=== PATIENT | male | born 1975 | race Two or more races ===

== ENCOUNTER 2020-08-08 17:14 | Emergency (ER) | payer OTHER, SELFPAY ==
--- NOTE | 2020-08-08 | CT_ITS ---
EXAMINATION: CT ABDOMEN AND PELVIS WITHOUT CONTRAST CLINICAL INFORMATION: Hematuria COMPARISON: None TECHNIQUE: Multidetector volumetric imaging was performed from the superior aspect of the liver through the pubic symphysis. Sagittal and coronal reformatted images were obtained on the technologist's workstation. This CT examination was performed using dose optimization techniques as appropriate, variously including the following: *Automated exposure control *Adjustment of mA and/or kV according to patient size (this includes techniques or standardized protocols for targeted exams where dose is matched to indication/reason for exam; i.e. extremities or head) *Use of iterative reconstruction technique DLP: 1105 mGy-cm FINDINGS: LUNG BASES: The visualized lung bases are unremarkable. LIVER, GALLBLADDER, AND BILIARY TREE: The liver is normal in size, shape, and attenuation. No focal hepatic lesion or biliary ductal dilatation is present. The gallbladder is contracted. There is no bile duct dilatation. PANCREAS: Unremarkable. SPLEEN: Unremarkable. ADRENAL GLANDS: Unremarkable. KIDNEYS AND URETERS: Right kidney: No calculus or hydronephrosis. No dilatation of ureter. Left kidney: Approximately 5 stones measuring 1 mm and smaller is seen scattered in the left kidney. There is mild hydronephrosis of left kidney to the ureterovesical junction. No ureteral stone is seen. BLADDER: Unremarkable. GASTROINTESTINAL TRACT: The small and large bowel are unremarkable. The appendix is likely surgically absent. It is not visualized. There are surgical clips in the mesentery in the right lower quadrant.. There is no inflammation or fluid in mesentery. ABDOMINAL WALL: No significant hernia is appreciated. LYMPH NODES: Normal. VASCULAR: Unremarkable. PELVIC VISCERA: Unremarkable. OSSEOUS STRUCTURES: Unremarkable. IMPRESSION: Multiple small left renal stones. Mild hydronephrosis of the left ureter to the ureterovesical junction but no ureteral stone
[2020-08-08 20:38] VITALS: BP 148/99; PULSE 71; RESP 16; TEMP 37.1; O2SAT 99; BMI 100.1
--- NOTE | 2020-08-08 21:19 | ED_ITS ---
HPI - General Adult General Chief complaint: General Medical Stated complaint: GENITAL PAIN Time Seen by Provider: 08/08/20 21:18 Source: patient Mode of arrival: ambulatory Limitations: no limitations History of Present Illness complaint: testicular pain Onset (ago): hour(s) (7) Radiation: non-radiation Severity: moderate Quality: burning Related Data Previous Rx's Medication Instructions Recorded naproxen [Naprosyn] 500 mg PO BID #20 tab 08/09/20 tamsulosin [Flomax] 0.4 mg PO DAILY #10 cap 08/09/20 Allergies Allergy/AdvReac Type Severity Reaction Status Date / Time oxycodone [From PERCOCET] Allergy Intermediate ITCHING, Verified 08/08/20 22:29 rash and itching, itching acetaminophen [Percocet] Allergy Unknown itching Verified 08/08/20 22:29 Codeine Sulfate Allergy Unknown rash and Uncoded 06/02/20 00:00 itching Review of Systems Constitutional: Constitutional: Reports no additional constitutional complaints Eyes: Eyes: Reports no additional eye complaints ENT: Denies dizziness Cardiovascular: Cardiovascular: Reports no additional cardiovascular complaints Respiratory: Respiratory: Reports as per HPI Gastrointestinal: Gastrointestinal: Reports no additional gastrointestinal complaints Genitourinary: Genitourinary: Reports difficulty urinating Comments: hematuria Musculoskeletal: Musculoskeletal: Reports no additional musculoskeletal complaints Integumentary/Breasts: Skin/Breast: Denies rash Neurologic: Reports system reviewed and no additional complaints, except as documented, Denies dizziness and Denies Sensory deficit (Neuro) Psychiatric: Psychiatric: Denies anxiety [facility] Past Medical History Medical History (Updated 08/09/20 @ 00:01 by Jimmy Hernandez MD) High cholesterol Social History Social History Advance Directives: No Advance Directives Information Provided: Yes Physical Exam Vital Signs and I&O and Narrative: Vital Signs and I&O: Vital Signs Temp 98.6 F 08/08/20 22:00 Pulse 57 08/08/20 22:00 Resp 18 08/08/20 22:00 BP 127/83 08/08/20 22:00 Pulse Ox 97 08/08/20 22:00 Intake & Output 08/08/20 08/08/20 08/09/20 06:59 18:59 06:59 Weight 290 kg Body Mass Index 100.1 Const: Nutritional Appearance: obese Orientation/consciousness: oriented to person and patient oriented x3 Limitations: no limitations HENMT: Head: Yes normal to inspection Ears: external ears normal General nose exam: Normal external nose present Mouth: Normal oral and palatal mucosa present and oropharynx normal Throat: Yes posterior oropharynx normal Eyes: General: appearance normal, both eyes and all related structures Neck: Other: supple Neck: Yes normal visual inspection Chest: Chest palpation & inspection: normal inspection of the chest Resp: Auscultation: clear to auscultation bilaterally Cardio: Jugular venous distension: no JVD Rate: regular rate Rhythm: regular rhythm Heart sounds: S1 normal heart sound present and S2 normal heart sound present GI: Inspection: Yes normal to inspection Palpation (GI): Soft to palpation, nontender and No hepatosplenomegaly present Auscultation: normal bowel sounds : Other: penis and testicles are normal General: Yes no CVA tenderness Back/Spine/Pelvis: Back: no CVA tenderness Skin: General skin exam: no rashes or lesions noted Neuro: General: oriented to person and patient oriented x3 Cranial nerves: Yes CN's II-XII intact bilaterally Motor exam (neuro): 5/5 motor strength present throughout Sensory Exam: No Sensory deficit (Neuro) Extrem: General: Yes normal to inspection Psych: Appearance: grossly normal Course Reevaluation(s) Reevaluation #1: CT show hydro but no stone consistent with passed stone will dc home Medical Decision Making MDM Narrative Medical decision making narrative: Patient with signs and symptoms of renal colic, Ct shows hydro Lab Data Labs: Lab Results 08/08/20 Range/Units 22:15 Urine Color YELLOW Urine Appearance CLEAR Urine pH 5.5 (5.0-8.0) Ur Specific [place] 1.025 (1.005-1.025) Urine Protein NEG (NEG-TRACE) MG/DL Urine Glucose (UA) NEG (NEG) MG/DL Urine Ketones NEG (NEG) MG/DL Urine Blood 3+ H (NEG) Urine Nitrite NEG (NEG) Ur Leukocyte Esterase NEG (NEG) Discharge Plan Discharge Clinical Impression: Dysuria, Calculus of kidney Patient Disposition: Home, Self-Care Instructions: Kidney Stones (ED) Additional Instructions: fluids as tolerated Prescriptions: New naproxen [Naprosyn] 500 mg tablet 500 mg PO BID Qty: 20 RF: 0 tamsulosin [Flomax] 0.4 mg capsule 0.4 mg PO DAILY Qty: 10 RF: 0
[2020-08-08 22:00] VITALS: BP 127/83; PULSE 57; RESP 18; TEMP 37; O2SAT 97
--- NOTE | 2020-08-08 22:21 | PC.NURSE ---
needed to wake patient for urine sample and medication administration. pt reports he is still experiencing 8/10 pain.
[2020-08-08] MEDS: Ketorolac Tromethamine 60 MG/2 ML VIAL IM (22:30)
--- NOTE | 2020-08-08 22:43 | PC.NURSE ---
pain pt states after he was medicated his pain decreased to 0/10, vss, will continue to monitor
[2020-08-08 23:24] LABS: Glucose Urine UA NEG (NEG); Leukocyte Esterase Urine NEG (NEG); Nitrite Urine NEG (NEG); PH 5.5 (5.0-8.0); Specific Gravity - Urine 1.025 (1.005-1.025); Urine Blood 3+ (NEG); Urine Ketones NEG (NEG); Urine Protein NEG (NEG-TRACE)
[2020-08-08 23:26] LABS: Appearance Urine CLEAR; Color Urine YELLOW
[2020-08-08 23:59] LABS: Mucus Urine 1+ /LPF; RBC Urine 30-49 /HPF (0); Squamous Epithelial Cell Urine 1+ /LPF; WBC Urine 0-2 /HPF (0-4)
== END 2020-08-09 | disposition home or self-care (01) ==
PROVIDERS: Emergency Provider Emergency Medicine; PCP Internal Medicine
DX: R30.0 Dysuria (principal); N20.0 Calculus of kidney; E78.00 Pure hypercholesterolemia, unspecified; Z79.899 Other long term (current) drug therapy
CPT/HCPCS: 74176; 81001; 96372; 99284; J1885

== ENCOUNTER 2020-09-02 11:13 | Outpatient (REF) | payer OTHER, SELFPAY | END 2020-09-02 11:14 | disposition home or self-care (01) | LOC: HO.LAB 11:13 | PROVIDERS: Visit Provider Internal Medicine | DX: Z20.828 Contact with and (suspected) exposure to other viral communicable diseases (principal) | CPT/HCPCS: 87635 ==

== ENCOUNTER 2020-09-16 12:35 | Outpatient (REF) | payer OTHER, SELFPAY | END 2020-09-16 12:36 | disposition home or self-care (01) | LOC: HO.LAB 12:35 | PROVIDERS: PCP Internal Medicine; Visit Provider Internal Medicine | DX: Z20.828 Contact with and (suspected) exposure to other viral communicable diseases (principal) | CPT/HCPCS: C9803; U0003 ==

== ENCOUNTER → 2020-09-17 11:38 | Outpatient (BNVA) | payer OTHER, SELFPAY | PROVIDERS: PCP Internal Medicine; Referring Provider Internal Medicine; Visit Provider Dietitian, Registered | DX: Z76.89 Persons encountering health services in other specified circumstances (principal) ==

== ENCOUNTER → 2020-10-20 11:13 | Outpatient (BNVA) | payer OTHER, SELFPAY | PROVIDERS: PCP Physician Assistant; Visit Provider Internal Medicine Endocrinology, Diabetes & Metabolism | DX: E29.1 Testicular hypofunction (principal); E66.01 Morbid (severe) obesity due to excess calories; R73.03 Prediabetes | CPT/HCPCS: 99212 ==

== ENCOUNTER 2020-11-03 09:00 | Outpatient (RCR) | payer OTHER, SELFPAY ==
--- NOTE | 2020-10-07 13:34 | MHC.PT.EP ---
[facility] [place] [facility] [place] [facility] [place] Office [address] Siobhan Camacho [address] [phone] F: [phone] F: [phone] F: [phone] F: [phone] Physical Therapy Plan of Care Date of Evaluation: 10/07/20 Date of Surgery: NA Diagnosis: Rhomboid myalgia Assessment: 45 year old male referred for rhomboid myalgia . Pt reports of having sudden onset of pain about 1 week back. He denies any trauma or fall. Examination reveals mild TTP over superior angle of R scapula, 8/10 pain over R side neck, medial border of R scapula and occasionally R arm, decreased cervical ROM, decreased muscle strength, and altered posture. He is independent with all self care activities but has help for IADLS like cleaning, cooking, carrying grocery secondary to L rotator cuff surgery. 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 He is a good candidate for PT based on age, goals, physical impairments and functional limitations. He would benefit from PT to decrease pain, improve ROM, increase muscle strength, postural correction and functional training. Frequency and Duration: The patient will be seen 2/week for 4 weeks Short Term Goals: 1. Pt will have 50% decrease in pain 2 weeks. 2. Pt will have all cervical ROM WNL and pain free in 3 weeks. Senior Underwriting Assistant Goals: 1. Pt will be able to perform all ADLs without pain in 4 weeks. 2. Pt will return to PLOF in 5 weeks. Treatment Plan: Modalities to reduce pain, spasms and effusion. Manual therapy to restore motion and function. Therapeutic exercise to improve strength and flexibility. Neuromuscular re-education for posture and balance. Therapeutic activities to return to functional activities of daily living. Please sign and return to therapist. Thank you for your referral.
--- NOTE | 2020-11-26 10:43 | MHC.PT.DC ---
[facility] [place] Office [place] Office [place] Office [address] Siobhan Camacho [address] [phone] F: [phone] F: [phone] F: [phone] F: [phone] Physical Therapy Discharge Report Diagnosis: Rhomboid myalgia Date of Surgery: NA Date of Evaluation: 10/07/20 Date of Discharge: 11/26/20 Treatments to Date: 8 Cancellations to Date: 0 No Shows to Date: 0 Discharge Status: Improved Function Independent with HEP Discharge Summary: Pt achieved all goals set for him and has returned to PLOF. Pt therefore d/c from therapy Electronically signed by: Dania Guthrie DPT Please sign and return to therapist. Thank you for your referral.
== END 2020-11-26 10:44 | disposition other institution (70) ==
LOC: HO.PT 09:00
PROVIDERS: PCP Physician Assistant; Visit Provider Physician Assistant
DX: M79.18 Myalgia, other site (principal)
CPT/HCPCS: 97014; 97110; 97140; 97161

== ENCOUNTER → 2020-11-03 12:00 | Outpatient (BNVA) | payer OTHER, SELFPAY | PROVIDERS: PCP Physician Assistant; Visit Provider Dietitian, Registered | DX: Z76.89 Persons encountering health services in other specified circumstances (principal) ==

== ENCOUNTER 2020-11-11 22:40 | Emergency (ER) | payer OTHER, SELFPAY ==
[2020-11-11 22:49] VITALS: BP 153/79; PULSE 72; RESP 18; TEMP 36.7; O2SAT 98; BMI 48.4
--- NOTE | 2020-11-12 | ECG_ITS ---
Test Reason : ABDOMINAL PAIN Blood Pressure : / mmHG Vent. Rate : 067 BPM Atrial Rate : 067 BPM P-R Int : 166 ms QRS Dur : 098 ms QT Int : 402 ms P-R-T Axes : 026 024 036 degrees QTc Int : 424 ms Normal sinus rhythm Normal ECG When compared with ECG of 03-FEB-2020 00:17, No significant change was found Referred By: Tania Farr Electronically Signed By:Last Ho
--- NOTE | 2020-11-12 | CT_ITS ---
EXAMINATION: CT ABDOMEN AND PELVIS WITHOUT CONTRAST CLINICAL INFORMATION: Right lower quadrant pain and right flank pain COMPARISON: 08/08/2020 TECHNIQUE: Multidetector volumetric imaging was performed from the superior aspect of the liver through the pubic symphysis. Sagittal and coronal reformatted images were obtained on the technologist's workstation. This CT examination was performed using dose optimization techniques as appropriate, variously including the following: *Automated exposure control *Adjustment of mA and/or kV according to patient size (this includes techniques or standardized protocols for targeted exams where dose is matched to indication/reason for exam; i.e. extremities or head) *Use of iterative reconstruction technique DLP: 1051 mGy-cm FINDINGS: LUNG BASES: The visualized lung bases are unremarkable. LIVER, GALLBLADDER, AND BILIARY TREE: The liver is normal in size, shape, and attenuation. No focal hepatic lesion or biliary ductal dilatation is present. The gallbladder is unremarkable with no evidence of radiopaque gallstones, gallbladder wall thickening, or obvious pericholecystic inflammatory changes. PANCREAS: Unremarkable. SPLEEN: Unremarkable. ADRENAL GLANDS: Unremarkable. KIDNEYS AND URETERS: The kidneys are normal in size, shape, and attenuation. No hydronephrosis or hydroureter. Bilateral renal calculi are noted. There are at least 2 left-sided calculi, seen at the midpole measuring 0.3 cm, 22 cm from the posterior axillary line. There are at least 3-4 left-sided calculi, measuring up to 0.3 cm at the lower pole noted, 19.5 cm from the posterior axillary line. BLADDER: Unremarkable. GASTROINTESTINAL TRACT: The stomach is unremarkable. Normal caliber small bowel. No obstruction. No colonic wall thickening or acute inflammation. No free air or free fluid. The appendix is likely absent. ABDOMINAL WALL: Small fat-containing left inguinal hernia. LYMPH NODES: Normal. VASCULAR: Normal caliber aorta with minimal atherosclerotic calcification. PELVIC VISCERA: The prostate and seminal vesicles are unremarkable. OSSEOUS STRUCTURES: No acute or suspicious osseous abnormality. Degenerative changes noted in the spine. Vacuum disc phenomenon at L5-S1. CT/CT abdomen pelvis wo con IMPRESSION: No acute finding in the abdomen or pelvis. Nonobstructing bilateral renal calculi. No inflammatory changes.
--- NOTE | 2020-11-12 00:17 | PC.NURSE ---
MAURICIO Marin placed patient's IV as well as drawing of blood and administration of IV
[2020-11-12] MEDS: 0.9 % Sodium Chloride 1,000 ML 999 ML IVCONT (00:20)
--- NOTE | 2020-11-12 00:51 | PC.NURSE ---
Patient at CAT Scan for imaging.
[2020-11-12 01:06] LABS: Basophils Percent Auto 0.3 % (0-2); Eosinophils Absolute Auto 0.1 X10*3/uL (0.0-0.4); Eosinophils Percent Auto 1.9 % (0-4); Hematocrit 43.2 % (42-52); Hemoglobin 14.5 g/dl (14.0-18.0); Imm Gran Abs Auto 0.02 X10*3/uL (0.00-0.03); Imm Gran Pct Auto 0.3 % (0.0-0.4); Lymphocytes Absolute Auto 2.2 X10*3/uL (1.2-4.9); Lymphocytes Percent Auto 31.6 % (20-40); Mean Corpuscular HGB Conc 33.6 g/dl (31.0-36.0); Mean Corpuscular Hemoglobin 29.1 pg (27.0-33.0); Mean Corpuscular Volume 86.7 fL (80-98); Mean Platelet Volume 10.6 fL (9.4-12.4); Monocytes Absolute Auto 0.7 X10*3/uL (0.1-1.2); Monocytes Percent Auto 10.1 % (2-11); Neutrophils Absolute Auto 3.8 X10*3/uL (2.0-8.3); Neutrophils Percent Auto 55.8 % (45-73); Platelet Count 273 X10*3/uL (160-400); Red Blood Count 4.98 X10*6/uL (4.60-5.80); Red Cell Distribution Width 13.2 % (11.0-16.0); White Blood Count 6.8 X10*3/uL (4.8-10.8)
[2020-11-12 01:08] LABS: MANUAL DIFF FLAG NO
[2020-11-12 01:10] LABS: Glucose Urine UA NEG (NEG); Leukocyte Esterase Urine NEG (NEG); Nitrite Urine NEG (NEG); Specific Gravity - Urine 1.025 (1.005-1.025); Urine Blood NEG (NEG); Urine Ketones NEG (NEG); Urine Protein NEG (NEG-TRACE)
[2020-11-12 01:12] LABS: Appearance Urine CLEAR; Color Urine YELLOW
[2020-11-12 01:19] LABS: Partial Thromboplastin Time 35.8 SEC (24.1-38.0)
[2020-11-12 01:28] LABS: Alanine Aminotransferase 76 U/L (0-40); Albumin Level 4.5 g/dL (3.5-5.0); Alkaline Phosphatase 77 U/L (39-117); Anion Gap 15 (12-20); Aspartate Amino Transferase 35 U/L (5-37); Bilirubin Direct 0.2 mg/dL (0.0-0.5); Bilirubin Total 0.6 mg/dL (0.0-1.0); Blood Urea Nitrogen 20 mg/dL (9-16); Calcium 9.9 mg/dL (8.4-10.2); Carbon Dioxide 26 mmol/L (22-29); Chloride 105 mmol/L (96-108); Creatinine Clr Calc Pharmacy 85.2; Estimated Glomerular Filt Rate 54; Glucose Random 87 mg/dL (60-115); Lipase 53 U/L (8-78); Potassium 4.3 mmol/l (3.3-5.1); Sodium 142 mmol/L (135-145); Total Protein 7.5 g/dL (6.5-8.0)
--- NOTE | 2020-11-12 01:51 | ED.ABDPAIN ---
HPI - Abdominal Pain General Chief Complaint: Abdominal Pain Stated Complaint: back pain Time Seen by Provider: 11/12/20 00:00 Source: patient Mode of arrival: ambulatory Limitations: no limitations History of Present Illness HPI narrative: 45-year-old male with past medical history of degenerative disc disease, empty sella, rhomboid myalgia, sleep apnea, morbid obesity, hypertension, hyperlipidemia, and kidney stones presents with right flank pain. He has had this right flank pain for 3 days and states that it feels like a kidney stone. He denies fevers, chills, chest pain or pressure, palpitations, shortness of breath, abdominal distention, dysuria, hematuria, edema, and any other concerning symptoms at this time. MD elicited complaint: flank pain Pertinent past history: kidney stones Onset (ago): day(s) (3) Pain Consistency: constant Location: R flank Severity: severe Pain scale (0-10): 9 Quality: stabbing and aching Radiation: RLQ Migration to: R flank Exacerbating factors: movement Relieving factors: nothing Associated symptoms: denies other symptoms Related Data Home Medications Medication Instructions Recorded Confirmed tadalafil 20 mg tablet 20 mg PO DAILY PRN tab 11/04/20 11/11/20 Previous Rx's Medication Instructions Recorded phentermine 30 mg capsule 30 mg PO DAILY 30 Days #30 cap 10/20/20 testosterone 30 mg/actuation (1.5 2 pump TOPICAL DAILY 30 Days #90 ml 10/20/20 mL) transderm solution metered pump lisinopril 5 mg tablet 5 mg PO DAILY 90 Days #90 tab 11/04/20 simvastatin 40 mg tablet 40 mg PO BEDTIME 90 Days #90 tab 11/04/20 prednisone 20 mg PO DAILY 7 Days #7 tab 11/12/20 tamsulosin [Flomax] 0.4 mg PO DAILY 14 Days #14 cap 11/12/20 tramadol 50 mg PO Q8H PRN 3 Days #10 tab 11/12/20 Allergies Allergy/AdvReac Type Severity Reaction Status Date / Time oxycodone [From PERCOCET] Allergy Intermediate ITCHING, Verified 11/11/20 22:49 rash and itching, itching codeine Allergy Unknown rash and Verified 11/11/20 22:49 itching Review of Systems Review of Systems Constitutional: No Fever, No Chills ENT/Mouth: No sore throat Eyes: No Eye Pain, No Swelling, No Redness Cardiovascular: No Chest Pain, No SOB Respiratory: No Cough, No Sputum, No Wheezing Gastrointestinal: No Nausea, no Vomiting, No Diarrhea, positive abdominal pain Genitourinary: No Dysuria, no urinary frequency, positive Hematuria, positive Flank Pain, positive hesitancy Musculoskeletal: No joint pain, No Myalgias Skin: No Skin Lesions, No rash Neuro: No Weakness, No Numbness, No Headache Psych: No Anxiety/Panic, No Depression Heme/Lymph: No Bruising, No Lymphadenopathy Endocrine: No Polyuria, No Polydipsia Yes all other systems are reviewed and are negative Physical Exam Vital Signs: Vital Signs: Last Vital Signs Temp 98.0 F 11/11/20 22:49 Pulse 72 11/11/20 22:49 Resp 18 11/11/20 22:49 BP 153/79 H 11/11/20 22:49 Pulse Ox 98 11/11/20 22:49 Body Mass Index 48.4 Appearance: Alert. Oriented X3. Moderate distress. Eyes: Pupils equal, round and reactive to light. ENT: Pharynx normal. Neck: Normal inspection. Neck supple. CVS: Normal heart rate and rhythm. Pulses normal. Respiratory: No respiratory distress. Breath sounds normal. Abdomen: Soft and tenderness to palpation to the right lower quadrant, CVA tenderness to the right flank. Skin: Skin warm and dry. Normal skin color. Normal skin turgor. Extremities: No lower extremity edema. Neuro: No motor deficit. No sensory deficit. Course Course Course Narrative: 45-year-old male presents with right flank pain for 3 days, denies fevers, chills, chest pain, palpitations, shortness breath. He does have known kidney stones, as he has had this for 3 days we will order CT scan of the abdomen to rule out pyelo, and obstruction. CT scan positive for bilateral renal stones nonobstructing. No indication of pyelo or stranding. Plan of care is to discharge home with pain management, Flomax and prednisone. Patient verbalized understanding of and agrees to plan of care discharge home. MDM - Abdominal Pain Differential Diagnosis Differential diagnosis: Likely abdominal pain, acute appendicitis, bowel perforation, calculus of kidney, diverticulitis, pancreatitis and renal colic Medical Records Attestation: I reviewed the patient's medical records. Lab Data Attestation: I reviewed the patient's lab results. Result diagrams: 11/12/20 00:55 11/12/20 00:55 Labs: Lab Results 11/12/20 11/12/20 11/12/20 Range/Units 00:55 00:55 00:55 WBC 6.8 (4.8-10.8) X10*3/uL RBC 4.98 (4.60-5.80) X10*6/uL Hgb 14.5 (14.0-18.0) g/dl Hct 43.2 (42-52) % MCV 86.7 (80-98) fL MCH 29.1 (27.0-33.0) pg MCHC 33.6 (31.0-36.0) g/dl RDW 13.2 (11.0-16.0) % Plt Count 273 (160-400) X10*3/uL MPV 10.6 (9.4-12.4) fL Immature Gran % (Auto) 0.3 (0.0-0.4) % Neut % (Auto) 55.8 (45-73) % Lymph % (Auto) 31.6 (20-40) % Harvey % (Auto) 10.1 (2-11) % Eos % (Auto) 1.9 (0-4) % Baso % (Auto) 0.3 (0-2) % Lymph # (Auto) 2.2 (1.2-4.9) X10*3/uL Harvey # (Auto) 0.7 (0.1-1.2) X10*3/uL Eos # (Auto) 0.1 (0.0-0.4) X10*3/uL Baso # (Auto) 0.0 (0.0-0.2) X10*3/uL Abs Immat Gran (auto) 0.02 (0.00-0.03) X10*3/uL Absolute Neuts (auto) 3.8 (2.0-8.3) X10*3/uL Absolute Nucleated RBC 0.000 (0.0-0.012) X10*3/uL Nucleated RBC % (auto) 0.0 (0.0-0.2) /100WBC PT 12.0 (10.8-13.0) SEC INR 1.0 (0.9-1.1) APTT 35.8 (24.1-38.0) SEC Sodium 142 (135-145) mmol/L Potassium 4.3 (3.3-5.1) mmol/l Chloride 105 (96-108) mmol/L Carbon Dioxide 26 (22-29) mmol/L Anion Gap 15 (12-20) BUN 20 H (9-16) mg/dL Creatinine 1.42 H (0.5-1.4) mg/dL Estim Creat Clear Calc 85.2 Estimated GFR 54 Random Glucose 87 (60-115) mg/dL Calcium 9.9 (8.4-10.2) mg/dL Total Bilirubin 0.6 (0.0-1.0) mg/dL Direct Bilirubin 0.2 (0.0-0.5) mg/dL AST 35 (5-37) U/L ALT 76 H (0-40) U/L Alkaline Phosphatase 77 (39-117) U/L Total Protein 7.5 (6.5-8.0) g/dL Albumin 4.5 (3.5-5.0) g/dL Lipase 53 (8-78) U/L Urine Color Urine Appearance Urine pH (5.0-8.0) Ur Specific [place] (1.005-1.025) Urine Protein (NEG-TRACE) MG/DL Urine Glucose (UA) (NEG) MG/DL Urine Ketones (NEG) MG/DL Urine Blood (NEG) Urine Nitrite (NEG) Ur Leukocyte Esterase (NEG) 11/12/20 Range/Units 00:55 WBC (4.8-10.8) X10*3/uL RBC (4.60-5.80) X10*6/uL Hgb (14.0-18.0) g/dl Hct (42-52) % MCV (80-98) fL MCH (27.0-33.0) pg MCHC (31.0-36.0) g/dl RDW (11.0-16.0) % Plt Count (160-400) X10*3/uL MPV (9.4-12.4) fL Immature Gran % (Auto) (0.0-0.4) % Neut % (Auto) (45-73) % Lymph % (Auto) (20-40) % Harvey % (Auto) (2-11) % Eos % (Auto) (0-4) % Baso % (Auto) (0-2) % Lymph # (Auto) (1.2-4.9) X10*3/uL Harvey # (Auto) (0.1-1.2) X10*3/uL Eos # (Auto) (0.0-0.4) X10*3/uL Baso # (Auto) (0.0-0.2) X10*3/uL Abs Immat Gran (auto) (0.00-0.03) X10*3/uL Absolute Neuts (auto) (2.0-8.3) X10*3/uL Absolute Nucleated RBC (0.0-0.012) X10*3/uL Nucleated RBC % (auto) (0.0-0.2) /100WBC PT (10.8-13.0) SEC INR (0.9-1.1) APTT (24.1-38.0) SEC Sodium (135-145) mmol/L Potassium (3.3-5.1) mmol/l Chloride (96-108) mmol/L Carbon Dioxide (22-29) mmol/L Anion Gap (12-20) BUN (9-16) mg/dL Creatinine (0.5-1.4) mg/dL Estim Creat Clear Calc Estimated GFR Random Glucose (60-115) mg/dL Calcium (8.4-10.2) mg/dL Total Bilirubin (0.0-1.0) mg/dL Direct Bilirubin (0.0-0.5) mg/dL AST (5-37) U/L ALT (0-40) U/L Alkaline Phosphatase (39-117) U/L Total Protein (6.5-8.0) g/dL Albumin (3.5-5.0) g/dL Lipase (8-78) U/L Urine Color YELLOW Urine Appearance CLEAR Urine pH 6.0 (5.0-8.0) Ur Specific [place] 1.025 (1.005-1.025) Urine Protein NEG (NEG-TRACE) MG/DL Urine Glucose (UA) NEG (NEG) MG/DL Urine Ketones NEG (NEG) MG/DL Urine Blood NEG (NEG) Urine Nitrite NEG (NEG) Ur Leukocyte Esterase NEG (NEG) Imaging Data CT scan - abdomen: Attestation: I personally reviewed and interpreted this imaging study as follows: Radiologist's impression: EXAMINATION: CT ABDOMEN AND PELVIS WITHOUT CONTRAST CLINICAL INFORMATION: Right lower quadrant pain and right flank pain COMPARISON: 08/08/2020 TECHNIQUE: Multidetector volumetric imaging was performed from the superior aspect of the liver through the pubic symphysis. Sagittal and coronal reformatted images were obtained on the technologist's workstation. This CT examination was performed using dose optimization techniques as appropriate, variously including the following: *Automated exposure control *Adjustment of mA and/or kV according to patient size (this includes techniques or standardized protocols for targeted exams where dose is matched to indication/reason for exam; i.e. extremities or head) *Use of iterative reconstruction technique DLP: 1051 mGy-cm FINDINGS: LUNG BASES: The visualized lung bases are unremarkable. LIVER, GALLBLADDER, AND BILIARY TREE: The liver is normal in size, shape, and attenuation. No focal hepatic lesion or biliary ductal dilatation is present. The gallbladder is unremarkable with no evidence of radiopaque gallstones, gallbladder wall thickening, or obvious pericholecystic inflammatory changes. PANCREAS: Unremarkable. SPLEEN: Unremarkable. ADRENAL GLANDS: Unremarkable. KIDNEYS AND URETERS: The kidneys are normal in size, shape, and attenuation. No hydronephrosis or hydroureter. Bilateral renal calculi are noted. There are at least 2 left-sided calculi, seen at the midpole measuring 0.3 cm, 22 cm from the posterior axillary line. There are at least 3-4 left-sided calculi, measuring up to 0.3 cm at the lower pole noted, 19.5 cm from the posterior axillary line. BLADDER: Unremarkable. GASTROINTESTINAL TRACT: The stomach is unremarkable. Normal caliber small bowel. No obstruction. No colonic wall thickening or acute inflammation. No free air or free fluid. The appendix is likely absent. ABDOMINAL WALL: Small fat-containing left inguinal hernia. LYMPH NODES: Normal. VASCULAR: Normal caliber aorta with minimal atherosclerotic calcification. PELVIC VISCERA: The prostate and seminal vesicles are unremarkable. OSSEOUS STRUCTURES: No acute or suspicious osseous abnormality. Degenerative changes noted in the spine. Vacuum disc phenomenon at L5-S1. CT/CT abdomen pelvis wo con IMPRESSION: No acute finding in the abdomen or pelvis. Nonobstructing bilateral renal calculi. No inflammatory changes. ECG Data Attestation: I personally reviewed and interpreted this ECG as follows: ECG interpretation date: 11/12/20 ECG interpretation time: 00:56 Prior ECG tracings: available for review Interpretation: Vent. Rate : 067 BPM Atrial Rate : 067 BPM P-R Int : 166 ms QRS Dur : 098 ms QT Int : 402 ms P-R-T Axes : 026 024 036 degrees QTc Int : 424 ms Normal sinus rhythm Normal ECG When compared with ECG of 03-FEB-2020 00:17, No significant change was found Discharge Plan Discharge Clinical Impression: Calculus of kidney Patient Disposition: Home, Self-Care Instructions: Kidney Stones (ED) Additional Instructions: You were evaluated for right flank pain. CT scan of the abdomen indicates bilateral nonobstructing kidney stones please continue to follow-up with Dr Casey as scheduled. We prescribed prednisone, tramadol, and Flomax. Please take these medications as directed. Tramadol is a narcotic and has high risk for addiction and abuse. Do not drive or operate machinery while that taking this medication. Medication can cause drowsiness, delayed reaction time, an increased risk for falls. This medication is also constipating. Drink plenty of fluids. Thank you for choosing this emergency department for evaluation. Please follow-up with primary care physician as needed. Return to the emergency department for any new, concerning, or worsening symptoms. Prescriptions: New prednisone 20 mg tablet 20 mg PO DAILY 7 Days Qty: 7 RF: 0 tramadol 50 mg tablet 50 mg PO Q8H PRN (Reason: pain) 3 Days Qty: 10 RF: 0 tamsulosin [Flomax] 0.4 mg capsule 0.4 mg PO DAILY 14 Days Qty: 14 RF: 0 No Action tadalafil 20 mg tablet 20 mg PO DAILY PRN (Reason: Erectile Dysfunction) RF: 0 simvastatin 40 mg tablet 40 mg PO BEDTIME 90 Days Qty: 90 RF: 1 lisinopril 5 mg tablet 5 mg PO DAILY 90 Days Qty: 90 RF: 1 testosterone 30 mg/actuation (1.5 mL) solution in metered pump w/aydee 2 pump topical DAILY 30 Days Qty: 90 RF: 3 phentermine 30 mg capsule 30 mg PO DAILY 30 Days Qty: 30 RF: 3 PMFSH Past Medical History Attestation statement: The following information was validated with the patient. Medical History Benign essential hypertension Empty sella Erectile dysfunction Hypogonadism in male Lumbar degenerative disc disease Morbid obesity with BMI of 50.0-59.9, adult Pure hypercholesterolemia Risk factors for obstructive sleep apnea Surgical History History of appendectomy History of lithotripsy History of removal of cyst History of rotator cuff surgery History of umbilical hernia repair Family History Family History Father Liver cancer Morbidly obese Mother Hypertension Diabetes Asthma Social History Social History Alcohol intake: unknown Smoking Status: Unknown if ever smoked Use of substances other than those prescribed or required for medical reasons: No Advance Directives: No
[2020-11-12] MEDS: predniSONE 20 MG TABLET PO (02:11)
[2020-11-12] MEDS: traMADoL HCL 50 MG TABLET PO (02:11)
[2020-11-12] MEDS: Tamsulosin HCL 0.4 MG CAPSULE PO (02:12)
== END 2020-11-12 02:19 | disposition home or self-care (01) ==
PROVIDERS: Nurse Practitioner Family; Emergency Provider Emergency Medicine
DX: N20.0 Calculus of kidney (principal); I10 Essential (primary) hypertension; Z87.442 Personal history of urinary calculi
CPT/HCPCS: 36415; 74176; 80048; 80076; 81003; 83690; 85025; 85610; 85730; 93005; 96360; 99284

== ENCOUNTER 2020-11-27 09:40 | Outpatient (REF) | payer OTHER, SELFPAY ==
[2020-11-27 10:33] LABS: MANUAL DIFF FLAG NO
[2020-11-27 10:39] LABS: Basophils Percent Auto 0.4 % (0-2); Eosinophils Absolute Auto 0.1 X10*3/uL (0.0-0.4); Eosinophils Percent Auto 1.9 % (0-4); Hematocrit 42.8 % (42-52); Hemoglobin 14.3 g/dl (14.0-18.0); Imm Gran Abs Auto 0.02 X10*3/uL (0.00-0.03); Imm Gran Pct Auto 0.4 % (0.0-0.4); Lymphocytes Absolute Auto 1.5 X10*3/uL (1.2-4.9); Lymphocytes Percent Auto 25.7 % (20-40); Mean Corpuscular HGB Conc 33.4 g/dl (31.0-36.0); Mean Corpuscular Hemoglobin 28.9 pg (27.0-33.0); Mean Corpuscular Volume 86.5 fL (80-98); Mean Platelet Volume 10.2 fL (9.4-12.4); Monocytes Absolute Auto 0.5 X10*3/uL (0.1-1.2); Monocytes Percent Auto 9.1 % (2-11); Neutrophils Absolute Auto 3.6 X10*3/uL (2.0-8.3); Neutrophils Percent Auto 62.5 % (45-73); Platelet Count 256 X10*3/uL (160-400); Red Blood Count 4.95 X10*6/uL (4.60-5.80); Red Cell Distribution Width 13.1 % (11.0-16.0); White Blood Count 5.7 X10*3/uL (4.8-10.8)
[2020-11-27 11:00] LABS: Alanine Aminotransferase 73 U/L (0-40); Albumin Level 4.6 g/dL (3.5-5.0); Alkaline Phosphatase 73 U/L (39-117); Anion Gap 14 (12-20); Aspartate Amino Transferase 35 U/L (5-37); Bilirubin Total 0.6 mg/dL (0.0-1.0); Blood Urea Nitrogen 20 mg/dL (9-16); Calcium 10.3 mg/dL (8.4-10.2); Carbon Dioxide 25 mmol/L (22-29); Chloride 104 mmol/L (96-108); Cholesterol 171 mg/dL; Estimated Glomerular Filt Rate 60; Glucose Fasting 102 mg/dL (60-99); HDL Cholesterol 35 mg/dL; LDL Cholesterol Calculated 100 mg/dl; Potassium 4.3 mmol/l (3.3-5.1); Sodium 139 mmol/L (135-145); Total Protein 7.4 g/dL (6.5-8.0); Triglycerides 183 mg/dL
[2020-11-27 11:22] LABS: TSH reflex Free T4 1.78 mIU/mL (0.32-4.0)
[2020-11-27 14:03] LABS: Glucose Urine UA NEG (NEG); Leukocyte Esterase Urine NEG (NEG); Nitrite Urine NEG (NEG); Specific Gravity - Urine 1.025 (1.005-1.025); Urine Blood NEG (NEG); Urine Ketones NEG (NEG); Urine Protein NEG (NEG-TRACE)
[2020-11-27 14:11] LABS: Appearance Urine CLEAR; Color Urine YELLOW
[2020-11-28 17:47] LABS: Sex Hormone Binding Globulin 11 nmol/L (10-50)
[2020-12-02 16:42] LABS: Testosterone, Free 27.4 pg/mL (35.0-155.0); Testosterone, Total 109 ng/dL (250-1100)
[2020-12-04 06:07] LABS: Testosterone-Albumin 4.4 g/dL (3.6-5.1); Testosterone-Bioavailable 52.3 ng/dL (110.0-575.0); Testosterone-SHBG 10 nmol/L (10-50); Testosterone-Total 100 ng/dL (250-1100)
== END 2020-11-27 09:41 | disposition home or self-care (01) ==
LOC: HO.LAB 09:40
PROVIDERS: Absent Provider Internal Medicine; PCP Internal Medicine; Visit Provider Internal Medicine Endocrinology, Diabetes & Metabolism
DX: E66.01 Morbid (severe) obesity due to excess calories (principal); E78.00 Pure hypercholesterolemia, unspecified; I10 Essential (primary) hypertension; E29.1 Testicular hypofunction; Z68.43 Body mass index [BMI] 50.0-59.9, adult
CPT/HCPCS: 36415; 80053; 80061; 81003; 84270; 84402; 84403; 84443; 85025

== ENCOUNTER → 2020-12-04 10:37 | Outpatient (REF) | payer OTHER, SELFPAY | LOC: HO.SL 10:37 | PROVIDERS: PCP Internal Medicine; Visit Provider Internal Medicine | DX: G47.33 Obstructive sleep apnea (adult) (pediatric) (principal); I10 Essential (primary) hypertension; E78.00 Pure hypercholesterolemia, unspecified | CPT/HCPCS: 95806 ==

== ENCOUNTER → 2021-01-01 14:07 | Outpatient (BNVA) | payer OTHER, SELFPAY | PROVIDERS: PCP Internal Medicine; Visit Provider Dietitian, Registered ==

== ENCOUNTER → 2021-02-22 19:40 | Outpatient (REF) | payer OTHER, SELFPAY | LOC: HO.SL 19:40 | PROVIDERS: Visit Provider Internal Medicine | DX: G47.33 Obstructive sleep apnea (adult) (pediatric) (principal) | CPT/HCPCS: 95811 ==

== ENCOUNTER 2021-02-23 06:23 | Outpatient (REF) | payer OTHER, SELFPAY ==
[2021-02-23 07:26] LABS: MANUAL DIFF FLAG NO
[2021-02-23 07:30] LABS: Basophils Percent Auto 0.4 % (0-2); Eosinophils Absolute Auto 0.1 X10*3/uL (0.0-0.4); Eosinophils Percent Auto 1.2 % (0-4); Hematocrit 44.1 % (42-52); Hemoglobin 14.6 g/dl (14.0-18.0); Hemoglobin 14.7 g/dl (14.0-18.0); Imm Gran Abs Auto 0.03 X10*3/uL (0.00-0.03); Imm Gran Pct Auto 0.4 % (0.0-0.4); Lymphocytes Percent Auto 25.6 % (20-40); Mean Corpuscular HGB Conc 33.4 g/dl (31.0-36.0); Mean Corpuscular Hemoglobin 29.3 pg (27.0-33.0); Mean Corpuscular Volume 87.8 fL (80-98); Mean Platelet Volume 10.4 fL (9.4-12.4); Monocytes Absolute Auto 0.7 X10*3/uL (0.1-1.2); Monocytes Percent Auto 9.6 % (2-11); Neutrophils Absolute Auto 4.8 X10*3/uL (2.0-8.3); Neutrophils Percent Auto 62.8 % (45-73); Platelet Count 272 X10*3/uL (160-400); Red Blood Count 5.01 X10*6/uL (4.60-5.80); Red Cell Distribution Width 13.1 % (11.0-16.0); White Blood Count 7.7 X10*3/uL (4.8-10.8)
[2021-02-23 08:10] LABS: Alanine Aminotransferase 66 U/L (0-40); Albumin Level 4.5 g/dL (3.5-5.0); Alkaline Phosphatase 70 U/L (39-117); Anion Gap 14 (12-20); Aspartate Amino Transferase 37 U/L (5-37); Bilirubin Total 0.8 mg/dL (0.0-1.0); Blood Urea Nitrogen 19 mg/dL (9-16); Calcium 9.8 mg/dL (8.4-10.2); Carbon Dioxide 27 mmol/L (22-29); Chloride 107 mmol/L (96-108); Cholesterol 174 mg/dL; Estimated Glomerular Filt Rate 58; Glucose Fasting 104 mg/dL (60-99); HDL Cholesterol 35 mg/dL; LDL Cholesterol Calculated 99 mg/dl; Potassium 4.6 mmol/L (3.3-5.1); Sodium 143 mmol/L (135-145); Total Protein 6.8 g/dL (6.5-8.0); Triglycerides 204 mg/dL
[2021-02-23 08:16] LABS: TSH reflex Free T4 0.97 uIU/mL (0.32-4.0)
[2021-02-23 08:51] LABS: Glucose Urine UA NEG (NEG); Leukocyte Esterase Urine NEG (NEG); Nitrite Urine NEG (NEG); PH 5.5 (5.0-8.0); Specific Gravity - Urine 1.025 (1.005-1.025); Urine Blood NEG (NEG); Urine Ketones NEG (NEG); Urine Protein NEG (NEG-TRACE)
[2021-02-23 08:54] LABS: Appearance Urine CLEAR; Color Urine YELLOW
== END 2021-02-23 06:24 | disposition home or self-care (01) ==
LOC: HO.LAB 06:23
PROVIDERS: PCP Internal Medicine; Visit Provider Internal Medicine Endocrinology, Diabetes & Metabolism
DX: I10 Essential (primary) hypertension (principal); E66.01 Morbid (severe) obesity due to excess calories; Z68.43 Body mass index [BMI] 50.0-59.9, adult; E29.1 Testicular hypofunction
CPT/HCPCS: 36415; 80053; 80061; 81003; 84443; 85014; 85018; 85025

== ENCOUNTER 2021-04-22 10:54 | Outpatient (REF) | payer OTHER, SELFPAY ==
[2021-04-22 12:00] LABS: Hemoglobin 14.5 g/dl (14.0-18.0)
[2021-04-22 12:54] LABS: Alanine Aminotransferase 62 U/L (0-40); Albumin Level 4.5 g/dL (3.5-5.0); Alkaline Phosphatase 75 U/L (39-117); Anion Gap 13 (12-20); Aspartate Amino Transferase 55 U/L (5-37); Bilirubin Total 1.1 mg/dL (0.0-1.0); Blood Urea Nitrogen 17 mg/dL (9-16); Calcium 10.5 mg/dL (8.4-10.2); Carbon Dioxide 26 mmol/L (22-29); Chloride 105 mmol/L (96-108); Cholesterol 171 mg/dL; Estimated Glomerular Filt Rate 57; Glucose Random 93 mg/dL (60-115); HDL Cholesterol 37 mg/dL; LDL Cholesterol Calculated 93 mg/dl; Potassium 4.7 mmol/L (3.3-5.1); Sodium 139 mmol/L (135-145); Total Protein 7.4 g/dL (6.5-8.0); Triglycerides 207 mg/dL
[2021-04-22 13:00] LABS: Prostate Specific Antigen 0.42 ng/mL (<0.05-4.0)
[2021-04-23 10:36] LABS: Sex Hormone Binding Globulin 13 nmol/L (10-50)
[2021-04-26 12:12] LABS: Testosterone-Albumin 4.5 g/dL (3.6-5.1); Testosterone-Bioavailable 95.3 ng/dL (110.0-575.0); Testosterone-Free 46.3 pg/mL (46.0-224.0); Testosterone-SHBG 14 nmol/L (10-50); Testosterone-Total 207 ng/dL (250-1100)
[2021-04-29 17:16] LABS: Testosterone, Free 46.7 pg/mL (35.0-155.0); Testosterone, Total 216 ng/dL (250-1100)
== END 2021-04-22 10:55 | disposition home or self-care (01) ==
LOC: HO.LAB 10:54
PROVIDERS: PCP Internal Medicine; Visit Provider Internal Medicine Endocrinology, Diabetes & Metabolism
DX: Z12.5 Encounter for screening for malignant neoplasm of prostate (principal); E29.1 Testicular hypofunction; E23.6 Other disorders of pituitary gland; Z79.899 Other long term (current) drug therapy
CPT/HCPCS: 36415; 80053; 80061; 84153; 84270; 84402; 84403; 85014; 85018; 99212

== ENCOUNTER 2021-04-30 10:54 | Outpatient (REF) | payer OTHER, SELFPAY ==
[2021-04-30 12:24] LABS: Alanine Aminotransferase 60 U/L (0-40); Albumin Level 4.4 g/dL (3.5-5.0); Alkaline Phosphatase 75 U/L (39-117); Anion Gap 9 (12-20); Aspartate Amino Transferase 40 U/L (5-37); Bilirubin Total 0.8 mg/dL (0.0-1.0); Blood Urea Nitrogen 15 mg/dL (9-16); Calcium 9.8 mg/dL (8.4-10.2); Carbon Dioxide 27 mmol/L (22-29); Chloride 107 mmol/L (96-108); Cholesterol 178 mg/dL; Estimated Glomerular Filt Rate > 60; Glucose Random 91 mg/dL (60-115); HDL Cholesterol 38 mg/dL; LDL Cholesterol Calculated 100 mg/dl; Magnesium 1.9 mg/dL (1.6-2.6); Potassium 4.4 mmol/L (3.3-5.1); Sodium 139 mmol/L (135-145); Total Protein 7.3 g/dL (6.5-8.0); Triglycerides 204 mg/dL
[2021-04-30 12:34] LABS: Vitamin D 25-OH Total 36.1 ng/mL (>30)
[2021-04-30 12:58] LABS: Total Volume 24 Hour Urine 1950 mL
[2021-04-30 14:16] LABS: Creatinine, 24Hr Urine 2.7 G/Day (1.0-2.0); Creatinine, mg/dL 136.01
[2021-05-01 10:37] LABS: Calcium, Ionized 5.3 mg/dL (4.8-5.6)
[2021-05-01 13:26] LABS: Calcium (PTHI) 9.7 mg/dL (8.6-10.3); PTHI 40 pg/mL (14-64)
[2021-05-01 18:22] LABS: Calcium, 24 Hr Urine 238 mg/24 h; Calcium/Creatinine Ratio 91 mg/g creat (30-210); Creatinine 24Hr Urine 2.61 g/24 h (0.50-2.15)
[2021-05-04 17:33] LABS: Alkaline Phosphatase Bone 10.8 mcg/L (7.0-18.3)
[2021-05-08 16:51] LABS: VITAMIN D (1,25 OH) D3 38 pg/mL; Vit D (1,25-Dihydroxy) Total 38 pg/mL (18-72); Vitamin D (1,25 OH) D2 <8 pg/mL
== END 2021-04-30 10:55 | disposition home or self-care (01) ==
LOC: HO.LAB 10:54
PROVIDERS: PCP Internal Medicine; Visit Provider Internal Medicine Endocrinology, Diabetes & Metabolism
DX: E29.1 Testicular hypofunction (principal)
CPT/HCPCS: 36415; 80053; 80061; 82306; 82330; 82340; 82570; 82652; 83735; 83970; 84075; 84100

== ENCOUNTER → 2021-05-15 11:55 | Outpatient (BNVA) | payer OTHER, SELFPAY | PROVIDERS: PCP Internal Medicine; Visit Provider Dietitian, Registered | DX: E66.01 Morbid (severe) obesity due to excess calories (principal); Z68.43 Body mass index [BMI] 50.0-59.9, adult | CPT/HCPCS: 97803 ==

== ENCOUNTER 2021-07-17 09:48 | Outpatient (REF) | payer OTHER, SELFPAY ==
--- NOTE | ~2021-07-17 | XR_ITS ---
EXAMINATION: XR LUMBOSACRAL SPINE CLINICAL INFORMATION: Radiculopathy and lumbar region COMPARISON: Sagittal images from CT abdomen pelvis 11/12/2020 TECHNIQUE: AP and lateral views of the lumbar spine with an additional coned down lateral spot view of the lumbosacral junction. FINDINGS: 5 non-rib bearing lumbar type vertebral bodies are seen. Slight 4 mm retrolisthesis L5 on S1. There is loss of disc height with endplate sclerosis at L5-S1. Mild anterior osteophytosis from the superior and inferior endplates L1-L2 through L5-S1. Severe lower lumbar facet arthropathy at L5-S1. No compression fracture. XR/XR lumbar spine 2-3V IMPRESSION: Multilevel degenerative changes greatest at L5-S1.
== END 2021-07-17 09:49 | disposition home or self-care (01) ==
LOC: HO.XRAY 09:48
PROVIDERS: PCP Internal Medicine; Visit Provider Internal Medicine
DX: M54.16 Radiculopathy, lumbar region (principal); V89.2XXA Person injured in unspecified motor-vehicle accident, traffic, initial encounter
CPT/HCPCS: 72100

== ENCOUNTER 2021-07-28 14:05 | Outpatient (REF) | payer OTHER, SELFPAY ==
--- NOTE | ~2021-07-28 | US_ITS ---
EXAMINATION: US RETROPERITONEAL LIMITED (RENAL ONLY) CLINICAL INFORMATION: Calculus of kidney. COMPARISON: CT abdomen and pelvis 04/12/2021. KUB 07/09/2020 and 06/25/2020. Renal ultrasound 12/18/2019 and 09/05/2018. TECHNIQUE: Real-time imaging of the kidneys. FINDINGS: RIGHT KIDNEY: 11.8 x 6.0 x 5.7 cm (SAG x AP x TRV). The kidney is normal in size, contour, and echogenicity. Renal cortical thickness is normal. There is a 4 mm stone in the midpole. No focal parenchymal lesions or hydronephrosis. LEFT KIDNEY: 13.1 x 6.5 x 5.6 cm (SAG x AP x TRV). The kidney is normal in size, contour, and echogenicity. Renal cortical thickness is normal. There are 3 stones measuring 3 to 4 mm in the mid and lower pole. No focal parenchymal lesions or hydronephrosis. US/US renal BI IMPRESSION: Bilateral renal stones, left greater than right.
== END 2021-07-28 14:06 | disposition home or self-care (01) ==
LOC: HO.HMGCX 14:05
PROVIDERS: PCP Internal Medicine; Visit Provider Urology
DX: N20.0 Calculus of kidney (principal)
CPT/HCPCS: 76775

== ENCOUNTER 2021-08-11 11:08 | Outpatient (RCR) | payer OTHER, SELFPAY ==
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
--- NOTE | 2021-08-18 08:16 | MHC.OT.DC ---
[address] [phone] F: [phone] Occupational Therapy Discharge Note Provider: Peewee Del Toro MD Diagnosis: OT Right wrist pain PT for Left shoulder, right knee and LBP Date of Surgery: Date of Evaluation: 08/11/21 Date of Discharge: Treatments to Date: 1 Cancellations to Date: 1 No Shows to Date: 2 Discharge Status: Visit Non-compliance Discharge Summary: See eval Pt reports inc ease with wrist ROM with heat and with Leukotape on Electronically Signed By: Ivanna Wood OT CHT CLT Reviewed/agree with student documentation: N/A Therapist: Please Sign and return to therapist, thank you for your referral.
== END 2021-08-18 08:17 | disposition home or self-care (01) ==
LOC: HO.OT 11:08
PROVIDERS: PCP Internal Medicine; Visit Provider Internal Medicine
DX: M25.512 Pain in left shoulder (principal); M25.531 Pain in right wrist; V89.2XXD Person injured in unspecified motor-vehicle accident, traffic, subsequent encounter
CPT/HCPCS: 97110; 97166

== ENCOUNTER → 2021-08-13 10:52 | Outpatient (BNVA) | payer OTHER, SELFPAY | PROVIDERS: PCP Internal Medicine; Visit Provider Urology ==

== ENCOUNTER 2021-08-26 12:00 | Outpatient (RCR) | payer OTHER, SELFPAY ==
[2021-07-30 10:09] VITALS: BP 144/91; PULSE 75; O2SAT 97
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
--- NOTE | 2021-09-02 11:07 | MHC.PT.DC ---
[facility] [place] Office [place] Office [place] Office [address] Siobhan Camacho [address] [phone] F: [phone] F: [phone] F: [phone] F: [phone] Physical Therapy Discharge Report Diagnosis: LEFT SHOULDER PAIN; PAIN IN RIGHT KNEE; RADICULOPATHY IN LUMBAR REGION RIGHT WRIST PAIN ( -> OCCUPATIONAL THERAPY) Date of Surgery: Date of Evaluation: 07/30/21 Date of Discharge: 09/02/21 Treatments to Date: 8 Cancellations to Date: 0 No Shows to Date: 0 Discharge Status: Achieved Goals Improved Function Independent with HEP Discharge Summary: Pt MET PT GOALS AT THIS TIME FOR HIS SHOULDER, LB, AND KNEE PAIN- HE IS INDEP AND COMPLIANT W HEP AND PAIN/ SX MGMT TECHN. HE DEMON WFL FUNCT MOB RAMONE / AROM/ AND PROGRESSIVE STRENGTH. HE IS D/C AT THIS TIME W HEP. Electronically signed by: Miriam Mcdowell,PT Please sign and return to therapist. Thank you for your referral.
== END 2021-09-02 11:10 | disposition home or self-care (01) ==
LOC: HO.PT 12:00
PROVIDERS: PCP Internal Medicine; Visit Provider Internal Medicine
DX: M25.512 Pain in left shoulder (principal); M25.531 Pain in right wrist; M25.561 Pain in right knee; M54.16 Radiculopathy, lumbar region; V89.2XXA Person injured in unspecified motor-vehicle accident, traffic, initial encounter
CPT/HCPCS: 97035; 97110; 97140; 97163; 97530

== ENCOUNTER 2021-09-17 11:30 | Outpatient (RCR) | payer OTHER, SELFPAY | END 2022-03-09 08:07 | disposition home or self-care (01) | LOC: HO.OT 11:30 | PROVIDERS: PCP Internal Medicine; Visit Provider Internal Medicine | DX: M25.512 Pain in left shoulder (principal); M25.531 Pain in right wrist; V89.2XXD Person injured in unspecified motor-vehicle accident, traffic, subsequent encounter | CPT/HCPCS: 97033; 97035; 97110; 97140; 97760 ==

== ENCOUNTER 2021-09-18 12:00 | Outpatient (RCR) | payer OTHER, SELFPAY ==
[2021-09-02 11:02] VITALS: BP 144/83
== END 2021-09-22 08:41 | disposition home or self-care (01) ==
LOC: HO.PT 12:00
PROVIDERS: PCP Internal Medicine; Visit Provider Physician Assistant Medical
DX: G44.309 Post-traumatic headache, unspecified, not intractable (principal); M53.82 Other specified dorsopathies, cervical region
CPT/HCPCS: 97110; 97140; 97161; 97530

== ENCOUNTER 2021-10-10 09:59 | Outpatient (REF) | payer OTHER, SELFPAY ==
[2021-10-10 10:05] LABS: MANUAL DIFF FLAG NO
[2021-10-10 11:16] LABS: Basophils Percent Auto 0.3 % (0-2); Eosinophils Absolute Auto 0.1 X10*3/uL (0.0-0.4); Eosinophils Percent Auto 1.1 % (0-4); Hematocrit 44.4 % (42.0-52.0); Hemoglobin 14.5 g/dl (14.0-18.0); Imm Gran Abs Auto 0.03 X10*3/uL (0.00-0.03); Imm Gran Pct Auto 0.4 % (0.0-0.4); Lymphocytes Absolute Auto 1.7 X10*3/uL (1.2-4.9); Lymphocytes Percent Auto 22.9 % (20-40); Mean Corpuscular HGB Conc 32.7 g/dl (31.0-36.0); Mean Corpuscular Hemoglobin 28.4 pg (27.0-33.0); Mean Corpuscular Volume 87.1 fL (80.0-98.0); Mean Platelet Volume 10.1 fL (9.4-12.4); Monocytes Absolute Auto 0.6 X10*3/uL (0.1-1.2); Monocytes Percent Auto 8.5 % (2-11); Neutrophils Absolute Auto 4.9 x10*3/uL (2.0-8.3); Neutrophils Percent Auto 66.8 % (45-73); Platelet Count 289 X10*3/uL (160-400); Red Cell Distribution Width 13.4 % (11.0-16.0); White Blood Count 7.4 X10*3/uL (4.8-10.8)
[2021-10-10 12:14] LABS: Alanine Aminotransferase 39 U/L (0-40); Albumin Level 4.5 g/dL (3.5-5.0); Alkaline Phosphatase 71 U/L (39-117); Anion Gap 13 (12-20); Aspartate Amino Transferase 28 U/L (5-37); Blood Urea Nitrogen 19 mg/dL (9-16); Carbon Dioxide 26 mmol/L (22-29); Chloride 106 mmol/L (96-108); Cholesterol 158 mg/dL; Estimated Glomerular Filt Rate 56; Glucose Fasting 97 mg/dL (60-99); HDL Cholesterol 35 mg/dL; LDL Cholesterol Calculated 103 mg/dl; Potassium 4.9 mmol/L (3.3-5.1); Sodium 140 mmol/L (135-145); Total Protein 7.4 g/dL (6.5-8.0); Triglycerides 102 mg/dL
[2021-10-10 12:36] LABS: TSH reflex Free T4 1.96 uIU/mL (0.32-4.0)
[2021-10-10 13:17] LABS: Appearance Urine CLEAR; Color Urine YELLOW; Glucose Urine UA NEG (NEG); Leukocyte Esterase Urine NEG (NEG); Nitrite Urine NEG (NEG); Specific Gravity - Urine 1.025 (1.005-1.025); UACC Culture Trigger NO; Urine Blood TRACE (NEG); Urine Ketones NEG (NEG); Urine Protein NEG (NEG-TRACE)
[2021-10-10 13:25] LABS: WBC Urine 0 /HPF (0-4)
[2021-10-10 13:26] LABS: RBC Urine 0-2 /HPF (0); Squamous Epithelial Cell Urine TRACE /LPF
== END 2021-10-10 10:00 | disposition home or self-care (01) ==
LOC: HO.LAB 09:59
PROVIDERS: PCP Internal Medicine; Visit Provider Internal Medicine
DX: I10 Essential (primary) hypertension (principal); E78.00 Pure hypercholesterolemia, unspecified
CPT/HCPCS: 36415; 80053; 80061; 81001; 81003; 84443; 85025

== ENCOUNTER → 2021-11-16 12:10 | Outpatient (BNVA) | payer OTHER, SELFPAY | PROVIDERS: PCP Internal Medicine; Visit Provider Dietitian, Registered | DX: E66.01 Morbid (severe) obesity due to excess calories (principal); Z68.43 Body mass index [BMI] 50.0-59.9, adult | CPT/HCPCS: 97803 ==

== ENCOUNTER 2022-01-01 19:07 | Outpatient (REF) | payer OTHER, SELFPAY ==
--- NOTE | ~2022-01-01 | MR_ITS ---
EXAMINATION: MR KNEE WITHOUT CONTRAST, RIGHT CLINICAL INFORMATION: Right knee pain and swelling. COMPARISON: None TECHNIQUE: MRI of the knee without contrast was performed using routine sequences on a high-field scanner. FINDINGS: MENISCI: Medial Meniscus: There is an irregular, near-complete radial tear of the posterior horn measuring up to 1.1 cm in ML dimension and located approximately 0.9 cm from the posterior root insertion. The meniscal body is medially extruded with nondisplaced oblique inner margin tearing. Lateral Meniscus: Intact. LIGAMENTS: Cruciate: Intact. Collateral: Mild edema adjacent to the medial collateral ligament which may be related to the adjacent meniscal tear or indicate a grade 1 sprain. Intact fibular collateral ligament. EXTENSOR MECHANISM: Intact. ARTICULAR CARTILAGE/BONE: Patellofemoral Compartment: Normal. Medial Compartment: Mild posterior weightbearing articular cartilage signal heterogeneity. Tiny marginal osteophytes. Lateral Compartment: Normal. JOINT FLUID AND BURSAE: [id number] joint effusion. MR/MR knee RT wo con IMPRESSION: 1. Irregular, near-complete radial tear of the medial meniscus posterior horn measuring 1.1 cm in ML dimension and located approximately 0.9 cm from the posterior root insertion. Medial extrusion of the meniscal body where there is a nondisplaced oblique inner margin tear. 2. Edema adjacent to the medial collateral ligament which may be related to a meniscal tear or indicate a grade 1 sprain. 3. Mild medial compartment arthrosis. Small to moderate joint effusion.
== END 2022-01-01 19:08 | disposition home or self-care (01) ==
LOC: HO.MRI 19:07
PROVIDERS: Visit Provider Internal Medicine
DX: M25.561 Pain in right knee (principal)
CPT/HCPCS: 73721

== ENCOUNTER 2022-01-09 11:52 | Outpatient (REF) | payer OTHER, SELFPAY ==
[2022-01-09 13:41] LABS: Appearance Urine HAZY; Color Urine YELLOW; Glucose Urine UA NEG (NEG); Leukocyte Esterase Urine NEG (NEG); Nitrite Urine NEG (NEG); Specific Gravity - Urine 1.025 (1.005-1.025); UACC Culture Trigger NO; Urine Blood TRACE (NEG); Urine Ketones NEG (NEG); Urine Protein NEG (NEG-TRACE)
[2022-01-09 13:51] LABS: RBC Urine 0-2 /HPF (0); WBC Urine 0 /HPF (0-4)
[2022-01-10 08:07] LABS: Sex Hormone Binding Globulin 13 nmol/L (10-50)
[2022-01-14 22:26] LABS: Testosterone-Albumin 4.3 g/dL (3.6-5.1); Testosterone-Bioavailable 136.2 ng/dL (110.0-575.0); Testosterone-Free 69.1 pg/mL (46.0-224.0); Testosterone-SHBG 12 nmol/L (10-50); Testosterone-Total 270 ng/dL (250-1100)
[2022-01-17 10:32] LABS: Testosterone, Free 64.6 pg/mL (35.0-155.0); Testosterone, Total 276 ng/dL (250-1100)
== END 2022-01-09 11:53 | disposition home or self-care (01) ==
LOC: HO.HMGCLDS 11:52
PROVIDERS: PCP Internal Medicine; Visit Provider Internal Medicine Endocrinology, Diabetes & Metabolism
DX: E29.1 Testicular hypofunction (principal); I10 Essential (primary) hypertension
CPT/HCPCS: 36415; 81001; 84270; 84402; 84403

== ENCOUNTER → 2022-01-13 10:16 | Outpatient (BNVA) | payer OTHER, SELFPAY | PROVIDERS: PCP Internal Medicine; Visit Provider Internal Medicine Endocrinology, Diabetes & Metabolism | DX: E29.1 Testicular hypofunction (principal); E66.9 Obesity, unspecified; Z68.42 Body mass index [BMI] 45.0-49.9, adult | CPT/HCPCS: 99212 ==

== ENCOUNTER 2022-02-03 09:37 | Outpatient (REF) | payer OTHER, SELFPAY ==
[2022-02-03 11:59] LABS: Hematocrit 47.6 % (42.0-52.0); Hemoglobin 15.8 g/dl (14.0-18.0); Mean Corpuscular HGB Conc 33.2 g/dl (31.0-36.0); Mean Corpuscular Hemoglobin 29.3 pg (27.0-33.0); Mean Corpuscular Volume 88.3 fL (80.0-98.0); Mean Platelet Volume 10.3 fL (9.4-12.4); Platelet Count 271 X10*3/uL (160-400); Red Blood Count 5.39 X10*6/uL (4.60-5.80); Red Cell Distribution Width 13.4 % (11.0-16.0)
[2022-02-03 12:31] LABS: PSA,Total (Free>4and<10) 0.43 ng/mL (0.00-4.00)
== END 2022-02-03 09:38 | disposition home or self-care (01) ==
LOC: HO.HMGCLDS 09:37
PROVIDERS: PCP Internal Medicine; Visit Provider Internal Medicine Endocrinology, Diabetes & Metabolism
DX: E29.1 Testicular hypofunction (principal)
CPT/HCPCS: 36415; 84153; 85027

== ENCOUNTER 2022-02-09 10:42 | Outpatient (REF) | payer OTHER, SELFPAY ==
--- NOTE | ~2022-02-09 | US_ITS ---
EXAMINATION: US RETROPERITONEAL LIMITED (RENAL ONLY) CLINICAL INFORMATION: Calculus of kidney. COMPARISON: US retroperitoneal limited (renal only) 07/28/2021 and 12/18/2019. CT abdomen and pelvis 11/12/2020. XR abdomen KUB 07/09/2020 and 06/25/2020. TECHNIQUE: Real-time imaging of the kidneys. FINDINGS: RIGHT KIDNEY: 11.5 x 6.2 x 5.1 cm (SAG x AP x TRV). The kidney is normal in size, contour, and echogenicity. Renal cortical thickness is normal. There is a mid pole 8 x 5 mm echogenic focus consistent with a nonobstructing stone. No focal parenchymal lesions or hydronephrosis. LEFT KIDNEY: 13.5 x 7.0 x 6.0 cm (SAG x AP x TRV). The kidney is normal in size, contour, and echogenicity. Renal cortical thickness is normal. Two 5 mm sized nonobstructing stones are present one in the midpole with the other at the lower pole No focal parenchymal lesions or hydronephrosis. US/US renal BI IMPRESSION: Bilateral nonobstructing renal calculi (1 on the right and 2 on the left). Stone burden was higher as demonstrated on the 11/12/2020 study.
== END 2022-02-09 10:43 | disposition home or self-care (01) ==
LOC: HO.US 10:42
PROVIDERS: PCP Internal Medicine; Visit Provider Urology
DX: N20.0 Calculus of kidney (principal)
CPT/HCPCS: 76775

== ENCOUNTER → 2022-02-15 11:22 | Outpatient (BNVA) | payer OTHER, SELFPAY | PROVIDERS: PCP Internal Medicine; Visit Provider Dietitian, Registered | DX: E66.01 Morbid (severe) obesity due to excess calories (principal); Z68.42 Body mass index [BMI] 45.0-49.9, adult | CPT/HCPCS: 97803 ==

== ENCOUNTER → 2022-02-25 10:51 | Outpatient (BNVA) | payer OTHER, SELFPAY | PROVIDERS: PCP Internal Medicine | DX: Z13.89 Encounter for screening for other disorder (principal) ==

== ENCOUNTER 2022-03-24 06:37 | Day surgery (SDC) | payer OTHER, SELFPAY ==
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
[2022-03-24] VITALS (7 sets, daily range): BP systolic 116–144; BP diastolic 61–72; PULSE 61–73; RESP 16; TEMP 36.1–36.3; O2SAT 94–99; BMI 47.9
--- NOTE | ~2022-03-24 | XR_ITS ---
EXAMINATION: XR ABDOMEN KUB CLINICAL INDICATION: Nephrolithiasis. COMPARISON: Renal ultrasound 02/09/2022 TECHNIQUE: AP view of the abdomen. FINDINGS: There is scattered stool seen throughout the colon with mild constipation. There are surgical trang in the right lower quadrant from previous intervention. No radiopaque calculi seen. Visualized bones are grossly unremarkable. XR/XR KUB IMPRESSION: Mild constipation.
[2022-03-24] MEDS: Acetaminophen 325 MG TABLET 650 MG PO (08:05)
[2022-03-24] MEDS: Lactated Ringers 1,000 ML 100 ML IVCONT (08:05)
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
--- NOTE | 2022-03-24 09:05 | MHC.SHP ---
Pre-Procedural Eval Section A Date of Service: 03/24/22 The patient is an INPATIENT: No Changes since office visit: No Cold of Flu in the past 2 weeks, No New Medical Problems, No Changes in Medication and No Patient answered all questions The History & Physical has been completed within 30 days and I have reviewed it.: Yes Section B Chief Complaint: kidney stone Allergies: Allergies Allergy/AdvReac Type Severity Reaction Status Date / Time oxycodone [From PERCOCET] Allergy Intermediate ITCHING, Verified 03/18/22 13:19 rash and itching, itching codeine Allergy Unknown rash and Verified 03/18/22 13:19 itching Plan Diagnosis/Plan: Unchanged (8mm right renal) I have reviewed the history and physical and performed a pertinent physical examination on my patient. No changes have occurred unless specified.
--- NOTE | 2022-03-24 09:50 | W.PM.OPN ---
Operative Note Operative Note Date of Service: 03/24/22 Narrative: PreOperative Diagnosis: right Renal stones Post Operative Diagnosis: right Renal stones Procedure: right ESWL Surgeon: Dr Ez Meek Anesthesia: mac/sedation Indications for procedure: The patient understands ESWL may be a staged procedure and subsequent intervention may be required based on imaging after ESWL. They also understand there is a risk of bleeding to the kidney, infection, damage to adjacent organs, and stone migration following the procedure. 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 Anesthesia was performed per protocol. Safety pause time-out was performed. Imaging was displayed in the room and laterality confirmed. ESWL was performed. The 1st 500 shocks were performed at 60 hertz. These were performed with increasing power. Once maximum power was reached the rate was increased to 180 hertz. A total of 2500 shocks were given. Targeted imaging with ultrasound/fluoroscopy showed stone smudging suggestive of disintegration. The patient tolerated the procedure well and was transferred to the recovery area upon completion. Post procedure imaging will be organized. There was no evidence for flank discoloration.
[2022-03-24] MEDS: Phenazopyridine HCL 100 MG TABLET PO (10:32)
[2022-03-24] MEDS: traMADoL HCL 50 MG TABLET PO (10:32)
--- NOTE | 2022-03-24 11:37 | HO.POSTANES ---
Post Anesthesia Evaluation Post Anesthesia Evaluation Vital Signs: Vital Signs Temp Pulse Resp BP Pulse Ox 03/24/22 10:59 97.4 F 61 16 116/62 96 03/24/22 10:44 69 16 118/61 98 03/24/22 10:29 62 16 126/68 97 03/24/22 10:24 69 16 128/66 97 03/24/22 10:19 71 16 138/65 97 03/24/22 10:14 97.0 F 73 16 144/72 H 94 03/24/22 08:10 97.3 F 61 16 134/65 99 Anesthesia: General LMA Mental Status: Awake Pain Control: Satisfactory Nausea/Vomiting: None Hydration: Adequate Anesthesia-Related Issues: No Anes. Related Issues
== END 2022-03-24 11:57 | disposition home or self-care (01) ==
PROVIDERS: PCP Internal Medicine; Visit Provider Urology
PROC: (CPT 50590; principal; 2022-03-24 08:50)
DX: N20.0 Calculus of kidney (principal); Z87.442 Personal history of urinary calculi; Q63.2 Ectopic kidney; I10 Essential (primary) hypertension; E78.00 Pure hypercholesterolemia, unspecified; N52.9 Male erectile dysfunction, unspecified; E29.1 Testicular hypofunction; G47.33 Obstructive sleep apnea (adult) (pediatric); E66.01 Morbid (severe) obesity due to excess calories; Z68.42 Body mass index [BMI] 45.0-49.9, adult; Z79.899 Other long term (current) drug therapy; Z88.8 Allergy status to other drugs, medicaments and biological substances
CPT/HCPCS: 50590; 74018; J2250; J2405

== ENCOUNTER 2022-04-02 08:00 | Outpatient (REF) | payer OTHER, SELFPAY ==
--- NOTE | ~2022-04-02 | XR_ITS ---
EXAMINATION: RIGHT KNEE.. AP bilateral knee standing CLINICAL INFORMATION: Pain. COMPARISON: None TECHNIQUE: AP bilateral knee. Right knee 2 views FINDINGS: AP BILATERAL KNEE STANDING: There is mild reduction in medial compartment joint space both knees. The lateral compartment joint space is preserved. No bony erosive changes, loose bodies or soft tissue swelling seen. RIGHT KNEE: The patellofemoral compartment joint space is normal. No visible acute fracture, dislocation or subluxation seen. No abnormal joint effusion. XR/XR knee standing BI IMPRESSION: Mild degenerative changes medial compartment both knees without any visible acute fracture, dislocation or subluxation seen. Unremarkable right knee exam.
--- NOTE | ~2022-04-02 | XR_ITS ---
EXAMINATION: RIGHT KNEE.. AP bilateral knee standing CLINICAL INFORMATION: Pain. COMPARISON: None TECHNIQUE: AP bilateral knee. Right knee 2 views FINDINGS: AP BILATERAL KNEE STANDING: There is mild reduction in medial compartment joint space both knees. The lateral compartment joint space is preserved. No bony erosive changes, loose bodies or soft tissue swelling seen. RIGHT KNEE: The patellofemoral compartment joint space is normal. No visible acute fracture, dislocation or subluxation seen. No abnormal joint effusion. XR/XR knee RT 2V IMPRESSION: Mild degenerative changes medial compartment both knees without any visible acute fracture, dislocation or subluxation seen. Unremarkable right knee exam.
== END 2022-04-02 08:01 | disposition home or self-care (01) ==
LOC: HO.HOSX 08:00
PROVIDERS: Visit Provider Physician Assistant
DX: S83.200A Bucket-handle tear of unspecified meniscus, current injury, right knee, initial encounter (principal); M25.562 Pain in left knee
CPT/HCPCS: 73560; 73565; 99202

== ENCOUNTER 2022-04-08 12:24 | Outpatient (REF) | payer OTHER, SELFPAY ==
--- NOTE | ~2022-04-08 | US_ITS ---
EXAMINATION: US RETROPERITONEAL LIMITED (RENAL ONLY) CLINICAL INFORMATION: Calculus of kidney. COMPARISON: XR KUB 03/24/2022 and 07/09/2020..US renal 02/09/2022 and 07/28/2021.CT abdomen pelvis 11/12/2020. TECHNIQUE: Real-time imaging of the kidneys. FINDINGS: RIGHT KIDNEY: 10.9 x 6.9 x 6.4 cm (SAG x AP x TRV). The kidney is normal in size, contour, and echogenicity. Renal cortical thickness is normal. No calculi or focal parenchymal lesions. No hydronephrosis. LEFT KIDNEY: 11.9 x 7.2 x 5.3 cm (SAG x AP x TRV). The kidney is normal in size, contour, and echogenicity. Renal cortical thickness is normal. No focal parenchymal lesions. No hydronephrosis. There is a 1.1 cm stone in the midpole and a 1 cm stone in the lower pole, these are increased in size since prior. US/US renal BI IMPRESSION: Nonobstructive left-sided renal calculi, increased in size since prior.
== END 2022-04-08 12:25 | disposition home or self-care (01) ==
LOC: HO.US 12:24
PROVIDERS: Visit Provider Urology
DX: N20.0 Calculus of kidney (principal)
CPT/HCPCS: 76775

== ENCOUNTER 2022-04-28 05:59 | Day surgery (SDC) | payer OTHER, SELFPAY ==
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
[2022-04-28] VITALS (9 sets, daily range): BP systolic 96–138; BP diastolic 58–76; PULSE 61–71; RESP 16–20; TEMP 36.4–36.6; O2SAT 94–98; BMI 46.7
[2022-04-28] MEDS: Lactated Ringers 1,000 ML 100 ML IVCONT (06:32)
--- NOTE | 2022-04-28 07:33 | MHC.SHP ---
Pre-Procedural Eval Section A Date of Service: 04/28/22 The patient is an INPATIENT: No Changes since office visit: Yes Patient answered all questions; No Cold of Flu in the past 2 weeks, No New Medical Problems and No Changes in Medication The History & Physical has been completed within 30 days and I have reviewed it.: Yes Section B Chief Complaint: meniscus tear Allergies: Allergies Allergy/AdvReac Type Severity Reaction Status Date / Time oxycodone [From PERCOCET] Allergy Intermediate ITCHING, Verified 04/28/22 06:16 rash and itching, itching codeine Allergy Unknown rash and Verified 04/28/22 06:16 itching Plan I have reviewed the history and physical and performed a pertinent physical examination on my patient. No changes have occurred unless specified.
--- NOTE | 2022-04-28 08:35 | PM.OP ---
Brief Operative Note Date of Service: 04/28/22 Pre-op diagnosis: right knee medial meniscus tear Post-op diagnosis: same Procedure: right knee partial medial meniscectomy andchondroplasty Implants: none Surgeon: Demarco Baron MD Anesthesia: GETA and local Was an Distilling Department Supervisor used for this Procedure?: No Estimated blood loss (mL): 1 IV fluids (mL): 750 Pathology: none sent Condition: stable Disposition: PACU
--- NOTE | 2022-04-28 10:49 | P.OP_ITS ---
Operative Note Operative Note Date of Service: 04/28/22 Narrative: Date of Service: 04/28/22 Pre-op diagnosis: right knee medial meniscus tear Post-op diagnosis: same Procedure: right knee partial medial meniscectomy andchondroplasty Implants: none Surgeon: Demarco Baron MD Anesthesia: GETA and local Was an Party Plan Sales Agent used for this Procedure?: No Estimated blood loss (mL): 1 IV fluids (mL): 750 Pathology: none sent Condition: stable Disposition: PACU Procedure in detail: Patient was brought to the operating room placed supine on the arthroscopic table and prepped and draped in standard sterile fashion. A time-out was called to identify proper site proper procedure proper surgeon and IV antibiotics per weight were administered. I began by exsanguinating the limb and insufflating tourniquet to 300 mm Hg. Then made a standard anterolateral stab incision. The knee was insufflated with saline and a 30 degree arthroscope was placed. There was a normal patella and trochlea and suprapatellar pouch and the gutters were clean although there were loose chondral frahgments in the medial recess. I descended into the medial compartment where I made my medial portal under direct visualization. There was an obvious complex tear of the posterior horn and root of the medial meniscus. The Root was toen and unrepairable. In addition he had moderate with scatter severe cartilage changes of the MFC. A partial medial meniscectomy was performed. I used a combination of biter shaver and cautery to remove unstable portions of the meniscus. Approximately 40% meniscal volume was removed. Once I was satisfied with this the ACL was examined and found to be intact and the lateral compartment also was without the need for intervention. I then removed all instrumentation and closed the portals with skin glue. 25 mL of 2% Marcaine with epinephrine was injected into the joint and the surrounding soft tissues. Patient was then placed in sterile dressing extubated brought recovery room stable condition. There were no known complications.
== END 2022-04-28 10:45 | disposition home or self-care (01) ==
PROVIDERS: PCP Internal Medicine; Visit Provider Orthopaedic Surgery
PROC: (CPT 29870; principal; 2022-04-28 07:30)
DX: M23.221 Derangement of posterior horn of medial meniscus due to old tear or injury, right knee (principal); M25.561 Pain in right knee; I10 Essential (primary) hypertension; E78.00 Pure hypercholesterolemia, unspecified; G47.33 Obstructive sleep apnea (adult) (pediatric); E66.01 Morbid (severe) obesity due to excess calories; Z68.42 Body mass index [BMI] 45.0-49.9, adult; Z79.899 Other long term (current) drug therapy; Z88.8 Allergy status to other drugs, medicaments and biological substances; Z87.442 Personal history of urinary calculi
CPT/HCPCS: 29881; J0171; J0690; J1100; J2250; J2405; J3010

== ENCOUNTER 2022-05-12 06:18 | Day surgery (SDC) | payer OTHER, SELFPAY ==
--- NOTE | ~2022-05-12 | XR_ITS ---
EXAMINATION: XR ABDOMEN KUB CLINICAL INDICATION: Stones. COMPARISON: KUB 03/24/2022 TECHNIQUE: AP view of the abdomen. FINDINGS: There is scattered stool and gas seen throughout the colon without any significant distention. No radiopaque calculi. No organomegaly. No bony abnormality seen. XR/XR KUB IMPRESSION: Mild constipation.
[2022-05-12 06:45] VITALS: BP 150/85; PULSE 59; RESP 18; TEMP 36.3; O2SAT 98; BMI 46.7
[2022-05-12] MEDS: Lactated Ringers 1,000 ML 50 ML IVCONT (07:16)
[2022-05-12] MEDS: Acetaminophen 325 MG TABLET 650 MG PO (07:22)
--- NOTE | 2022-05-12 07:35 | MHC.SHP ---
Pre-Procedural Eval Section A Date of Service: 05/12/22 The patient is an INPATIENT: No Changes since office visit: No Cold of Flu in the past 2 weeks, No New Medical Problems, No Changes in Medication and No Patient answered all questions The History & Physical has been completed within 30 days and I have reviewed it.: No Section B Chief Complaint: kidney stone Details of Present Illness: left ESW Relevant Family History (Specify if Yes): No Relevant Social History: None Present Medications: see Short Stay Collaborative assessment Medical History: Significant History History of Previous Operations: No relevant previous surgery Allergies: Allergies Allergy/AdvReac Type Severity Reaction Status Date / Time oxycodone [From PERCOCET] Allergy Intermediate ITCHING, Verified 05/05/22 13:47 rash and itching, itching codeine Allergy Unknown rash and Verified 05/05/22 13:47 itching Review of Systems Sugical H&P ROS: Negative: Constitution, Cardiovascular, Respiratory, Neurological, Psychiatric, Hem-Onc, Allergic/Immunologic, Gastrointestinal, Genitourinary, Musculoskeletal, Integumentary, Endocrine and Eyes/Ears/Nose/Throat Exam Surgical H&P Exam: Normal: HEENT, Normal: Heart, Normal: Lungs, Normal: Extremities, Normal: Abdomen, Normal: Skin and Normal: Neurological Plan Diagnosis/Plan: Unchanged I have reviewed the history and physical and performed a pertinent physical examination on my patient. No changes have occurred unless specified.
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
--- NOTE | 2022-05-12 09:40 | W.PM.OPN ---
Operative Note Operative Note Date of Service: 05/12/22 Narrative: PreOperative Diagnosis: Left Renal stones Post Operative Diagnosis: Left Renal stones Procedure: Left ESWL Surgeon: Dr Ez Meek Anesthesia: mac/sedation Indications for procedure: The patient understands ESWL may be a staged procedure and subsequent intervention may be required based on imaging after ESWL. They also understand there is a risk of bleeding to the kidney, infection, damage to adjacent organs, and stone migration following the procedure. - Imaging left 11 mm mid pole stone Procedure: After informed consent was verified the patient was brought to the operating room and placed in a supine position. Anesthesia was performed per protocol. Safety pause time-out was performed. Imaging was displayed in the room and laterality confirmed. ESWL was performed. The 1st 500 shocks were performed at 60 hertz. These were performed with increasing power - maximum 20 Once maximum power was reached the rate was increased to 180 hertz. A total of 2500 shocks were given. Targetted imaging with ultrasound/fluoroscopy showed stone smudging suggestive of disintegration. The patient tolerated the procedure well and was transferred to the recovery area upon completion. Post procedure imaging will be organized. There was no evidence for flank discoloration.
[2022-05-12 09:52] VITALS: BP 118/61; PULSE 65; RESP 18; TEMP 36.2; O2SAT 100
[2022-05-12 09:57] VITALS: BP 120/57; PULSE 57; RESP 17; O2SAT 97
[2022-05-12 10:02] VITALS: BP 126/54; PULSE 64; RESP 17; O2SAT 99
[2022-05-12] MEDS: traMADoL HCL 50 MG TABLET PO (10:06)
[2022-05-12 10:07] VITALS: BP 128/63; PULSE 59; RESP 18; TEMP 36.6; O2SAT 100
== END 2022-05-12 11:21 | disposition home or self-care (01) ==
PROVIDERS: PCP Internal Medicine; Visit Provider Urology
PROC: (CPT 50590; principal; 2022-05-12 08:50)
DX: N20.0 Calculus of kidney (principal); Z87.442 Personal history of urinary calculi; N52.9 Male erectile dysfunction, unspecified; E29.1 Testicular hypofunction; E23.6 Other disorders of pituitary gland; E83.52 Hypercalcemia; E78.00 Pure hypercholesterolemia, unspecified; I10 Essential (primary) hypertension; G47.33 Obstructive sleep apnea (adult) (pediatric); E66.01 Morbid (severe) obesity due to excess calories; Z68.42 Body mass index [BMI] 45.0-49.9, adult; Z79.899 Other long term (current) drug therapy; Z88.8 Allergy status to other drugs, medicaments and biological substances
CPT/HCPCS: 50590; 74018; J2250; J3010

== ENCOUNTER 2022-06-01 14:22 | Outpatient (REF) | payer OTHER, SELFPAY ==
--- NOTE | ~2022-06-01 | XR_ITS ---
EXAMINATION: XR ANKLE, LEFT CLINICAL INFORMATION: Sprain of calcaneal fibular ligament of the left ankle. COMPARISON: None. TECHNIQUE: AP, lateral, and mortise views of the left ankle. FINDINGS: The bones and soft tissues are normal. No fracture. Alignment is anatomic. Joint spaces are maintained. No joint effusion. There is mild soft tissue swelling along the dorsal proximal foot. XR/XR ankle LT 2V IMPRESSION: Mild focal soft tissue swelling along the proximal dorsal foot. No visible acute fracture or dislocation is seen.
== END 2022-06-01 14:23 | disposition home or self-care (01) ==
LOC: HO.XRAY 14:22
PROVIDERS: PCP Internal Medicine; Visit Provider Physician Assistant
DX: S93.412A Sprain of calcaneofibular ligament of left ankle, initial encounter (principal)
CPT/HCPCS: 73600

== ENCOUNTER 2022-06-22 15:07 | Outpatient (REF) | payer OTHER, SELFPAY ==
--- NOTE | ~2022-06-22 | US_ITS ---
EXAMINATION: US RETROPERITONEAL LIMITED (RENAL ONLY) CLINICAL INFORMATION: Calculus of kidney. COMPARISON: XR abdomen KUB 05/12/2022 and 03/24/2022. US retroperitoneal limited (renal only) 04/08/2022 and 02/09/2022. CT abdomen and pelvis without contrast 11/12/2020. TECHNIQUE: Real-time imaging of the kidneys. FINDINGS: RIGHT KIDNEY: 11.6 x 5.8 x 5.2 cm (SAG x AP x TRV). The kidney is normal in size, contour, and echogenicity. Renal cortical thickness is normal. No focal parenchymal lesions or hydronephrosis. There are small echogenic stones upper pole measuring 0.4 x 0.3 x 0.3 cm and lower pole measuring 0.9 0.4 x 0.6 cm. There is no caliectasis. LEFT KIDNEY: 13.4 x 6.1 x 4.9 cm (SAG x AP x TRV). The kidney is normal in size and echogenicity. Renal cortical thickness is normal. No focal parenchymal lesions or hydronephrosis. There is a echogenic stone lower pole measuring 1.0 x 0.4 x 0.6 cm and slightly lobulated contour. Mild pelvic fullness seen. US/US renal BI IMPRESSION: Nonobstructive bilateral echogenic stones without caliectasis.
== END 2022-06-22 15:08 | disposition home or self-care (01) ==
LOC: HO.US 15:07
PROVIDERS: Visit Provider Urology
DX: N20.0 Calculus of kidney (principal)
CPT/HCPCS: 76775

== ENCOUNTER 2022-06-23 05:51 | Emergency (ER) | payer OTHER, SELFPAY ==
--- NOTE | ~2022-06-23 | CT_ITS ---
EXAMINATION: CT CERVICAL SPINE WITHOUT CONTRAST CLINICAL INFORMATION: Pain. COMPARISON: None TECHNIQUE: Contiguous axial CT images of the cervical spine were obtained without contrast. Sagittal and coronal reformats were provided and reviewed. This CT examination was performed using dose optimization techniques as appropriate, variously including the following: *Automated exposure control *Adjustment of mA and/or kV according to patient size (this includes techniques or standardized protocols for targeted exams where dose is matched to indication/reason for exam; i.e. extremities or head) *Use of iterative reconstruction technique DLP: 918 mGy-cm FINDINGS: Straightening/mild reversal of the normal cervical lordosis which may be positional or related to muscle spasm. No acute fracture or subluxation. No loss of vertebral body height. Loss of intervertebral disc height with anterior endplate osteophytes at C4-C7. No concerning lytic or blastic osseous lesion. Unremarkable facet joints. The visualized paraspinal soft tissues are unremarkable. No abnormal soft tissue mass or fluid collection. The visualized lung apices are clear. No significant central canal or neural foraminal stenosis. CT/CT cervical spine wo con IMPRESSION: 1. Straightening/mild reversal of the normal cervical lordosis which may be positional or related to muscular spasm. 2. Mild degenerative disc disease at C4-C7 without significant central canal or neural foraminal stenosis.
[2022-06-23 05:59] VITALS: BP 142/87; PULSE 60; RESP 16; TEMP 36.9; O2SAT 100; BMI 46.7
--- NOTE | 2022-06-23 06:37 | ED.NECK ---
HPI - Neck Pain/Injury General Chief Complaint: Neck Pain/Injury Stated Complaint: neck pain x1 week Time Seen by Provider: 06/23/22 06:36 Source: patient Mode of arrival: ambulatory Limitations: no limitations History of Present Illness HPI Narrative: 46 yo male with hx of HLD, prior neck injury, [place] comes in with 1 week of R lateral neck pain worse with movements and bumps in car or bike. He was in [place] and went to the beach one day the next morning he woke up with a stiff neck that hurts to move. He has no numbness or tingling. He reports it feels like when he had whiplash. He has no fevers or bites in that area. He has tried tylenol without relief. MD complaint: neck pain Onset (ago): week(s) (1) Place: other Radiation: right lateral Severity: moderate Quality: sharp and stabbing Duration: intermittent Relieving factors: immobilization Exacerbating factors: movement of neck Context: unknown Associated symptoms: none Treatments prior to arrival: acetaminophen Related Data Home Medications Medication Instructions Recorded Confirmed glucosamine sulfate 500 mg tablet 500 mg PO DAILY 01/13/22 06/01/22 (Glucosamine) tretinoin 0.025 % topical cream appl topical 04/14/22 06/01/22 Previous Rx's Medication Instructions Recorded CPAP (CPAP Machine/Device) #1 ea 06/29/21 KNEE BRACE (RIGHT) #1 ea 07/17/21 sildenafil 100 mg tablet (Viagra) 100 mg PO DAILY PRN sexual 01/13/22 activity #7 tabs testosterone 30 mg/actuation (1.5 4 pump topical DAILY #2 bottles 02/11/22 mL) transderm solution metered pump pyridoxine (vitamin B6) 100 mg 100 mg PO DAILY 90 days #90 tabs 02/25/22 tablet lisinopril 5 mg tablet 5 mg PO DAILY #90 tabs 03/08/22 phentermine 30 mg capsule 30 mg PO DAILY 30 days #30 caps 03/08/22 simvastatin 40 mg tablet 40 mg PO BEDTIME #90 tabs 03/08/22 triamcinolone acetonide 0.5 % 1 appl topical BID #15 grams 03/08/22 topical cream tamsulosin 0.4 mg capsule 0.4 mg PO BEDTIME 14 days #14 caps 03/24/22 tramadol 50 mg tablet 50 mg PO Q8H PRN pain (scale score 04/28/22 4-6) 7 days #28 tabs [id number] 3.3 5 drp otic (ears) TID 7 days #10 mL 04/30/22 mg-3 mg-10 mg-0.5 mg/mL ear drops,susp (Cortisporin-TC) naproxen 500 mg tablet 500 mg PO BID PRN pain 7 days #14 05/12/22 tabs tamsulosin 0.4 mg capsule 0.4 mg PO BEDTIME 14 days #14 caps 05/12/22 tramadol 50 mg tablet 50 mg PO Q6H PRN pain (scale score 05/12/22 1-3) #8 tabs gabapentin 100 mg capsule 100 mg PO BEDTIME #30 caps 05/26/22 minocycline 100 mg capsule 100 mg PO Q12H #60 caps 06/21/22 diazepam 5 mg tablet (Valium) 5 mg PO TID PRN muscle spasm #10 06/23/22 tabs lidocaine 5 % topical patch 1 patch topical DAILY #30 ea 06/23/22 prednisone 20 mg tablet 40 mg PO DAILY 4 days #8 tabs 06/23/22 Allergies Allergy/AdvReac Type Severity Reaction Status Date / Time oxycodone [From PERCOCET] Allergy Intermediate ITCHING, Verified 06/01/22 13:51 rash and itching, itching codeine Allergy Unknown rash and Verified 06/01/22 13:51 itching Review of Systems Review of Systems: Constitutional : No Fever, No Chills ENT/Mouth : No Ear Pain, No Hoarseness, No sore throat Eyes: No Eye Pain, No Swelling, No Redness, No Foreign Body Cardiovascular : No Chest Pain, No SOB Respiratory : No Cough, No Dyspnea Gastrointestinal : No Nausea, No Vomiting, No Diarrhea, No abdominal Pain Genitourinary : No Dysuria, No Hematuria Musculoskeletal : no joint pain, No Myalgias, No Joint Swelling, pos neck pain Skin : No Skin lacerations, No rash, no insect bite Neuro : No Weakness, No Numbness, No Loss of Consciousness, No Dizziness, No Headache Psych : No Anxiety/Panic, No Depression Heme/Lymph: no easy bruising, no Lymphadenopathy Endocrine : No Polyuria, No Polydipsia All other systems reviewed and are negative PMFSH Past Medical History Attestation statement: The following information was validated with the patient. Medical History Benign essential hypertension Calculus of kidney Empty sella Erectile dysfunction Headache Hypogonadism in male Left shoulder tendinitis Lumbar degenerative disc disease Lumbar disc disease with radiculopathy Morbid obesity with BMI of 45.0-49.9, adult Obstructive sleep apnea Pure hypercholesterolemia Serum calcium elevated Surgical History History of appendectomy History of lithotripsy History of medial meniscus repair of right knee History of removal of cyst History of rotator cuff surgery History of umbilical hernia repair Family History Family History Father Liver cancer Morbidly obese Mother Hypertension Diabetes Asthma Social History Social History Housing: Apartment Alcohol intake: never Patient Tobacco Use Status: Never used Tobacco Second Hand Smoke Exposure: Yes Advance Directives: No service: No Current occupational status: unemployed 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 Oriented X3. No acute distress. Eyes: Pupils equal, round and reactive to light. ENT: Pharynx normal. Neck: Normal inspection. no rash no swelling - R lateral aspect ttp along trapezius and lateral strap muscles no swelling no erythema noted distal NV intact CVS: Normal heart rate and rhythm. Pulses normal. Respiratory: No respiratory distress. Breath sounds normal. Abdomen: Soft and nontender. Skin: Skin warm and dry. Normal skin color. Normal skin turgor. Extremities: No lower extremity edema. No calf ttp Neuro: Oriented X 3. No motor deficit. No sensory deficit. Course Course Course Narrative: no acute findings stable for DC MDM - Neck Pain/Injury MDM Narrative Medical decision making narrative: 46 yo male with hx of prior neck pain comes in with reproduceable R neck pain worse with movements and if he hits a bump in car or bike - suspect possible herniation I do not suspect infection at this time. He has good strength and is NV intact in UE. Will obtain CT cspine for mass/lesion. Start on steroids, MRs and refer to PCP. Discharge Plan Discharge Clinical Impression: Muscle spasms of neck Patient Disposition: Home, Self-Care Instructions: Muscle Spasm (ED), Neck Pain (ED) Additional Instructions: return to ED for any worsening symptoms or concerns follow up with your primary care doctor this week FINDINGS: Straightening/mild reversal of the normal cervical lordosis which may be positional or related to muscle spasm. No acute fracture or subluxation. No loss of vertebral body height. Loss of intervertebral disc height with anterior endplate osteophytes at C4-C7. No concerning lytic or blastic osseous lesion. Unremarkable facet joints. The visualized paraspinal soft tissues are unremarkable. No abnormal soft tissue mass or fluid collection. The visualized lung apices are clear. No significant central canal or neural foraminal stenosis.? CT/CT cervical spine wo con IMPRESSION: ? 1. Straightening/mild reversal of the normal cervical lordosis which may be positional or related to muscular spasm. ? 2. Mild degenerative disc disease at C4-C7 without significant central canal or neural foraminal stenosis. Prescriptions: New prednisone 20 mg tablet 40 mg PO DAILY 4 Days Qty: 8 0RF lidocaine 5 % adhesive patch,medicated 1 patch topical DAILY Qty: 30 0RF Rx Instructions: leave on most painful area for up to 12 hrs diazepam [Valium] 5 mg tablet 5 mg PO TID PRN (Reason: muscle spasm) Qty: 10 0RF Rx Instructions: partial fill is okay No Action (DME) CPAP Machine/Device Device See Rx Instructions .Route Qty: 1 0RF Rx Instructions: 16cm of water testosterone 30 mg/actuation (1.5 mL) solution in metered pump w/aydee 4 pump topical DAILY Qty: 2 4RF Rx Instructions: apply 2 doses/pumps to EACH underarm area Cortisporin-TC 3.3-3-10-0.5 mg/mL drops,suspension 5 drp otic (ears) TID 7 Days Qty: 10 0RF gabapentin 100 mg capsule 100 mg PO BEDTIME Qty: 30 0RF minocycline 100 mg capsule 100 mg PO Q12H Qty: 60 0RF tamsulosin 0.4 mg capsule 0.4 mg PO BEDTIME 14 Days Qty: 14 0RF tramadol 50 mg tablet 50 mg PO Q8H PRN (Reason: pain (scale score 4-6)) 7 Days Qty: 28 0RF tramadol 50 mg tablet 50 mg PO Q6H PRN (Reason: pain (scale score 1-3)) Qty: 8 0RF tamsulosin 0.4 mg capsule 0.4 mg PO BEDTIME 14 Days Qty: 14 0RF naproxen 500 mg tablet 500 mg PO BID PRN (Reason: pain) 7 Days Qty: 14 0RF (DME) KNEE BRACE (RIGHT) large See Rx Instructions .Route .MEDSUPPLY Qty: 1 0RF Rx Instructions: As directed triamcinolone acetonide 0.5 % cream 1 appl topical BID Qty: 15 0RF lisinopril 5 mg tablet 5 mg PO DAILY Qty: 90 1RF phentermine 30 mg capsule 30 mg PO DAILY 30 Days Qty: 30 5RF Rx Instructions: must administer 2 hours after breakfast simvastatin 40 mg tablet 40 mg PO BEDTIME Qty: 90 1RF pyridoxine (vitamin B6) 100 mg tablet 100 mg PO DAILY 90 Days Qty: 90 1RF glucosamine sulfate [Glucosamine] 500 mg tablet 500 mg PO DAILY Rx Instructions: administer with a meal sildenafil [Viagra] 100 mg tablet 100 mg PO DAILY PRN (Reason: sexual activity) Qty: 7 3RF Rx Instructions: administer 30 minutes to 4 hours before activity tretinoin 0.025 % cream topical Stand Alone Forms: Work/School Release
[2022-06-23 07:26] VITALS: BP 130/77; PULSE 53; RESP 16; O2SAT 98
[2022-06-23] MEDS: Lidocaine 4 % Patch ADH..PATCH 1 PATCH TRANSDERMA (07:36)
[2022-06-23] MEDS: predniSONE 20 MG TABLET 40 MG PO (07:38)
== END 2022-06-23 07:45 | disposition home or self-care (01) ==
PROVIDERS: Emergency Provider Emergency Medicine; PCP Internal Medicine
DX: M62.838 Other muscle spasm (principal); M54.2 Cervicalgia; I10 Essential (primary) hypertension; E78.00 Pure hypercholesterolemia, unspecified; E66.01 Morbid (severe) obesity due to excess calories; Z68.42 Body mass index [BMI] 45.0-49.9, adult; M51.16 Intervertebral disc disorders with radiculopathy, lumbar region; M51.36 Other intervertebral disc degeneration, lumbar region; M50.321 Other cervical disc degeneration at C4-C5 level
CPT/HCPCS: 72125; 99284

== ENCOUNTER 2022-06-30 09:00 | Outpatient (RCR) | payer OTHER, SELFPAY ==
--- NOTE | 2022-05-03 11:57 | MHC.PT.EP ---
[facility] [place] Office [place] Office [place] Office [address] Siobhan Camacho [address] [phone] F: [phone] F: [phone] F: [phone] F: [phone] Physical Therapy Plan of Care Date of Evaluation: Date of Surgery: 04/28/22 Diagnosis: right knee partial medial meniscectomy and chondroplasty Assessment: SORAIDA IS A PLEASANT 46 YO MALE S/P RIGHT MENISCAL REPAIR AND CHONDROPLASTY. HE PRESENTS POD #5 FOR ORTHOPEDIC FOLLOW UP AND PT EVALUATION. UPON EXAM HE DEMONSTRATES THE EXPECTED IMPAIRMENTS OF DECREASED ROM, DECREASED STRENGTH, ALTERED POSTURE AND POSITIONING,ALTERED GAIT AND BALANCE, AND INCREASED PAIN AND EDEMA. FUNCTIONAL LIMITATIONS INCLUDE DECREASED ABILITY TO PERFORM HOMEMAKING AND SELF-CARE TASKS, DECREASED ABILITY TO PERFORM WALKING, RUNNING, JUMPING AND SQUATTING, INABILITY TO DRIVE AND PERFORM WORK TASKS, DECREASED PARTICIPATION IN COMMUNITY AND RECREATIONAL ACTIVITIES AND DISRUPTED SLEEP. THE Pt IS A GOOD CANDIDATE FOR SKILLED PT DUE TO AGE, POTENTIAL REMEDIATION OF IMPAIRMENTS, TYPICAL DISEASE/CONDITION PROGRESSION AND PROGNOSIS, COMORBIDITIES, AND MOTIVATION. PT WOULD BENEFIT FROM TAILORED PROGRAM OF THERAPEUTIC ACTIVITIES, FUNCTIONAL TRAINING, GAIT TRAINING, POSTURAL EDUCATION, NEUROMUSCULAR RE-EDUCATION, AND MODALITIES NEEDED. 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 Manual therapy to restore motion and function. Therapeutic exercise to improve strength and flexibility. Neuromuscular re-education for posture and balance. Therapeutic activities to return to functional activities of daily living. Electronically signed by: EZIO JEFFERSON PT, DPT Please sign and return to therapist. Thank you for your referral.
--- NOTE | 2022-06-30 10:18 | MHC.PT.DC ---
[facility] [place] [facility] [place] [facility] [place] Office [address] Siobhan Camacho [address] [facility] [phone] F: [phone] F: [phone] F: [phone] F: [phone] Physical Therapy Discharge Report Diagnosis: right knee partial medial meniscectomy and chondroplasty Date of Surgery: 04/28/22 Date of Evaluation: 05/03/22 Date of Discharge: 06/30/22 Treatments to Date: 10 Cancellations to Date: 0 No Shows to Date: 0 Discharge Status: Achieved Goals Improved Function Independent with HEP Discharge Summary: Ronald progressed well with PT and has met LTGs at this time. He has returned to a gym program and is DCed on this date. Electronically signed by: Judit Valverde PT, DPT Please sign and return to therapist. Thank you for your referral.
== END 2022-06-30 10:19 | disposition home or self-care (01) ==
LOC: HO.PT 09:00
PROVIDERS: Visit Provider Physician Assistant
DX: S83.206A Unspecified tear of unspecified meniscus, current injury, right knee, initial encounter (principal)
CPT/HCPCS: 97110; 97161; 97530; 97535

== ENCOUNTER 2022-07-16 07:41 | Outpatient (REF) | payer OTHER, SELFPAY | END 2022-07-16 07:42 | disposition home or self-care (01) | LOC: HO.HOSX 07:41 | PROVIDERS: Visit Provider Physician Assistant | DX: Z13.89 Encounter for screening for other disorder (principal) ==

== ENCOUNTER 2022-07-18 00:50 | Emergency (ER) | payer OTHER, SELFPAY ==
--- NOTE | ~2022-07-18 | CT_ITS ---
EXAMINATION: CT ABDOMEN AND PELVIS WITHOUT CONTRAST CLINICAL INFORMATION: Flank pain COMPARISON: 11/12/2020 TECHNIQUE: Multidetector volumetric imaging was performed from the superior aspect of the liver through the pubic symphysis. Sagittal and coronal reformatted images were obtained on the technologist's workstation. This CT examination was performed using dose optimization techniques as appropriate, variously including the following: *Automated exposure control *Adjustment of mA and/or kV according to patient size (this includes techniques or standardized protocols for targeted exams where dose is matched to indication/reason for exam; i.e. extremities or head) *Use of iterative reconstruction technique DLP: 1050 mGy-cm FINDINGS: LUNG BASES: The visualized lung bases are unremarkable. LIVER, GALLBLADDER, AND BILIARY TREE: The liver is normal in size, shape, and attenuation. No focal hepatic lesion or biliary ductal dilatation is present. Gallbladder appears somewhat contracted. PANCREAS: Unremarkable. SPLEEN: Unremarkable. ADRENAL GLANDS: Unremarkable. KIDNEYS AND URETERS: There is mild right hydroureteronephrosis and surrounding stranding, with a 4 mm calculus identified at or just beyond the right ureterovesicular junction. No left hydronephrosis or obstructing calculus. There are several punctate bilateral renal calculi. BLADDER: There is a 4 mm calculus at or just beyond the right ureterovesicular junction. The bladder is minimally distended. GASTROINTESTINAL TRACT: No evidence of bowel obstruction or significant wall thickening. No free fluid or free air is seen. ABDOMINAL WALL: Small fat-containing inguinal hernias. LYMPH NODES: Normal. VASCULAR: Mild atherosclerotic calcifications. PELVIC VISCERA: Unremarkable. OSSEOUS STRUCTURES: Degenerative disc disease is noted at L5-S1. Scattered mild endplate osteophytes are present. CT/CT abdomen pelvis wo IV con IMPRESSION: 1. Mild right hydroureteronephrosis due to to a 4 mm calculus at or just beyond the right ureterovesicular junction. 2. Punctate bilateral renal calculi.
[2022-07-18 01:24] LABS: MANUAL DIFF FLAG NO
[2022-07-18 01:27] LABS: Basophils Percent Auto 0.3 % (0-2); Eosinophils Absolute Auto 0.1 X10*3/uL (0.0-0.4); Eosinophils Percent Auto 1.1 % (0-4); Hematocrit 46.1 % (42.0-52.0); Hemoglobin 15.5 g/dl (14.0-18.0); Imm Gran Abs Auto 0.04 X10*3/uL (0.00-0.03); Imm Gran Pct Auto 0.4 % (0.0-0.4); Lymphocytes Absolute Auto 2.2 X10*3/uL (1.2-4.9); Lymphocytes Percent Auto 23.9 % (20-40); Mean Corpuscular HGB Conc 33.6 g/dl (31.0-36.0); Mean Corpuscular Hemoglobin 29.1 pg (27.0-33.0); Mean Corpuscular Volume 86.7 fL (80.0-98.0); Mean Platelet Volume 9.6 fL (9.4-12.4); Monocytes Absolute Auto 0.8 X10*3/uL (0.1-1.2); Monocytes Percent Auto 8.9 % (2-11); Neutrophils Percent Auto 65.4 % (45-73); Platelet Count 280 X10*3/uL (160-400); Red Blood Count 5.32 X10*6/uL (4.60-5.80); Red Cell Distribution Width 13.2 % (11.0-16.0); White Blood Count 9.2 X10*3/uL (4.8-10.8)
[2022-07-18 01:28] VITALS: BP 138/69; PULSE 69; RESP 20; TEMP 36.6; O2SAT 97; BMI 44.7
[2022-07-18 01:47] LABS: Alanine Aminotransferase 36 U/L (0-40); Albumin Level 4.5 g/dL (3.5-5.0); Alkaline Phosphatase 88 U/L (39-117); Anion Gap 17 (12-20); Aspartate Amino Transferase 27 U/L (5-37); Bilirubin Direct 0.2 mg/dL (0.0-0.5); Bilirubin Total 0.7 mg/dL (0.0-1.0); Blood Urea Nitrogen 23 mg/dL (9-16); Carbon Dioxide 24 mmol/L (22-29); Chloride 107 mmol/L (96-108); Creatinine Clr Calc Pharmacy 60.4; Estimated Glomerular Filt Rate 40; Glucose Random 99 mg/dL (60-115); Potassium 4.3 mmol/L (3.3-5.1); Sodium 144 mmol/L (135-145); Total Protein 7.9 g/dL (6.5-8.0)
[2022-07-18 02:43] LABS: Appearance Urine Clear; Color Urine Yellow; Glucose Urine UA Negative (Negative); Leukocyte Esterase Urine Trace (Negative); Nitrite Urine Negative (Negative); PH 5.5 (5.0-9.0); Urine Blood Large (3+) (Negative); Urine Ketones Trace mg/dL (Negative); Urine Protein Trace mg/dL (Neg-Trace)
[2022-07-18 02:45] LABS: Bacteria Urine None Seen (None Seen); Hyaline Casts Urine 0-2 /LPF (0-2); RBC Urine >20 /HPF (0-2); Squamous Epithelial Cell Urine 0-2 /HPF (0-2); WBC Urine 0-5 /HPF (0-5)
[2022-07-18 04:34] VITALS: BP 127/63; PULSE 60; RESP 16; O2SAT 100
[2022-07-18] MEDS: ondansetron HCL 4 MG/2 ML VIAL IVPUSH (05:54)
[2022-07-18] MEDS: Ketorolac Tromethamine 30 MG/ML VIAL IVPUSH (05:54)
--- NOTE | 2022-07-18 06:03 | ED_ITS ---
HPI - General Adult General Chief complaint: General Medical <Thania Yip MD - Last Filed: 07/18/22 06:59> Stated complaint: ?kidney stones <Thania Yip MD - Last Filed: 07/18/22 06:59> Time Seen by Provider: 07/18/22 00:59 <Thania Yip MD - Last Filed: 07/18/22 06:59> Source: patient <Thania Yip MD - Last Filed: 07/18/22 06:59> Mode of arrival: ambulatory <Thania Yip MD - Last Filed: 07/18/22 06:59> Limitations: no limitations <Thania Yip MD - Last Filed: 07/18/22 06:59> History of Present Illness HPI narrative: patient comes to the emergency room complaining of bilateral flank pain. Patient states that he has history of kidney stones bilaterally. On March 28, patient had a right-sided ESWL, on June of this year, patient had an ESWL on the left side. Patient denies dysuria or hematuria. No fever or chills. <Thania Yip MD - Last Filed: 07/18/22 06:59> Related Data Home medications: Home Medications Medication Instructions Recorded Confirmed glucosamine sulfate 500 mg tablet 500 mg PO DAILY 01/13/22 07/07/22 (Glucosamine) tretinoin 0.025 % topical cream appl topical 04/14/22 07/07/22 ketoconazole 2 % shampoo topical 07/07/22 07/07/22 Previous Rx's Medication Instructions Recorded CPAP (CPAP Machine/Device) #1 ea 06/29/21 KNEE BRACE (RIGHT) #1 ea 07/17/21 sildenafil 100 mg tablet (Viagra) 100 mg PO DAILY PRN sexual 01/13/22 activity #7 tabs testosterone 30 mg/actuation (1.5 4 pump topical DAILY #2 bottles 02/11/22 mL) transderm solution metered pump pyridoxine (vitamin B6) 100 mg 100 mg PO DAILY 90 days #90 tabs 02/25/22 tablet lisinopril 5 mg tablet 5 mg PO DAILY #90 tabs 03/08/22 phentermine 30 mg capsule 30 mg PO DAILY 30 days #30 caps 03/08/22 simvastatin 40 mg tablet 40 mg PO BEDTIME #90 tabs 03/08/22 triamcinolone acetonide 0.5 % 1 appl topical BID #15 grams 03/08/22 topical cream tamsulosin 0.4 mg capsule 0.4 mg PO BEDTIME 14 days #14 caps 03/24/22 tramadol 50 mg tablet 50 mg PO Q8H PRN pain (scale score 04/28/22 4-6) 7 days #28 tabs [id number] 3.3 5 drp otic (ears) TID 7 days #10 mL 04/30/22 mg-3 mg-10 mg-0.5 mg/mL ear drops,susp (Cortisporin-TC) naproxen 500 mg tablet 500 mg PO BID PRN pain 7 days #14 05/12/22 tabs tamsulosin 0.4 mg capsule 0.4 mg PO BEDTIME 14 days #14 caps 05/12/22 tramadol 50 mg tablet 50 mg PO Q6H PRN pain (scale score 05/12/22 1-3) #8 tabs minocycline 100 mg capsule 100 mg PO Q12H #60 caps 06/21/22 diazepam 5 mg tablet (Valium) 5 mg PO TID PRN muscle spasm #10 06/23/22 tabs lidocaine 5 % topical patch 1 patch topical DAILY #30 ea 06/23/22 prednisone 20 mg tablet 40 mg PO DAILY 4 days #8 tabs 06/23/22 gabapentin 100 mg capsule 100 mg PO BEDTIME #30 caps 07/02/22 ketorolac 10 mg tablet 10 mg PO TID PRN pain 5 days #7 07/18/22 tabs levofloxacin 500 mg tablet 500 mg PO DAILY #7 tabs 07/18/22 prednisone 20 mg tablet 20 mg PO DAILY #3 tabs 07/18/22 tamsulosin 0.4 mg capsule 0.4 mg PO DAILY #7 caps 07/18/22 <Thania Yip MD - Last Filed: 07/18/22 06:59> Allergies/adverse reactions: Allergies Allergy/AdvReac Type Severity Reaction Status Date / Time oxycodone [From PERCOCET] Allergy Intermediate ITCHING, Verified 07/07/22 11:44 rash and itching, itching codeine Allergy Unknown rash and Verified 07/07/22 11:44 itching <Thania Yip MD - Last Filed: 07/18/22 06:59> Review of Systems Review of Systems: Constitutional : No Weight loss, No Fever, No Chills, No Night Sweats, No Fatigue, No Malaise ENT/Mouth : No Hearing loss, No Ear Pain, No Nasal Congestion, No Sinus Pain, No Hoarseness, No sore throat, No Rhinorrhea, No Swallowing Difficulty Eyes: No Eye Pain, No Swelling, No Redness, No Foreign Body, No Discharge, No Vision Changes Cardiovascular : No Chest Pain, No SOB, No Dyspnea on Exertion, No Orthopnea, No Edema, No Palpitations Respiratory : No Cough, No Sputum, No Wheezing, No Smoke Exposure, No Dyspnea Gastrointestinal : No Nausea, No Vomiting, No Diarrhea, No Constipation, No abdominal Pain, No Hematochezia, No Melena Genitourinary : no irregular bleeding, No Dysuria, No Urinary Frequency, No Hematuria, No Urinary Incontinence, No Urgency, Complaining of bilateral Flank Pain, No Urinary Flow Changes, No Hesitancy Musculoskeletal : No joint pain, No Myalgias, No Joint Swelling Skin : No Skin Lesions, No rash Neuro : No Weakness, No Numbness, No Paresthesias, No Loss of Consciousness, No Dizziness, No Headache Psych : No Anxiety/Panic, No Depression, No SI/HI/AH/VH, No Social Issues, Heme/Lymph: No Bruising, No Bleeding,No Lymphadenopathy Endocrine : No Polyuria, No Polydipsia, No Temperature Intolerance <Thania Yip MD - Last Filed: 07/18/22 06:59> [facility] Past Medical History Medical History: Medical History Benign essential hypertension Calculus of kidney Empty sella Erectile dysfunction Headache Hypogonadism in male Left shoulder tendinitis Lumbar degenerative disc disease Lumbar disc disease with radiculopathy Morbid obesity with BMI of 45.0-49.9, adult Obstructive sleep apnea Pure hypercholesterolemia Serum calcium elevated <Thania Yip MD - Last Filed: 07/18/22 06:59> Surgical History: Surgical History History of appendectomy History of lithotripsy History of medial meniscus repair of right knee History of removal of cyst History of rotator cuff surgery History of umbilical hernia repair <Thania Yip MD - Last Filed: 07/18/22 06:59> Family History Family History: Family History Father Liver cancer Morbidly obese Mother Hypertension Diabetes Asthma <Thania Yip MD - Last Filed: 07/18/22 06:59> Social History Social History: Social History Housing: Apartment Alcohol intake: never Patient Tobacco Use Status: Never used Tobacco Second Hand Smoke Exposure: Yes Use of substances other than those prescribed or required for medical reasons: No Advance Directives: No Advance Directives Information Provided: No service: No Current occupational status: unemployed 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 Cognitive needs: No Hearing needs: No Vision needs: No <Thania Yip MD - Last Filed: 07/18/22 06:59> Physical Exam ED Vital Signs: Vital Signs - 24 hr 07/18/22 01:28 07/18/22 04:34 07/18/22 07:49 Temperature 97.8 F 98.6 F Pulse Rate 69 60 57 Respiratory Rate 20 16 18 Blood Pressure 138/69 127/63 127/75 Pulse Oximetry 97 100 100 Oxygen Delivery Method Room Air Room Air Room Air BMI result Body Mass Index 44.7 <Thania Yip MD - Last Filed: 07/18/22 06:59> Vital Signs - 24 hr 07/18/22 01:28 07/18/22 04:34 07/18/22 07:49 Temperature 97.8 F 98.6 F Pulse Rate 69 60 57 Respiratory Rate 20 16 18 Blood Pressure 138/69 127/63 127/75 Pulse Oximetry 97 100 100 Oxygen Delivery Method Room Air Room Air Room Air BMI result Body Mass Index 44.7 <Marino Burgos MD - Last Filed: 07/18/22 09:36> Const Other: Appearance: Alert. Oriented X3. seems uncomfortable Eyes: Pupils equal, round and reactive to light. ENT: Pharynx normal. Neck: Normal inspection. Neck supple. No lymph nodes noted. No crepitus CVS: Normal heart rate and rhythm. Pulses normal. Normal S1 and S2 Respiratory: No respiratory distress. Breath sounds normal. No Wheezing. No rales Abdomen: Soft and nontender. No rigidity. No distention. back: Patient has bilateral CVA tenderness Skin: Skin warm and dry. Normal skin color. Normal skin turgor. Extremities: No lower extremity edema. No Lacerations. No Rash Neuro: Oriented X 3. No motor deficit. No sensory deficit. Moving all extremities. No slurred speech. CN 2 through 12 grossly intact Psych: calm, cooperative, normal affect <Thania Yip MD - Last Filed: 07/18/22 06:59> Course Course Course Narrative: patient receiving IV fluids, Toradol, Zofran. Patient overall feeling better. Patient's urinalysis is positive for leukocyte esterase. Since patient has a kidney stone, will go ahead and treat before this infection worsens. patient has no fever, blood pressure within normal limits. Sepsis not suspecte d. CT scan shows a 4 mm kidney stone at the right UPJ with mild hydronephrosis. Patient's creatinine is slightly increased at 1.83, patient getting IV fluids. We will repeat labs after the fluids. Overall, patient states that he is feeling better after Toradol BMP to be repeated at 730 am/ f/u Cr sign out given to Dr. Gomez <Thania Yip MD - Last Filed: 07/18/22 06:59> Reevaluation(s) Reevaluation #1: Patient is comfortable, received IV fluid hydration, slight improvement of kidney function testing, patient was encouraged to drink plenty of fluid and take the prescribed medication and follow-up with the urologist, patient is already set for appointment with his PCP in 10 days patient also has blood workup ordered by his PCP this week. <Marino Burgos MD - Last Filed: 07/18/22 09:36> Time: 09:23 <Marino Burgos MD - Last Filed: 07/18/22 09:36> Medical Decision Making Lab Data Result diagrams: : 07/18/22 01:20 07/18/22 07:47 <Thania Yip MD - Last Filed: 07/18/22 06:59> Labs: Lab Results 07/18/22 07/18/22 07/18/22 Range/Units 01:20 01:20 02:37 WBC 9.2 (4.8-10.8) X10*3/uL RBC 5.32 (4.60-5.80) X10*6/uL Hgb 15.5 (14.0-18.0) g/dl Hct 46.1 (42.0-52.0) % MCV 86.7 (80.0-98.0) fL MCH 29.1 (27.0-33.0) pg MCHC 33.6 (31.0-36.0) g/dl RDW 13.2 (11.0-16.0) % Plt Count 280 (160-400) X10*3/uL MPV 9.6 (9.4-12.4) fL Immature Gran % (Auto) 0.4 (0.0-0.4) % Neut % (Auto) 65.4 (45-73) % Lymph % (Auto) 23.9 (20-40) % Cross % (Auto) 8.9 (2-11) % Eos % (Auto) 1.1 (0-4) % Baso % (Auto) 0.3 (0-2) % Lymph # (Auto) 2.2 (1.2-4.9) X10*3/uL Cross # (Auto) 0.8 (0.1-1.2) X10*3/uL Eos # (Auto) 0.1 (0.0-0.4) X10*3/uL Baso # (Auto) 0.0 (0.0-0.2) X10*3/uL Abs Immat Gran (auto) 0.04 H (0.00-0.03) X10*3/uL Absolute Neuts (auto) 6.0 (2.0-8.3) x10*3/uL Absolute Nucleated RBC 0.000 (0.0-0.012) X10*3/uL Nucleated RBC % (auto) 0.0 (0.0-0.2) /100WBC Sodium 144 (135-145) mmol/L Potassium 4.3 (3.3-5.1) mmol/L Chloride 107 (96-108) mmol/L Carbon Dioxide 24 (22-29) mmol/L Anion Gap 17 (12-20) BUN 23 H (9-16) mg/dL Creatinine 1.83 H (0.5-1.4) mg/dL Estim Creat Clear Calc 60.4 Estimated GFR 40 Random Glucose 99 (60-115) mg/dL Calcium 10.0 (8.4-10.2) mg/dL Total Bilirubin 0.7 (0.0-1.0) mg/dL Direct Bilirubin 0.2 (0.0-0.5) mg/dL AST 27 (5-37) U/L ALT 36 (0-40) U/L Alkaline Phosphatase 88 D (39-117) U/L Total Protein 7.9 (6.5-8.0) g/dL Albumin 4.5 (3.5-5.0) g/dL Urine Color Yellow Urine Appearance Clear Urine pH 5.5 (5.0-9.0) Ur Specific [place] 1.020 (1.005-1.025) Urine Protein Trace (Neg-Trace) mg/dL Urine Glucose (UA) Negative (Negative) mg/dL Urine Ketones Trace (Negative) mg/dL Urine Blood Large (3+) H (Negative) Urine Nitrite Negative (Negative) Ur Leukocyte Esterase Trace H (Negative) Urine RBC >20 H (0-2) /HPF Urine WBC 0-5 (0-5) /HPF Ur Squamous Epith Cells 0-2 (0-2) /HPF Urine Bacteria None Seen (None Seen) Hyaline Casts 0-2 (0-2) /LPF 07/18/22 Range/Units 07:47 WBC (4.8-10.8) X10*3/uL RBC (4.60-5.80) X10*6/uL Hgb (14.0-18.0) g/dl Hct (42.0-52.0) % MCV (80.0-98.0) fL MCH (27.0-33.0) pg MCHC (31.0-36.0) g/dl RDW (11.0-16.0) % Plt Count (160-400) X10*3/uL MPV (9.4-12.4) fL Immature Gran % (Auto) (0.0-0.4) % Neut % (Auto) (45-73) % Lymph % (Auto) (20-40) % Cross % (Auto) (2-11) % Eos % (Auto) (0-4) % Baso % (Auto) (0-2) % Lymph # (Auto) (1.2-4.9) X10*3/uL Cross # (Auto) (0.1-1.2) X10*3/uL Eos # (Auto) (0.0-0.4) X10*3/uL Baso # (Auto) (0.0-0.2) X10*3/uL Abs Immat Gran (auto) (0.00-0.03) X10*3/uL Absolute Neuts (auto) (2.0-8.3) x10*3/uL Absolute Nucleated RBC (0.0-0.012) X10*3/uL Nucleated RBC % (auto) (0.0-0.2) /100WBC Sodium 142 (135-145) mmol/L Potassium 5.4 H D (3.3-5.1) mmol/L Chloride 106 (96-108) mmol/L Carbon Dioxide 27 (22-29) mmol/L Anion Gap 14 (12-20) BUN 24 H (9-16) mg/dL Creatinine 1.78 H (0.5-1.4) mg/dL Estim Creat Clear Calc 62.1 Estimated GFR 41 Random Glucose 112 (60-115) mg/dL Calcium 9.5 (8.4-10.2) mg/dL Total Bilirubin (0.0-1.0) mg/dL Direct Bilirubin (0.0-0.5) mg/dL AST (5-37) U/L ALT (0-40) U/L Alkaline Phosphatase (39-117) U/L Total Protein (6.5-8.0) g/dL Albumin (3.5-5.0) g/dL Urine Color Urine Appearance Urine pH (5.0-9.0) Ur Specific [place] (1.005-1.025) Urine Protein (Neg-Trace) mg/dL Urine Glucose (UA) (Negative) mg/dL Urine Ketones (Negative) mg/dL Urine Blood (Negative) Urine Nitrite (Negative) Ur Leukocyte Esterase (Negative) Urine RBC (0-2) /HPF Urine WBC (0-5) /HPF Ur Squamous Epith Cells (0-2) /HPF Urine Bacteria (None Seen) Hyaline Casts (0-2) /LPF <Thania Yip MD - Last Filed: 07/18/22 06:59> Lab Results 09/11/22 09/11/22 09/11/22 Range/Units 01:20 01:20 02:37 WBC 9.2 (4.8-10.8) X10*3/uL RBC 5.32 (4.60-5.80) X10*6/uL Hgb 15.5 (14.0-18.0) g/dl Hct 46.1 (42.0-52.0) % MCV 86.7 (80.0-98.0) fL MCH 29.1 (27.0-33.0) pg MCHC 33.6 (31.0-36.0) g/dl RDW 13.2 (11.0-16.0) % Plt Count 280 (160-400) X10*3/uL MPV 9.6 (9.4-12.4) fL Immature Gran % (Auto) 0.4 (0.0-0.4) % Neut % (Auto) 65.4 (45-73) % Lymph % (Auto) 23.9 (20-40) % Cross % (Auto) 8.9 (2-11) % Eos % (Auto) 1.1 (0-4) % Baso % (Auto) 0.3 (0-2) % Lymph # (Auto) 2.2 (1.2-4.9) X10*3/uL Cross # (Auto) 0.8 (0.1-1.2) X10*3/uL Eos # (Auto) 0.1 (0.0-0.4) X10*3/uL Baso # (Auto) 0.0 (0.0-0.2) X10*3/uL Abs Immat Gran (auto) 0.04 H (0.00-0.03) X10*3/uL Absolute Neuts (auto) 6.0 (2.0-8.3) x10*3/uL Absolute Nucleated RBC 0.000 (0.0-0.012) X10*3/uL Nucleated RBC % (auto) 0.0 (0.0-0.2) /100WBC Sodium 144 (135-145) mmol/L Potassium 4.3 (3.3-5.1) mmol/L Chloride 107 (96-108) mmol/L Carbon Dioxide 24 (22-29) mmol/L Anion Gap 17 (12-20) BUN 23 H (9-16) mg/dL Creatinine 1.83 H (0.5-1.4) mg/dL Estim Creat Clear Calc 60.4 Estimated GFR 40 Random Glucose 99 (60-115) mg/dL Calcium 10.0 (8.4-10.2) mg/dL Total Bilirubin 0.7 (0.0-1.0) mg/dL Direct Bilirubin 0.2 (0.0-0.5) mg/dL AST 27 (5-37) U/L ALT 36 (0-40) U/L Alkaline Phosphatase 88 D (39-117) U/L Total Protein 7.9 (6.5-8.0) g/dL Albumin 4.5 (3.5-5.0) g/dL Urine Color Yellow Urine Appearance Clear Urine pH 5.5 (5.0-9.0) Ur Specific [place] 1.020 (1.005-1.025) Urine Protein Trace (Neg-Trace) mg/dL Urine Glucose (UA) Negative (Negative) mg/dL Urine Ketones Trace (Negative) mg/dL Urine Blood Large (3+) H (Negative) Urine Nitrite Negative (Negative) Ur Leukocyte Esterase Trace H (Negative) Urine RBC >20 H (0-2) /HPF Urine WBC 0-5 (0-5) /HPF Ur Squamous Epith Cells 0-2 (0-2) /HPF Urine Bacteria None Seen (None Seen) Hyaline Casts 0-2 (0-2) /LPF 07/18/22 Range/Units 07:47 WBC (4.8-10.8) X10*3/uL RBC (4.60-5.80) X10*6/uL Hgb (14.0-18.0) g/dl Hct (42.0-52.0) % MCV (80.0-98.0) fL MCH (27.0-33.0) pg MCHC (31.0-36.0) g/dl RDW (11.0-16.0) % Plt Count (160-400) X10*3/uL MPV (9.4-12.4) fL Immature Gran % (Auto) (0.0-0.4) % Neut % (Auto) (45-73) % Lymph % (Auto) (20-40) % Cross % (Auto) (2-11) % Eos % (Auto) (0-4) % Baso % (Auto) (0-2) % Lymph # (Auto) (1.2-4.9) X10*3/uL Cross # (Auto) (0.1-1.2) X10*3/uL Eos # (Auto) (0.0-0.4) X10*3/uL Baso # (Auto) (0.0-0.2) X10*3/uL Abs Immat Gran (auto) (0.00-0.03) X10*3/uL Absolute Neuts (auto) (2.0-8.3) x10*3/uL Absolute Nucleated RBC (0.0-0.012) X10*3/uL Nucleated RBC % (auto) (0.0-0.2) /100WBC Sodium 142 (135-145) mmol/L Potassium 5.4 H D (3.3-5.1) mmol/L Chloride 106 (96-108) mmol/L Carbon Dioxide 27 (22-29) mmol/L Anion Gap 14 (12-20) BUN 24 H (9-16) mg/dL Creatinine 1.78 H (0.5-1.4) mg/dL Estim Creat Clear Calc 62.1 Estimated GFR 41 Random Glucose 112 (60-115) mg/dL Calcium 9.5 (8.4-10.2) mg/dL Total Bilirubin (0.0-1.0) mg/dL Direct Bilirubin (0.0-0.5) mg/dL AST (5-37) U/L ALT (0-40) U/L Alkaline Phosphatase (39-117) U/L Total Protein (6.5-8.0) g/dL Albumin (3.5-5.0) g/dL Urine Color Urine Appearance Urine pH (5.0-9.0) Ur Specific [place] (1.005-1.025) Urine Protein (Neg-Trace) mg/dL Urine Glucose (UA) (Negative) mg/dL Urine Ketones (Negative) mg/dL Urine Blood (Negative) Urine Nitrite (Negative) Ur Leukocyte Esterase (Negative) Urine RBC (0-2) /HPF Urine WBC (0-5) /HPF Ur Squamous Epith Cells (0-2) /HPF Urine Bacteria (None Seen) Hyaline Casts (0-2) /LPF <Marino Burgos MD - Last Filed: 07/18/22 09:36> Imaging Data CT scan - abdomen: Radiologist's impression: FINDINGS: LUNG BASES: The visualized lung bases are unremarkable.? LIVER, GALLBLADDER, AND BILIARY TREE: The liver is normal in size, shape, and attenuation. No focal hepatic lesion or biliary ductal dilatation is present. Gallbladder appears somewhat contracted.? PANCREAS: Unremarkable.? SPLEEN: Unremarkable.? ADRENAL GLANDS: Unremarkable.? KIDNEYS AND URETERS: There is mild right hydroureteronephrosis and surrounding stranding, with a 4 mm calculus identified at or just beyond the right ureterovesicular junction. No left hydronephrosis or obstructing calculus. There are several punctate bilateral renal calculi.? BLADDER: There is a 4 mm calculus at or just beyond the right ureterovesicular junction. The bladder is minimally distended. GASTROINTESTINAL TRACT: No evidence of bowel obstruction or significant wall thickening. No free fluid or free air is seen. ABDOMINAL WALL: Small fat-containing inguinal hernias.? LYMPH NODES: Normal. VASCULAR: Mild atherosclerotic calcifications. PELVIC VISCERA: Unremarkable.? OSSEOUS STRUCTURES: Degenerative disc disease is noted at L5-S1. Scattered mild endplate osteophytes are present.? CT/CT abdomen pelvis wo IV con IMPRESSION: 1.? Mild right hydroureteronephrosis due to to a 4 mm calculus at or just beyond the right ureterovesicular junction. 2.? Punctate bilateral renal calculi.? ? <Thania Yip MD - Last Filed: 07/18/22 06:59> Discharge Plan Discharge Clinical Impression: Ureterolithiasis, CUONG (acute kidney injury), Acute UTI <Thania Yip MD - Last Filed: 07/18/22 06:59> Patient Disposition: Still a Patient <Thania Yip MD - Last Filed: 07/18/22 06:59> Instructions: Kidney Stones (ED), Urinary Tract Infection in Men (ED) <Thania Yip MD - Last Filed: 07/18/22 06:59> Additional Instructions: Please follow-up with your primary care physician tomorrow. If you have any worsening or new symptoms, please return to the emergency room or call 911 <Thania Yip MD - Last Filed: 07/18/22 06:59> Prescriptions: New tamsulosin 0.4 mg capsule 0.4 mg PO DAILY Qty: 7 0RF prednisone 20 mg tablet 20 mg PO DAILY Qty: 3 0RF ketorolac 10 mg tablet 10 mg PO TID PRN (Reason: pain) 5 Days Qty: 7 0RF Rx Instructions: Do not use this medication with any NSAIDs. Use Tylenol if needed for breakthrough pain levofloxacin 500 mg tablet 500 mg PO DAILY Qty: 7 0RF No Action (DME) CPAP Machine/Device Device See Rx Instructions .Route Qty: 1 0RF Rx Instructions: 16cm of water testosterone 30 mg/actuation (1.5 mL) solution in metered pump w/aydee 4 pump topical DAILY Qty: 2 4RF Rx Instructions: apply 2 doses/pumps to EACH underarm area Cortisporin-TC 3.3-3-10-0.5 mg/mL drops,suspension 5 drp otic (ears) TID 7 Days Qty: 10 0RF minocycline 100 mg capsule 100 mg PO Q12H Qty: 60 0RF gabapentin 100 mg capsule 100 mg PO BEDTIME Qty: 30 0RF tamsulosin 0.4 mg capsule 0.4 mg PO BEDTIME 14 Days Qty: 14 0RF tramadol 50 mg tablet 50 mg PO Q8H PRN (Reason: pain (scale score 4-6)) 7 Days Qty: 28 0RF tramadol 50 mg tablet 50 mg PO Q6H PRN (Reason: pain (scale score 1-3)) Qty: 8 0RF tamsulosin 0.4 mg capsule 0.4 mg PO BEDTIME 14 Days Qty: 14 0RF naproxen 500 mg tablet 500 mg PO BID PRN (Reason: pain) 7 Days Qty: 14 0RF prednisone 20 mg tablet 40 mg PO DAILY 4 Days Qty: 8 0RF lidocaine 5 % adhesive patch,medicated 1 patch topical DAILY Qty: 30 0RF Rx Instructions: leave on most painful area for up to 12 hrs diazepam [Valium] 5 mg tablet 5 mg PO TID PRN (Reason: muscle spasm) Qty: 10 0RF Rx Instructions: partial fill is okay (DME) KNEE BRACE (RIGHT) large See Rx Instructions .Route .MEDSUPPLY Qty: 1 0RF Rx Instructions: As directed triamcinolone acetonide 0.5 % cream 1 appl topical BID Qty: 15 0RF lisinopril 5 mg tablet 5 mg PO DAILY Qty: 90 1RF phentermine 30 mg capsule 30 mg PO DAILY 30 Days Qty: 30 5RF Rx Instructions: must administer 2 hours after breakfast simvastatin 40 mg tablet 40 mg PO BEDTIME Qty: 90 1RF pyridoxine (vitamin B6) 100 mg tablet 100 mg PO DAILY 90 Days Qty: 90 1RF glucosamine sulfate [Glucosamine] 500 mg tablet 500 mg PO DAILY Rx Instructions: administer with a meal sildenafil [Viagra] 100 mg tablet 100 mg PO DAILY PRN (Reason: sexual activity) Qty: 7 3RF Rx Instructions: administer 30 minutes to 4 hours before activity ketoconazole 2 % shampoo topical tretinoin 0.025 % cream topical <Thania Yip MD - Last Filed: 07/18/22 06:59> Referrals: Ez Meek MD [Physician] - 2 days <Thania Yip MD - Last Filed: 07/18/22 06:59>
[2022-07-18] MEDS: 0.9 % Sodium Chloride 1,000 ML 999 ML IVCONT (06:11)
[2022-07-18] MEDS: levoFLOXacin/D5W 500 MG/100 ML PIGGYBACK 100 MG IV (06:11)
--- NOTE | 2022-07-18 06:22 | PC.NURSE ---
Assumed care of pt. from waiting room. Pt. in severe flank and abdominal pain, pacing and leaning over the bed trying to assume position of comfort. Pt. found to have kidney stones, medicated with abx and meds per the MAR. Per Dr. Yip we do not need blood cultures prior to abx administration. Pt. now sleeping.
[2022-07-18 07:49] VITALS: BP 127/75; PULSE 57; RESP 18; TEMP 37; O2SAT 100
[2022-07-18 08:11] LABS: Anion Gap 14 (12-20); Blood Urea Nitrogen 24 mg/dL (9-16); Calcium 9.5 mg/dL (8.4-10.2); Carbon Dioxide 27 mmol/L (22-29); Chloride 106 mmol/L (96-108); Creatinine Clr Calc Pharmacy 62.1; Estimated Glomerular Filt Rate 41; Glucose Random 112 mg/dL (60-115); Potassium 5.4 mmol/L (3.3-5.1); Sodium 142 mmol/L (135-145)
== END 2022-07-18 10:56 | disposition home or self-care (01) ==
PROVIDERS: Emergency Provider Emergency Medicine; PCP Internal Medicine
DX: N13.2 Hydronephrosis with renal and ureteral calculous obstruction (principal); N39.0 Urinary tract infection, site not specified; R10.9 Unspecified abdominal pain; Z79.899 Other long term (current) drug therapy
CPT/HCPCS: 36415; 74176; 80048; 80076; 81001; 85025; 96365; 96375; 99284; 99285; J1885; J1956; J2405

== ENCOUNTER 2022-07-24 08:11 | Outpatient (REF) | payer OTHER, SELFPAY ==
[2022-07-24 08:50] LABS: Hematocrit 43.1 % (42.0-52.0); Hemoglobin 14.4 g/dl (14.0-18.0)
[2022-07-24 09:40] LABS: Prostate Specific Antigen 0.41 ng/mL (<0.05-4.0)
[2022-07-29 13:41] LABS: Testosterone, Free 81.6 pg/mL (35.0-155.0); Testosterone, Total 378 ng/dL (250-1100)
== END 2022-07-24 08:12 | disposition home or self-care (01) ==
LOC: HO.LAB 08:11
PROVIDERS: PCP Internal Medicine; Visit Provider Internal Medicine Endocrinology, Diabetes & Metabolism
DX: E29.1 Testicular hypofunction (principal)
CPT/HCPCS: 36415; 84153; 84402; 84403; 85014; 85018

== ENCOUNTER → 2022-08-10 10:16 | Outpatient (BNVA) | payer OTHER, SELFPAY | PROVIDERS: PCP Internal Medicine; Visit Provider Internal Medicine Endocrinology, Diabetes & Metabolism | DX: E29.1 Testicular hypofunction (principal) | CPT/HCPCS: 99212 ==

== ENCOUNTER 2022-09-14 10:20 | Outpatient (REF) | payer OTHER, SELFPAY ==
--- NOTE | ~2022-09-14 | XR_ITS ---
EXAMINATION: CR X-RAY KNEE LEFT 2 VIEW, BILATERAL STANDING KNEE CLINICAL INFORMATION: Knee pain. COMPARISON: 04/02/2022 knee radiographs. TECHNIQUE: Standing bilateral AP views of the knees were obtained along with lateral and axial views of the left knee. FINDINGS: Mild medial femoral-tibial degenerative joint changes are seen bilaterally. There is no acute fracture or dislocation. There is no joint effusion. Soft tissues are unremarkable. XR/XR knee LT 2V IMPRESSION: Mild medial femoral-tibial degenerative joint changes bilaterally suggesting osteoarthritis. No significant interval change.
--- NOTE | ~2022-09-14 | XR_ITS ---
EXAMINATION: CR X-RAY KNEE LEFT 2 VIEW, BILATERAL STANDING KNEE CLINICAL INFORMATION: Knee pain. COMPARISON: 04/02/2022 knee radiographs. TECHNIQUE: Standing bilateral AP views of the knees were obtained along with lateral and axial views of the left knee. FINDINGS: Mild medial femoral-tibial degenerative joint changes are seen bilaterally. There is no acute fracture or dislocation. There is no joint effusion. Soft tissues are unremarkable. XR/XR knee standing BI IMPRESSION: Mild medial femoral-tibial degenerative joint changes bilaterally suggesting osteoarthritis. No significant interval change.
[2022-09-14 12:01] LABS: HBS Num1 2.15 mIU/mL (0-7.99); HBc Num1 0.02 S/CO (0.00-0.79); HIV AB/AG Nonreactive (Nonreactive); HIV Num 1 0.15 S/CO (0.00-0.99); Hepatitis B Core Antibody Nonreactive (Nonreactive); Hepatitis B Surface Antigen Negative (Negative); ~HepC Num1 0.09 S/CO (0.00-0.79); ~Hepatitis B Surface Antibody NONREACTIVE (Nonreactive); ~Hepatitis C Antibody Nonreactive (Nonreactive)
[2022-09-15 05:52] LABS: Syphilis Screen Nonreactive (Nonreactive)
== END 2022-09-14 10:21 | disposition home or self-care (01) ==
LOC: HO.LAB 10:20
PROVIDERS: Absent Provider Physician Assistant; PCP Internal Medicine; Visit Provider Internal Medicine
DX: Z11.4 Encounter for screening for human immunodeficiency virus [HIV] (principal); M25.562 Pain in left knee; Z20.2 Contact with and (suspected) exposure to infections with a predominantly sexual mode of transmission
CPT/HCPCS: 36415; 73560; 73565; 86704; 86706; 86780; 86803; 87340; 87389

== ENCOUNTER → 2022-10-05 12:34 | Outpatient (BNVA) | payer OTHER, SELFPAY | PROVIDERS: PCP Internal Medicine; Visit Provider Physician Assistant | DX: S83.211D Bucket-handle tear of medial meniscus, current injury, right knee, subsequent encounter (principal) | CPT/HCPCS: 99212 ==

== ENCOUNTER 2022-10-14 11:00 | Outpatient (REF) | payer OTHER, SELFPAY ==
--- NOTE | ~2022-10-14 | US_ITS ---
EXAMINATION: US RETROPERITONEAL LIMITED (RENAL ONLY) CLINICAL INFORMATION: CUONG. COMPARISON: CT abdomen and pelvis 07/18/2022. Renal ultrasound 06/22/2022 and 04/08/2022. X-ray abdomen KUB 05/12/2022. TECHNIQUE: Real-time imaging of the kidneys. FINDINGS: RIGHT KIDNEY: 11.6 x 6.1 x 5.8 cm (SAG x AP x TRV). The kidney is normal in size, contour, and echogenicity. Renal cortical thickness is normal. No focal parenchymal lesions or hydronephrosis. Multiple calculi are present. Lower pole 0.5 cm calculus. There are 2 mid pole calculi measuring 0.5 cm and 0.3 cm. LEFT KIDNEY: 11.4 x 6.7 x 4.8 cm (SAG x AP x TRV). The kidney is normal in size, contour, and echogenicity. Renal cortical thickness is normal. No calculi or focal parenchymal lesions. No hydronephrosis. US/US renal BI IMPRESSION: Multiple nonobstructing right-sided renal calculi. These appear more prominent than on previous CT. The left calculus is not visualized.
[2022-10-14 14:14] LABS: MANUAL DIFF FLAG NO
[2022-10-14 14:22] LABS: Appearance Urine Clear; Color Urine Yellow; Glucose Urine UA Negative (Negative); Leukocyte Esterase Urine Negative (Negative); Nitrite Urine Negative (Negative); PH 5.5 (5.0-9.0); Urine Blood Negative (Negative); Urine Ketones Negative (Negative); Urine Protein Trace mg/dL (Neg-Trace)
[2022-10-14 14:25] LABS: Bacteria Urine None Seen (None Seen); Hyaline Casts Urine 0-2 /LPF (0-2); RBC Urine 0-2 /HPF (0-2); Squamous Epithelial Cell Urine 0-2 /HPF (0-2); WBC Urine 0-5 /HPF (0-5)
[2022-10-14 14:37] LABS: Basophils Percent Auto 0.4 % (0-2); Eosinophils Absolute Auto 0.1 X10*3/uL (0.0-0.4); Eosinophils Percent Auto 0.7 % (0-4); Hematocrit 45.9 % (42.0-52.0); Hemoglobin 15.2 g/dl (14.0-18.0); Imm Gran Abs Auto 0.03 X10*3/uL (0.00-0.03); Imm Gran Pct Auto 0.4 % (0.0-0.4); Lymphocytes Absolute Auto 1.5 X10*3/uL (1.2-4.9); Lymphocytes Percent Auto 20.7 % (20-40); Mean Corpuscular HGB Conc 33.1 g/dl (31.0-36.0); Mean Corpuscular Hemoglobin 28.6 pg (27.0-33.0); Mean Corpuscular Volume 86.4 fL (80.0-98.0); Mean Platelet Volume 10.5 fL (9.4-12.4); Monocytes Absolute Auto 0.5 X10*3/uL (0.1-1.2); Monocytes Percent Auto 7.4 % (2-11); Neutrophils Absolute Auto 5.1 x10*3/uL (2.0-8.3); Neutrophils Percent Auto 70.4 % (45-73); Platelet Count 270 X10*3/uL (160-400); Red Blood Count 5.31 X10*6/uL (4.60-5.80); Red Cell Distribution Width 13.2 % (11.0-16.0); White Blood Count 7.2 X10*3/uL (4.8-10.8)
[2022-10-14 15:04] LABS: Creatinine Urine 124.76 mg/dL; Protein/Creatinine Ratio, Ur 0.12 (<0.2); Total Protein Urine Random 15 mg/dL (<12)
[2022-10-14 15:18] LABS: Alanine Aminotransferase 33 U/L (0-40); Albumin Level 4.5 g/dL (3.5-5.0); Alkaline Phosphatase 67 U/L (39-117); Anion Gap 12 (12-20); Aspartate Amino Transferase 24 U/L (5-37); Bilirubin Direct 0.3 mg/dL (0.0-0.5); Blood Urea Nitrogen 23 mg/dL (9-16); Calcium 9.9 mg/dL (8.4-10.2); Carbon Dioxide 26 mmol/L (22-29); Chloride 107 mmol/L (96-108); Estimated Glomerular Filt Rate > 60; Potassium 4.5 mmol/L (3.3-5.1); Sodium 140 mmol/L (135-145); Total Protein 7.2 g/dL (6.5-8.0); Uric Acid 6.7 mg/dL (3.4-7.0)
[2022-10-14 17:22] LABS: Prostate Specific Antigen 0.49 ng/mL (<0.05-4.0); Vitamin D 25-OH Total 31.9 ng/mL (>30)
[2022-10-15 08:08] LABS: HBsAGNum1 0.26 S/CO (0.00-0.99); Hepatitis B Surface Antigen Negative (Negative); ~HepC Num1 0.11 S/CO (0.00-0.79); ~Hepatitis C Antibody Nonreactive (Nonreactive)
[2022-10-15 11:58] LABS: Calcium (PTHI) 9.6 mg/dL (8.6-10.3); PTHI 47 pg/mL (16-77)
[2022-10-18 13:24] LABS: Prot Elec - Albumin 4.4 g/dL (3.8-4.8); Prot Elec - Alpha1 0.2 g/dL (0.2-0.3); Prot Elec - Alpha2 0.6 g/dL (0.5-0.9); Prot Elec - Beta 1 0.5 g/dL (0.4-0.6); Prot Elec - Beta 2 0.5 g/dL (0.2-0.5); Prot Elec - Gamma 1.1 g/dL (0.8-1.7); Prot Elec - Total Protein 7.2 g/dL (6.1-8.1)
[2022-10-22 12:53] LABS: Complement C3 137 mg/dL (82-185); Neutrophil Cyto Ab Screen ATYP P-ANCA POS (NEGATIVE)
== END 2022-10-14 11:01 | disposition home or self-care (01) ==
LOC: HO.HMGCX 11:00
PROVIDERS: PCP Internal Medicine; Visit Provider Internal Medicine Nephrology
DX: N17.9 Acute kidney failure, unspecified (principal)
CPT/HCPCS: 76775; 80051; 80076; 81001; 82306; 82310; 82550; 82565; 83970; 84153; 84156; 84165; 84520; 84550; 85025; 86036; 86037; 86160; 86803; 87340

== ENCOUNTER → 2022-11-05 10:31 | Outpatient (BNVA) | payer OTHER, SELFPAY | PROVIDERS: PCP Internal Medicine; Visit Provider Orthopaedic Surgery | DX: S83.200D Bucket-handle tear of unspecified meniscus, current injury, right knee, subsequent encounter (principal) | CPT/HCPCS: 99212 ==

== ENCOUNTER → 2022-11-26 10:16 | Outpatient (BNVA) | payer OTHER, SELFPAY | PROVIDERS: PCP Internal Medicine; Visit Provider Urology | DX: Z13.89 Encounter for screening for other disorder (principal) ==

== ENCOUNTER 2022-12-16 13:03 | Outpatient (REF) | payer OTHER, SELFPAY ==
--- NOTE | ~2022-12-16 | XR_ITS ---
EXAMINATION: XR SHOULDER, RIGHT CLINICAL INFORMATION: Pain. COMPARISON: None TECHNIQUE: AP neutral, scapular Y and axillary views of the right shoulder are submitted. FINDINGS: Bony alignment and mineralization are normal. The glenohumeral joint is intact. The acromioclavicular and coracoclavicular intervals are normal. There is mild osteoarthritic change of the acromioclavicular joint. No fracture or dislocation is seen. No abnormal soft tissue calcification or foreign body is seen. There is no right pneumothorax. XR/XR shoulder RT min 2V IMPRESSION: 1. No fracture or dislocation is seen. 2. There is mild osteoarthritic change of the right acromioclavicular joint.
== END 2022-12-16 13:04 | disposition home or self-care (01) ==
LOC: HO.HOSX 13:03
PROVIDERS: Visit Provider Orthopaedic Surgery
DX: M25.511 Pain in right shoulder (principal); M24.811 Other specific joint derangements of right shoulder, not elsewhere classified
CPT/HCPCS: 20610; 73030; 99212; J1100

== ENCOUNTER 2023-01-10 10:23 | Outpatient (REF) | payer OTHER, SELFPAY | END 2023-01-10 10:24 | disposition home or self-care (01) | LOC: HO.MRI 10:23 | PROVIDERS: PCP Internal Medicine; Visit Provider Orthopaedic Surgery | DX: Z13.89 Encounter for screening for other disorder (principal) ==

== ENCOUNTER → 2023-02-03 10:14 | Outpatient (BNVA) | payer OTHER, SELFPAY | PROVIDERS: PCP Internal Medicine; Visit Provider Orthopaedic Surgery | DX: M75.121 Complete rotator cuff tear or rupture of right shoulder, not specified as traumatic (principal); N18.9 Chronic kidney disease, unspecified; E66.01 Morbid (severe) obesity due to excess calories; Z68.42 Body mass index [BMI] 45.0-49.9, adult | CPT/HCPCS: 99212 ==

== ENCOUNTER 2023-03-05 11:07 | Emergency (ER) | payer OTHER, SELFPAY ==
--- NOTE | ~2023-03-05 | CT_ITS ---
EXAM: CT scan of the head and cervical spine. INDICATION: Reason for Exam L arm numbness TECHNIQUE: A noncontrast CT scan was performed from the skull base to the vertex. A noncontrast CT scan of the cervical spine was performed from the base of the skull through T1 at 2.5 mm and 1.25 mm collimation. Coronal and sagittal reformats were obtained at the acquisition workstation. This CT examination was performed using dose optimization techniques as appropriate, variously including the following: *Automated exposure control *Adjustment of mA and/or kV according to patient size (this includes techniques or standardized protocols for targeted exams where dose is matched to indication/reason for exam; i.e. extremities or head) *Use of iterative reconstruction technique DLP: 864 and 802 mGy-cm COMPARISON: None FINDINGS: Head: There is no evidence of acute intracranial hemorrhage or territorial infarction. Santana-white matter differentiation is preserved. No abnormal mass effect or midline shift. No extra-axial fluid collections. No abnormal attenuation is demonstrated within the brain parenchyma. The ventricles and sulcal spaces are proportional without hydrocephalus. Proportional prominence of the ventricles and sulcal spaces. No acute osseous or soft tissue abnormalities. The mastoid air cells and visualized portions of the paranasal sinuses are notable for bilateral maxillary sinus disease. Cervical Spine: The atlantooccipital and atlantoaxial articulations remain well aligned. Straightening of the normal cervical lordosis. Otherwise, there is anatomic alignment of the vertebral bodies and posterior elements. No evidence of acute fracture or subluxation. The vertebral body heights and disc spaces are maintained generalized endplate spurring. Obscuration posteriorly about the soft tissues of the cervical spine consistent sequela of an old injury.. There is no prevertebral soft tissue swelling. The thyroid gland and remaining cervical soft tissues are normal in appearance. The lung apices demonstrate no abnormalities. CT/CT cervical spine wo IV con IMPRESSION: No acute intracranial pathology. No acute fracture subluxation cervical spine.
--- NOTE | ~2023-03-05 | XR_ITS ---
EXAMINATION: XR CHEST CLINICAL INFORMATION: Left arm numbness. COMPARISON: None available. TECHNIQUE: 2 views of the chest were obtained. FINDINGS: The cardiomediastinal silhouette is within normal limits. The lungs are well expanded. No consolidation, effusion, or pneumothorax. Mild endplate degenerative changes in the thoracic spine. XR/XR chest 2V IMPRESSION: No acute cardiopulmonary findings.
[2023-03-05 11:10] VITALS: BP 151/61; PULSE 69; RESP 20; TEMP 36.8; O2SAT 98; BMI 36.9
--- NOTE | 2023-03-05 11:11 | ED.GENADULT ---
HPI - General Adult General Chief complaint: Upper Respiratory Symptoms <DONOVAN Harrison Last Filed: 03/05/23 11:22> Stated complaint: both ear pain blocked quest infection <DONOVAN Harrison Last Filed: 03/05/23 11:22> Time Seen by Provider: 03/05/23 11:38 <DONOVAN Harrison Last Filed: 03/05/23 11:22> Source: patient <DONOVAN Britton Last Filed: 03/05/23 14:34> Mode of arrival: ambulatory <DONOVAN Britton Last Filed: 03/05/23 14:34> Limitations: no limitations <DONOVAN Britton Last Filed: 03/05/23 14:34> History of Present Illness HPI narrative: 47 year old male with PMH of left shoulder tendinitis presents with shooting pain down the left arm, dizziness and bilateral ear pain. Patient reports the pain in his left arm began 3 weeks ago, and ear pain began this morning when he blew his nose. Patient reports ear pain was sudden and accompanied by dizziness that resolved within 10 minutes. Patient denies sinus fullness or SOB and endorses chest congestion and cough. Patient reports left arm symptoms radiate down to his left hand but nowhere else. Patient reports he sees orthopedics for a lumbar spine injury currently. <DONOVAN Britton Last Filed: 03/05/23 14:34> Related Data Home medications: Home Medications Medication Instructions Recorded Confirmed tretinoin 0.025 % topical cream appl topical 04/14/22 11/26/22 ketoconazole 2 % shampoo topical 07/07/22 11/26/22 amlodipine 5 mg tablet 5 mg PO DAILY 12/16/22 Previous Rx's Medication Instructions Recorded CPAP (CPAP Machine/Device) #1 ea 06/29/21 KNEE BRACE (RIGHT) #1 ea 07/17/21 sildenafil 100 mg tablet (Viagra) 100 mg PO DAILY PRN sexual 01/13/22 activity #7 tabs pyridoxine (vitamin B6) 100 mg 100 mg PO DAILY 90 days #90 tabs 02/25/22 tablet triamcinolone acetonide 0.5 % 1 appl topical BID #15 grams 03/08/22 topical cream [id number] 3.3 5 drp otic (ears) TID 7 days #10 mL 04/30/22 mg-3 mg-10 mg-0.5 mg/mL ear drops,susp (Cortisporin-TC) lidocaine 5 % topical patch 1 patch topical DAILY #30 ea 06/23/22 simvastatin 40 mg tablet 40 mg PO BEDTIME #90 tabs 08/09/22 potassium citrate 10 mEq (1,080 20 meq PO BID 90 days #360 tabs 11/26/22 mg) tablet,extended release testosterone 30 mg/actuation (1.5 4 pump transdermal DAILY #90 mL 12/08/22 mL) transderm solution metered pump lisinopril 5 mg tablet 5 mg PO DAILY #90 tabs 12/21/22 gabapentin 100 mg capsule 100 mg PO BEDTIME #30 caps 02/02/23 minocycline 100 mg capsule 100 mg PO Q12H #60 caps 02/02/23 phentermine 30 mg capsule 30 mg PO DAILY 30 days #30 caps 02/15/23 amoxicillin 875 mg-potassium 1 tab PO BID 10 days #20 tabs 03/05/23 clavulanate 125 mg tablet prednisone 20 mg tablet 20 mg PO DAILY 5 days #5 tabs 03/05/23 <DONOVAN Harrison - Last Filed: 03/05/23 11:22> Allergies/adverse reactions: Allergies Allergy/AdvReac Type Severity Reaction Status Date / Time oxycodone [From PERCOCET] Allergy Intermediate ITCHING, Verified 02/03/23 10:21 rash and itching, itching codeine Allergy Unknown rash and Verified 02/03/23 10:21 itching <DONOVAN Harrison - Last Filed: 03/05/23 11:22> Review of Systems Review of Systems: Constitutional : No Weight loss, No Fever, + Chills, + Fatigue, + Malaise ENT/Mouth : No sore throat, No Rhinorrhea, + ear pain , + congestiion Eyes: No Eye Pain, No Swelling, No Redness Cardiovascular : No Chest Pain, No SOB, No Dyspnea on Exertion, No Orthopnea, No Edema, No Palpitations Respiratory : No Cough, No Sputum, No Wheezing Gastrointestinal : No Nausea, No Vomiting, No Diarrhea, No Constipation, No abdominal Pain, No Hematochezia, No Melena Genitourinary : No Dysuria, No Urinary Frequency, No Hematuria, Musculoskeletal : No joint pain, No Myalgias, No Joint Swelling Skin : No Skin Lesions, No rash Neuro : No Weakness, + Numbness, + Dizziness, No Headache Psych : No Anxiety/Panic, No Depression All other systems reviewed and are negative <DONOVAN Britton - Last Filed: 03/05/23 14:34> Yes all other systems are reviewed and are negative <DONOVAN Britton - Last Filed: 03/05/23 14:34> [facility] Past Medical History Attestation statement: The following information was validated with the patient. <DONOVAN Britton - Last Filed: 03/05/23 14:34> Source: old records reviewed and nursing notes reviewed <DONOVAN Britton - Last Filed: 03/05/23 14:34> Medical History: Medical History Benign essential hypertension Calculus of kidney Empty sella Erectile dysfunction Headache Hypogonadism in male Internal derangement of right shoulder Left shoulder tendinitis Lumbar degenerative disc disease Lumbar disc disease with radiculopathy Morbid obesity with BMI of 45.0-49.9, adult Obstructive sleep apnea Pure hypercholesterolemia Serum calcium elevated <DONOVAN Harrison - Last Filed: 03/05/23 11:22> Surgical History: Surgical History History of appendectomy History of lithotripsy History of medial meniscus repair of right knee History of removal of cyst History of rotator cuff surgery History of surgery History of umbilical hernia repair <DONOVAN Harrison - Last Filed: 03/05/23 11:22> Family History Family History: Family History Father Liver cancer Morbidly obese Mother Hypertension Diabetes Asthma <DONOVAN Harrison - Last Filed: 03/05/23 11:22> Social History Social History: Social History Housing: Apartment Alcohol intake: never Patient Tobacco Use Status: Never used Tobacco Second Hand Smoke Exposure: Yes Advance Directives: No Advance Directives Information Provided: Yes service: No Current occupational status: unemployed 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 Cognitive needs: No Hearing needs: No Vision needs: No <DONOVAN Harrison - Last Filed: 03/05/23 11:22> Physical Exam ED Vital Signs: Vital Signs - 24 hr 03/05/23 11:10 Temperature 98.3 F Pulse Rate 69 Respiratory Rate 20 Blood Pressure 151/61 H Pulse Oximetry 98 Oxygen Delivery Method Room Air BMI result Body Mass Index 36.9 <DONOVAN Harrison - Last Filed: 03/05/23 11:22> Vital Signs - 24 hr 03/05/23 11:10 Temperature 98.3 F Pulse Rate 69 Respiratory Rate 20 Blood Pressure 151/61 H Pulse Oximetry 98 Oxygen Delivery Method Room Air BMI result Body Mass Index 36.9 vss <DONOVAN Britton - Last Filed: 03/05/23 14:34> Appearance: Alert.? Oriented X3.? No acute distress.? Head: Normocephalic, atraumatic, no step-offs or deformities Eyes: Pupils equal, round and reactive to light.? Neck: Normal inspection.? Neck supple.? CVS: Normal heart rate and rhythm.? Pulses normal.? Respiratory: No respiratory distress.? Breath sounds normal.? Abdomen: Soft and nontender.? Skin: Skin warm and dry.? Normal skin color.? Normal skin turgor.? Extremities: No lower extremity edema.? No calf ttp. 5/5 strength to bilateral upper and lower extremities Neuro: Oriented X 3.? No motor deficit.? No sensory deficit. CN 2-12 intact . Normal lkfxyk-ms-iqle, fack-ri-ohrx, steady tandem gait normal coordination. Normal Romberg and pronator drift. 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 <DONOVAN Britton Last Filed: 03/05/23 14:34> Course Course Course Narrative: RME - 47 y/o M, hx of CKD, HTN, HLD, who presents to the emergency department for evaluation of nasal congestion, cough, and BL ear pain x 1 week. Patient just return from [place]. Reports that he tried blowing his nose this morning and felt dizzy. He also admits that over the last 3 weeks, he has had constant numbness/tingling in his left arm without any trauma or injury. Denies any chest pain or shortness of breath. No hx of c-spine problems, has had lumbar spine injections in the past. 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 VSS. Plan: Labs, EKG, Chest x-ray, c-spine xray <DONOVAN Harrison - Last Filed: 03/05/23 11:22> Reevaluation(s) Reevaluation #1: X-ray unremarkable. CT of the cervical spine within normal limits. No acute intracranial pathology. Patient feeling well, will discharge him home with Augmentin for otitis media, will send him with prednisone for URI symptoms. Educated patient on diagnosis and treatment plan, answered all question, patient verbalizes understanding. At this time patient will be discharged home, advised to return with new or worsening symptoms. Educated on worrisome signs and symptoms and when to return. At this time I feel comfortable discharge home. <DONOVAN Britton - Last Filed: 03/05/23 14:34> Time: 14:31 <DONOVAN Britton - Last Filed: 03/05/23 14:34> Medical Decision Making Medical Decision Making MDM Narrative: 1150 47-year-old male presents with complaints of chest congestion, cough, fatigue, malaise, bilateral ear discomfort for the past week. Also complaining of left arm numbness for the past 3 weeks, atraumatic. And also stating that he has felt dizzy since this morning after blowing his nose Physical exam benign. NIH stroke scale 0. Neuro nonfocal. Cerebellar intact. Likely viral illness w/ a/c L sided OM . Left arm numbness and tingling could be secondary to cervical spine nerve impingement. Atraumatic in nature unlikely due to fracture dislocation. I do not suspect stroke, posterior stroke, cord compression. Dizziness likely secondary to viral illness, unlikely BPPV, vertigo. Will rule out electrolyte abnormalities. Palpable pulses to bilateral upper extremities I do not suspect arterial or venous occlusion. No signs of threatened limb. Plan labs, imaging. <DONOVAN Britton - Last Filed: 03/05/23 14:34> Differential Diagnosis Differential Diagnoses: The differential diagnosis associated with the presentation includes <DONOVAN Britton - Last Filed: 03/05/23 14:34> Likely viral illness ,w/ a/c L sided OM. Left arm numbness and tingling could be secondary to cervical spine nerve impingement. Atraumatic in nature unlikely due to fracture dislocation. I do not suspect stroke, posterior stroke, cord compression. Dizziness likely secondary to viral illness, unlikely BPPV, vertigo. Will rule out electrolyte abnormalities. Palpable pulses to bilateral upper extremities I do not suspect arterial or venous occlusion. No signs of threatened limb. <DONOVAN Britton - Last Filed: 03/05/23 14:34> Admission/Observation Consideration of admission/observation: Escalation of care including admission/observation considered <DONOVAN Britton - Last Filed: 03/05/23 14:34> Lab Data MDM Lab Attestation statement: I reviewed the patient's lab results. <DONOVAN Britton - Last Filed: 03/05/23 14:34> Result Diagrams: 03/05/23 11:29 03/05/23 11:29 <DONOVAN Harrison - Last Filed: 03/05/23 11:22> Labs: Lab Results 03/05/23 03/05/23 Range/Units 11:29 11:29 WBC 6.5 (4.8-10.8) X10*3/uL RBC 5.31 (4.60-5.80) X10*6/uL Hgb 15.2 (14.0-18.0) g/dl Hct 45.9 (42.0-52.0) % MCV 86.4 (80.0-98.0) fL MCH 28.6 (27.0-33.0) pg MCHC 33.1 (31.0-36.0) g/dl RDW 13.2 (11.0-16.0) % Plt Count 287 (160-400) X10*3/uL MPV 9.5 (9.4-12.4) fL Immature Gran % (Auto) 0.3 (0.0-0.4) % Neut % (Auto) 56.3 (45-73) % Lymph % (Auto) 24.7 (20-40) % Hinds % (Auto) 12.4 H (2-11) % Eos % (Auto) 5.8 H (0-4) % Baso % (Auto) 0.5 (0-2) % Lymph # (Auto) 1.6 (1.2-4.9) X10*3/uL Hinds # (Auto) 0.8 (0.1-1.2) X10*3/uL Eos # (Auto) 0.4 (0.0-0.4) X10*3/uL Baso # (Auto) 0.0 (0.0-0.2) X10*3/uL Abs Immat Gran (auto) 0.02 (0.00-0.03) X10*3/uL Absolute Neuts (auto) 3.7 (2.0-8.3) x10*3/uL Absolute Nucleated RBC 0.000 (0.0-0.012) X10*3/uL Nucleated RBC % (auto) 0.0 (0.0-0.2) /100WBC Sodium 141 (135-145) mmol/L Potassium 4.6 (3.3-5.1) mmol/L Chloride 104 (96-108) mmol/L Carbon Dioxide 29 (22-29) mmol/L Anion Gap 13 (12-20) BUN 15 (9-16) mg/dL Creatinine 1.31 (0.5-1.4) mg/dL Estim Creat Clear Calc 85.6 Estimated GFR 58 Random Glucose 115 (60-115) mg/dL Calcium 9.9 (8.4-10.2) mg/dL Magnesium 1.8 (1.6-2.6) mg/dL Total Bilirubin 1.4 H (0.0-1.0) mg/dL Direct Bilirubin 0.4 (0.0-0.5) mg/dL AST 44 H (5-37) U/L ALT 63 H (0-40) U/L Alkaline Phosphatase 74 (39-117) U/L Total Protein 7.3 (6.5-8.0) g/dL Albumin 4.4 (3.5-5.0) g/dL <DONOVAN Harrison - Last Filed: 03/05/23 11:22> Lab Results 03/05/23 03/05/23 Range/Units 11:29 11:29 WBC 6.5 (4.8-10.8) X10*3/uL RBC 5.31 (4.60-5.80) X10*6/uL Hgb 15.2 (14.0-18.0) g/dl Hct 45.9 (42.0-52.0) % MCV 86.4 (80.0-98.0) fL MCH 28.6 (27.0-33.0) pg MCHC 33.1 (31.0-36.0) g/dl RDW 13.2 (11.0-16.0) % Plt Count 287 (160-400) X10*3/uL MPV 9.5 (9.4-12.4) fL Immature Gran % (Auto) 0.3 (0.0-0.4) % Neut % (Auto) 56.3 (45-73) % Lymph % (Auto) 24.7 (20-40) % Hinds % (Auto) 12.4 H (2-11) % Eos % (Auto) 5.8 H (0-4) % Baso % (Auto) 0.5 (0-2) % Lymph # (Auto) 1.6 (1.2-4.9) X10*3/uL Hinds # (Auto) 0.8 (0.1-1.2) X10*3/uL Eos # (Auto) 0.4 (0.0-0.4) X10*3/uL Baso # (Auto) 0.0 (0.0-0.2) X10*3/uL Abs Immat Gran (auto) 0.02 (0.00-0.03) X10*3/uL Absolute Neuts (auto) 3.7 (2.0-8.3) x10*3/uL Absolute Nucleated RBC 0.000 (0.0-0.012) X10*3/uL Nucleated RBC % (auto) 0.0 (0.0-0.2) /100WBC Sodium 141 (135-145) mmol/L Potassium 4.6 (3.3-5.1) mmol/L Chloride 104 (96-108) mmol/L Carbon Dioxide 29 (22-29) mmol/L Anion Gap 13 (12-20) BUN 15 (9-16) mg/dL Creatinine 1.31 (0.5-1.4) mg/dL Estim Creat Clear Calc 85.6 Estimated GFR 58 Random Glucose 115 (60-115) mg/dL Calcium 9.9 (8.4-10.2) mg/dL Magnesium 1.8 (1.6-2.6) mg/dL Total Bilirubin 1.4 H (0.0-1.0) mg/dL Direct Bilirubin 0.4 (0.0-0.5) mg/dL AST 44 H (5-37) U/L ALT 63 H (0-40) U/L Alkaline Phosphatase 74 (39-117) U/L Total Protein 7.3 (6.5-8.0) g/dL Albumin 4.4 (3.5-5.0) g/dL <DONOVAN Britton - Last Filed: 03/05/23 14:34> Independent Interpretation I performed an independent interpretation of an: Plain X-Ray (unremarkable ) and CT Scan (unremarkable) <DONOVAN Britton - Last Filed: 03/05/23 14:34> Radiology Impression Discussion of test interpretation with radiology: I have reviewed the radiologist's reading. <DONOVAN Britton - Last Filed: 03/05/23 14:34> Core Measures AMI core measures followed: Yes <DONOVAN Britton - Last Filed: 03/05/23 14:34> Measure exclusions: not indicated <DONOVAN Britton - Last Filed: 03/05/23 14:34> Critical Care Time Critical Care Time Critical Care Time: No <DONOVAN Britton - Last Filed: 03/05/23 14:34> Discharge Plan Discharge Clinical Impression: Dizziness, Left arm numbness, Otitis media, Viral illness <DONOVAN Harrison Last Filed: 03/05/23 11:22> Patient Disposition: Home, Self-Care <DONOVAN Harrison Last Filed: 03/05/23 11:22> Instructions: Ear Infection (ED), Viral Syndrome (ED), Dizziness (ED) <DONOVAN Harrison Last Filed: 03/05/23 11:22> Additional Instructions: Take your medications as prescribed. If you were prescribed antibiotics today, it is important that you take your medication to their entirety, do not skip any doses, do not finish them early. Follow-up with your primary care provider this week. Return to the emergency department with new or worsening symptoms. Such as fevers, chills, chest pain, shortness of breath, nausea, vomiting, dizziness, headache, vision changes, lethargy In case of emergency call 911 CT/CT cervical spine & head wo IV con IMPRESSION: No acute intracranial pathology. No acute fracture subluxation cervical spine. XR/XR chest 2V IMPRESSION: No acute cardiopulmonary findings. <DONOVAN Harrison - Last Filed: 03/05/23 11:22> Prescriptions: New amoxicillin-pot clavulanate 875-125 mg tablet 1 tab PO BID 10 Days Qty: 20 0RF prednisone 20 mg tablet 20 mg PO DAILY 5 Days Qty: 5 0RF No Action (DME) CPAP Machine/Device Device See Rx Instructions .Route Qty: 1 0RF Rx Instructions: 16cm of water Cortisporin-TC 3.3-3-10-0.5 mg/mL drops,suspension 5 drp otic (ears) TID 7 Days Qty: 10 0RF simvastatin 40 mg tablet 40 mg PO BEDTIME Qty: 90 1RF testosterone 30 mg/actuation (1.5 mL) solution in metered pump w/aydee 4 pump transdermal DAILY Qty: 90 5RF lisinopril 5 mg tablet 5 mg PO DAILY Qty: 90 1RF gabapentin 100 mg capsule 100 mg PO BEDTIME Qty: 30 1RF minocycline 100 mg capsule 100 mg PO Q12H Qty: 60 0RF phentermine 30 mg capsule 30 mg PO DAILY 30 Days Qty: 30 0RF Rx Instructions: must administer 2 hours after breakfast lidocaine 5 % adhesive patch,medicated 1 patch topical DAILY Qty: 30 0RF Rx Instructions: leave on most painful area for up to 12 hrs (DME) KNEE BRACE (RIGHT) large See Rx Instructions .Route .MEDSUPPLY Qty: 1 0RF Rx Instructions: As directed triamcinolone acetonide 0.5 % cream 1 appl topical BID Qty: 15 0RF pyridoxine (vitamin B6) 100 mg tablet 100 mg PO DAILY 90 Days Qty: 90 1RF sildenafil [Viagra] 100 mg tablet 100 mg PO DAILY PRN (Reason: sexual activity) Qty: 7 3RF Rx Instructions: administer 30 minutes to 4 hours before activity ketoconazole 2 % shampoo topical tretinoin 0.025 % cream topical amlodipine 5 mg tablet 5 mg PO DAILY potassium citrate 10 mEq (1,080 mg) tablet extended release 20 meq PO BID 90 Days Qty: 360 1RF <DONOVAN Harrison - Last Filed: 03/05/23 11:22> Referrals: Peewee Hoskins MD [Primary Care Provider] - 2 days [facility] [Provider Group] - 2 days <DONOVAN Harrison - Last Filed: 03/05/23 11:22> Stand Alone Forms: Work/School Release <DONOVAN Harrison - Last Filed: 03/05/23 11:22>
--- NOTE | 2023-03-05 11:19 | ECG_ITS ---
Test Reason : LT ARM NUMB TINGLE Blood Pressure : / mmHG Vent. Rate : 066 BPM Atrial Rate : 066 BPM P-R Int : 166 ms QRS Dur : 094 ms QT Int : 398 ms P-R-T Axes : 032 019 025 degrees QTc Int : 417 ms Normal sinus rhythm Normal ECG When compared with ECG of 12-NOV-2020 00:56, No significant change was found Referred By: Vera Bloom Electronically Signed By:Last Ho
[2023-03-05 11:38] LABS: MANUAL DIFF FLAG NO
[2023-03-05 11:40] LABS: Basophils Percent Auto 0.5 % (0-2); Eosinophils Absolute Auto 0.4 X10*3/uL (0.0-0.4); Eosinophils Percent Auto 5.8 % (0-4); Hematocrit 45.9 % (42.0-52.0); Hemoglobin 15.2 g/dl (14.0-18.0); Imm Gran Abs Auto 0.02 X10*3/uL (0.00-0.03); Imm Gran Pct Auto 0.3 % (0.0-0.4); Lymphocytes Absolute Auto 1.6 X10*3/uL (1.2-4.9); Lymphocytes Percent Auto 24.7 % (20-40); Mean Corpuscular HGB Conc 33.1 g/dl (31.0-36.0); Mean Corpuscular Hemoglobin 28.6 pg (27.0-33.0); Mean Corpuscular Volume 86.4 fL (80.0-98.0); Mean Platelet Volume 9.5 fL (9.4-12.4); Monocytes Absolute Auto 0.8 X10*3/uL (0.1-1.2); Monocytes Percent Auto 12.4 % (2-11); Neutrophils Absolute Auto 3.7 x10*3/uL (2.0-8.3); Neutrophils Percent Auto 56.3 % (45-73); Platelet Count 287 X10*3/uL (160-400); Red Blood Count 5.31 X10*6/uL (4.60-5.80); Red Cell Distribution Width 13.2 % (11.0-16.0); White Blood Count 6.5 X10*3/uL (4.8-10.8)
[2023-03-05 12:09] LABS: Alanine Aminotransferase 63 U/L (0-40); Albumin Level 4.4 g/dL (3.5-5.0); Alkaline Phosphatase 74 U/L (39-117); Anion Gap 13 (12-20); Aspartate Amino Transferase 44 U/L (5-37); Bilirubin Direct 0.4 mg/dL (0.0-0.5); Bilirubin Total 1.4 mg/dL (0.0-1.0); Blood Urea Nitrogen 15 mg/dL (9-16); Calcium 9.9 mg/dL (8.4-10.2); Carbon Dioxide 29 mmol/L (22-29); Chloride 104 mmol/L (96-108); Creatinine Clr Calc Pharmacy 85.6; Estimated Glomerular Filt Rate 58; Magnesium 1.8 mg/dL (1.6-2.6); Potassium 4.6 mmol/L (3.3-5.1); Sodium 141 mmol/L (135-145); Total Protein 7.3 g/dL (6.5-8.0)
[2023-03-05 12:13] LABS: Glucose Random 115 mg/dL (60-115)
[2023-03-05] MEDS: Amoxicillin/Potassium Clav 875 MG TABLET PO (14:51)
[2023-03-05 14:56] VITALS: BP 164/89; PULSE 64; RESP 16; O2SAT 100
== END 2023-03-05 15:00 | disposition home or self-care (01) ==
PROVIDERS: Physician Assistant Medical; Emergency Provider Emergency Medicine; PCP Internal Medicine
DX: B34.9 Viral infection, unspecified (principal); H66.93 Otitis media, unspecified, bilateral; R42 Dizziness and giddiness; R20.0 Anesthesia of skin; I10 Essential (primary) hypertension; E78.00 Pure hypercholesterolemia, unspecified; Z79.02 Long term (current) use of antithrombotics/antiplatelets; Z79.899 Other long term (current) drug therapy
CPT/HCPCS: 36415; 70450; 71046; 72125; 80048; 80076; 83735; 85025; 93005; 99284

== ENCOUNTER 2023-03-21 09:34 | Outpatient (REF) | payer OTHER, SELFPAY ==
[2023-03-21 09:46] LABS: MANUAL DIFF FLAG NO
[2023-03-21 10:15] LABS: Basophils Percent Auto 0.4 % (0-2); Eosinophils Absolute Auto 0.2 X10*3/uL (0.0-0.4); Eosinophils Percent Auto 2.3 % (0-4); Hematocrit 47.3 % (42.0-52.0); Hemoglobin 15.8 g/dl (14.0-18.0); Imm Gran Abs Auto 0.02 X10*3/uL (0.00-0.03); Imm Gran Pct Auto 0.3 % (0.0-0.4); Lymphocytes Absolute Auto 1.6 X10*3/uL (1.2-4.9); Lymphocytes Percent Auto 22.5 % (20-40); Mean Corpuscular HGB Conc 33.4 g/dl (31.0-36.0); Mean Corpuscular Hemoglobin 28.5 pg (27.0-33.0); Mean Corpuscular Volume 85.2 fL (80.0-98.0); Mean Platelet Volume 9.6 fL (9.4-12.4); Monocytes Absolute Auto 0.6 X10*3/uL (0.1-1.2); Monocytes Percent Auto 8.5 % (2-11); Neutrophils Absolute Auto 4.6 x10*3/uL (2.0-8.3); Platelet Count 276 X10*3/uL (160-400); Red Blood Count 5.55 X10*6/uL (4.60-5.80); White Blood Count 6.9 X10*3/uL (4.8-10.8)
[2023-03-21 10:56] LABS: Alanine Aminotransferase 42 U/L (0-40); Albumin Level 4.5 g/dL (3.5-5.0); Alkaline Phosphatase 80 U/L (39-117); Anion Gap 12 (12-20); Aspartate Amino Transferase 30 U/L (5-37); Bilirubin Total 0.9 mg/dL (0.0-1.0); Blood Urea Nitrogen 19 mg/dL (9-16); Calcium 9.6 mg/dL (8.4-10.2); Carbon Dioxide 26 mmol/L (22-29); Chloride 106 mmol/L (96-108); Cholesterol 169 mg/dL; Estimated Glomerular Filt Rate > 60; Glucose Fasting 95 mg/dL (60-99); HDL Cholesterol 34 mg/dL; LDL Cholesterol Calculated 107 mg/dl; Potassium 4.7 mmol/L (3.3-5.1); Sodium 139 mmol/L (135-145); Total Protein 7.3 g/dL (6.5-8.0); Triglycerides 141 mg/dL
[2023-03-21 11:14] LABS: Prostate Specific Antigen Scr 0.56 ng/mL (<0.05-4.0); TSH reflex Free T4 1.41 uIU/mL (0.32-4.0); Vitamin D 25-OH Total 38.2 ng/mL (>30)
[2023-03-21 11:34] LABS: Appearance Urine Clear; Color Urine Yellow; Glucose Urine UA Negative (Negative); Leukocyte Esterase Urine Negative (Negative); Nitrite Urine Negative (Negative); PH 5.5 (5.0-9.0); UMIC TRIGGER UACC YES; Urine Blood Trace (Negative); Urine Ketones Negative (Negative); Urine Protein 30 (1+) mg/dL (Neg-Trace)
[2023-03-21 11:37] LABS: Bacteria Urine None Seen (None Seen); Hyaline Casts Urine 0-2 /LPF (0-2); RBC Urine 0-2 /HPF (0-2); Squamous Epithelial Cell Urine 0-2 /HPF (0-2); WBC Urine 0-5 /HPF (0-5)
== END 2023-03-21 09:35 | disposition home or self-care (01) ==
LOC: HO.LAB 09:34
PROVIDERS: PCP Internal Medicine; Visit Provider Internal Medicine
DX: Z00.00 Encounter for general adult medical examination without abnormal findings (principal); Z12.5 Encounter for screening for malignant neoplasm of prostate; I10 Essential (primary) hypertension; E78.00 Pure hypercholesterolemia, unspecified; E55.9 Vitamin D deficiency, unspecified
CPT/HCPCS: 36415; 80053; 80061; 81001; 82306; 84153; 84443; 85025

== ENCOUNTER 2023-04-27 12:00 | Outpatient (RCR) | payer OTHER, SELFPAY ==
--- NOTE | 2023-01-07 13:29 | MHC.PT.EP ---
[facility] [place] Office [place] [facility] [place] Office [address] Siobhan Camacho [address] [phone] F: [phone] F: [phone] F: [phone] F: [phone] Physical Therapy Plan of Care Date of Evaluation: Date of Surgery: Diagnosis: RIGHT shoulder internal derangement (MD Dx) RIGHT shoulder subacromial impingement syndrome, possible supraspinatus tear (PT Dx) Assessment: Patient is a 47 y.o. male who is referred to PT by Dr. Demarco Baron MD, with Dx of right shoulder internal derangement. PT diagnosis is right subacromial impingement syndrome with possible RTC (supraspinatus) tear, will confirm or deny on MRI scheduled for next week. Patient impairments include pain, limited ROM, weakness. Patient current functional limitations are heavy lifting (3x/week), reaching overhead, sleep on involved side, reaching behind back. Patient will benefit from skilled PT to address aforementioned impairments and functional limitations to meet established goals. Frequency and Duration: The patient will be seen 2x/week for 4 weeks Short Term Goals: 2 weeks Patient demonstrates consistency and independence with HEP to self manage symptoms. Patient presents with increased R shoulder ER 50 degrees to reach behind back for bathing/dressing. Retirement Goals: 4 weeks Patient presents with increased R shoulder flexion 5/5 to be brooke to resume gym lifting program. Patient presents with incraesed R shoulder flexion 175 degrees to reach overhead. Treatment Plan: Modalities to reduce pain, spasms and effusion. Manual therapy to restore motion and function. Therapeutic exercise to improve strength and flexibility. Neuromuscular re-education for posture and balance. Therapeutic activities to return to functional activities of daily living. Electronically signed by: Michelle Osei, PT, DPT Please sign and return to therapist. Thank you for your referral.
--- NOTE | 2023-04-28 18:09 | MHC.PT.DC ---
[facility] [place] Office [place] Office [place] Office [address] Siobhan Camacho [address] [phone] F: [phone] F: [phone] F: [phone] F: [phone] Physical Therapy Discharge Report Diagnosis: RIGHT shoulder internal derangement (MD Dx) RIGHT shoulder subacromial impingement syndrome, possible supraspinatus tear (PT Dx) Date of Surgery: Date of Evaluation: 01/07/23 Date of Discharge: 04/28/23 Treatments to Date: 14 Cancellations to Date: No Shows to Date: Discharge Status: Achieved Goals Independent with HEP Discharge Summary: Pt independent w/HEP and met all goals. He is scheduled to have RIGHT shoulder surgery. Electronically signed by: Michelle Osei, PT, DPT Please sign and return to therapist. Thank you for your referral.
== END 2023-04-28 18:09 | disposition home or self-care (01) ==
LOC: HO.PT 12:00
PROVIDERS: PCP Internal Medicine; Visit Provider Orthopaedic Surgery
DX: M24.811 Other specific joint derangements of right shoulder, not elsewhere classified (principal)
CPT/HCPCS: 97014; 97110; 97140; 97161; 97530

== ENCOUNTER → 2023-04-28 10:34 | Outpatient (BNVA) | payer OTHER, SELFPAY | PROVIDERS: PCP Internal Medicine; Visit Provider Physician Assistant | DX: Z01.818 Encounter for other preprocedural examination (principal); M75.121 Complete rotator cuff tear or rupture of right shoulder, not specified as traumatic; N18.9 Chronic kidney disease, unspecified; E66.01 Morbid (severe) obesity due to excess calories; Z68.42 Body mass index [BMI] 45.0-49.9, adult | CPT/HCPCS: 99212 ==

== ENCOUNTER 2023-05-04 06:12 | Day surgery (SDC) | payer OTHER, SELFPAY ==
[2023-04-29 17:40] VITALS: BMI 48.4
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
[2023-05-04] VITALS (18 sets, daily range): BP systolic 101–141; BP diastolic 41–76; PULSE 61–82; RESP 15–20; TEMP 36.3–36.8; O2SAT 92–97
[2023-05-04] MEDS: Lactated Ringers 1,000 ML 100 ML IVCONT (06:43)
--- NOTE | 2023-05-04 07:32 | MHC.SHP ---
Pre-Procedural Eval Section A Date of Service: 05/04/23 The patient is an INPATIENT: No Changes since office visit: No Cold of Flu in the past 2 weeks, No New Medical Problems, No Changes in Medication and No Patient answered all questions The History & Physical has been completed within 30 days and I have reviewed it.: Yes Section B Chief Complaint: Complete rotator cuff tear or rupture of right giovanni Allergies: Allergies Allergy/AdvReac Type Severity Reaction Status Date / Time oxycodone [From PERCOCET] Allergy Intermediate ITCHING, Verified 04/28/23 10:47 rash and itching, itching codeine Allergy Unknown rash and Verified 04/28/23 10:47 itching Plan I have reviewed the history and physical and performed a pertinent physical examination on my patient. No changes have occurred unless specified. Time Spent With Patient Time: Total time managing care of this patient today ____ minutes.
--- NOTE | 2023-05-04 12:59 | P.BOP_ITS ---
Brief Operative Note Date of Service: 05/04/23 Pre-op diagnosis: Right rtc tear Post-op diagnosis: other (right rtc tear 2) SLAP tear) Procedure: 1) Subscpularis repair 2) supraspinatus repair 3) sub pectoral biceps tenodesis Implants: [employer] [email or web address] helacoil 4.75 x 2 and 5.5 x 4 Arthrex tenodesis button Surgeon: Demarco Baron MD Anesthesia: GETA Was an Sales Effectiveness Manager used for this Procedure?: Yes Sales Effectiveness Manager: Eugenie Tam Estimated blood loss (mL): 50 IV fluids (mL): 1,500 Pathology: none sent Condition: stable Disposition: PACU
[2023-05-04] MEDS: ondansetron HCL 4 MG/2 ML VIAL IVPUSH (13:50)
[2023-05-04] MEDS: fentaNYL citrate/PF 100 MCG/2 ML VIAL 50 MCG IVPUSH (13:51)
--- NOTE | 2023-05-04 15:13 | PC.NURSE ---
md. Cottrell to bedside assessed patient, discussed giving a bit more time in wheelchair, and reassess if ok the home.
--- NOTE | 2023-05-05 19:14 | P.OP_ITS ---
Operative Note Operative Note Date of Service: 05/04/23 Narrative: Date of Service: 05/04/23 Pre-op diagnosis: Right rtc tear Post-op diagnosis: other (right rtc tear 2) SLAP tear) Procedure: 1) Subscapularis repair 2) Supraspinatus repair 3) Sub pectoral biceps tenodesis Implants: [employer] and nephew helacoil 4.75 x 2 and 5.5 x 4 Arthrex tenodesis button Surgeon: Demarco Baron MD Anesthesia: GETA Was an Internet Webmaster used for this Procedure?: Yes Internet Webmaster: Eugenie Tam Estimated blood loss (mL): 50 IV fluids (mL): 1,500 Pathology: none sent Condition: stable Disposition: PACU Procedure in detail: Patient was brought to the operating room and [facility] the [facility] All bony prominences were well padded and the limb was prepped and draped in standard sterile fashion. A time out was called to identify proper site, proper procedure and proper surgeon. IV antibiotics per weight were administered. I began by making a posterolateral stab incision with a 15 blade. A blunt trochar was placed into the glenohumeral joint and I insufflated the joint with saline and a 30 degree arthroscope was placed. I established an outside- in anterior portal just distal to the biceps tendon. I then began my inspection of the glenohumeral joint. There was 80% of the biceps that was torn distal to the labral anchor with tearing of the superior labrum. The cartilage surfaces were intact and scattered G1 changes of the glenoid without associated humeral head changes. The labrum was intact anteriorly, inferiorly and posteriorly. The subscapularis was torn at the superior 50% with mild retraction but was mobile. There was a full thickness undersurface RTC tear. I debrided the anterior interval and then released the subscapularis anterior, posterior and superiorly . I tenotomized the biceps and debrided the superior labrum. I then placed 4 suture tape through the free edge of the subscapularis and then, after debriding the insertion down to bleeding bone brought the suture limbs down to two knotless suture anchors just medial to the biceps groove. I was satisfied with the repair. I then removed the trochar and entered the subacromial space. A direct lateral portal was then established and I performed a bursectomy. The cuff was then examined. There was a full thickness tear of the supra and infraspinatus with mild retraction. The tear was mostly mobile but tight anteriorly. I released anterior tissue and then placed two medial row double loaded anchors and then brought the suture tape through the medial cuff. I added two looped sutures at the anterior most aspect of the tear. I then debrided the bare area down to bleeding bone and, using a cross bridge configuration, brought three limbs to each of two lateral 5.0 anchors. This re-approximated the cuff anatomy near anatomically. Once I was satisfied with the repair final images were captured and I removed all instrumentation. Portals were closed with nylon. I then made a 3 cm incision at the sub-pectoral incision at Nora's lines. Blunt dissection was taken down to the bicipital groove and the biceps was identified and brought out the incision. This was time consuming given patient muscle size and swelling. After successful identification of tendon it was whip stitched and attached to an Arthrex suture button. Bicortical drilling with unicortical 8.5 reaming was done and the tendon was then dunked into the humerus. This was oversewn. The tension was excellent. The wound was then irrigated copiously. Wound was closed with absorbable suture and steri-strips. Patient was placed in an abduction sling, extubated and brought to the recovery room in stable condition. There were no known complications.
== END 2023-05-04 15:04 | disposition home or self-care (01) ==
PROVIDERS: PCP Internal Medicine; Visit Provider Orthopaedic Surgery
PROC: (CPT 29827; principal; 2023-05-04 07:30)
DX: M75.121 Complete rotator cuff tear or rupture of right shoulder, not specified as traumatic (principal); M65.811 Other synovitis and tenosynovitis, right shoulder; S43.431A Superior glenoid labrum lesion of right shoulder, initial encounter; X58.XXXA Exposure to other specified factors, initial encounter; Y93.9 Activity, unspecified; Y92.9 Unspecified place or not applicable; Y99.8 Other external cause status; I12.9 Hypertensive chronic kidney disease with stage 1 through stage 4 chronic kidney disease, or unspecified chronic kidney disease; N18.2 Chronic kidney disease, stage 2 (mild); R82.991 Hypocitraturia; Z87.442 Personal history of urinary calculi; E78.00 Pure hypercholesterolemia, unspecified; E83.52 Hypercalcemia; E66.01 Morbid (severe) obesity due to excess calories; Z68.42 Body mass index [BMI] 45.0-49.9, adult; G47.33 Obstructive sleep apnea (adult) (pediatric); Z99.89 Dependence on other enabling machines and devices; Z79.899 Other long term (current) drug therapy; Z88.8 Allergy status to other drugs, medicaments and biological substances; Z98.890 Other specified postprocedural states
CPT/HCPCS: 29827; 29828; C1713; C1769; J0131; J0171; J0690; J1100; J1885; J2405; J2795; J3010

== ENCOUNTER → 2023-05-09 10:22 | Outpatient (BNVA) | payer OTHER, SELFPAY | PROVIDERS: Visit Provider Physician Assistant ==

== ENCOUNTER 2023-05-15 01:39 | Emergency (ER) | payer OTHER, SELFPAY ==
[2023-05-15 01:43] VITALS: BP 141/84; PULSE 77; RESP 18; TEMP 36.5; O2SAT 96; BMI 48.4
--- NOTE | 2023-05-15 04:40 | ED.GENADULT ---
HPI - General Adult General Chief complaint: Extremity Problem Stated complaint: Infection On right shoulder?previous operation Time Seen by Provider: 05/15/23 03:51 Source: patient Mode of arrival: ambulatory History of Present Illness HPI narrative: 47-year-old male who has had recent right rotator cuff surgery and states that 5 days ago he had the sutures removed and there were corresponding separation of the incision and he was instructed not to shower for at least 3 days. Patient comes in with concerns that he may have an underlying infection. However, he denies any fever or chills. Related Data Home Medications Medication Instructions Recorded Confirmed tretinoin 0.025 % topical cream 1 appl topical DAILY 04/14/22 04/29/23 ketoconazole 2 % shampoo 1 appl topical DAILY 07/07/22 04/29/23 Previous Rx's Medication Instructions Recorded CPAP (CPAP Machine/Device) #1 ea 06/29/21 sildenafil 100 mg tablet (Viagra) 100 mg PO DAILY PRN sexual 01/13/22 activity #7 tabs pyridoxine (vitamin B6) 100 mg 100 mg PO DAILY 90 days #90 tabs 02/25/22 tablet triamcinolone acetonide 0.5 % 1 appl topical BID #15 grams 03/08/22 topical cream lidocaine 5 % topical patch 1 patch topical DAILY #30 ea 06/23/22 potassium citrate 10 mEq (1,080 20 meq PO BID 90 days #360 tabs 11/26/22 mg) tablet,extended release amlodipine 5 mg tablet 5 mg PO DAILY 90 days #90 tabs 03/09/23 lisinopril 5 mg tablet 5 mg PO DAILY 90 days #90 tabs 03/09/23 simvastatin 40 mg tablet 40 mg PO BEDTIME 90 days #90 tabs 03/09/23 phentermine 30 mg capsule 30 mg PO DAILY 30 days #30 caps 03/24/23 testosterone 30 mg/actuation (1.5 4 appl transdermal DAILY #90 mL 04/01/23 mL) transderm solution metered pump gabapentin 100 mg capsule 100 mg PO BEDTIME #30 caps 04/11/23 hydrocodone 5 mg-acetaminophen 325 1 tab PO Q4-6H PRN pain (scale 05/04/23 mg tablet score 4-6) 7 days #42 tabs morphine 15 mg tablet,extended 15 mg PO Q12H pain severe 3 days 05/04/23 release (MS Contin) #6 tabs tramadol 50 mg tablet 50 mg PO Q6H 7 days #28 tabs 05/09/23 minocycline 100 mg capsule 100 mg PO Q12H #60 caps 05/11/23 Allergies Allergy/AdvReac Type Severity Reaction Status Date / Time oxycodone [From PERCOCET] Allergy Intermediate ITCHING, Verified 05/15/23 01:49 rash and itching, itching codeine Allergy Unknown rash and Verified 05/15/23 01:49 itching Review of Systems Review of Systems: Pertinent positives and negatives as stated in [facility] Past Medical History Source: nursing notes reviewed Medical History Back pain Benign essential hypertension Calculus of kidney Empty sella Erectile dysfunction Headache Hypogonadism in male Internal derangement of right shoulder Left shoulder tendinitis Lumbar degenerative disc disease Lumbar disc disease with radiculopathy Morbid obesity with BMI of 45.0-49.9, adult Obstructive sleep apnea Pure hypercholesterolemia Serum calcium elevated Surgical History History of appendectomy History of lithotripsy History of medial meniscus repair of right knee History of removal of cyst History of rotator cuff surgery History of surgery History of umbilical hernia repair Family History Family History Father Liver cancer Morbidly obese Mother Hypertension Diabetes Asthma Social History Social History Housing: Apartment Alcohol intake: never Patient Tobacco Use Status: Never used Tobacco Second Hand Smoke Exposure: Yes Advance Directives: No Advance Directives Information Provided: Yes service: No Current occupational status: unemployed 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 GENERAL: Well developed, well nourished, in no acute distress. HEAD: Normocephalic/atraumatic EYES: PERRLA, EOMI EARS: Ext canals without abnormality LUNGS: Normal breath sounds. No adventitious sounds or accessory muscle use. SpO2<96> CARDIOVASCULAR: Regular rate and rhythm without noted murmurs ABDOMEN: Soft, non-tender, non-distended with bowel sounds. MUSCULOSKELETAL: No tenderness, deformities, or effusions noted on gross inspection. EXTREMITIES: No cyanosis, clubbing or edema; RIGHT SHOULDER: There is a small incision to the superior aspect of the right shoulder that has no surrounding erythema or induration and there is no concerning discharge, there is also an incision at the anterior aspect of the right axilla that appears to be healing well without surrounding erythema or induration.. SKIN: Inspection of the skin reveals no rashes NEUROLOGIC: Alert and oriented x 4. Strength and sensation to light touch were grossly intact x 4. Medical Decision Making Medical Decision Making MDM Narrative: This is a 47-year-old male with history and clinical presentation right rotator cuff surgery, incisions appear to be well healing and non erythematous, no induration and no other signs or symptoms of infection. Patient was instructed to follow-up with his surgeon and is otherwise discharged home in stable condition. Discharge Plan Discharge Clinical Impression: Encounter for post surgical wound check Patient Disposition: Home, Self-Care Instructions: Wound Healing and Your Diet (ED) Additional Instructions: 1. Resume all home medications as prescribed. 2. There is no evidence of infection at this time, but you are strongly encouraged to follow-up with your surgeon for re-evaluation further outpatient management. Return to the ER for any worsening symptoms. Prescriptions: No Action (DME) CPAP Machine/Device Device See Rx Instructions .Route Qty: 1 0RF Rx Instructions: 16cm of water phentermine 30 mg capsule 30 mg PO DAILY 30 Days Qty: 30 0RF Rx Instructions: must administer 2 hours after breakfast testosterone 30 mg/actuation (1.5 mL) solution in metered pump w/aydee 4 appl transdermal DAILY Qty: 90 5RF gabapentin 100 mg capsule 100 mg PO BEDTIME Qty: 30 1RF minocycline 100 mg capsule 100 mg PO Q12H Qty: 60 0RF lidocaine 5 % adhesive patch,medicated 1 patch topical DAILY Qty: 30 0RF Rx Instructions: leave on most painful area for up to 12 hrs hydrocodone-acetaminophen 5-325 mg tablet 1 tab PO Q4-6H PRN (Reason: pain (scale score 4-6)) 7 Days Qty: 42 0RF Rx Instructions: Partial Fill upon patient request. morphine [MS Contin] 15 mg tablet extended release 15 mg PO Q12H 3 Days Qty: 6 0RF Rx Instructions: Partial Fill upon patient request. triamcinolone acetonide 0.5 % cream 1 appl topical BID Qty: 15 0RF amlodipine 5 mg tablet 5 mg PO DAILY 90 Days Qty: 90 1RF lisinopril 5 mg tablet 5 mg PO DAILY 90 Days Qty: 90 1RF simvastatin 40 mg tablet 40 mg PO BEDTIME 90 Days Qty: 90 1RF pyridoxine (vitamin B6) 100 mg tablet 100 mg PO DAILY 90 Days Qty: 90 1RF sildenafil [Viagra] 100 mg tablet 100 mg PO DAILY PRN (Reason: sexual activity) Qty: 7 3RF Rx Instructions: administer 30 minutes to 4 hours before activity ketoconazole 2 % shampoo 1 appl topical DAILY tretinoin 0.025 % cream 1 appl topical DAILY potassium citrate 10 mEq (1,080 mg) tablet extended release 20 meq PO BID 90 Days Qty: 360 1RF tramadol 50 mg tablet 50 mg PO Q6H 7 Days Qty: 28 0RF
== END 2023-05-15 04:48 | disposition home or self-care (01) ==
PROVIDERS: Emergency Provider Student in an Organized Health Care Education/Training Program
DX: Z48.00 Encounter for change or removal of nonsurgical wound dressing (principal); Z79.899 Other long term (current) drug therapy
CPT/HCPCS: 99282

== ENCOUNTER 2023-05-18 09:35 | Outpatient (REF) | payer OTHER, SELFPAY ==
--- NOTE | ~2023-05-18 | US_ITS ---
EXAMINATION: US RETROPERITONEAL LIMITED (RENAL ONLY) CLINICAL INFORMATION: Hypocitraturia. COMPARISON: Ultrasound retroperitoneal limited (renal only) 10/14/2022. CT abdomen and pelvis without contrast 07/18/2022. Ultrasound retroperitoneal limited (renal only) 06/22/2022. X-ray abdomen KUB 05/12/2022 and 03/24/2022. TECHNIQUE: Real-time imaging of the kidneys. FINDINGS: RIGHT KIDNEY: 11.8 x 5.0 x 5.6 cm (SAG x AP x TRV). The kidney is normal in size, contour, and echogenicity. Renal cortical thickness is normal. No focal parenchymal lesions or hydronephrosis. At the interpolar aspect, a 4 mm nonobstructing calculus is seen. LEFT KIDNEY: 10.8 x 5.8 x 5.3 cm (SAG x AP x TRV). The kidney is normal in size, contour, and echogenicity. Renal cortical thickness is normal. No hydronephrosis. At the interpolar aspect, a 4 mm nonobstructing calculus is seen. In the lower peripelvic region, a 1.5 cm benign, simple cyst is seen. US/US renal BI IMPRESSION: 1. There are nonobstructing bilateral renal calculi. No hydronephrosis is seen bilaterally. 2.A 1.5 cm benign, simple left parapelvic cyst is seen, for which no imaging follow-up is recommended.
== END 2023-05-18 09:36 | disposition home or self-care (01) ==
LOC: HO.US 09:35
PROVIDERS: PCP Internal Medicine; Visit Provider Urology
DX: R82.991 Hypocitraturia (principal); Z98.890 Other specified postprocedural states
CPT/HCPCS: 76775

== ENCOUNTER 2023-05-18 13:11 | Outpatient (AMB) | payer OTHER, SELFPAY ==
--- NOTE | 2023-05-18 13:26 | A.OFFVIS_ITS ---
Intake Intake Visit Reasons: OV-RTC stiches Allergies oxycodone [From PERCOCET] Allergy (Intermediate, Verified 05/15/23 01:49) ITCHING, rash and itching, itching codeine Allergy (Unknown, Verified 05/15/23 01:49) rash and itching HPI OV-RTC stiches HPI Details 47-year-old right hand dominant male who presents in the office today for a wound check; 2 weeks status post right shoulder subscapularis repair, supraspinatus repair, and sub-pectoral biceps tenodesis, which was performed on 05/04/[address] Baron. The patient was last seen in the clinic on 05/09/2023 where his sutures were removed and steri-stripes were applied. He presented to the ED today, 05/18/2023, with a complaint that the incision was . The patient was attending physical therapy, it was there that they had a concern that there was a retained suture at the bicep repair site. [facility] Medical History Back pain Benign essential hypertension Calculus of kidney Empty sella Erectile dysfunction Headache Hypogonadism in male Internal derangement of right shoulder Left shoulder tendinitis Lumbar degenerative disc disease Lumbar disc disease with radiculopathy Morbid obesity with BMI of 45.0-49.9, adult Obstructive sleep apnea Pure hypercholesterolemia Serum calcium elevated Surgical History History of appendectomy History of lithotripsy History of medial meniscus repair of right knee History of removal of cyst History of rotator cuff surgery History of surgery History of umbilical hernia repair Family History Father Liver cancer Morbidly obese Mother Hypertension Diabetes Asthma Social History Housing: Apartment Alcohol intake: never Patient Tobacco Use Status: Never used Tobacco Second Hand Smoke Exposure: Yes service: No Current occupational status: unemployed 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 Cognitive needs: No Hearing needs: No Vision needs: No Review of Systems Const All systems reviewed & are unremarkable except as noted in HPI and below Physical Exam Const General: cooperative and no acute distress Orientation/consciousness: patient oriented x3 Resp Effort & Inspection: normal respiratory effort and able to speak in complete sentences Cardio Rate: regular rate Peripheral pulses: Peripheral pulses 2+ throughout GI Palpation (GI): Soft to palpation Skin Lesions: no lesions Rashes: no rashes Neuro General: patient oriented x3 Extrem Other: Right shoulder: Incision site is clean, dry, and intact. No surrounding erythema or edema. No retained suture is visible. Remaining skin glue over the bicep repair site still present. Psych Mental Status: mental status grossly normal Assessment & Plan Assessment & Plan (1) S/P right rotator cuff repair: Comment: 05/04/2023 NE Code(s): Z98.890 - Other specified postprocedural states Plan Mr. Crump is a 47-year-old right hand dominant male who presents in the office today for a wound check; 2 weeks status post right shoulder subscapularis repair, supraspinatus repair, and sub-pectoral biceps tenodesis, which was performed on 05/04/[address] Baron. The patient was last seen in the clinic on 05/09/2023 where his sutures were removed and steri-stripes were applied. He presented to the ED today, 05/18/2023, with a complaint that the incision was . The patient was attending physical therapy, it was there that they had a concern that there was a retained suture at the bicep repair site. The patient presented for a wound check which was performed while in the office today. At the bicep repair site subcutaneous dissolving suture was placed. I do not see any evidence of the suture protruding through the skin. No remaining additional sutures. No signs of infection. He will remain in the sling and attending physical therapy. He will follow up at his regularly scheduled appointment, or sooner if needed. Patient Instructions: Scribed for Eugenie Tam PA-C by Ale Dickens medical technologist generalist, on 05/18/2023 at 1:16 pm, EST. Your attestation Coding Level of Care Code Global (19542) Diagnoses S/P right rotator cuff repair Z98.890
== END 2023-05-18 13:24 | disposition home or self-care (01) ==
LOC: HO.HOS 13:12
PROVIDERS: Visit Provider Physician Assistant
DX: Z47.89 Encounter for other orthopedic aftercare (principal); M75.121 Complete rotator cuff tear or rupture of right shoulder, not specified as traumatic; S43.431D Superior glenoid labrum lesion of right shoulder, subsequent encounter
CPT/HCPCS: 99024

== ENCOUNTER 2023-05-19 11:32 | Outpatient (AMB) | payer OTHER, SELFPAY ==
[2023-05-19 11:39] VITALS: BP 155/72; PULSE 65; BMI 48.7
--- NOTE | 2023-05-19 11:39 | MHC.OFFVIS ---
Intake Vital Signs 05/19/23 11:39 Height 5 ft 6 in Weight 302 lb 0.533 oz BMI 48.7 BP 155/72 H Blood Pressure Location Lt brachial Position Sitting Pulse 65 Intake Visit Reasons: colonoscopy screening Intake Note: Ronald presents in office as a new.patient for a colonoscopy screening PT CC: pt reports having no concerns , 1st colo pt denies any other GI Issues Air Conditioning Insulation Installer Required: No Accompanied by: Self / Same As Patient Allergies oxycodone [From PERCOCET] Allergy (Intermediate, Verified 05/19/23 11:40) ITCHING, rash and itching, itching codeine Allergy (Unknown, Verified 05/19/23 11:40) rash and itching Medication List - Last Reconciled 05/19/23 by Sasha Traore PA-C amlodipine 5 mg PO DAILY 90 days CPAP (CPAP Machine/Device) 16cm of water gabapentin 100 mg PO BEDTIME hydrocodone-acetaminophen 5-325 mg 1 tab PO Q4-6H PRN 7 days ketoconazole 2% 1 appl topical DAILY lidocaine 5% 1 patch topical DAILY lisinopril 5 mg PO DAILY 90 days minocycline 100 mg PO Q12H phentermine 30 mg PO DAILY 30 days potassium citrate ER 20 mEq (2 x 10 mEq (1,080 mg)) PO BID 90 days pyridoxine (vitamin B6) 100 mg PO DAILY 90 days sildenafil (Viagra) 100 mg PO DAILY PRN simvastatin 40 mg PO BEDTIME 90 days testosterone 30 mg/actuation (1.5 mL) 4 appl transdermal DAILY tramadol 50 mg PO Q6H 7 days tretinoin 0.025% 1 appl topical DAILY triamcinolone acetonide 0.5% 1 appl topical BID HPI HPI Comments History of Present Illness Details A 47 y/o male referred for index screening colonoscopy-he is anxious to have it done Recent right rotator cuff surgery-PT Bowels normal Appetite good CPAP, PCP No other respiratory or cardiac issue No nausea, vomiting, hematemesis, hematochezia fevers or chills PFSH Medical History Back pain Benign essential hypertension Calculus of kidney Empty sella Erectile dysfunction Headache Hypogonadism in male Internal derangement of right shoulder Left shoulder tendinitis Lumbar degenerative disc disease Lumbar disc disease with radiculopathy Morbid obesity with BMI of 45.0-49.9, adult Obstructive sleep apnea Pure hypercholesterolemia Serum calcium elevated Surgical History History of appendectomy History of lithotripsy History of medial meniscus repair of right knee History of removal of cyst History of rotator cuff surgery History of surgery History of umbilical hernia repair Family History Father Liver cancer Morbidly obese Mother Hypertension Diabetes Asthma Social History Housing: Apartment Alcohol intake: never Patient Tobacco Use Status: Never used Tobacco Second Hand Smoke Exposure: Yes service: No Current occupational status: unemployed 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 Cognitive needs: No Hearing needs: No Vision needs: No Review of Systems Const All systems reviewed & are unremarkable except as noted in HPI and below Card Denies chest pain and Denies dyspnea Resp Denies dyspnea Physical Exam Vital Signs: Last Vital Signs Pulse 65 05/19/23 11:39 BP 155/72 H 05/19/23 11:39 BMI result Body Mass Index 48.7 Const General: cooperative, healthy appearing, comfortable and no acute distress Orientation/consciousness: patient oriented x3 Limitations: no limitations Eyes Sclerae: sclerae normal Resp Effort & Inspection: normal respiratory effort and able to speak in complete sentences Auscultation: clear to auscultation bilaterally, no rales, no rhonchi and no wheezes Cardio Rate: regular rate Rhythm: regular rhythm Heart sounds: S1 normal heart sound present GI Palpation (GI): Soft to palpation and nontender Auscultation: normal bowel sounds Skin General skin exam: no rashes or lesions noted Neuro General: patient oriented x3 Extrem Right upper extremity: shoulder/upper arm (Splint) Psych Appearance: well kempt Mental Status: mental status grossly normal Speech and movement: Normal speech and movement present Affect: normal affect Attitude: cooperative Thought process: Normal thought process present Thought content: Normal thought content present Assessment & Plan Assessment & Plan (1) Colon cancer screening: Code(s): Z12.11 - Encounter for screening for malignant neoplasm of colon Plan: colonoscopy-MG prep Plan Index screening colonoscopy-MG prep CPAP Orders: Orders Colonoscopy - GI Use Only 05/19/23 Z12.11 - Encounter for screening for malignant neoplasm of colon Medications: New bisacodyl (Dulcolax (bisacodyl)) Take 4 tablets by mouth at 12:00pm the day before your procedure. 20 mg (4 x 5 mg) PO ONCE 1 day 4 tabs 0RF colonoscopy prep Z12.11 - Encounter for screening for malignant neoplasm of colon polyethylene glycol 3350 (Miralax) Take as directed by mouth the day before your procedure. 238 grams PO ONCE 1 day 238 grams 0RF Patient Instructions: Index screening- MG split prep-literature given Discussed procedure, rare risk, need for escort Encouraged to call with questions or concerns Appreciate the opportunity to assist in the care of this pleasant gent Coding Level of Care Code New Pt Level 3 (21412) Diagnoses Colon cancer screening Z12.11 Time Spent (min) 25
== END 2023-05-19 12:27 | disposition home or self-care (01) ==
PROVIDERS: Visit Provider Physician Assistant
DX: Z01.818 Encounter for other preprocedural examination (principal); Z12.11 Encounter for screening for malignant neoplasm of colon
CPT/HCPCS: 99202

== ENCOUNTER → 2023-05-19 11:32 | Outpatient (BNVA) | payer OTHER, SELFPAY | PROVIDERS: Visit Provider Physician Assistant | DX: Z01.818 Encounter for other preprocedural examination (principal) | CPT/HCPCS: 99202 ==

== ENCOUNTER 2023-05-27 15:41 | Outpatient (AMB) | payer OTHER, SELFPAY ==
--- NOTE | 2023-05-27 07:14 | A.OFFVIS_ITS ---
Intake Intake Visit Reasons: 6m follow up/US litholink Intake Note: Patient presents today for a 6mo follow-up with Ultrasound and Litholink Results. Meds- Vitamin B6, Sildenafil, Potassium Allergies to Antibiotic- None Blood Thinner- None Plate Developer Required: No Accompanied by: Self / Same As Patient Allergies oxycodone [From PERCOCET] Allergy (Intermediate, Verified 07/13/23 11:05) ITCHING, rash and itching, itching codeine Allergy (Unknown, Verified 07/13/23 11:05) rash and itching HPI HPI Comments History of Present Illness Details Ronald is a 47-year-old male who presents today to the office for a 6- month follow up for US and Litholink results.? 05/27/2023-- He has seen Dr. Meek on 11/26/2022. He states that he is taking potassium citrate and vitamin B6 which was prescribed by Dr. Meek.? He has a history of hypogonadism and erectile dysfunction. He states that he regularly follow up with data reporting analyst. He states that his data reporting analyst has prescribed him a medication. He denies any pain in the kidneys. He denies any hematuria. Discussed 24 hour urine results Total volume 3.50mL, urine calcium 819; urine oxalate 77; urine citrate 1063; urine sodium 499. Informed to the patient that urine calcium, oxalates and sodium are significantly elevated in comparison to the 24 hour urine test obtained one year ago. The patient states that he was confused during his last 24 urine test, and the results suggest that the test was not done properly. US of kidney results reviewed ? 05/18/2023 ?small 4mm stones noted in both the kidneys; no hydronephrosis noted. Plan: I will repeat the 24 hour urine test and the MA will follow up with him regarding the instructions to have 24 urine culture test. Follow up in 6-months for another renal US with Dr. Meek and to review the 24 hour urine culture test. [facility] Medical History Back pain Benign essential hypertension Calculus of kidney Empty sella Erectile dysfunction Headache Hypogonadism in male Internal derangement of right shoulder Left shoulder tendinitis Lumbar degenerative disc disease Lumbar disc disease with radiculopathy Morbid obesity with BMI of 45.0-49.9, adult Obstructive sleep apnea Pure hypercholesterolemia Serum calcium elevated Surgical History History of appendectomy History of lithotripsy History of medial meniscus repair of right knee History of removal of cyst History of rotator cuff surgery History of surgery History of umbilical hernia repair Family History Father Liver cancer Morbidly obese Mother Hypertension Diabetes Asthma Social History Housing: Apartment Alcohol intake: never Patient Tobacco Use Status: Never used Tobacco Second Hand Smoke Exposure: Yes service: No Current occupational status: unemployed 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 Cognitive needs: No Hearing needs: No Vision needs: No Review of Systems Const All systems reviewed & are unremarkable except as noted in HPI and below Reports no additional complaints Eyes Reports no additional complaints ENT Reports no additional complaints Card Denies dyspnea Resp Denies cough and Denies dyspnea GI Reports no additional complaints Musc Reports no additional complaints Skin/Breast Denies rash and Denies unusual bruising Neuro Reports no additional complaints Psych Reports no additional complaints Endo Reports no additional complaints Carl/Lymph Reports no additional complaints Aller/Immun Reports no additional complaints Results AMB Urinalysis, Automated UA Leukoctes 0 Heather/uL Last Edit by MARINA Hernandez on 05/27/23 16:04 UA Nitrite Negative Last Edit by MARINA Hernandez on 05/27/23 16:04 UA Urobilinogen 0.2 mg/dL Last Edit by MARINA Hernandez on 05/27/23 16:0 4 UA Protein 15 mg/dL Last Edit by MARINA Hernandez on 05/27/23 16:04 UA pH 6.0 Last Edit by MARINA Hernandez on 05/27/23 16:04 UA Blood 10 Zafar/uL Last Edit by Markos Muñiz MAYLINKirsty on 05/27/23 16:04 UA Specific [place] 1.025 Last Edit by Markos Muñiz MARINA on 05/27/23 16: 04 UA Ketone Negative Last Edit by Markos Muñiz A on 05/27/23 16:04 UA Bilirubin 0 mg/dL Last Edit by Markos Muñiz MAYLINA on 05/27/23 16:04 UA Glucose 0 mg/dL Last Edit by Markos Muñiz A on 05/27/23 16:04 Results Reviewed Results Reviewed: Laboratory Last Values Urine pH (Auto) 6.0 05/27/23 16:02 Specific [place] (Auto) 1.025 05/27/23 16:02 Urine Protein (Auto) 15 mg/dL 05/27/23 16:02 Glucose (UA)(Auto) 0 mg/dL 05/27/23 16:02 Urine Ketones (Auto) Negative 05/27/23 16:02 Urine Blood (Auto) 10 Zafar/uL 05/27/23 16:02 Urine Nitrite (Auto) Negative 05/27/23 16:02 Urine Bilirubin (Auto) 0 mg/dL 05/27/23 16:02 Urine Urobilinogen (Auto) 0.2 mg/dL 05/27/23 16:02 Leukocyte Esterase (Auto) 0 Heather/uL 05/27/23 16:02 Date of Service: 05/18/23 EXAMINATION: US RETROPERITONEAL LIMITED (RENAL ONLY) CLINICAL INFORMATION: Hypocitraturia. COMPARISON: Ultrasound retroperitoneal limited (renal only) 10/14/2022. CT abdomen and pelvis without contrast 07/18/2022. Ultrasound retroperitoneal limited (renal only) 06/22/2022. X-ray abdomen KUB 05/12/2022 and 03/24/2022. TECHNIQUE: Real-time imaging of the kidneys.? FINDINGS: RIGHT KIDNEY: 11.8 x 5.0 x 5.6 cm (SAG x AP x TRV). The kidney is normal in size, contour, and echogenicity. Renal cortical thickness is normal. No focal parenchymal lesions or hydronephrosis. At the interpolar aspect, a 4 mm nonobstructing calculus is seen. LEFT KIDNEY: 10.8 x 5.8 x 5.3 cm (SAG x AP x TRV). The kidney is normal in size, contour, and echogenicity. Renal cortical thickness is normal. No hydronephrosis. At the interpolar aspect, a 4 mm nonobstructing calculus is seen. In the lower peripelvic region, a 1.5 cm benign, simple cyst is see. IMPRESSION: 1. There are nonobstructing bilateral renal calculi. No hydronephrosis is seen bilaterally. ?2. A 1.5 cm benign, simple left parapelvic cyst is seen, for which no imaging follow-up is recommended. Assessment & Plan Assessment & Plan (1) Nephrolithiasis: Code(s): N20.0 - Calculus of kidney Plan I will repeat the 24 hour urine culture test and the MA follow up with him regarding the instructions to have 24 urine culture test. Follow up in 6-months for another renal US with Dr. Meek and to review the 24 hour urine culture test. Orders: Orders AMB Urinalysis Automated 05/27/23 Z13.9 - Encounter for screening, unspecified Patient Instructions: The patient had an opportunity to ask questions regarding treatment plan. All questions were answered. Imaging, Laboratory studies and physical exam results were discussed and reviewed in detail. No major barriers to understanding were identified. The patient expressed understanding and agreement with the above treatment plan. The patient is aware they should contact our office by phone for worsening of their current condition or the appearance of new symptoms. Compliance is enc ouraged with any medications and followup testing that is ordered. It is a privilege to be allowed the opportunity to participate in the urologic care of your patient. If you have any questions or concerns regarding treatment for the above conditions please do not hesitate to contact me. The office telephone contact is [phone]. This note is constructed in part using voice recognition software. While every effort has been made to ensure accuracy scutcher tender errors may have been included. Yours sincerely, Jeff Park MD Coding Level of Care Code Est Pt Level 3 (95491) Diagnoses Nephrolithiasis N20.0
== END 2023-05-27 16:43 | disposition home or self-care (01) ==
PROVIDERS: Visit Provider Urology
DX: N20.0 Calculus of kidney (principal)
CPT/HCPCS: 99213

== ENCOUNTER → 2023-05-27 15:41 | Outpatient (BNVA) | payer OTHER, SELFPAY | PROVIDERS: Visit Provider Urology | DX: N20.0 Calculus of kidney (principal) | CPT/HCPCS: 99212 ==

== ENCOUNTER 2023-06-15 10:05 | Outpatient (AMB) | payer OTHER, SELFPAY ==
[2023-06-15 10:17] VITALS: BMI 48.7
--- NOTE | 2023-06-15 10:17 | MHC.OFFVIS ---
Intake Vital Signs 06/15/23 10:17 Height 5 ft 6 in Weight 302 lb BMI 48.7 Intake Visit Reasons: Post-op RT SHLD RTC, 05/04/23NE Intake Note: Nichole 47 year old male who presents today for a post operative right shoulder RTC, 05/04/23 NE. Patient reports he continues to have discomfort, some days are worse than others. He does at home exercises and continues attending PT. Allergies oxycodone [From PERCOCET] Allergy (Intermediate, Verified 06/15/23 10:18) ITCHING, rash and itching, itching codeine Allergy (Unknown, Verified 06/15/23 10:18) rash and itching HPI Post-op RT SHLD RTC, 05/04/23NE HPI Details 47-year-old male who returns to the office today for post-op right shoulder RTC repair, 05/04/[address] Baron. He continues to have discomfort which is worse at some days but is doing well overall. He continues to work with home exercises and physical therapy with benefits. He has no other concerns today. [facility] Medical History Back pain Benign essential hypertension Calculus of kidney Empty sella Erectile dysfunction Headache Hypogonadism in male Internal derangement of right shoulder Left shoulder tendinitis Lumbar degenerative disc disease Lumbar disc disease with radiculopathy Morbid obesity with BMI of 45.0-49.9, adult Obstructive sleep apnea Pure hypercholesterolemia Serum calcium elevated Surgical History History of appendectomy History of lithotripsy History of medial meniscus repair of right knee History of removal of cyst History of rotator cuff surgery History of surgery History of umbilical hernia repair Family History Father Liver cancer Morbidly obese Mother Hypertension Diabetes Asthma Social History Housing: Apartment Alcohol intake: never Patient Tobacco Use Status: Never used Tobacco Second Hand Smoke Exposure: Yes service: No Current occupational status: unemployed 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 Forward flexion to 90 degrees, external rotation to 30 degrees. He has good scapular activation. NVI. Assessment & Plan Assessment & Plan (1) S/P right rotator cuff repair: Comment: 05/04/2023 NE Code(s): Z98.890 - Other specified postprocedural states Plan He can begin weaning from the sling and will continue to work with physical therapy for ROM, scapular stabilization and progress to gentle strengthening as tolerated per protocol. He will see us back in [address] Baron, sooner if needed. Orders: Orders PT Evaluation and Treatment Today Z98.890 - Other specified postprocedural states Patient Instructions: Scribed for Homer Smith PA-C, by [facility] representative, on 06/15/2023 at 9:30 AM EST. I, Homer Smith PA-C, have personally reviewed and agree with the information entered by the scribe. Coding Level of Care Code Global (24610) Diagnoses S/P right rotator cuff repair Z98.890
== END 2023-06-15 10:44 | disposition home or self-care (01) ==
LOC: HO.HOS 10:05
PROVIDERS: Visit Provider Physician Assistant
DX: Z98.890 Other specified postprocedural states (principal)
CPT/HCPCS: 99024

== ENCOUNTER → 2023-06-15 10:05 | Outpatient (BNVA) | payer OTHER, SELFPAY | PROVIDERS: Visit Provider Physician Assistant ==

== ENCOUNTER 2023-07-07 10:05 | Day surgery (SDC) | payer OTHER, SELFPAY ==
[2023-07-05 09:42] VITALS: BMI 48.7
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
[2023-07-07 10:32] VITALS: BP 142/84; PULSE 62; RESP 16; TEMP 36.9; O2SAT 97
[2023-07-07] MEDS: Lactated Ringers 1,000 ML 100 ML IVCONT (10:34)
--- NOTE | 2023-07-07 11:01 | MHC.SHP ---
Pre-Procedural Eval Section A Date of Service: 07/07/23 Section B Chief Complaint: Encounter for screening for malignant neoplasm Relevant Family History (Specify if Yes): No Relevant Social History: None Present Medications: see Short Stay Collaborative assessment Medical History: Significant History (Back pain Benign essential hypertension Calculus of kidney Empty sella Erectile dysfunction Headache Hypogonadism in male Internal derangement of right shoulder Left shoulder tendinitis Lumbar degenerative disc disease Lumbar disc disease with radiculopathy Morbid obesity with BMI of 45.0-49.9, adul) History of Previous Operations: Relevant previous surgery/procedure and date(s) (appendectomy History of lithotripsy History of medial meniscus repair of right knee History of removal of cyst History of rotator cuff surgery History of surgery History of umbilical hernia repair) Allergies: Allergies Allergy/AdvReac Type Severity Reaction Status Date / Time oxycodone [From PERCOCET] Allergy Intermediate ITCHING, Verified 06/15/23 10:18 rash and itching, itching codeine Allergy Unknown rash and Verified 06/15/23 10:18 itching Review of Systems Sugical H&P ROS: Negative: Constitution, Cardiovascular, Respiratory, Neurological, Psychiatric, Hem-Onc, Allergic/Immunologic, Gastrointestinal, Genitourinary, Musculoskeletal, Integumentary, Endocrine and Eyes/Ears/Nose/Throat Exam Surgical H&P Exam: Normal: HEENT, Normal: Heart, Normal: Lungs, Normal: Extremities, Normal: Abdomen, Normal: Skin and Normal: Neurological Plan Diagnosis/Plan: Unchanged I have reviewed the history and physical and performed a pertinent physical examination on my patient. No changes have occurred unless specified. Time Spent With Patient Time: Total time managing care of this patient today ____ minutes.
--- NOTE | 2023-07-07 11:29 | W.PM.OPN ---
Operative Note Operative Note Date of Service: 07/07/23 Narrative: Operative Information Procedure Description: Colonoscopy Indication: screening Anesthesia: MAC COLONOSCOPY Instrument: Olympus variable stiffness ADULT scope 190L Colonoscopy Monitoring: Vital signs and clinical assessment, continuous EKG monitoring, Pulse oximetry, Carbon Dioxide monitoring and blood pressure monitoring were done throughout the procedure. Colon withdrawal time was 7 minutes. Procedure: The patient was placed in the left lateral decubitis position and pre-procedure medications were administered. After a digital rectal examination of the ano-rectum, the video colonoscope was inserted into the rectum and advanced through the colon to the cecum/TI. The colonoscope was slowly withdrawn in a retrograde panoramic fashion and the colon mucosa was carefully examined including a retroflexed view of the rectum. Findings and interventions are described below. Procedure Difficulty: easy Findings: Terminal Ileum-normal Cecum:normal Ascending Colon: normal Transverse Colon -normal Descending Colon:normal Sigmoid Colon: few scattered diverticula seen Rectum: Retroflexion with small internal hemorrhoids, grade I--4-6 mm sessile polyp removed with forceps Anorectum - normal Colon preparation: [place] Bowel Preparation Scale Right colon; 2 Transverse colon: 3 Left colon; 3 (0 = Unprepared colon segment with mucosa not seen due to solid stool that cannot be cleared. 1 = Portion of mucosa of the colon segment seen, but other areas of the colon segment not well seen due to staining, residual stool and/or opaque liquid. 2 = Minor amount of residual staining, small fragments of stool and/or opaque liquid, but mucosa of colon segment seen well. 3 = Entire mucosa of colon segment seen well with no residual staining, small fragments of stool or opaque liquid) Impression and Post Procedure Diagnosis: polyp internal hemorrhoids diverticular disease Plan: High fiber diet leaflet Avoid straining at stool, epsom salts and sitz bath, anusol supps or cream Repeat Colonoscopy in 5-7 years if adenomaotus polyp, otherwise 10 yrs or earlier if clinically indicated Above findings were reviewed with the patient and relevant handouts were provided if indicated.
[2023-07-07 11:37] VITALS: BP 140/84; PULSE 65; RESP 16; TEMP 37.1; O2SAT 98
[2023-07-07 11:52] VITALS: BP 140/84; PULSE 60; RESP 16; O2SAT 99
[2023-07-07 12:07] VITALS: BP 158/72; PULSE 65; RESP 18; TEMP 37.1; O2SAT 99
== END 2023-07-07 12:35 | disposition home or self-care (01) ==
PROVIDERS: PCP Internal Medicine; Visit Provider Internal Medicine Gastroenterology
PROC: 0DJD8ZZ Inspection of Lower Intestinal Tract, Via Natural or Artificial Opening Endoscopic (ICD-10-PCS; CPT 45378; principal; 2023-07-07 11:40)
DX: Z12.11 Encounter for screening for malignant neoplasm of colon (principal); K62.1 Rectal polyp; K57.30 Diverticulosis of large intestine without perforation or abscess without bleeding; K64.0 First degree hemorrhoids; I10 Essential (primary) hypertension; E78.00 Pure hypercholesterolemia, unspecified; G47.33 Obstructive sleep apnea (adult) (pediatric); E66.01 Morbid (severe) obesity due to excess calories; Z79.899 Other long term (current) drug therapy; Z68.42 Body mass index [BMI] 45.0-49.9, adult; Z88.5 Allergy status to narcotic agent
CPT/HCPCS: 45380; 88305; J2250

== ENCOUNTER → 2023-07-07 10:05 | Outpatient (BNV) | payer OTHER, SELFPAY | PROVIDERS: PCP Internal Medicine; Visit Provider Internal Medicine Gastroenterology | DX: Z12.11 Encounter for screening for malignant neoplasm of colon (principal); K62.1 Rectal polyp; K57.30 Diverticulosis of large intestine without perforation or abscess without bleeding | CPT/HCPCS: 45380 ==

== ENCOUNTER 2023-07-13 10:38 | Outpatient (AMB) | payer OTHER, SELFPAY ==
[2023-07-13 10:39] VITALS: BP 124/86; PULSE 68; O2SAT 96; BMI 48.8
--- NOTE | 2023-07-13 10:39 | A.OFFPC_ITS ---
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 Accompanied by: Self / Same As Patient Allergies oxycodone [From PERCOCET] Allergy (Intermediate, Verified 07/13/23 11:05) ITCHING, rash and itching, itching codeine Allergy (Unknown, Verified 07/13/23 11:05) rash and itching Medication List - Last Reconciled 07/13/23 by Peewee Hoskins MD amlodipine 5 mg PO DAILY 90 days bisacodyl (Dulcolax (bisacodyl)) 20 mg (4 x 5 mg) PO ONCE 1 day CPAP (CPAP Machine/Device) 16cm of water gabapentin 100 mg PO BEDTIME hydrocodone-acetaminophen 5-325 mg 1 tab PO Q4-6H PRN 7 days ketoconazole 2% 1 appl topical DAILY lidocaine 5% 1 patch topical DAILY lisinopril 5 mg PO DAILY 90 days minocycline 100 mg PO Q12H phentermine 30 mg PO DAILY 30 days polyethylene glycol 3350 (Miralax) 238 grams PO ONCE 1 day potassium citrate ER 20 mEq (2 x 10 mEq (1,080 mg)) PO BID 90 days pyridoxine (vitamin B6) 100 mg PO DAILY 90 days sildenafil (Viagra) 100 mg PO DAILY PRN simvastatin 40 mg PO BEDTIME 90 days testosterone 30 mg/actuation (1.5 mL) 4 appl transdermal DAILY tramadol 50 mg PO Q6H 7 days tretinoin 0.025% 1 appl topical DAILY triamcinolone acetonide 0.5% 1 appl topical BID Tobacco use date assessed: 07/13/23 Dental Screening Dental Screen Date: 07/13/23 Did you have a dental visit in the last 12 months?: Yes Did you have a dental problem in the last 6 months where you did not have access to dental care?: No Was dental information given to patient?: Patient has dentist HPI HTN, hyperlipidemia HPI Details Patient comes in today for his follow up visit States that he currently feels okay He denies any headaches or dizziness Denies any chest pains, no SOB No nausea/vomiting, no abdominal pain No change in bowel habits noted He is now going to [facility] for his low back pain and he continues to follow up with [facility] for continuing management of his recurrent kidney stones Was seen by nephrology (Dr. Stover) a few weeks ago for nephrology follow up and was reportedly advised that he is doing well on his current regimen and will be seen again in 6 months for his next follow up He also had his colonoscopy done with Dr. Nino last week - (+) benign polyp, some internal hemorrhoids and mild diverticular disease and he was advised that he should not need repeat colonoscopy for the next 10 years He was not able to get his follow up labs done prior to today's visit; states that he will try to go and get them done early tomorrow morning [facility] Medical History Back pain Benign essential hypertension Calculus of kidney Empty sella Erectile dysfunction Headache Hypogonadism in male Internal derangement of right shoulder Left shoulder tendinitis Lumbar degenerative disc disease Lumbar disc disease with radiculopathy Morbid obesity with BMI of 45.0-49.9, adult Obstructive sleep apnea Pure hypercholesterolemia Serum calcium elevated Surgical History History of appendectomy History of lithotripsy History of medial meniscus repair of right knee History of removal of cyst History of rotator cuff surgery History of surgery History of umbilical hernia repair Family History Father Liver cancer Morbidly obese Mother Hypertension Diabetes Asthma Social History Housing: Apartment Alcohol intake: never Patient Tobacco Use Status: Never used Tobacco Second Hand Smoke Exposure: Yes service: No Current occupational status: unemployed 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 1. Little interest or pleasure in doing things: not at all 2. Feeling down, depressed, or hopeless: not at all 3. Trouble falling or staying asleep, or sleeping too much: not at all 4. Feeling tired or having little energy: not at all 5. Poor appetite or overeating: not at all 6. Feeling bad about yourself - or that you are a failure or have let yourself or your family down: not at all 7. Trouble concentrating on things, such as reading the newspaper or watching television: not at all 8. Moving or speaking so slowly that other people could have noticed. Or the opposite - being so fidgety or restless that you have been moving around a lot more than usual: not at all 9. Thoughts that you would be better off or of hurting yourself in some way: not at all Total score: 0 Depression Screening Interpretation: Negative [id number] - PHQ-9 Billing: Yes Source: Developed by Drs. Riaz Phan, Kaylin Lewis, Marshall uLgo and colleagues, with an educational jaciel from [employer]. Thrive Questionnaire Date Thrive assessed: 07/13/23 I am a: Patient What is your living situation today?: I have a steady place to live Within the past 12 months, did the food you bought not last and you didn't have the money to get more?: Never true Within the past 12 months, did you worry whether your food would run out before you got money to buy more?: Never true Do you have trouble paying for medicines?: No Do you have trouble getting transportation to medical appointments?: No Do you have trouble paying your heating and electricity bill?: No Do you have trouble taking care of your child, family member or friend?: No Do you have trouble with day-to-day activities such as bathing, preparing meals, shopping, managing finances, etc.?: No Are you currently unemployed and looking for a job?: No Are you interested in more education?: No Please select the resources that you would like help with: None Currently or been in a relationship where the following occur: no concerns reported AUDIT C Alcohol Use Questionnaire (AUDIT-C) 1. How often do you have a drink containing alcohol?: Never 3. How often do you have six or more drinks on one occasion?: Never Total Score: 0 Score Reviewed/Action Taken: Yes MICHELLE-7 AMB Questionnaire MICHELLE-7 Date MICHELLE - 7 assessed: 07/13/23 Feeling nervous, anxious, or on edge: 0 = Not at all Not being able to stop or control worryin = Not at all Worrying too much about different things: 0 = Not at all Trouble relaxin = Not at all Being so restless that it is hard to sit still: 0 = Not at all Becoming easily annoyed or irritable: 0 = Not at all Feeling afraid as if something awful might happen: 0 = Not at all Total MICHELLE-7 score (0-4 normal; 5-9 mild; 10-14 moderate; 15-21 severe): 0 Source: Developed by Drs. Riaz Phan, Kaylin Lewis, Marshall Lugo and colleagues, with an educational jaciel from [employer]. Review of Systems Const Denies chills, Denies fatigue, Denies fever(s) and Denies headache(s) ENT Denies dysphagia, Denies dizziness, Denies otalgia, Denies headache(s), Reports neck pain (on and off), Denies odynophagia and Denies sore throat Card Denies chest pain, Denies rapid heart rate, Denies irregular heart rhythm, Denies palpitations and Denies dyspnea Resp Denies cough, Denies dyspnea and Denies wheezing GI Denies abdominal pain, Denies constipation, Denies dysphagia, Denies heartburn, Denies diarrhea, Denies nausea, Denies odynophagia and Denies vomiting Denies hematuria, Denies difficulty urinating, Denies dysuria and Denies urinary frequency Musc Reports back pain (over the lower back), Reports arthralgias (over the right shoulder; (+) on and off right knee pain) and Reports neck pain (on and off) Skin/Breast Denies rash Neuro Denies dizziness, Denies headache(s) and Denies paresthesias Endo Denies fatigue and Denies palpitations Aller/Immun Denies wheezing Physical exam (Primary Care) Vital Signs: Last Vital Signs Pulse 68 07/13/23 10:39 BP 124/86 07/13/23 10:39 Pulse Ox 96 07/13/23 10:39 Oxygen Delivery Method Room Air 07/13/23 10:39 BMI result Body Mass Index 48.8 Tobacco/Smoking Status: Tobacco use Status Tobacco use date assessed 07/13/23 07/13/23 10:45 Patient Tobacco Use Status Never used Tobacco 07/13/23 10:45 PHQ-9: PHQ-9 Score PHQ-9: Total score 0 07/13/23 11:19 Depression Screening Interpretation: Negative Thrive Assessment: Date of Thrive Assessment Date Thrive assessed 07/13/23 07/13/23 10:45 Currently or been in a relationship where the following occur: no concerns reported Const General: no acute distress and alert HENMT Ears: TM's normal bilaterally and EAC's normal Throat: Yes posterior oropharynx normal and Yes tonsils normal (no TP congestion) Neck Neck: Yes no lymphadenopathy Thyroid: Thyroid normal Resp Auscultation: clear to auscultation bilaterally, no rales and no wheezes Cardio Rate: regular rate Rhythm: regular rhythm Heart sounds: no murmurs GI Palpation (GI): Soft to palpation and nontender Auscultation: normal bowel sounds General: Yes no CVA tenderness Back/Spine/Pelvis Back: no CVA tenderness Cervical Spine: No Cervical spine tenderness Thoracic/Lumbar Spine: lumbar spinal tenderness Skin Rashes: no rashes Extrem General: Yes no clubbing, cyanosis or edema Right upper extremity: shoulder/upper arm Details: tenderness Location: of the A-C joint and normal ROM; no swelling Right lower extremity: knee Details: tenderness (mild, chronic); no swelling Assessment and Plan Assessment & Plan (1) Pure hypercholesterolemia: Code(s): E78.00 - Pure hypercholesterolemia, unspecified Plan: He was not able to get his follow up labs done yet and states that he will get these done early tomorrow morning Reinforced low cholesterol diet Continue Simvastatin 40 mg QD Will recheck his labs and fasting lipids in 4 months for follow up (2) Benign essential hypertension: Code(s): I10 - Essential (primary) hypertension Plan: Reinforced low sodium diet - goal is systolic BP of 120 mm or less Continue Lisinopril 5 mg QD and Amlodipine 5 mg QD Patient is reminded to continue monitoring his blood pressure regularly (3) Obstructive sleep apnea: Comment: CPAP Code(s): G47.33 - Obstructive sleep apnea (adult) (pediatric) Plan: Repeat sleep study with CPAP titration done back in 2020 revealed (+) severe obstructive sleep apnea requiring 16 cm of water pressure Patient is reminded to continue using his CPAP device every night regularly when sleeping Follow up with Sleep Medicine as scheduled (4) Lumbar degenerative disc disease: Code(s): M51.36 - Other intervertebral disc degeneration, lumbar region Plan: Reinforced activity and weight-lifting restrictions to help manage his low back symptoms Lumbar spine MRI was previously ordered but this was denied by his health insurance Continue Gabapentin 100 mg Q HS, Tramadol 50 mg PRN and Cyclobenzaprine 5 mg Q HS PRN He was referred to and is now following up with [facility] for his chronic low back pain management (5) Complete rotator cuff tear or rupture of right shoulder, not specified as traumatic: Code(s): M75.121 - Complete rotator cuff tear or rupture of right shoulder, not specified as traumatic Qualifiers: Rotator cuff tear trauma status: unspecified whether traumatic Qualified Code(s): M75.121 - Complete rotator cuff tear or rupture of right shoulder, not specified as traumatic Plan: S/P arthroscopic shoulder surgery and tendon repair with Dr. Baron in April 2023, with improvement of his shoulder symptomd Follow up with orthopedics as scheduled (6) Chronic kidney disease (CKD), stage II (mild): Code(s): N18.2 - Chronic kidney disease, stage 2 (mild) Plan: His renal function appears stable on his previous labs; will recheck labs RADHA Will continue to monitor his renal function closely (7) Hypogonadism in male: Code(s): E29.1 - Testicular hypofunction Plan: Continue Testosterone solution 30 mg /ACT 2 pumps and apply on skin once a day in the morning transdermally Follow-up with endocrinology as scheduled (8) Erectile dysfunction: Code(s): N52.9 - Male erectile dysfunction, unspecified Qualifiers: Erectile dysfunction type: due to other cause Qualified Code(s): N52.8 - Other male erectile dysfunction Plan: Continue Sildenafil 100 mg QD PRN Patient has hypogonadism and is currently on treatment with testosterone replacement therapy for this with endocrinology (9) Morbid obesity with BMI of 45.0-49.9, adult: Code(s): E66.01 - Morbid (severe) obesity due to excess calories; Z68.42 - Body mass index [BMI] 45.0-49.9, adult Plan: Reinforced diet/exercise as tolerated/ lose weight - he has gained some weight since his last visit Continue Phentermine 30 mg Q AM He continues to decline recommendation to refer him to weight management - states that he needs to take care of some of his more urgent issues first Plan Follow up in 4 months Orders: Orders Lipid Panel 07/14/23 E78.00 - Pure hypercholesterolemia, unspecified Comprehensive [facility]. Panel Fast 07/14/23 E78.00 - Pure hypercholesterolemia, unspecified Complete Blood Count Auto Diff 4 Months I10 - Essential (primary) hypertension Comprehensive [facility]. Panel Fast 4 Months E78.00 - Pure hypercholesterolemia, unspecified Vitamin B12 and Folate 4 Months E53.8 - Deficiency of other specified B group vitamins Lipid Panel 4 Months E78.00 - Pure hypercholesterolemia, unspecified TSH reflex Free T4 4 Months E78.00 - Pure hypercholesterolemia, unspecified UA CC w/rflx Micro + Cult 4 Months R30.0 - Dysuria Vitamin D 25-OH Total 4 Months E55.9 - Vitamin D deficiency, unspecified Testosterone, Free/Total 4 Months R79.89 - Other specified abnormal findings of blood chemistry Vitamin B6 4 Months E53.1 - Pyridoxine deficiency Coding Level of Care Code Est Pt Level 4 (96307) Diagnoses Pure hypercholesterolemia E78.00 Benign essential hypertension I10 Obstructive sleep apnea G47.33 Lumbar degenerative disc disease M51.36 Complete tear of right rotator cuff, unspecified whether traumatic M75.121 Rotator cuff tear trauma status: unspecified whether traumatic Chronic kidney disease (CKD), stage II (mild) N18.2 Hypogonadism in male E29.1 Other male erectile dysfunction N52.8 Erectile dysfunction type: due to other cause Morbid obesity with BMI of 45.0-49.9, adult E66.01; Z68.42
== END 2023-07-13 11:09 | disposition home or self-care (01) ==
LOC: HO.HMGH 10:38
PROVIDERS: PCP Internal Medicine; Visit Provider Internal Medicine
DX: E78.00 Pure hypercholesterolemia, unspecified (principal); I12.9 Hypertensive chronic kidney disease with stage 1 through stage 4 chronic kidney disease, or unspecified chronic kidney disease; N18.2 Chronic kidney disease, stage 2 (mild); G47.33 Obstructive sleep apnea (adult) (pediatric); M51.36 Other intervertebral disc degeneration, lumbar region; M75.121 Complete rotator cuff tear or rupture of right shoulder, not specified as traumatic
CPT/HCPCS: 99214

== ENCOUNTER 2023-07-14 09:39 | Outpatient (REF) | payer OTHER, SELFPAY ==
[2023-07-14 11:19] LABS: Appearance Urine Clear; Color Urine Yellow; Glucose Urine UA Negative (Negative); Leukocyte Esterase Urine Negative (Negative); Nitrite Urine Negative (Negative); PH 6.5 (5.0-9.0); UMIC TRIGGER UACC YES; Urine Blood Trace (Negative); Urine Ketones Negative (Negative); Urine Protein 30 (1+) mg/dL (Neg-Trace)
[2023-07-14 11:28] LABS: Alanine Aminotransferase 41 U/L (0-40); Albumin Level 4.2 g/dL (3.5-5.0); Alkaline Phosphatase 75 U/L (39-117); Anion Gap 17 (12-20); Aspartate Amino Transferase 43 U/L (5-37); Bilirubin Total 1.2 mg/dL (0.0-1.0); Blood Urea Nitrogen 12 mg/dL (9-16); Carbon Dioxide 21 mmol/L (22-29); Chloride 104 mmol/L (96-108); Cholesterol 157 mg/dL (<200); Estimated Glomerular Filt Rate > 60; Glucose Fasting 93 mg/dL (60-99); HDL Cholesterol 38 mg/dL (>40); LDL Cholesterol Calculated 82 mg/dL (<100); Potassium 4.6 mmol/L (3.3-5.1); Sodium 137 mmol/L (135-145); Total Protein 7.7 g/dL (6.5-8.0); Triglycerides 188 mg/dL (<150)
[2023-07-14 15:35] LABS: Bacteria Urine None Seen (None Seen); Hyaline Casts Urine 0-2 /LPF (0-2); Squamous Epithelial Cell Urine 0-2 /HPF (0-2); WBC Urine 0-5 /HPF (0-5)
== END 2023-07-14 09:40 | disposition home or self-care (01) ==
LOC: HO.LAB 09:39
PROVIDERS: PCP Internal Medicine; Visit Provider Internal Medicine
DX: E78.00 Pure hypercholesterolemia, unspecified (principal)
CPT/HCPCS: 36415; 80053; 80061; 81001; 81003

== ENCOUNTER 2023-07-28 10:43 | Outpatient (AMB) | payer OTHER, SELFPAY ==
--- NOTE | 2023-07-28 10:05 | MHC.OFFVIS ---
Intake Intake Visit Reasons: P.O Rt RTC repair w bicep tenodesis Intake Note: Deedee is a 47 year old male who presents today for a post operative appointment s/p Right RTC Repair 05/04/23. Patient reports that he is doing well, he is working with physical therapy and is still struggling with lateral movements. he is requesting a refill of Tramadol. Allergies oxycodone [From PERCOCET] Allergy (Intermediate, Verified 07/13/23 11:05) ITCHING, rash and itching, itching codeine Allergy (Unknown, Verified 07/13/23 11:05) rash and itching HPI P.O Rt RTC repair w bicep tenodesis HPI Details Ronald is a 47 year old man who presents ~3 months S/P right RTC repair with biceps tenodesis. He says he is doing well. Still has some limitations in abduction. He has completed his course of PT and says he has improved his motion and function. [facility] Medical History Back pain Benign essential hypertension Calculus of kidney Empty sella Erectile dysfunction Headache Hypogonadism in male Internal derangement of right shoulder Left shoulder tendinitis Lumbar degenerative disc disease Lumbar disc disease with radiculopathy Morbid obesity with BMI of 45.0-49.9, adult Obstructive sleep apnea Pure hypercholesterolemia Serum calcium elevated Surgical History History of appendectomy History of lithotripsy History of medial meniscus repair of right knee History of removal of cyst History of rotator cuff surgery History of surgery History of umbilical hernia repair Family History Father Liver cancer Morbidly obese Mother Hypertension Diabetes Asthma Social History Housing: Apartment Alcohol intake: never Patient Tobacco Use Status: Never used Tobacco Second Hand Smoke Exposure: Yes service: No Current occupational status: unemployed 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 Cognitive needs: No Hearing needs: No Vision needs: No Review of Systems Const All systems reviewed & are unremarkable except as noted in HPI and below Physical Exam Const General: no acute distress, alert and awake Orientation/consciousness: patient oriented x3 HEENT Head: Yes normocephalic and Yes atraumatic Eyes EOM: EOMs intact bilaterally Resp Effort & Inspection: normal respiratory effort and able to speak in complete sentences Cardio Jugular venous distension: no JVD Skin General skin exam: turgor normal Rashes: no rashes Neuro General: patient oriented x3 Extrem Other: Right Shoulder: Well-healed portals and subpectoral biceps tenodesis incision Negative lift-off Mild soreness with active abduction ER to 20 degrees Psych Appearance: grossly normal Affect: normal affect Attitude: cooperative Assessment & Plan Assessment & Plan (1) S/P right rotator cuff repair: Comment: 05/04/2023 NE Code(s): Z98.890 - Other specified postprocedural states Plan: This is a 47 year old man S/P right shoulder SLAP repair with biceps tenodesis, DOS: 05/04/23. He is doing well and is satisfied with the results of his surgery. He has completed his course of PT. I recommend continue PT and progression slowly as had subscap and superior cuff AND biceps tenodesis. Coding Level of Care Code Global (79972) Diagnoses S/P right rotator cuff repair Z98.890
== END 2023-07-28 11:10 | disposition home or self-care (01) ==
PROVIDERS: Visit Provider Orthopaedic Surgery
DX: M75.121 Complete rotator cuff tear or rupture of right shoulder, not specified as traumatic (principal)
CPT/HCPCS: 99024

== ENCOUNTER → 2023-07-28 10:43 | Outpatient (BNVA) | payer OTHER, SELFPAY | PROVIDERS: Visit Provider Orthopaedic Surgery ==

== ENCOUNTER 2023-08-03 09:48 | Outpatient (REF) | payer OTHER, SELFPAY ==
[2023-08-03 10:19] LABS: Hematocrit 48.9 % (42.0-52.0)
[2023-08-03 10:28] LABS: Appearance Urine Clear; Color Urine Yellow; Glucose Urine UA Negative (Negative); Leukocyte Esterase Urine Negative (Negative); Nitrite Urine Negative (Negative); UMIC TRIGGER UACC YES; Urine Blood Trace (Negative); Urine Ketones Negative (Negative); Urine Protein 100 (2+) mg/dL (Neg-Trace)
[2023-08-03 10:31] LABS: Bacteria Urine None Seen (None Seen); Hyaline Casts Urine 0-2 /LPF (0-2); RBC Urine 0-2 /HPF (0-2); Squamous Epithelial Cell Urine 0-2 /HPF (0-2); WBC Urine 0-5 /HPF (0-5)
[2023-08-03 10:53] LABS: Alanine Aminotransferase 38 U/L (0-40); Albumin Level 4.6 g/dL (3.5-5.0); Alkaline Phosphatase 74 U/L (39-117); Anion Gap 12 (12-20); Aspartate Amino Transferase 31 U/L (5-37); Bilirubin Total 1.4 mg/dL (0.0-1.0); Blood Urea Nitrogen 15 mg/dL (9-16); Calcium 10.2 mg/dL (8.4-10.2); Carbon Dioxide 29 mmol/L (22-29); Chloride 102 mmol/L (96-108); Cholesterol 183 mg/dL (<200); Estimated Glomerular Filt Rate > 60; Glucose Fasting 96 mg/dL (60-99); HDL Cholesterol 38 mg/dL (>40); LDL Cholesterol Calculated 101 mg/dL (<100); Potassium 4.3 mmol/L (3.3-5.1); Sodium 139 mmol/L (135-145); Total Protein 7.8 g/dL (6.5-8.0); Triglycerides 223 mg/dL (<150)
[2023-08-03 11:07] LABS: Prostate Specific Antigen 0.56 ng/mL (<0.05-4.0)
[2023-08-11 11:22] LABS: Testosterone, Total 584 ng/dL (250-1100)
== END 2023-08-03 09:49 | disposition home or self-care (01) ==
LOC: HO.LAB 09:48
PROVIDERS: PCP Internal Medicine; Visit Provider Internal Medicine Endocrinology, Diabetes & Metabolism
DX: Z12.5 Encounter for screening for malignant neoplasm of prostate (principal); E29.1 Testicular hypofunction
CPT/HCPCS: 36415; 80053; 80061; 81001; 84153; 84402; 84403; 85014; 85018

== ENCOUNTER 2023-09-19 12:00 | Outpatient (RCR) | payer OTHER, SELFPAY ==
--- NOTE | 2023-05-11 13:09 | MHC.PT.EP ---
[facility] [place] Office [place] Office [place] Office [address] Siobhan Camacho [address] [phone] F: [phone] F: [phone] F: [phone] F: [phone] Physical Therapy Plan of Care Date of Evaluation: Date of Surgery: 05/04/23 Diagnosis: Complete RTC tear or rupture R shoulder, not specified traumatic, impingement syndrome of R shoulder S/p RTC repair, subscap repair, biceps tendon repair, complete tear of R RTC, and impingement syndrome of R shoulder Assessment: Ronald is a 47 yo male referred to PT for post-op care of Complete RTC tear or rupture R shoulder, not specified traumatic, impingement syndrome of R shoulder. S/p RTC repair, subscap repair, biceps tendon repair, complete tear of R RTC, and impingement syndrome of R shoulder . Ronald is 1 week post op. Pt is wearing a sling on R shoulder when out of home, and when sleeping, he takes it off for 10-15 min sometimes at home. Impairments include limitation of gross ROM d/t pain and precautions, pain with PROM of shld flex/abd, decreased strength, and shoulder/proximal humerus swelling. Functional limitations include difficulty with ADLs, constant pain, difficulty dressing, inability to do laundry or lift objects. Skilled PT needed to address aforementioned impairments and functional limitations following post-op protocols. PT to include, patient education, HEP, R shoulder ROM, isometric strengthening, US, cold/hot pack, ESTIM, scapular strengthening, and eventually STM/ joint mobs. Frequency and Duration: The patient will be seen 2x week for 10 weeks Short Term Goals: In 5 weeks... 1. Pt will increase R shoulder flexion to 120 degrees in order to be able to reach overhead to dress self 2. Pt will increase R shoulder abduction to 120 degrees in order to reach for objects in house 3. Pt will be I with HEP and post-op protocols to improve functional mobility in order to continue to progress strength and ROM. Correction Goals: In 12 weeks... 1. Pt will have 50% less pain in R shoulder in order to sleep through the night without waking up d/t pain 2. Pt will increase R shoulder flexion/abd to 175 degrees w/o pain in order to become I with ADLs such as showering 3. Pt will increase R shoulder MMT by 2 points in order to lift objects in house with I Treatment Plan: Modalities to reduce pain, spasms and effusion. Manual therapy to restore motion and function. Therapeutic exercise to improve strength and flexibility. Neuromuscular re-education for posture and balance. Therapeutic activities to return to functional activities of daily living. Electronically signed by: Dania Guthrie PT DPT Please sign and return to therapist. Thank you for your referral.
--- NOTE | 2023-09-26 14:24 | MHC.PT.DC ---
[facility] [place] [facility] [place] [facility] [place] [facility] [address] Siobhan Camacho [address] [phone] F: [phone] F: [phone] F: [phone] F: [phone] Physical Therapy Discharge Report Diagnosis: Complete RTC tear or rupture R shoulder, not specified traumatic, impingement syndrome of R shoulder S/p RTC repair, subscap repair, biceps tendon repair, complete tear of R RTC, and impingement syndrome of R shoulder Date of Surgery: 05/04/23 Date of Evaluation: 05/11/23 Date of Discharge: 09/26/23 Treatments to Date: 26 Cancellations to Date: 0 No Shows to Date: 0 Discharge Status: Achieved Goals Improved Function Independent with HEP Discharge Summary: Ronald completed 26 PT visits. He made significant improvements with PT and achieved all goals set for him. He is therefore being d/c from PT. Electronically signed by: Dania Guthrie PT DPT Please sign and return to therapist. Thank you for your referral.
== END 2023-09-26 14:24 | disposition home or self-care (01) ==
LOC: HO.PT 12:00
PROVIDERS: PCP Internal Medicine; Visit Provider Orthopaedic Surgery
DX: M75.121 Complete rotator cuff tear or rupture of right shoulder, not specified as traumatic (principal); M75.41 Impingement syndrome of right shoulder
CPT/HCPCS: 97014; 97110; 97112; 97140; 97161; 97530

== ENCOUNTER 2023-09-21 10:17 | Outpatient (AMB) | payer OTHER, SELFPAY ==
--- NOTE | 2023-09-21 10:17 | MHC.OFFVIS ---
Intake Vital Signs 09/21/23 10:18 Height 5 ft 6 in Weight 304 lb 0.279 oz BMI 49.1 BP 137/82 Blood Pressure Location Lt brachial Position Sitting Pulse 64 Pulse Source Pulse Oximeter Intake Visit Reasons: f/u hypogonadism/CONFIRMED Intake Note: Patient present for Hypogonadism follow up visit. 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 He is feeling well. He is using testosterone topical solution 30 mg per pump. Dose is 4 pumps per day. Reports his doing a lot better in this dose. He has normal erection, with Cialis, he has normal libido. He denies fatigue. He is shaving every other day. He has other PMH of kidney stones, dyslipidemia, sleep apnea, not on treatment, ED, he has been on testosterone gel for about 2 years. 12/14/17 Total testosterone 126 ng/DL Free testosterone 36.3 ng/DL He denies chronic opioids use, denies heavy alcohol consumption, steroids abuse. He has father 4 kids the youngest is 18 years old. 08/2018 MRI sella [facility]. He had MRI sella which showed enlarged partially empty sella, with flattened pituitary gland , with 3 x 2 mm T2 hyperintense lesion, optic chiasm and cavernous sinus are intact. He is complaining of nocturia 2 to 3 times, he drinks a lot of water at night. Laboratory Tests 11/27/20 11/27/20 02/23/21 09:56 09:56 06:50 Hgb Hct Creatinine 1.33 Estimated GFR 58 Fasting Glucose 104 H Calcium 9.8 AST 37 ALT 66 H Albumin 4.5 Triglycerides 204 Cholesterol 174 LDL Cholesterol, C alc 99 HDL Cholesterol 35 TSH 0.97 Testosterone Level 100 L Total Testosterone 109 L Fr Testosterone Di marly 27.4 L Free Testoster w S HBG 26.0 L Bioavail Testoster one 52.3 L Sex Hormone Bind G lob 10 02/23/21 06:50 Hgb 14.6 Hct 44.1 Creatinine Estimated GFR Fasting Glucose Calcium AST ALT Albumin Triglycerides Cholesterol LDL Cholesterol, C alc HDL Cholesterol TSH Testosterone Level Total Testosterone Fr Testosterone Di marly Free Testoster w S HBG Bioavail Testoster one Sex Hormone Bind G lob Laboratory Tests 04/03/20 08/06/20 08/06/20 12:10 10:00 11:55 Hgb Hct Sodium 137 Potassium 4.4 Creatinine 1.16 Est GFR (Non-Af Am er) > 60 Hemoglobin A1c AST 34 ALT 66 H Alkaline Phosphata se 73 Albumin 4.7 Triglycerides 183 D Cholesterol 184 LDL Cholesterol, C alc 115 HDL Cholesterol 33 Total PSA 0.39 Total Testosterone 177, SEE ABOVE L Free Testosterone 48.6, 38.2 Bioavail Testoster one 102.1 L Sex Hormone Bind G lob 9, SEE ABOVE L Microalb/Creat Rat io 24.7 08/06/20 08/06/20 11:55 11:55 Hgb 14.7 Hct 44.5 Sodium Potassium Creatinine Est GFR (Non-Af Am er) Hemoglobin A1c 5.7 AST ALT Alkaline Phosphata se Albumin Triglycerides Cholesterol LDL Cholesterol, C alc HDL Cholesterol Total PSA Total Testosterone Free Testosterone Bioavail Testoster one Sex Hormone Bind G lob Microalb/Creat Rat io Denies change in urinary stream. Uses CPAP for sleep apnea PFSH Medical History Back pain Benign essential hypertension Calculus of kidney Empty sella Erectile dysfunction Headache Hypogonadism in male Internal derangement of right shoulder Left shoulder tendinitis Lumbar degenerative disc disease Lumbar disc disease with radiculopathy Morbid obesity with BMI of 45.0-49.9, adult Obstructive sleep apnea Pure hypercholesterolemia Serum calcium elevated Surgical History History of appendectomy History of lithotripsy History of medial meniscus repair of right knee History of removal of cyst History of rotator cuff surgery History of surgery History of umbilical hernia repair Family History Father Liver cancer Morbidly obese Mother Hypertension Diabetes Asthma Social History Housing: Apartment Alcohol intake: never Patient Tobacco Use Status: Never used Tobacco Second Hand Smoke Exposure: Yes service: No Current occupational status: unemployed 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 He appears to be eugonadal with normal testosterone on the current dose The plan is continue current therapy. Coding Level of Care Code Est Pt Level 3 (55108) Diagnoses Hypogonadism in male E29.1
[2023-09-21 10:18] VITALS: BP 137/82; PULSE 64; BMI 49.1
== END 2023-09-21 10:44 | disposition home or self-care (01) ==
PROVIDERS: PCP Internal Medicine; Visit Provider Internal Medicine Endocrinology, Diabetes & Metabolism
DX: E29.1 Testicular hypofunction (principal)
CPT/HCPCS: 99213

== ENCOUNTER → 2023-09-21 10:17 | Outpatient (BNVA) | payer OTHER, SELFPAY | PROVIDERS: Visit Provider Internal Medicine Endocrinology, Diabetes & Metabolism | DX: E29.1 Testicular hypofunction (principal) | CPT/HCPCS: 99212 ==

== ENCOUNTER 2023-10-08 15:46 | Emergency (ER) | payer OTHER, SELFPAY ==
--- NOTE | ~2023-10-08 | CT_ITS ---
EXAMINATION: CT ABDOMEN AND PELVIS WITHOUT CONTRAST CLINICAL INFORMATION: Right flank pain. COMPARISON: Renal ultrasound 05/18/2023. CT abdomen/pelvis 07/18/2022. TECHNIQUE: Multidetector volumetric imaging was performed from the superior aspect of the liver through the pubic symphysis. Sagittal and coronal reformatted images were obtained on the technologist's workstation. This CT examination was performed using dose optimization techniques as appropriate, variously including the following: *Automated exposure control *Adjustment of mA and/or kV according to patient size (this includes techniques or standardized protocols for targeted exams where dose is matched to indication/reason for exam; i.e. extremities or head) *Use of iterative reconstruction technique DLP: 1065 mGy-cm FINDINGS: The lack of intravenous contrast limits evaluation of the solid visceral organs including the liver, spleen, pancreas, and kidneys. LUNG BASES: The visualized lung bases are unremarkable. LIVER, GALLBLADDER, AND BILIARY TREE: The liver is enlarged measuring 21 cm craniocaudally and demonstrates decreased attenuation most consistent with hepatic steatosis. Otherwise, liver is normal in shape without discrete focal mass in these limited noncontrast examination. No biliary ductal dilatation. The gallbladder is unremarkable with no evidence of radiopaque gallstones, gallbladder wall thickening, or obvious pericholecystic inflammatory changes. PANCREAS: Unremarkable. SPLEEN: Unremarkable. ADRENAL GLANDS: Unremarkable. KIDNEYS AND URETERS: Redemonstration of a few bilateral punctate nonobstructive calculi. No hydronephrosis or hydroureter. No significant perinephric fat stranding. Redemonstration of left-sided parapelvic simple cysts, for which no imaging follow-up is recommended. BLADDER: Decompressed limiting evaluation. No discrete intraluminal calculi. No significant perivesical fat stranding. GASTROINTESTINAL TRACT: The stomach and the small bowel are nondilated. Prior appendectomy. Colonic diverticulosis without significant pericolonic fat stranding or free fluid to suspect acute diverticulitis or colitis. No evidence of bowel obstruction. ABDOMINAL WALL: Small fat-containing inguinal hernias. LYMPH NODES: Scattered prominent mesenteric lymph nodes with mild mesenteric vasculature engorgement are slightly increased compared to 07/18/2022, for instance as visualized on coronal images 46 through 54, series 8. VASCULAR: Normal caliber abdominal aorta. 2 scattered atherosclerotic disease. PELVIC VISCERA: Unremarkable. OSSEOUS STRUCTURES: No acute or aggressive appearing osseous findings. Degenerative changes of the spine. Unchanged grade 1 retrolisthesis of L5 on S1. CT/CT abdomen pelvis wo IV con IMPRESSION: 1. Nonobstructive bilateral renal calculi. No hydronephrosis. 2. Hepatomegaly and hepatic steatosis. 3. Slightly increased mesenteric lymphadenopathy and engorgement of the mesenteric vasculature of uncertain etiology. This could be seen in the setting of mesenteric panniculitis/adenitis and gastroenteritis. 4. Diverticulosis but no evidence of acute diverticulitis.
[2023-10-08 16:12] VITALS: BP 139/67; PULSE 96; RESP 22; TEMP 38.1; O2SAT 99; BMI 49.2
--- NOTE | 2023-10-08 16:13 | ED.GENADULT ---
HPI - General Adult General Chief complaint: Urogenital-Male Stated complaint: ? kidney stones, has hx Source: patient Mode of arrival: ambulatory Limitations: no limitations History of Present Illness HPI narrative: Patient is a 48-year-old male who presents emergency department for evaluation of headache, nausea, right lower abdominal/flank pain with symptom onset last night. Reports history of known kidney stones, the symptoms feel consistent with prior episodes. He is followed by urology Dr. Meek. Denies fevers, chills URI symptoms, diarrhea, hematochezia, melena, dysuria, urinary frequency/urgency/hesitancy, hematuria. Related Data Home Medications Medication Instructions Recorded Confirmed tretinoin 0.025 % topical cream 1 appl topical DAILY 04/14/22 07/13/23 ketoconazole 2 % shampoo 1 appl topical DAILY 07/07/22 07/13/23 Previous Rx's Medication Instructions Recorded CPAP (CPAP Machine/Device) #1 ea 06/29/21 sildenafil 100 mg tablet (Viagra) 100 mg PO DAILY PRN sexual 01/13/22 activity #7 tabs pyridoxine (vitamin B6) 100 mg 100 mg PO DAILY 90 days #90 tabs 02/25/22 tablet triamcinolone acetonide 0.5 % 1 appl topical BID #15 grams 03/08/22 topical cream lidocaine 5 % topical patch 1 patch topical DAILY #30 ea 06/23/22 simvastatin 40 mg tablet 40 mg PO BEDTIME 90 days #90 tabs 03/09/23 hydrocodone 5 mg-acetaminophen 325 1 tab PO Q4-6H PRN pain (scale 05/04/23 mg tablet score 4-6) 7 days #42 tabs bisacodyl 5 mg tablet,delayed 20 mg (4 x 5 mg) PO ONCE 05/19/23 release (Dulcolax (bisacodyl)) colonoscopy prep 1 day #4 tabs polyethylene glycol 3350 17 238 g PO ONCE 1 day #238 grams 05/19/23 gram/dose oral powder (Miralax) potassium citrate 10 mEq (1,080 20 meq (2 x 10 mEq (1,080 mg)) PO 06/02/23 mg) tablet,extended release BID 90 days #360 tabs tramadol 50 mg tablet 50 mg PO BID 15 days #30 tabs 07/28/23 testosterone 30 mg/actuation (1.5 4 pump transdermal DAILY #90 mL 08/01/23 mL) transderm solution metered pump amlodipine 5 mg tablet 5 mg PO DAILY 90 days #90 tabs 09/16/23 minocycline 100 mg capsule 100 mg PO Q12H #60 caps 09/16/23 gabapentin 100 mg capsule 100 mg PO BEDTIME #30 caps 10/03/23 phentermine 30 mg capsule 30 mg PO DAILY 30 days #30 caps 10/04/23 Allergies Allergy/AdvReac Type Severity Reaction Status Date / Time oxycodone [From PERCOCET] Allergy Intermediate ITCHING, Verified 10/08/23 16:12 rash and itching, itching codeine Allergy Unknown rash and Verified 10/08/23 16:12 itching Review of Systems Review of Systems: Yes all other systems are reviewed and are negative [facility] Past Medical History Attestation statement: The following information was validated with the patient. Source: old records reviewed Medical History Back pain Internal derangement of right shoulder Headache Calculus of kidney Morbid obesity with BMI of 45.0-49.9, adult Serum calcium elevated Left shoulder tendinitis Lumbar disc disease with radiculopathy Obstructive sleep apnea Lumbar degenerative disc disease Empty sella Erectile dysfunction Benign essential hypertension Pure hypercholesterolemia Hypogonadism in male Surgical History History of surgery History of medial meniscus repair of right knee History of rotator cuff surgery History of removal of cyst History of lithotripsy History of umbilical hernia repair History of appendectomy Family History Family History Father Liver cancer Morbidly obese Mother Hypertension Diabetes Asthma Social History Social History Housing: Apartment Alcohol intake: never Patient Tobacco Use Status: Never used Tobacco Second Hand Smoke Exposure: Yes service: No Current occupational status: unemployed 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 No acute distress.?Normal affect. Eyes: Pupils equal, round and reactive to light.? ENT: Pharynx normal.?? Neck: Normal inspection.? Neck supple.?? CVS: Heart sounds normal. Normal heart rate and rhythm.? Pulses normal.?? Respiratory: No respiratory distress.? Lung sounds clear to auscultation bilaterally?? Abdomen: Soft and with right flank tenderness upon palpation, lower right quadrant tenderness upon palpation. No rebound tenderness. No rigidity. No guarding. Negative Randolph sign.. Normoactive bowel sounds. No pulsatile mass.?? Genital: Declines genital examination, no reported complaints Skin: Skin warm and dry.? Normal skin color.? Extremities: No lower extremity edema.?? Neuro: Moves all extremities spontaneously. Sensation intact bilaterally. CN II-XII intact. No focal neuro deficits. Ambulates with normal steady gait. Medications Administered Discontinued Medications Generic Name Dose Route Start Last Admin Trade Name Freq PRN Reason Stop Dose Admin Acetaminophen 975 mg 10/08/23 16:18 10/08/23 16:21 Acetaminophen 325 Mg Tablet PO 10/08/23 16:19 975 mg ONCE ONE Administration Medical Decision Making Medical Decision Making [facility] Narrative: Patient is a 48-year-old male who presents emergency department for evaluation of right lower quadrant/right flank pain as per HPI. At the time of initial examination he appears significantly uncomfortable, did receive acetaminophen during initial evaluation which did provide him some relief in his pain. Upon re-evaluation has decreased tenderness upon palpation. CBC is without leukocytosis, mild left shift however is present. Initially febrile which resolved after acetaminophen. He is not tachycardic nor hypoxic. His lung sounds are clear bilaterally. No respiratory distress. CMP is overall unremarkable. Urinalysis revealing microscopic hematuria but no evidence of urinary tract infection. COVID-19 influenza testing are negative. CT of the abdomen and pelvis does not reveal evidence of ureteral calculi or hydronephrosis, there is incidental notation of mesenteric lymphadenopathy, which may be seen with mesenteric adenitis tingling past to enteritis, again has nausea but no vomiting, no diarrhea. Diverticulosis is present but no diverticulitis. Exact etiology of pain at this time is unclear, we discussed the possibility of passed stone with renal colic, gastroenteritis though clinically seems less likely, muscular pain. We also discussed viral syndrome, given symptom onset late last night would consider repeat viral testing in a couple of days should he continue to be symptomatic. At this time feel that he is stable for discharge home. Outpatient follow-up with primary care provider as needed for persistent symptoms. Advised worrisome signs and symptoms that would warrant re-evaluation in the emergency department. Differential Diagnosis Differential Diagnoses: The differential diagnosis associated with the presentation includes (As noted above) Admission/Observation Consideration of admission/observation: Escalation of care including admission/observation considered (As noted above) Lab Data MDM Lab Attestation statement: I reviewed the patient's lab results. (As noted above) 10/08/23 16:40 10/08/23 16:39 Labs: Lab Results 10/08/23 10/08/23 10/08/23 Range/Units 16:38 16:39 16:40 WBC 9.2 (4.8-10.8) X10*3/uL RBC 5.31 (4.60-5.80) X10*6/uL Hgb 15.1 (14.0-18.0) g/dl Hct 44.3 (42.0-52.0) % MCV 83.4 (80.0-98.0) fL MCH 28.4 (27.0-33.0) pg MCHC 34.1 (31.0-36.0) g/dl RDW 13.4 (11.0-16.0) % Plt Count 221 (160-400) X10*3/uL MPV 9.5 (9.4-12.4) fL Immature Gran % (Auto) 0.5 H (0.0-0.4) % Neut % (Auto) 83.3 H (45-73) % Lymph % (Auto) 7.4 L (20-40) % [place] % (Auto) 8.3 (2-11) % Eos % (Auto) 0.2 (0-4) % Baso % (Auto) 0.3 (0-2) % Lymph # (Auto) 0.7 L (1.2-4.9) X10*3/uL [place] # (Auto) 0.8 (0.1-1.2) X10*3/uL Eos # (Auto) 0.0 (0.0-0.4) X10*3/uL Baso # (Auto) 0.0 (0.0-0.2) X10*3/uL Abs Immat Gran (auto) 0.05 H (0.00-0.03) X10*3/uL Absolute Neuts (auto) 7.7 (2.0-8.3) x10*3/uL Absolute Nucleated RBC 0.000 (0.0-0.012) X10*3/uL Nucleated RBC % (auto) 0.0 (0.0-0.2) /100WBC Sodium 136 (135-145) mmol/L Potassium 4.1 (3.3-5.1) mmol/L Chloride 103 (96-108) mmol/L Carbon Dioxide 23 (22-29) mmol/L Anion Gap 14 (12-20) BUN 16 (9-16) mg/dL Creatinine 1.28 (0.5-1.4) mg/dL Estim Creat Clear Calc 92.4 Estimated GFR 60 Random Glucose 138 H (60-115) mg/dL Lactic Acid 1.6 (0.5-2.0) mmol/L Calcium 9.1 D (8.4-10.2) mg/dL Total Bilirubin 0.9 (0.0-1.0) mg/dL AST 28 (5-37) U/L ALT 32 (0-40) U/L Alkaline Phosphatase 73 (39-117) U/L Total Protein 7.2 (6.5-8.0) g/dL Albumin 4.1 (3.5-5.0) g/dL Urine Color Urine Appearance Urine pH (5.0-9.0) Ur Specific [place] (1.005-1.025) Urine Protein (Neg-Trace) mg/dL Urine Glucose (UA) (Negative) mg/dL Urine Ketones (Negative) mg/dL Urine Blood (Negative) Urine Nitrite (Negative) Ur Leukocyte Esterase (Negative) Urine RBC (0-2) /HPF Urine WBC (0-5) /HPF Ur Squamous Epith Cells (0-2) /HPF Urine Bacteria (None Seen) Hyaline Casts (0-2) /LPF COVID-19 ([facility]) Negative (Negative) COVID-19 Clin Com See Note Influenza Type A ([place]) Negative (Negative) Influenza Type B ([place]) Negative (Negative) Influenza A & B Note See Note 10/08/23 Range/Units 16:54 WBC (4.8-10.8) X10*3/uL RBC (4.60-5.80) X10*6/uL Hgb (14.0-18.0) g/dl Hct (42.0-52.0) % MCV (80.0-98.0) fL MCH (27.0-33.0) pg MCHC (31.0-36.0) g/dl RDW (11.0-16.0) % Plt Count (160-400) X10*3/uL MPV (9.4-12.4) fL Immature Gran % (Auto) (0.0-0.4) % Neut % (Auto) (45-73) % Lymph % (Auto) (20-40) % [place] % (Auto) (2-11) % Eos % (Auto) (0-4) % Baso % (Auto) (0-2) % Lymph # (Auto) (1.2-4.9) X10*3/uL [place] # (Auto) (0.1-1.2) X10*3/uL Eos # (Auto) (0.0-0.4) X10*3/uL Baso # (Auto) (0.0-0.2) X10*3/uL Abs Immat Gran (auto) (0.00-0.03) X10*3/uL Absolute Neuts (auto) (2.0-8.3) x10*3/uL Absolute Nucleated RBC (0.0-0.012) X10*3/uL Nucleated RBC % (auto) (0.0-0.2) /100WBC Sodium (135-145) mmol/L Potassium (3.3-5.1) mmol/L Chloride (96-108) mmol/L Carbon Dioxide (22-29) mmol/L Anion Gap (12-20) BUN (9-16) mg/dL Creatinine (0.5-1.4) mg/dL Estim Creat Clear Calc Estimated GFR Random Glucose (60-115) mg/dL Lactic Acid (0.5-2.0) mmol/L Calcium (8.4-10.2) mg/dL Total Bilirubin (0.0-1.0) mg/dL AST (5-37) U/L ALT (0-40) U/L Alkaline Phosphatase (39-117) U/L Total Protein (6.5-8.0) g/dL Albumin (3.5-5.0) g/dL Urine Color Yellow Urine Appearance Clear Urine pH 6.5 (5.0-9.0) Ur Specific [place] 1.015 (1.005-1.025) Urine Protein 30 (1+) H (Neg-Trace) mg/dL Urine Glucose (UA) Negative (Negative) mg/dL Urine Ketones Negative (Negative) mg/dL Urine Blood Moderate (2+) H (Negative) Urine Nitrite Negative (Negative) Ur Leukocyte Esterase Negative (Negative) Urine RBC 11-20 H (0-2) /HPF Urine WBC 0-5 (0-5) /HPF Ur Squamous Epith Cells 0-2 (0-2) /HPF Urine Bacteria None Seen (None Seen) Hyaline Casts 0-2 (0-2) /LPF COVID-19 ([facility]) (Negative) COVID-19 Clin Com Influenza Type A ([place]) (Negative) Influenza Type B ([place]) (Negative) Influenza A & B Note Independent Interpretation I performed an independent interpretation of an: CT Scan Radiology Impression Discussion of test interpretation with radiology: I have reviewed the radiologist's reading. Radiologist Impression: CT/CT abdomen pelvis wo IV con IMPRESSION: 1. Nonobstructive bilateral renal calculi. No hydronephrosis. 2. Hepatomegaly and hepatic steatosis. 3. Slightly increased mesenteric lymphadenopathy and engorgement of the mesenteric vasculature of uncertain etiology. This could be seen in the setting of mesenteric panniculitis/adenitis and gastroenteritis. 4. Diverticulosis but no evidence of acute diverticulitis. External Record Review External record reviewed: Outpatient record Prescription Management I considered prescription management with: Pain Medication (Acetaminophen/ibuprofen) Discharge Plan Discharge Instructions: Abdominal Pain (ED) Additional Instructions: As we discussed, the CT scan today does not show evidence of a kidney stone present in the urinary to be a cause for your pain. Your CT scan does not reveal any clear cause for the symptoms. It is possible that you may have passed a stone previously. Your urine does not show any sign of infection. You can take ibuprofen 200 mg, 3 tablets (600mg) every 6-8 hours as needed for pain, in addition to Tylenol 500 mg, 2 tablets (1,000mg) every 4-6 hours as needed for pain, but not to exceed 3 doses daily (3,000mg).? If you continue to have symptoms over the next few days as discussed I would repeat your COVID/flu testing. Prescriptions: No Action (DME) CPAP Machine/Device Device See Rx Instructions .Route Qty: 1 0RF Rx Instructions: 16cm of water potassium citrate 10 mEq (1,080 mg) tablet extended release 20 meq PO BID 90 Days Qty: 360 1RF testosterone 30 mg/actuation (1.5 mL) solution in metered pump w/aydee 4 pump transdermal DAILY Qty: 90 4RF minocycline 100 mg capsule 100 mg PO Q12H Qty: 60 0RF amlodipine 5 mg tablet 5 mg PO DAILY 90 Days Qty: 90 1RF gabapentin 100 mg capsule 100 mg PO BEDTIME Qty: 30 1RF phentermine 30 mg capsule 30 mg PO DAILY 30 Days Qty: 30 0RF Rx Instructions: must administer 2 hours after breakfast lidocaine 5 % adhesive patch,medicated 1 patch topical DAILY Qty: 30 0RF Rx Instructions: leave on most painful area for up to 12 hrs hydrocodone-acetaminophen 5-325 mg tablet 1 tab PO Q4-6H PRN (Reason: pain (scale score 4-6)) 7 Days Qty: 42 0RF Rx Instructions: Partial Fill upon patient request. triamcinolone acetonide 0.5 % cream 1 appl topical BID Qty: 15 0RF simvastatin 40 mg tablet 40 mg PO BEDTIME 90 Days Qty: 90 1RF pyridoxine (vitamin B6) 100 mg tablet 100 mg PO DAILY 90 Days Qty: 90 1RF sildenafil [Viagra] 100 mg tablet 100 mg PO DAILY PRN (Reason: sexual activity) Qty: 7 3RF Rx Instructions: administer 30 minutes to 4 hours before activity ketoconazole 2 % shampoo 1 appl topical DAILY tretinoin 0.025 % cream 1 appl topical DAILY bisacodyl [Dulcolax (bisacodyl)] 5 mg tablet,delayed release (DR/EC) 20 mg PO ONCE 1 Days Qty: 4 0RF Rx Instructions: Take 4 tablets by mouth at 12:00pm the day before your procedure. polyethylene glycol 3350 [Miralax] 17 gram/dose powder 238 g PO ONCE 1 Days Qty: 238 0RF Rx Instructions: Take as directed by mouth the day before your procedure. tramadol 50 mg tablet 50 mg PO BID 15 Days Qty: 30 0RF Referrals: Peewee Hoskins MD [Primary Care Provider] - Stand Alone Forms: Work/School Release
[2023-10-08] MEDS: Acetaminophen 325 MG TABLET 975 MG PO (16:21)
[2023-10-08 16:46] LABS: MANUAL DIFF FLAG NO
[2023-10-08 16:50] LABS: Basophils Percent Auto 0.3 % (0-2); Eosinophils Percent Auto 0.2 % (0-4); Hematocrit 44.3 % (42.0-52.0); Hemoglobin 15.1 g/dl (14.0-18.0); Imm Gran Abs Auto 0.05 X10*3/uL (0.00-0.03); Imm Gran Pct Auto 0.5 % (0.0-0.4); Lymphocytes Absolute Auto 0.7 X10*3/uL (1.2-4.9); Lymphocytes Percent Auto 7.4 % (20-40); Mean Corpuscular HGB Conc 34.1 g/dl (31.0-36.0); Mean Corpuscular Hemoglobin 28.4 pg (27.0-33.0); Mean Corpuscular Volume 83.4 fL (80.0-98.0); Mean Platelet Volume 9.5 fL (9.4-12.4); Monocytes Absolute Auto 0.8 X10*3/uL (0.1-1.2); Monocytes Percent Auto 8.3 % (2-11); Neutrophils Absolute Auto 7.7 x10*3/uL (2.0-8.3); Neutrophils Percent Auto 83.3 % (45-73); Platelet Count 221 X10*3/uL (160-400); Red Blood Count 5.31 X10*6/uL (4.60-5.80); Red Cell Distribution Width 13.4 % (11.0-16.0); White Blood Count 9.2 X10*3/uL (4.8-10.8)
--- NOTE | 2023-10-08 16:55 | MHC.EDTECH ---
Patient blood drawn including lactic acid ,both sets of blood culture flu/covid swab collected and urine sample all sent to lab .
[2023-10-08 17:01] LABS: Lactic Acid 1.6 mmol/L (0.5-2.0)
[2023-10-08 17:03] LABS: COVID-19 Test Negative (Negative); IDNOW Serial# 08D9AD1C; IDNOW Serial# BCCEAD1C; Influenza A Negative (Negative); Influenza B2 Negative (Negative)
[2023-10-08 17:06] LABS: Alanine Aminotransferase 32 U/L (0-40); Albumin Level 4.1 g/dL (3.5-5.0); Alkaline Phosphatase 73 U/L (39-117); Anion Gap 14 (12-20); Aspartate Amino Transferase 28 U/L (5-37); Bilirubin Total 0.9 mg/dL (0.0-1.0); Blood Urea Nitrogen 16 mg/dL (9-16); Calcium 9.1 mg/dL (8.4-10.2); Carbon Dioxide 23 mmol/L (22-29); Chloride 103 mmol/L (96-108); Creatinine Clr Calc Pharmacy 92.4; Estimated Glomerular Filt Rate 60; Glucose Random 138 mg/dL (60-115); Potassium 4.1 mmol/L (3.3-5.1); Sodium 136 mmol/L (135-145); Total Protein 7.2 g/dL (6.5-8.0)
[2023-10-08 17:13] LABS: Appearance Urine Clear; Color Urine Yellow; Glucose Urine UA Negative (Negative); Leukocyte Esterase Urine Negative (Negative); Nitrite Urine Negative (Negative); PH 6.5 (5.0-9.0); Specific Gravity - Urine 1.015 (1.005-1.025); UMIC TRIGGER UACC YES; Urine Blood Moderate (2+) (Negative); Urine Ketones Negative (Negative); Urine Protein 30 (1+) mg/dL (Neg-Trace)
[2023-10-08 17:20] LABS: Bacteria Urine None Seen (None Seen); Hyaline Casts Urine 0-2 /LPF (0-2); Squamous Epithelial Cell Urine 0-2 /HPF (0-2); WBC Urine 0-5 /HPF (0-5)
== END 2023-10-08 19:50 | disposition home or self-care (01) ==
PROVIDERS: Nurse Practitioner Family; Emergency Provider Internal Medicine; PCP Internal Medicine
DX: R10.31 Right lower quadrant pain (principal); Z11.52 Encounter for screening for COVID-19; I10 Essential (primary) hypertension; E78.00 Pure hypercholesterolemia, unspecified; E66.01 Morbid (severe) obesity due to excess calories; Z68.42 Body mass index [BMI] 45.0-49.9, adult; Z79.02 Long term (current) use of antithrombotics/antiplatelets; Z79.899 Other long term (current) drug therapy
CPT/HCPCS: 36415; 74176; 80053; 81001; 83605; 85025; 87040; 87502; 87635; 99283; 99284

== ENCOUNTER 2023-10-11 18:47 | Emergency (ER) | payer OTHER, SELFPAY ==
--- NOTE | ~2023-10-11 | CT_ITS ---
EXAMINATION: CT ABDOMEN AND PELVIS WITH CONTRAST CLINICAL INFORMATION: Abdominal pain. Fever. Diarrhea. COMPARISON: 10/08/2023 TECHNIQUE: Multidetector volumetric images were obtained from the superior aspect of the liver through the pubic symphysis following administration 85 mL of Omnipaque 350 intravenous contrast. Sagittal and coronal reformatted images were obtained on the technologist's workstation. Oral contrast: No This CT examination was performed using dose optimization techniques as appropriate, variously including the following: *Automated exposure control *Adjustment of mA and/or kV according to patient size (this includes techniques or standardized protocols for targeted exams where dose is matched to indication/reason for exam; i.e. extremities or head) *Use of iterative reconstruction technique DLP: 1396 mGy-cm FINDINGS: LUNG BASES: The visualized lung bases are unremarkable. LIVER, GALLBLADDER, AND BILIARY TREE: The liver is of diminished attenuation and enlarged measuring up to 22 cm. No focal liver lesions are seen. There is no intrahepatic biliary duct dilatation. The gallbladder is unremarkable with no evidence of radiopaque gallstones, gallbladder wall thickening, or obvious pericholecystic inflammatory changes. PANCREAS: Unremarkable. SPLEEN: Unremarkable. ADRENAL GLANDS: Unremarkable. KIDNEYS AND URETERS: The kidneys are normal in size, shape, and attenuation. A few small lower pole nonobstructing renal calculi are again seen. There is no hydronephrosis. BLADDER: Unremarkable. GASTROINTESTINAL TRACT: The small and large bowel are unremarkable. The appendix is not seen. Surgical clips in the right lower quadrant likely related to prior appendectomy. ABDOMINAL WALL: No significant hernia is appreciated. LYMPH NODES: Prominent mesenteric lymph nodes are again seen. VASCULAR: Unremarkable. PELVIC VISCERA: Unremarkable. OSSEOUS STRUCTURES: Unremarkable. CT/CT abdomen pelvis w IV con IMPRESSION: Mildly enlarged fatty infiltrated liver. Nonobstructing bilateral renal calculi. No acute intra-abdominal process identified. Fleischner guidelines were followed.
[2023-10-11 19:35] VITALS: BP 150/81; PULSE 73; RESP 18; TEMP 37.1; O2SAT 98; BMI 48.3
--- NOTE | 2023-10-11 19:35 | ED_ITS ---
HPI - General Adult General Chief complaint: Abdominal Pain Stated complaint: Abdominal pain Time Seen by Provider: 10/11/23 23:54 Source: patient and old records reviewed Mode of arrival: ambulatory Limitations: no limitations History of Present Illness HPI narrative: 48 yo male with PMH of CKD, kidney stones though last CT scan 10/08/23 showed bilateral non obstructive punctate stones, arthritis, HLD, HTN, [place], obesity who presents with c/o seen Tuesday thought it was a kidney stone but pain was different it was R flank and RLQ with headaches felt feverish and chills. He had a dry CT scan which was normal. He then started to have sig diarrhea on Tuesday not responding to immodium. He has not traveled, been on antibiotics, but he did eat some questionable food on from a pizza shop. He comes back with persistent diarrhea and pain. No hx of colitis. MD complaint: abdominal pain/diarrhea Onset (ago): day(s) (4) Location: abdomen Radiation: non-radiation Severity: moderate Quality: other (cramping) Pain Consistency: intermittent Relieving factors: none Exacerbating factors: eating Associated symptoms: fever/chills, loss of appetite and malaise Treatments prior to arrival: other (immodium) Related Data Home Medications Medication Instructions Recorded Confirmed tretinoin 0.025 % topical cream 1 appl topical DAILY 04/14/22 07/13/23 ketoconazole 2 % shampoo 1 appl topical DAILY 07/07/22 07/13/23 Previous Rx's Medication Instructions Recorded CPAP (CPAP Machine/Device) #1 ea 06/29/21 sildenafil 100 mg tablet (Viagra) 100 mg PO DAILY PRN sexual 01/13/22 activity #7 tabs pyridoxine (vitamin B6) 100 mg 100 mg PO DAILY 90 days #90 tabs 02/25/22 tablet triamcinolone acetonide 0.5 % 1 appl topical BID #15 grams 03/08/22 topical cream lidocaine 5 % topical patch 1 patch topical DAILY #30 ea 06/23/22 simvastatin 40 mg tablet 40 mg PO BEDTIME 90 days #90 tabs 03/09/23 hydrocodone 5 mg-acetaminophen 325 1 tab PO Q4-6H PRN pain (scale 05/04/23 mg tablet score 4-6) 7 days #42 tabs bisacodyl 5 mg tablet,delayed 20 mg (4 x 5 mg) PO ONCE 05/19/23 release (Dulcolax (bisacodyl)) colonoscopy prep 1 day #4 tabs polyethylene glycol 3350 17 238 g PO ONCE 1 day #238 grams 05/19/23 gram/dose oral powder (Miralax) potassium citrate 10 mEq (1,080 20 meq (2 x 10 mEq (1,080 mg)) PO 06/02/23 mg) tablet,extended release BID 90 days #360 tabs tramadol 50 mg tablet 50 mg PO BID 15 days #30 tabs 07/28/23 testosterone 30 mg/actuation (1.5 4 pump transdermal DAILY #90 mL 08/01/23 mL) transderm solution metered pump amlodipine 5 mg tablet 5 mg PO DAILY 90 days #90 tabs 09/16/23 minocycline 100 mg capsule 100 mg PO Q12H #60 caps 09/16/23 gabapentin 100 mg capsule 100 mg PO BEDTIME #30 caps 10/03/23 phentermine 30 mg capsule 30 mg PO DAILY 30 days #30 caps 10/04/23 Allergies Allergy/AdvReac Type Severity Reaction Status Date / Time oxycodone [From PERCOCET] Allergy Intermediate ITCHING, Verified 10/08/23 16:12 rash and itching, itching codeine Allergy Unknown rash and Verified 10/08/23 16:12 itching Review of Systems 2 Review of Systems: Constitutional : No Weight loss, No Fever, pos Chills ENT/Mouth : No sore throat, No Rhinorrhea Eyes: No Swelling, No Redness Cardiovascular : No Chest Pain, No SOB, No Edema Respiratory : No Cough, No Sputum, No Wheezing Gastrointestinal : no Nausea, no Vomiting, positive Diarrhea, positive abdominal Pain, No Hematochezia, No Melena Genitourinary : No Dysuria, No Urinary Frequency, No Hematuria, No Urgency Musculoskeletal : No joint pain, No Myalgias, No Joint Swelling Skin : No Skin Lesions, No rash Neuro : No Weakness, No Numbness, No Dizziness, No Headache Psych : No Anxiety/Panic, No Depression Heme/Lymph: No Bruising, No Lymphadenopathy Endocrine : No Polyuria, No Polydipsia All other systems reviewed and are negative. [facility] Past Medical History Attestation statement: The following information was validated with the patient. Source: old records reviewed Medical History Back pain Internal derangement of right shoulder Headache Calculus of kidney Morbid obesity with BMI of 45.0-49.9, adult Serum calcium elevated Left shoulder tendinitis Lumbar disc disease with radiculopathy Obstructive sleep apnea Lumbar degenerative disc disease Empty sella Erectile dysfunction Benign essential hypertension Pure hypercholesterolemia Hypogonadism in male Surgical History History of surgery History of medial meniscus repair of right knee History of rotator cuff surgery History of removal of cyst History of lithotripsy History of umbilical hernia repair History of appendectomy Family History Family History Father Liver cancer Morbidly obese Mother Hypertension Diabetes Asthma Social History Social History Housing: Apartment Alcohol intake: never Patient Tobacco Use Status: Never used Tobacco Second Hand Smoke Exposure: Yes Advance Directives: No Advance Directives Information Provided: Yes service: No Current occupational status: unemployed 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 Oriented X3. No acute distress. Eyes: Pupils equal, round and reactive to light. ENT: Pharynx normal. Neck: Normal inspection. Neck supple. CVS: Normal heart rate and rhythm. Pulses normal. Respiratory: No respiratory distress. Breath sounds normal. Abdomen: Soft, obese, moderate ttp in right lower abdomen no rebound Skin: Skin warm and dry. Normal skin color. Normal skin turgor. Extremities: No lower extremity edema. No calf ttp Neuro: Oriented X 3. No motor deficit. No sensory deficit. Course Course Course Narrative: This is a rapid medical exam: Additional HPI, ROS, PE not included below will be deferred to primary provider. Patient is a 48-year-old male presenting to the emergency department with complaint of 9/10 abdominal pain since . Was seen here Saturday, felt pain was like prior episodes of kidney stones, had CT scan which did not show obstructing calculi but did show mesenteric lymphadenopathy. Reports he has been having very frequent diarrhea. Reports nausea but denies vomiting. Denies fevers. Denies recent antibiotic use. Plan: labs, UA, GI panel Medications Administered Generic Name Dose Route Start Last Admin Trade Name Freq PRN Reason Stop Dose Admin Sodium Chloride 1,000 mls @ 999 mls/hr 10/12/23 00:30 10/12/23 00:51 Ns IV 10/12/23 01:30 999 mls/hr .Q1H1M [place] Administration Discontinued Medications Generic Name Dose Route Start Last Admin Trade Name Freq PRN Reason Stop Dose Admin Iohexol 85 ml 10/12/23 00:52 10/12/23 00:53 Iohexol 350 Mg/Ml 100 Ml Infus..Btl IV 10/12/23 00:53 85 ml ONCE ONE Administration Ketorolac Tromethamine 15 mg 10/12/23 00:27 10/12/23 00:52 Ketorolac Tromethamine 15 Mg/Ml Vial IVPUSH 10/12/23 00:28 15 mg ONCE ONE Administration Ondansetron HCl 4 mg 10/12/23 00:26 10/12/23 00:52 Ondansetron Hcl 4 Mg/2 Ml Vial IVPUSH 10/12/23 00:27 4 mg ONCE ONE Administration Medical Decision Making Medical Decision Making MDM Narrative: 48 yo male with PMH of CKD, kidney stones though last CT scan 10/08/23 showed bilateral non obstructive punctate stones, arthritis, HLD, HTN, [place], here with worsening diarrhea and abdominal pain not on immunosuppressants possibly related to bad food exposure. At this time will obtain labs, hydrate, CT scan for possible colitis/diverticulitis. Differential Diagnosis Differential Diagnoses: The differential diagnosis associated with the presentation includes colitis, diverticulitis Admission/Observation Consideration of admission/observation: Escalation of care including admission/observation considered labs and CT scan negative, not toxic, VS stable can be DC home Lab Data [facility] Lab Attestation statement: I reviewed the patient's lab results. 10/11/23 20:23 10/11/23 20:23 Labs: Lab Results 10/11/23 10/12/23 Range/Units 20:23 00:00 WBC 6.2 (4.8-10.8) X10*3/uL RBC 5.45 (4.60-5.80) X10*6/uL Hgb 15.4 (14.0-18.0) g/dl Hct 45.9 (42.0-52.0) % MCV 84.2 (80.0-98.0) fL MCH 28.3 (27.0-33.0) pg MCHC 33.6 (31.0-36.0) g/dl RDW 13.3 (11.0-16.0) % Plt Count 266 (160-400) X10*3/uL MPV 9.4 (9.4-12.4) fL Immature Gran % (Auto) 0.3 (0.0-0.4) % Neut % (Auto) 53.7 (45-73) % Lymph % (Auto) 34.1 (20-40) % [place] % (Auto) 9.9 (2-11) % Eos % (Auto) 1.4 (0-4) % Baso % (Auto) 0.6 (0-2) % Lymph # (Auto) 2.1 (1.2-4.9) X10*3/uL [place] # (Auto) 0.6 (0.1-1.2) X10*3/uL Eos # (Auto) 0.1 (0.0-0.4) X10*3/uL Baso # (Auto) 0.0 (0.0-0.2) X10*3/uL Abs Immat Gran (auto) 0.02 (0.00-0.03) X10*3/uL Absolute Neuts (auto) 3.3 (2.0-8.3) x10*3/uL Absolute Nucleated RBC 0.000 (0.0-0.012) X10*3/uL Nucleated RBC % (auto) 0.0 (0.0-0.2) /100WBC Sodium 141 (135-145) mmol/L Potassium 4.1 (3.3-5.1) mmol/L Chloride 109 H (96-108) mmol/L Carbon Dioxide 22 (22-29) mmol/L Anion Gap 14 (12-20) BUN 18 H (9-16) mg/dL Creatinine 1.24 (0.5-1.4) mg/dL Estim Creat Clear Calc 94.3 Estimated GFR > 60 Random Glucose 106 (60-115) mg/dL Calcium 9.1 (8.4-10.2) mg/dL Magnesium 2.0 (1.6-2.6) mg/dL Total Bilirubin 0.5 (0.0-1.0) mg/dL AST 34 (5-37) U/L ALT 42 H (0-40) U/L Alkaline Phosphatase 72 (39-117) U/L Total Protein 7.4 (6.5-8.0) g/dL Albumin 4.0 (3.5-5.0) g/dL Urine Color Yellow Urine Appearance Clear Urine pH 5.5 (5.0-9.0) Ur Specific [place] 1.025 (1.005-1.025) Urine Protein Trace (Neg-Trace) mg/dL Urine Glucose (UA) Negative (Negative) mg/dL Urine Ketones Negative (Negative) mg/dL Urine Blood Small (1+) H (Negative) Urine Nitrite Negative (Negative) Ur Leukocyte Esterase Negative (Negative) Urine RBC 0-2 (0-2) /HPF Urine WBC 0-5 (0-5) /HPF Ur Squamous Epith Cells 0-2 (0-2) /HPF Urine Bacteria None Seen (None Seen) Hyaline Casts 0-2 (0-2) /LPF Urine Opiates Screen Not Detected (Not Detect) Urine Fentanyl Screen Not Detected (Not Detect) Ur Barbiturates Screen Not Detected (Not Detect) Ur Phencyclidine Scrn Not Detected (Not Detect) Ur Amphetamines Screen Not Detected (Not Detect) U Benzodiazepines Scrn Not Detected (Not Detect) Urine Cocaine Screen Not Detected (Not Detect) U Marijuana (THC) Screen Not Detected (Not Detect) Independent Interpretation I performed an independent interpretation of an: CT Scan (normal ) Radiology Impression Discussion of test interpretation with radiology: I have reviewed the radiologist's reading. External Record Review External record reviewed: Inpatient record Discharge Plan Discharge Clinical Impression: Abdominal pain Qualifiers: Abdominal location: lower abdomen, unspecified Qualified Code(s): R10.30 - Lower abdominal pain, unspecified Diarrhea Qualifiers: Diarrhea type: unspecified type Qualified Code(s): R19.7 - Diarrhea, unspecified Patient Disposition: Home, Self-Care Instructions: Abdominal Pain (ED), Acute Diarrhea (ED) Additional Instructions: your labs were normal. your CT scan shows nothing acute at this time. likely this will resolve. return for worsening pain, fevers again, bloody stool or any other concerns. eat a bland diet and advance diet as tolerated over the next 2 days. stay hydrated. if you can you doctor can send off stool studies. FINDINGS: LUNG BASES: The visualized lung bases are unremarkable. LIVER, GALLBLADDER, AND BILIARY TREE: The liver is of diminished attenuation and enlarged measuring up to 22 cm. No focal liver lesions are seen. There is no intrahepatic biliary duct dilatation. The gallbladder is unremarkable with no evidence of radiopaque gallstones, gallbladder wall thickening, or obvious pericholecystic inflammatory changes. PANCREAS: Unremarkable. SPLEEN: Unremarkable. ADRENAL GLANDS: Unremarkable. KIDNEYS AND URETERS: The kidneys are normal in size, shape, and attenuation. A few small lower pole nonobstructing renal calculi are again seen. There is no hydronephrosis. BLADDER: Unremarkable. GASTROINTESTINAL TRACT: The small and large bowel are unremarkable. The appendix is not seen. Surgical clips in the right lower quadrant likely related to prior appendectomy. ABDOMINAL WALL: No significant hernia is appreciated. LYMPH NODES: Prominent mesenteric lymph nodes are again seen. VASCULAR: Unremarkable. PELVIC VISCERA: Unremarkable. OSSEOUS STRUCTURES: Unremarkable. CT/CT abdomen pelvis w IV con IMPRESSION: Mildly enlarged fatty infiltrated liver. Nonobstructing bilateral renal calculi. No acute intra-abdominal process identified. Prescriptions: No Action (DME) CPAP Machine/Device Device See Rx Instructions .Route Qty: 1 0RF Rx Instructions: 16cm of water potassium citrate 10 mEq (1,080 mg) tablet extended release 20 meq PO BID 90 Days Qty: 360 1RF testosterone 30 mg/actuation (1.5 mL) solution in metered pump w/aydee 4 pump transdermal DAILY Qty: 90 4RF minocycline 100 mg capsule 100 mg PO Q12H Qty: 60 0RF amlodipine 5 mg tablet 5 mg PO DAILY 90 Days Qty: 90 1RF gabapentin 100 mg capsule 100 mg PO BEDTIME Qty: 30 1RF phentermine 30 mg capsule 30 mg PO DAILY 30 Days Qty: 30 0RF Rx Instructions: must administer 2 hours after breakfast lidocaine 5 % adhesive patch,medicated 1 patch topical DAILY Qty: 30 0RF Rx Instructions: leave on most painful area for up to 12 hrs hydrocodone-acetaminophen 5-325 mg tablet 1 tab PO Q4-6H PRN (Reason: pain (scale score 4-6)) 7 Days Qty: 42 0RF Rx Instructions: Partial Fill upon patient request. triamcinolone acetonide 0.5 % cream 1 appl topical BID Qty: 15 0RF simvastatin 40 mg tablet 40 mg PO BEDTIME 90 Days Qty: 90 1RF pyridoxine (vitamin B6) 100 mg tablet 100 mg PO DAILY 90 Days Qty: 90 1RF sildenafil [Viagra] 100 mg tablet 100 mg PO DAILY PRN (Reason: sexual activity) Qty: 7 3RF Rx Instructions: administer 30 minutes to 4 hours before activity ketoconazole 2 % shampoo 1 appl topical DAILY tretinoin 0.025 % cream 1 appl topical DAILY bisacodyl [Dulcolax (bisacodyl)] 5 mg tablet,delayed release (DR/EC) 20 mg PO ONCE 1 Days Qty: 4 0RF Rx Instructions: Take 4 tablets by mouth at 12:00pm the day before your procedure. polyethylene glycol 3350 [Miralax] 17 gram/dose powder 238 g PO ONCE 1 Days Qty: 238 0RF Rx Instructions: Take as directed by mouth the day before your procedure. tramadol 50 mg tablet 50 mg PO BID 15 Days Qty: 30 0RF Stand Alone Forms: Work/School Release
[2023-10-11 20:31] LABS: MANUAL DIFF FLAG NO
[2023-10-11 20:32] LABS: Basophils Percent Auto 0.6 % (0-2); Eosinophils Absolute Auto 0.1 X10*3/uL (0.0-0.4); Eosinophils Percent Auto 1.4 % (0-4); Hematocrit 45.9 % (42.0-52.0); Hemoglobin 15.4 g/dl (14.0-18.0); Imm Gran Abs Auto 0.02 X10*3/uL (0.00-0.03); Imm Gran Pct Auto 0.3 % (0.0-0.4); Lymphocytes Absolute Auto 2.1 X10*3/uL (1.2-4.9); Lymphocytes Percent Auto 34.1 % (20-40); Mean Corpuscular HGB Conc 33.6 g/dl (31.0-36.0); Mean Corpuscular Hemoglobin 28.3 pg (27.0-33.0); Mean Corpuscular Volume 84.2 fL (80.0-98.0); Mean Platelet Volume 9.4 fL (9.4-12.4); Monocytes Absolute Auto 0.6 X10*3/uL (0.1-1.2); Monocytes Percent Auto 9.9 % (2-11); Neutrophils Absolute Auto 3.3 x10*3/uL (2.0-8.3); Neutrophils Percent Auto 53.7 % (45-73); Platelet Count 266 X10*3/uL (160-400); Red Blood Count 5.45 X10*6/uL (4.60-5.80); Red Cell Distribution Width 13.3 % (11.0-16.0); White Blood Count 6.2 X10*3/uL (4.8-10.8)
[2023-10-11 20:48] LABS: Alanine Aminotransferase 42 U/L (0-40); Alkaline Phosphatase 72 U/L (39-117); Anion Gap 14 (12-20); Aspartate Amino Transferase 34 U/L (5-37); Bilirubin Total 0.5 mg/dL (0.0-1.0); Blood Urea Nitrogen 18 mg/dL (9-16); Calcium 9.1 mg/dL (8.4-10.2); Carbon Dioxide 22 mmol/L (22-29); Chloride 109 mmol/L (96-108); Creatinine Clr Calc Pharmacy 94.3; Estimated Glomerular Filt Rate > 60; Glucose Random 106 mg/dL (60-115); Potassium 4.1 mmol/L (3.3-5.1); Sodium 141 mmol/L (135-145); Total Protein 7.4 g/dL (6.5-8.0)
[2023-10-12 00:05] VITALS: BP 140/63; PULSE 70; RESP 18; TEMP 35.8; O2SAT 99
[2023-10-12 00:06] LABS: Appearance Urine Clear; Color Urine Yellow; Glucose Urine UA Negative (Negative); Leukocyte Esterase Urine Negative (Negative); Nitrite Urine Negative (Negative); PH 5.5 (5.0-9.0); Specific Gravity - Urine 1.025 (1.005-1.025); UMIC TRIGGER UACC YES; Urine Blood Small (1+) (Negative); Urine Ketones Negative (Negative); Urine Protein Trace mg/dL (Neg-Trace)
[2023-10-12 00:15] LABS: Amphetamine Screen Urine Not Detected (Not Detect); Barbiturates, Urine Not Detected (Not Detect); Benzodiazepines Screen Urine Not Detected (Not Detect); Cannabinoid Screen Urine Not Detected (Not Detect); Cocaine Screen Urine Not Detected (Not Detect); Fentanyl, urine Not Detected (Not Detect); Opiate Screen Urine Not Detected (Not Detect); Phencyclidine Screen Urine Not Detected (Not Detect)
[2023-10-12 00:19] LABS: Bacteria Urine None Seen (None Seen); Hyaline Casts Urine 0-2 /LPF (0-2); RBC Urine 0-2 /HPF (0-2); Squamous Epithelial Cell Urine 0-2 /HPF (0-2); WBC Urine 0-5 /HPF (0-5)
[2023-10-12] MEDS: 0.9 % Sodium Chloride 1,000 ML 999 ML IV (00:51)
[2023-10-12] MEDS: ondansetron HCL 4 MG/2 ML VIAL IVPUSH (00:52)
[2023-10-12] MEDS: Ketorolac Tromethamine 15 MG/ML VIAL IVPUSH (00:52)
[2023-10-12] MEDS: iohexoL 350 MG/ML 100 ML INFUS..BTL 85 ML IV (00:53)
[2023-10-12 02:19] VITALS: BP 128/65; PULSE 61; RESP 16; TEMP 37.2; O2SAT 98
== END 2023-10-12 02:30 | disposition home or self-care (01) ==
PROVIDERS: Registered Nurse Emergency; Emergency Provider Emergency Medicine; PCP Internal Medicine
DX: R10.30 Lower abdominal pain, unspecified (principal); R50.9 Fever, unspecified; R19.7 Diarrhea, unspecified; Z79.899 Other long term (current) drug therapy
CPT/HCPCS: 36415; 74177; 80053; 80307; 81001; 83735; 85025; 96374; 96375; 99284; 99285; J1885; J2405; Q9967

== ENCOUNTER 2023-11-09 11:15 | Outpatient (REF) | payer OTHER, SELFPAY | END 2023-11-09 11:16 | disposition home or self-care (01) | LOC: HO.LAB 11:15 | PROVIDERS: Visit Provider Physician Assistant | DX: Z00.00 Encounter for general adult medical examination without abnormal findings (principal); R30.0 Dysuria; Z11.3 Encounter for screening for infections with a predominantly sexual mode of transmission; Z20.2 Contact with and (suspected) exposure to infections with a predominantly sexual mode of transmission | CPT/HCPCS: 0353U; 81003; 86704; 86706; 86780; 86803; 87340; 87389 ==

== ENCOUNTER 2023-11-10 09:46 | Outpatient (REF) | payer OTHER, SELFPAY ==
[2023-11-16 10:49] LABS: Vitamin B6 40.9 ng/mL (2.1-21.7)
[2023-11-16 20:58] LABS: Testosterone, Free 236.5 pg/mL (35.0-155.0); Testosterone, Total 830 ng/dL (250-1100)
== END 2023-11-10 09:47 | disposition home or self-care (01) ==
LOC: HO.LAB 09:46
PROVIDERS: PCP Internal Medicine; Visit Provider Internal Medicine
DX: I10 Essential (primary) hypertension (principal); R79.89 Other specified abnormal findings of blood chemistry; E78.00 Pure hypercholesterolemia, unspecified; E53.1 Pyridoxine deficiency; E53.8 Deficiency of other specified B group vitamins; E55.9 Vitamin D deficiency, unspecified
CPT/HCPCS: 36415; 80053; 80061; 82306; 82607; 82746; 84207; 84402; 84403; 84443; 85025

== ENCOUNTER 2023-11-14 10:16 | Outpatient (AMB) | payer OTHER, SELFPAY ==
[2023-11-14 10:18] VITALS: BP 132/80; PULSE 68; O2SAT 96; BMI 48.6
--- NOTE | 2023-11-14 10:18 | MHC.PC.OV ---
Vital Signs 11/14/23 10:18 Height 5 ft 6 in Weight 301 lb BMI 48.6 BP 132/80 Blood Pressure Location Lt brachial Position Sitting Pulse 68 Pulse Source Pulse Oximeter Pulse Oximetry (%) 96 Oxygen Delivery Method Room Air Intake Visit Reasons: 4mth f/u Arboriculturist Required: No Accompanied by: Self / Same As Patient Allergies oxycodone [From PERCOCET] Allergy (Intermediate, Verified 11/14/23 11:34) ITCHING, rash and itching, itching codeine Allergy (Unknown, Verified 11/14/23 11:34) rash and itching Medication List - Last Reconciled 11/14/23 by Peewee Hoskins MD amlodipine 5 mg PO DAILY 90 days bisacodyl (Dulcolax (bisacodyl)) 20 mg (4 x 5 mg) PO ONCE 1 day CPAP (CPAP Machine/Device) 16cm of water gabapentin 100 mg PO BEDTIME hydrocodone-acetaminophen 5-325 mg 1 tab PO Q4-6H PRN 7 days ketoconazole 2% 1 appl topical DAILY lidocaine 5% 1 patch topical DAILY minocycline 100 mg PO Q12H phentermine 30 mg PO DAILY 30 days polyethylene glycol 3350 (Miralax) 238 grams PO ONCE 1 day potassium citrate ER 20 mEq (2 x 10 mEq (1,080 mg)) PO BID 90 days pyridoxine (vitamin B6) 100 mg PO DAILY 90 days sildenafil (Viagra) 100 mg PO DAILY PRN simvastatin 40 mg PO BEDTIME 90 days testosterone 30 mg/actuation (1.5 mL) 30 mg (1.5 mL) transdermal DAILY tramadol 50 mg PO BID 15 days tretinoin 0.025% 1 appl topical DAILY triamcinolone acetonide 0.5% 1 appl topical BID Tobacco use date assessed: 11/14/23 Dental Screening Dental Screen Date: 11/14/23 Did you have a dental visit in the last 12 months?: Yes Did you have a dental problem in the last 6 months where you did not have access to dental care?: No Was dental information given to patient?: Patient has dentist HPI 4mth f/u HPI Details Patient comes in today for his follow up visit States that he feels okay except for recurrent bilateral ear congestion and pressure at times; denies any ear pain Feels that his ears are both blocked up with ear wax and would like to get a referral to see Dr. Weems to have them cleaned out He denies any headaches or dizziness Denies any chest pains, no SOB No nausea/vomiting, no abdominal pain No change in bowel habits noted Still has chronic low back pain and he continues to follow up with [facility] for his back issues Needs a couple of his Rx refilled Had his follow up labs done a few days ago - to discuss his results [facility] Medical History Back pain Internal derangement of right shoulder Headache Calculus of kidney Morbid obesity with BMI of 45.0-49.9, adult Serum calcium elevated Left shoulder tendinitis Lumbar disc disease with radiculopathy Obstructive sleep apnea Lumbar degenerative disc disease Empty sella Erectile dysfunction Benign essential hypertension Pure hypercholesterolemia Hypogonadism in male Surgical History History of surgery History of medial meniscus repair of right knee History of rotator cuff surgery History of removal of cyst History of lithotripsy History of umbilical hernia repair History of appendectomy Family History Father Liver cancer Morbidly obese Mother Hypertension Diabetes Asthma Social History Housing: Apartment Alcohol intake: never Patient Tobacco Use Status: Never used Tobacco Second Hand Smoke Exposure: Yes service: No Current occupational status: unemployed 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 1. Little interest or pleasure in doing things: not at all 2. Feeling down, depressed, or hopeless: not at all 3. Trouble falling or staying asleep, or sleeping too much: not at all 4. Feeling tired or having little energy: not at all 5. Poor appetite or overeating: not at all 6. Feeling bad about yourself - or that you are a failure or have let yourself or your family down: not at all 7. Trouble concentrating on things, such as reading the newspaper or watching television: not at all 8. Moving or speaking so slowly that other people could have noticed. Or the opposite - being so fidgety or restless that you have been moving around a lot more than usual: not at all 9. Thoughts that you would be better off or of hurting yourself in some way: not at all Total score: 0 Depression Screening Interpretation: Negative Depression Screening Done: Yes 35039 - PHQ-9 Billing: Yes Source: Developed by Drs. Riaz Phan, Kaylin Lewis, Marshall Lugo and colleagues, with an educational jaciel from [employer] ([employer]). Thrive Questionnaire Date Thrive assessed: 11/14/23 I am a: Patient What is your living situation today?: I have a steady place to live Within the past 12 months, did the food you bought not last and you didn't have the money to get more?: Never true Within the past 12 months, did you worry whether your food would run out before you got money to buy more?: Never true Do you have trouble paying for medicines?: No Do you have trouble getting transportation to medical appointments?: No Do you have trouble paying your heating and electricity bill?: No Do you have trouble taking care of your child, family member or friend?: No Do you have trouble with day-to-day activities such as bathing, preparing meals, shopping, managing finances, etc.?: No Are you currently unemployed and looking for a job?: No Are you interested in more education?: No Please select the resources that you would like help with: None Currently or been in a relationship where the following occur: no concerns reported AUDIT C Alcohol Use Questionnaire (AUDIT-C) 1. How often do you have a drink containing alcohol?: Never 3. How often do you have six or more drinks on one occasion?: Never Total Score: 0 Score Reviewed/Action Taken: Yes MICHELLE-7 AMB Questionnaire MICHELLE-7 Date MICHELLE - 7 assessed: 11/14/23 Feeling nervous, anxious, or on edge: 0 = Not at all Not being able to stop or control worryin = Not at all Worrying too much about different things: 0 = Not at all Trouble relaxin = Not at all Being so restless that it is hard to sit still: 0 = Not at all Becoming easily annoyed or irritable: 0 = Not at all Feeling afraid as if something awful might happen: 0 = Not at all Total MICHELLE-7 score (0-4 normal; 5-9 mild; 10-14 moderate; 15-21 severe): 0 Source: Developed by Drs. Riaz Phan, Kaylin Lewis, Marshall Lugo and colleagues, with an educational jaciel from [employer] ([employer]). Review of Systems Const Denies chills, Denies fatigue, Denies fever(s) and Denies headache(s) ENT Denies dysphagia, Denies dizziness, Denies otalgia (but reports (+) frequent sensation of ear congestion bilaterally), Denies headache(s), Denies neck pain, Denies odynophagia and Denies sore throat Card Denies chest pain, Denies palpitations and Denies dyspnea Resp Denies cough and Denies dyspnea GI Denies abdominal pain, Denies constipation, Denies dysphagia, Denies heartburn, Denies diarrhea, Denies nausea, Denies odynophagia and Denies vomiting Denies dysuria and Denies nocturia Musc Reports back pain (chronic, over the lower back) and Denies neck pain Skin/Breast Denies rash Neuro Denies dizziness and Denies headache(s) Endo Denies fatigue and Denies palpitations Physical exam (Primary Care) Vital Signs: Last Vital Signs Pulse 68 11/14/23 10:18 BP 132/80 11/14/23 10:18 Pulse Ox 96 11/14/23 10:18 Oxygen Delivery Method Room Air 11/14/23 10:18 BMI result Body Mass Index 48.6 Tobacco/Smoking Status: Tobacco use Status Tobacco use date assessed 11/14/23 11/14/23 10:25 Patient Tobacco Use Status Never used Tobacco 11/14/23 10:25 PHQ-9: PHQ-9 Score PHQ-9: Total score 0 11/14/23 10:25 Depression Screening Interpretation: Negative Thrive Assessment: Date of Thrive Assessment Date Thrive assessed 11/14/23 11/14/23 10:25 Currently or been in a relationship where the following occur: no concerns reported Const General: no acute distress and alert HENMT Ears: TM's normal bilaterally and EAC's normal Throat: Yes posterior oropharynx normal and Yes tonsils normal (no TP congestion) Neck Neck: Yes no lymphadenopathy and Yes supple Resp Auscultation: clear to auscultation bilaterally, no rales and no wheezes Cardio Rate: regular rate Rhythm: regular rhythm Heart sounds: no murmurs GI Palpation (GI): Soft to palpation, nontender and No hepatosplenomegaly present Skin General skin exam: no rashes or lesions noted Extrem General: Yes no clubbing, cyanosis or edema Results Reviewed Results Reviewed: Laboratory Tests 11/09/23 11/09/23 11/10/23 11:26 11:26 10:10 WBC 8.1 Hgb 16.6 Hct 48.1 Plt Count 280 Sodium 140 Potassium 4.5 Creatinine 1.31 Estimated GFR 58 Fasting Glucose 96 Calcium 9.8 D AST 26 ALT 34 Triglycerides Cholesterol LDL Cholesterol, Calc 96 HDL Cholesterol 39 L Vitamin B12 575 25-OH Vitamin D Total 30.1 L TSH 1.63 Ur Specific [place] 1.020 Urine Protein Trace Urine Glucose (UA) Negative Urine Blood Negative Urine Nitrite Negative Ur Leukocyte Esterase Negative 11/10/23 11/10/23 10:10 10:10 WBC Hgb Hct Plt Count Sodium Potassium Creatinine Estimated GFR Fasting Glucose Calcium AST ALT Triglycerides 130 Cholesterol 161 LDL Cholesterol, Calc HDL Cholesterol Vitamin B12 25-OH Vitamin D Total TSH Ur Specific [place] Urine Protein Urine Glucose (UA) Urine Blood Urine Nitrite Ur Leukocyte Esterase Assessment and Plan Assessment & Plan (1) Pure hypercholesterolemia: Code(s): E78.00 - Pure hypercholesterolemia, unspecified Plan: Results of his labs done a few days ago reviewed and discussed with patient Reinforced low cholesterol diet Continue Simvastatin 40 mg QD Will recheck his labs and fasting lipids in 4 months for follow up (2) Benign essential hypertension: Code(s): I10 - Essential (primary) hypertension Plan: Reinforced low sodium diet - goal is systolic BP of 120 mm or less Continue Lisinopril 5 mg QD and Amlodipine 5 mg QD Patient is reminded to continue monitoring his blood pressure regularly (3) Chronic kidney disease (CKD), stage II (mild): Code(s): N18.2 - Chronic kidney disease, stage 2 (mild) Plan: His renal function appears stable on his recent labs Will continue to monitor his renal function closely (4) Obstructive sleep apnea: Comment: CPAP Code(s): G47.33 - Obstructive sleep apnea (adult) (pediatric) Plan: Repeat sleep study with CPAP titration done back in 2020 revealed (+) severe obstructive sleep apnea requiring 16 cm of water pressure Patient is reminded to continue using his CPAP device every night regularly when sleeping Follow up with Sleep Medicine as scheduled (5) Lumbar degenerative disc disease: Code(s): M51.36 - Other intervertebral disc degeneration, lumbar region Plan: Reinforced activity and weight-lifting restrictions to help manage his low back symptoms Lumbar spine MRI was previously ordered but this was denied by his health insurance Continue Gabapentin 100 mg Q HS, Tramadol 50 mg PRN and Cyclobenzaprine 5 mg Q HS PRN Follow up with [facility] as scheduled for his chronic low back pain management (6) Complete rotator cuff tear or rupture of right shoulder, not specified as traumatic: Code(s): M75.121 - Complete rotator cuff tear or rupture of right shoulder, not specified as traumatic Qualifiers: Rotator cuff tear trauma status: unspecified whether traumatic Qualified Code(s): M75.121 - Complete rotator cuff tear or rupture of right shoulder, not specified as traumatic Plan: S/P arthroscopic shoulder surgery and tendon repair with Dr. Baron in April 2023, with improvement of his shoulder symptomd Follow up with orthopedics as scheduled (7) Congestion of both ears: Code(s): H93.8X3 - Other specified disorders of ear, bilateral Plan: Patient is advised that his ear canals are both clear and free of ear wax so there is nothing to clean out from his ears Per request, will refer him to ENT (Dr. Weems) for further evaluation and management (8) Hypogonadism in male: Code(s): E29.1 - Testicular hypofunction Plan: Continue Testosterone solution 30 mg /ACT 2 pumps and apply on skin once a day in the morning transdermally Follow-up with endocrinology/urology as scheduled (9) Erectile dysfunction: Code(s): N52.9 - Male erectile dysfunction, unspecified Qualifiers: Erectile dysfunction type: due to other cause Qualified Code(s): N52.8 - Other male erectile dysfunction Plan: Continue Sildenafil 100 mg QD PRN Patient has hypogonadism and is currently on treatment with testosterone replacement therapy for this with endocrinology and urology (10) Morbid obesity with BMI of 45.0-49.9, adult: Code(s): E66.01 - Morbid (severe) obesity due to excess calories; Z68.42 - Body mass index [BMI] 45.0-49.9, adult Plan: Reinforced diet/exercise as tolerated/ lose weight Continue Phentermine 30 mg Q AM - Rx refilled He continues to decline recommendation to refer him to weight management - states that he will call for referral if he feels he needs to see them Plan Follow up in 4 months Orders: Orders Lipid Panel 4 Months E78.00 - Pure hypercholesterolemia, unspecified TSH reflex Free T4 4 Months E78.00 - Pure hypercholesterolemia, unspecified UA CC w/rflx Micro + Cult 4 Months R30.0 - Dysuria Complete Blood Count Auto Diff 4 Months I10 - Essential (primary) hypertension Comprehensive [place]. Panel Fast 4 Months E78.00 - Pure hypercholesterolemia, unspecified Vitamin D 25-OH Total 4 Months E55.9 - Vitamin D deficiency, unspecified Referrals Ear/Nose/Throat Referral H93.8X3 - Other specified disorders of ear, bilateral Medications: Refilled phentermine must administer 2 hours after breakfast 30 mg PO DAILY 30 days 30 caps 0RF E66.01 - Morbid (severe) obesity due to excess calories, Z68.43 - Body mass index [BMI] 50.0-59.9, adult potassium citrate ER 20 mEq (2 x 10 mEq (1,080 mg)) PO BID 90 days 360 tabs 1RF R82.991 - Hypocitraturia Coding Level of Care Code Est Pt Level 4 (00006) Diagnoses Pure hypercholesterolemia E78.00 Benign essential hypertension I10 Chronic kidney disease (CKD), stage II (mild) N18.2 Obstructive sleep apnea G47.33 Lumbar degenerative disc disease M51.36 Complete tear of right rotator cuff, unspecified whether traumatic M75.121 Rotator cuff tear trauma status: unspecified whether traumatic Congestion of both ears H93.8X3 Hypogonadism in male E29.1 Other male erectile dysfunction N52.8 Erectile dysfunction type: due to other cause Morbid obesity with BMI of 45.0-49.9, adult E66.01; Z68.42
== END 2023-11-14 11:48 | disposition home or self-care (01) ==
LOC: HO.HMGH 10:16
PROVIDERS: PCP Internal Medicine; Visit Provider Internal Medicine
DX: I12.9 Hypertensive chronic kidney disease with stage 1 through stage 4 chronic kidney disease, or unspecified chronic kidney disease (principal); N18.2 Chronic kidney disease, stage 2 (mild); E66.01 Morbid (severe) obesity due to excess calories; Z68.42 Body mass index [BMI] 45.0-49.9, adult; E78.00 Pure hypercholesterolemia, unspecified; G47.33 Obstructive sleep apnea (adult) (pediatric); M51.36 Other intervertebral disc degeneration, lumbar region; M75.121 Complete rotator cuff tear or rupture of right shoulder, not specified as traumatic; H93.8X3 Other specified disorders of ear, bilateral; E29.1 Testicular hypofunction; N52.8 Other male erectile dysfunction
CPT/HCPCS: 99214

== ENCOUNTER 2023-12-13 11:21 | Outpatient (REF) | payer OTHER, SELFPAY ==
--- NOTE | ~2023-12-13 | US_ITS ---
EXAMINATION: US RETROPERITONEAL LIMITED (RENAL ONLY) CLINICAL INFORMATION: Calculus of kidney. COMPARISON: CT abdomen and pelvis 10/12/2023. Renal ultrasound 05/18/2023 and 10/14/2022. X-ray KUB 05/12/2022 and 03/24/2022. TECHNIQUE: Real-time imaging of the kidneys. FINDINGS: RIGHT KIDNEY: 12.6 x 6.0 x 4.9 cm (SAG x AP x TRV). The kidney is normal in size, contour, and echogenicity. Renal cortical thickness is normal. No focal parenchymal lesions or hydronephrosis. At the interpolar aspect laterally, a 4 mm nonobstructing calculus is seen, with twinkle artifact. There are scattered echogenic foci, which do not meet formal ultrasound criteria for calculi. LEFT KIDNEY: 12.1 x 6.3 x 4.7 cm (SAG x AP x TRV). The kidney is normal in size, contour, and echogenicity. Renal cortical thickness is normal. No renal calculi or hydronephrosis. There are scattered echogenic foci, which do not meet formal ultrasound criteria for calculi. At the interpolar aspect, a 1.7 cm benign, simple cyst is seen, which requires no imaging follow-up. This shows good through sound transmission and no associated color Doppler flow. US/US renal BI IMPRESSION: A 4 mm nonobstructing right renal calculus is seen. No left renal calculus is seen. No hydronephrosis is noted bilaterally.
== END 2023-12-13 11:22 | disposition home or self-care (01) ==
LOC: HO.US 11:21
PROVIDERS: PCP Internal Medicine; Visit Provider Urology
DX: N20.0 Calculus of kidney (principal)
CPT/HCPCS: 76775

== ENCOUNTER 2023-12-16 15:12 | Outpatient (AMB) | payer OTHER, SELFPAY ==
--- NOTE | 2023-12-16 15:23 | HO.NEPHOV_ITS ---
HPI HPI Comments History of Present Illness Details I would the delight of seeing Ronald in follow-up of his nephrolithiasis, hypertension and very mild CKD. He regularly follows up with his urologist. He recently had a renal ultrasound which showed unilateral renal calculus on the left kidney. He has no blood in the urine. He denies epistaxis, sinusitis, hemoptysis, hematuria, edema. He has not passed any great toe gravel in the urine. His blood pressure is well controlled on current medication regimen. He has obstructive sleep apnea and is on CPAP. He regularly takes his potassium chloride tablets. He avoids nonsteroidal anti-inflammatories and maintain good hydration. He is quite active and did not have any new complaints at the time of this office visit. [facility] Medical History Back pain Internal derangement of right shoulder Headache Calculus of kidney Morbid obesity with BMI of 45.0-49.9, adult Serum calcium elevated Left shoulder tendinitis Lumbar disc disease with radiculopathy Obstructive sleep apnea Lumbar degenerative disc disease Empty sella Erectile dysfunction Benign essential hypertension Pure hypercholesterolemia Hypogonadism in male Surgical History History of surgery History of medial meniscus repair of right knee History of rotator cuff surgery History of removal of cyst History of lithotripsy History of umbilical hernia repair History of appendectomy Family History Father Liver cancer Morbidly obese Mother Hypertension Diabetes Asthma Social History Housing: Apartment Alcohol intake: never Patient Tobacco Use Status: Never used Tobacco Second Hand Smoke Exposure: Yes service: No Current occupational status: unemployed 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 Cognitive needs: No Hearing needs: No Vision needs: No Vital Signs 12/16/23 15:27 Height 5 ft 6 in Weight 297 lb BMI 47.9 BP 130/80 Blood Pressure Location Lt brachial Pulse 95 Pulse Source Pulse Oximeter Pulse Oximetry (%) 96 Oxygen Delivery Method Room Air Physical Exam Vital Signs: Last Vital Signs Pulse 95 12/16/23 15:27 BP 130/80 12/16/23 15:27 Pulse Ox 96 12/16/23 15:27 Oxygen Delivery Method Room Air 12/16/23 15:27 BMI result Body Mass Index 47.9 Const General: comfortable and no acute distress Orientation/consciousness: patient oriented x3 HEENT Head: Yes normocephalic Mouth: Normal oral and palatal mucosa present Eyes EOM: EOMs intact bilaterally Neck Neck: Yes supple Resp Auscultation: clear to auscultation bilaterally Cardio Jugular venous distension: no JVD Rate: regular rate GI Palpation (GI): Soft to palpation Auscultation: normal bowel sounds General: Yes no CVA tenderness Back/Spine/Pelvis Back: no CVA tenderness Skin General skin exam: no rashes or lesions noted Neuro General: patient oriented x3 and moves all extremities Extrem General: Yes no pedal edema Assessment & Plan Assessment & Plan (1) Chronic kidney disease (CKD), stage II (mild): Code(s): N18.2 - Chronic kidney disease, stage 2 (mild) (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 His renal ultrasound recently showed a 4 mm non obstructing right renal calculus. He follows up closely with urologist. He maintains good hydration and he is on potassium citrate( has hypocitrauria). I plan to do a 24 hour urine collection again after his next office visit. He will need a follow-up ultrasound of his kidney in 6 months. I asked him to cut back salt in the diet, continue with potassium citrate, cut back meat and increase fruits and vegetables in the diet. I will consider switching him from amlodipine to hydrochlorothiazide if his serum calcium is normal. I had not make any medication changes at this visit rather answered all his questions and concerns. Follow-up lab work ordered. Follow-up appointment given. Orders: Orders Myeloperoxidase Antibody 12/16/23 N18.2 - Chronic kidney disease, stage 2 (mild), N20.0 - Calculus of kidney, R82.991 - Hypocitraturia Proteinase 3 PR3 Antibodies 12/16/23 N18.2 - Chronic kidney disease, stage 2 (mild), N20.0 - Calculus of kidney, R82.991 - Hypocitraturia Creatinine 12/16/23 N18.2 - Chronic kidney disease, stage 2 (mild), N20.0 - Calculus of kidney, R82.991 - Hypocitraturia Blood Urea Nitrogen 12/16/23 N18.2 - Chronic kidney disease, stage 2 (mild), N20.0 - Calculus of kidney, R82.991 - Hypocitraturia Electrolytes 12/16/23 N18.2 - Chronic kidney disease, stage 2 (mild), N20.0 - Calculus of kidney, R82.991 - Hypocitraturia Protein Creatinine Ratio, Ur 12/16/23 N18.2 - Chronic kidney disease, stage 2 (mild), N20.0 - Calculus of kidney, R82.991 - Hypocitraturia Coding Level of Care Code Est Pt Level 4 (79966) Diagnoses Chronic kidney disease (CKD), stage II (mild) N18.2 Hypocitraturia R82.991 Nephrolithiasis N20.0 Primary hypertension I10 Hypertension type: primary hypertension Results Reviewed Nephrology Results: Hgb 16.6 g/dl (14.0-18.0) 11/10/23 WBC 8.1 X10*3/uL (4.8-10.8) 11/10/23 Plt Count 280 X10*3/uL (160-400) 11/10/23 Sodium 140 mmol/L (135-145) 11/10/23 Potassium 4.5 mmol/L (3.3-5.1) 11/10/23 Chloride 105 mmol/L (96-108) 11/10/23 Carbon Dioxide 25 mmol/L (22-29) 11/10/23 BUN 18 mg/dL (9-16) H 11/10/23 Creatinine 1.31 mg/dL (0.5-1.4) 11/10/23 Calcium 9.8 mg/dL (8.4-10.2) 11/10/23 Urine Protein Trace mg/dL (Neg-Trace) 11/09/23 Renal US 12/13/23
[2023-12-16 15:27] VITALS: BP 130/80; PULSE 95; O2SAT 96; BMI 47.9
== END 2023-12-16 15:57 | disposition home or self-care (01) ==
PROVIDERS: PCP Internal Medicine; Visit Provider Internal Medicine Nephrology
DX: I12.9 Hypertensive chronic kidney disease with stage 1 through stage 4 chronic kidney disease, or unspecified chronic kidney disease (principal); N18.2 Chronic kidney disease, stage 2 (mild); R82.991 Hypocitraturia; N20.0 Calculus of kidney
CPT/HCPCS: 99214

== ENCOUNTER → 2023-12-16 15:12 | Outpatient (BNVA) | payer OTHER, SELFPAY | PROVIDERS: PCP Internal Medicine; Visit Provider Internal Medicine Nephrology | DX: I12.9 Hypertensive chronic kidney disease with stage 1 through stage 4 chronic kidney disease, or unspecified chronic kidney disease (principal); N18.2 Chronic kidney disease, stage 2 (mild); N20.0 Calculus of kidney; R82.991 Hypocitraturia | CPT/HCPCS: 99212 ==

== ENCOUNTER 2024-01-05 11:42 | Outpatient (AMB) | payer OTHER, SELFPAY ==
--- NOTE | 2024-01-05 11:43 | A.OFFVIS_ITS ---
Intake Intake Visit Reasons: 6M LithoLink/CT(set) Intake Note: Patient presents today for a follow-up Meds- Testosterone, Sildenafil Allergies to Antibiotic- No Known Allergies Blood Thinner- None Product Grader Required: No Allergies oxycodone [From PERCOCET] Allergy (Intermediate, Verified 01/05/24 11:45) ITCHING, rash and itching, itching codeine Allergy (Unknown, Verified 01/05/24 11:45) rash and itching HPI HPI Comments History of Present Illness Details ?Ronald is a pleasant male. He is seen for the following urologic conditions - renal stones - hypogonadism followed by endocrine - erectile dysfunction Telephone evaluation 15 minutes consultation SubC Control aydee Video attempted Has felt right-sided discomfort Trial Flomax Six-month follow-up Has been on vitamin B6 and citrate Seen by Nephrology for stones Continues with testosterone replacement for empty sella syndrome Total T830 could reduce to 3 pumps Renal stones Longstanding Bilateral Intervention - Multiple prior ESWL and ureteroscopy - 03/28 Right ESWL - 06/28 Left ESWL Imaging - 07/28 renal ultrasound multiple [address] ones bilateral - 04/28 renal ultrasound right no stones, left 7 mm, and 1 cm stones - 11/29 renal ultrasound 4 mm right-sided stone, no stone on left 24 hr urine -07/29 good volume, low oxalate, low calc ium, very low citrate Therapeutic plan - citrate replacement - interval surveillance Hypogonadism On testosterone replacement using gel MRI - partial empty Guillermina syndrome Labs - - 07/29 T 378, suppressed pituitary LH an d FSH PFSH Medical History Back pain Internal derangement of right shoulder Headache Calculus of kidney Morbid obesity with BMI of 45.0-49.9, adult Serum calcium elevated Left shoulder tendinitis Lumbar disc disease with radiculopathy Obstructive sleep apnea Lumbar degenerative disc disease Empty sella Erectile dysfunction Benign essential hypertension Pure hypercholesterolemia Hypogonadism in male Surgical History History of surgery History of medial meniscus repair of right knee History of rotator cuff surgery History of removal of cyst History of lithotripsy History of umbilical hernia repair History of appendectomy Family History Father Liver cancer Morbidly obese Mother Hypertension Diabetes Asthma Social History Housing: Apartment Alcohol intake: never Patient Tobacco Use Status: Never used Tobacco Second Hand Smoke Exposure: Yes service: No Current occupational status: unemployed 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 Cognitive needs: No Hearing needs: No Vision needs: No Review of Systems Const All systems reviewed & are unremarkable except as noted in HPI and below Reports no additional complaints Resp Reports no additional complaints GI Reports no additional complaints Reports as per HPI Musc Reports no additional complaints Physical Exam Telemedicine evaluation Appropriate responses Regular breathing rate and rhythm HEENT Head: Yes normal to inspection Ears: hearing grossly normal bilaterally Eyes General: appearance normal, both eyes and all related structures Neck Neck: Yes normal visual inspection Chest Chest palpation & inspection: normal inspection of the chest Resp Effort & Inspection: normal respiratory effort and able to speak in complete sentences Assessment & Plan Assessment & Plan (1) Nephrolithiasis: Code(s): N20.0 - Calculus of kidney (2) Hypogonadism in male: Code(s): E29.1 - Testicular hypofunction (3) Erectile dysfunction: Code(s): N52.9 - Male erectile dysfunction, unspecified Qualifiers: Erectile dysfunction type: due to other cause Qualified Code(s): N52.8 - Other male erectile dysfunction Plan Six-month follow-up lab work Orders: Orders Testosterone, Total 6 Months E29.1 - Testicular hypofunction US renal BI 6 Months E29.1 - Testicular hypofunction Prostate Specific Antigen 6 Months E29.1 - Testicular hypofunction Complete Blood Count no Diff 6 Months E29.1 - Testicular hypofunction Medications: New tamsulosin 0.4 mg PO BEDTIME 14 days 14 caps 0RF N20.0 - Calculus of kidney Patient Instructions: Imaging studies, laboratory and physical exam results were discussed and reviewed in detail. No major barriers to patient understanding were identified. An opportunity to ask questions regarding the treatment plan was provided. All questions were answered. The patient expressed understanding and agreement with the above treatment plan. The patient is aware they should contact our office by phone for worsening of their current condition or the appearance of new urologic symptoms. Compliance is encouraged with any medications and followup testing that is ordered. It is a privilege to participate in the urologic care of your patient. If you have any questions or concerns regarding treatment for the above conditions, or other urologic issues, please do not hesitate to contact me. The office telephone contact is [phone]. This note is constructed using voice recognition software. 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 Yours sincerely, Dr Ez Meek MD, [facility] - Urology Providers of Expert, Compassionate Care for the Genitourinary System Telehealth Telehealth Location of provider rendering services: practice address Location of patient: address on file Patient Identification confirmed using: Name, : Yes Telehealth method: video Patient verbally consented to treatment: Yes Patient verbally consented to billing insurance company: Yes Patient informed of any privacy concerns related to visit: Yes Coding Level of Care Code Tele Est Pt Level 4 (50021) Diagnoses Nephrolithiasis N20.0 Hypogonadism in male E29.1 Other male erectile dysfunction N52.8 Erectile dysfunction type: due to other cause
== END 2024-01-05 14:42 | disposition home or self-care (01) ==
PROVIDERS: PCP Internal Medicine; Visit Provider Urology
DX: N20.0 Calculus of kidney (principal); E29.1 Testicular hypofunction; N52.8 Other male erectile dysfunction
CPT/HCPCS: 99214

== ENCOUNTER → 2024-01-05 11:42 | Outpatient (BNVA) | payer OTHER, SELFPAY | PROVIDERS: PCP Internal Medicine; Visit Provider Urology ==

== ENCOUNTER 2024-03-14 09:40 | Outpatient (REF) | payer OTHER, SELFPAY ==
[2024-03-14 09:58] LABS: MANUAL DIFF FLAG NO
[2024-03-14 10:52] LABS: Basophils Percent Auto 0.5 % (0-2); Eosinophils Absolute Auto 0.1 X10*3/uL (0.0-0.4); Eosinophils Percent Auto 1.4 % (0-4); Hematocrit 50.9 % (42.0-52.0); Hemoglobin 17.2 g/dl (14.0-18.0); Imm Gran Abs Auto 0.04 X10*3/uL (0.00-0.03); Imm Gran Pct Auto 0.5 % (0.0-0.4); Lymphocytes Absolute Auto 1.8 X10*3/uL (1.2-4.9); Lymphocytes Percent Auto 22.9 % (20-40); Mean Corpuscular HGB Conc 33.8 g/dl (31.0-36.0); Mean Corpuscular Hemoglobin 28.8 pg (27.0-33.0); Mean Corpuscular Volume 85.3 fL (80.0-98.0); Mean Platelet Volume 9.9 fL (9.4-12.4); Monocytes Absolute Auto 0.6 X10*3/uL (0.1-1.2); Monocytes Percent Auto 7.7 % (2-11); Neutrophils Absolute Auto 5.3 x10*3/uL (2.0-8.3); Platelet Count 277 X10*3/uL (160-400); Red Blood Count 5.97 X10*6/uL (4.60-5.80); Red Cell Distribution Width 13.2 % (11.0-16.0); White Blood Count 7.9 X10*3/uL (4.8-10.8)
[2024-03-14 11:16] LABS: Appearance Urine Clear; Color Urine Yellow; Glucose Urine UA Negative (Negative); Leukocyte Esterase Urine Negative (Negative); Nitrite Urine Negative (Negative); UMIC TRIGGER UACC YES; Urine Blood Negative (Negative); Urine Ketones Negative (Negative); Urine Protein 30 (1+) mg/dL (Neg-Trace)
[2024-03-14 11:29] LABS: Bacteria Urine None Seen (None Seen); Hyaline Casts Urine 0-2 /LPF (0-2); RBC Urine 0-2 /HPF (0-2); Squamous Epithelial Cell Urine 0-2 /HPF (0-2); WBC Urine 0-5 /HPF (0-5)
[2024-03-14 11:41] LABS: TSH reflex Free T4 1.94 uIU/mL (0.32-4.0); Vitamin D 25-OH Total 32.4 ng/mL (>30)
== END 2024-03-14 09:41 | disposition home or self-care (01) ==
LOC: HO.LAB 09:40
PROVIDERS: Visit Provider Internal Medicine
DX: I10 Essential (primary) hypertension (principal); E78.00 Pure hypercholesterolemia, unspecified; E55.9 Vitamin D deficiency, unspecified
CPT/HCPCS: 36415; 81001; 81003; 82306; 84443; 85025

== ENCOUNTER 2024-03-14 10:07 | Outpatient (AMB) | payer OTHER, SELFPAY ==
[2024-03-14 10:08] VITALS: BP 152/90; PULSE 65; O2SAT 98; BMI 47.1
--- NOTE | 2024-03-14 10:08 | MHC.PC.OV ---
Vital Signs 03/14/24 10:08 03/14/24 11:07 Height 5 ft 6 in Weight 292 lb 0.2 oz BMI 47.1 BP 152/90 H 146/92 H Blood Pressure Location Lt brachial Lt brachial Position Sitting Sitting Pulse 65 Pulse Source Pulse Oximeter Pulse Oximetry (%) 98 Oxygen Delivery Method Room Air Intake Visit Reasons: Annual Exam Intake Note: Patient is here today for a physical. Pourer Bull Ladle Required: No Allergies oxycodone [From PERCOCET] Allergy (Intermediate, Verified 03/14/24 11:01) ITCHING, rash and itching, itching codeine Allergy (Unknown, Verified 03/14/24 11:01) rash and itching Medication List - Last Reconciled 03/14/24 by Peewee Hoskins MD amlodipine 5 mg PO DAILY 90 days capsaicin 0.1% 1 appl topical BID PRN CPAP (CPAP Machine/Device) 16cm of water cyclobenzaprine 5 mg PO BID PRN gabapentin 100 mg PO BEDTIME ketoconazole 2% 1 appl topical DAILY lidocaine 5% 1 patch topical DAILY meloxicam 15 mg PO DAILY PRN minocycline 100 mg PO Q12H phentermine 30 mg PO DAILY 30 days potassium citrate ER 20 mEq (2 x 10 mEq (1,080 mg)) PO BID 90 days simvastatin 40 mg PO BEDTIME 90 days tamsulosin 0.4 mg PO BEDTIME 14 days testosterone 30 mg/actuation (1.5 mL) 30 mg (1.5 mL) transdermal DAILY tretinoin 0.025% 1 appl topical DAILY triamcinolone acetonide 0.5% 1 appl topical BID Tobacco use date assessed: 03/14/24 Dental Screening Dental Screen Date: 03/14/24 HPI Annual Exam HPI Details Patient comes in today for his annual physical examination States that he currently feels okay States that he drank some energy drinks earlier this morning as he woke up late and he was trying to get to work on time and thinks that this is the main reason his blood pressure is up right now He denies any headaches or dizziness Denies any chest pains, no SOB No nausea/vomiting, no abdominal pain No change in bowel habits noted He denies any acute urinary symptoms Had his screening colonoscopy done last year (June 2023) - (+) hyperplastic polyps and his next colonoscopy will be due in 10 years (2032) He continues to follow up with [facility] for his chronic low back pain and is being prescribed Meloxicam, Cyclobenzaprine and topical Capsaicin He also follows up with endocrinology yearly for hypogonadism (is doing well with topical testosterone gel), with nephrology for his CKD (which has been stable) and with urology for his renal stones and ED States that he went to get his labs done earlier this morning but he was not fasting then so he will go back and get the rest of his labs done tomorrow morning Needs a few of his Rx refilled [facility] Medical History (Updated 03/14/24 @ 11:21 by Peewee Hoskins MD) Internal derangement of right shoulder Calculus of kidney Morbid obesity with BMI of 45.0-49.9, adult Serum calcium elevated Left shoulder tendinitis Lumbar disc disease with radiculopathy Obstructive sleep apnea Lumbar degenerative disc disease Empty sella Erectile dysfunction Benign essential hypertension Pure hypercholesterolemia Hypogonadism in male Surgical History History of surgery History of medial meniscus repair of right knee History of rotator cuff surgery History of removal of cyst History of lithotripsy History of umbilical hernia repair History of appendectomy Family History Father Liver cancer Morbidly obese Mother Hypertension Diabetes Asthma Social History Housing: Apartment Alcohol intake: never Patient Tobacco Use Status: Never used Tobacco Second Hand Smoke Exposure: Yes service: No Current occupational status: unemployed 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 1. Little interest or pleasure in doing things: not at all 2. Feeling down, depressed, or hopeless: not at all 3. Trouble falling or staying asleep, or sleeping too much: not at all 4. Feeling tired or having little energy: not at all 5. Poor appetite or overeating: not at all 6. Feeling bad about yourself - or that you are a failure or have let yourself or your family down: not at all 7. Trouble concentrating on things, such as reading the newspaper or watching television: not at all 8. Moving or speaking so slowly that other people could have noticed. Or the opposite - being so fidgety or restless that you have been moving around a lot more than usual: not at all 9. Thoughts that you would be better off or of hurting yourself in some way: not at all Total score: 0 Depression Screening Interpretation: Negative Depression Screening Done: Yes 30283 - PHQ-9 Billing: Yes Source: Developed by Drs. Riaz Phan, Kaylin Lewis, Marshall Lugo and colleagues, with an educational jaciel from [employer]. Thrive Questionnaire Date Thrive assessed: 11/14/23 AUDIT C Alcohol Use Questionnaire (AUDIT-C) 1. How often do you have a drink containing alcohol?: Never 3. How often do you have six or more drinks on one occasion?: Never Total Score: 0 Score Reviewed/Action Taken: Yes MICHELLE-7 AMB Questionnaire MICHELLE-7 Date MICHELLE - 7 assessed: 03/14/24 Feeling nervous, anxious, or on edge: 0 = Not at all Not being able to stop or control worryin = Not at all Worrying too much about different things: 0 = Not at all Trouble relaxin = Not at all Being so restless that it is hard to sit still: 0 = Not at all Becoming easily annoyed or irritable: 0 = Not at all Feeling afraid as if something awful might happen: 0 = Not at all Total MICHELLE-7 score (0-4 normal; 5-9 mild; 10-14 moderate; 15-21 severe): 0 Source: Developed by Drs. Riaz Phan, Kaylin Lewis, Marshall Lugo and colleagues, with an educational jaciel from [employer]. Review of Systems Const Denies chills, Denies fatigue, Denies fever(s), Denies headache(s), Denies malaise and Denies weakness Eyes Denies blurry vision, Denies change in vision, Denies irritation and Denies itchy eyes ENT Denies dysphagia, Denies dizziness, Denies otalgia, Denies headache(s), Denies nasal congestion, Denies neck pain, Denies odynophagia and Denies sore throat Card Denies chest pain, Denies rapid heart rate, Denies irregular heart rhythm, Denies palpitations and Denies dyspnea Resp Denies chest congestion, Denies cough, Denies dyspnea and Denies wheezing GI Denies abdominal pain, Denies bloating, Denies constipation, Denies dysphagia, Denies heartburn, Denies diarrhea, Denies nausea, Denies odynophagia and Denies vomiting Denies hematuria, Denies difficulty urinating, Reports erectile dysfunction ( controlled ), Denies dysuria, Denies urinary frequency and Denies urinary urgency Musc Reports back pain (over the lower back - chronic), Denies arthralgias, Denies joint swelling, Denies muscle weakness and Denies neck pain Skin/Breast Denies change in pigmentation, Denies lesions, Denies rash and Denies unusual bruising Neuro Denies dizziness, Denies headache(s), Denies paresthesias and Denies weakness Endo Denies fatigue and Denies palpitations Aller/Immun Denies itchy eyes and Denies wheezing Physical exam (Primary Care) Vital Signs: Last Vital Signs Pulse 65 03/14/24 10:08 BP 152/90 H 03/14/24 10:08 Pulse Ox 98 03/14/24 10:08 Oxygen Delivery Method Room Air 03/14/24 10:08 BMI result Body Mass Index 47.1 Tobacco/Smoking Status: Tobacco use Status Tobacco use date assessed 03/14/24 03/14/24 10:10 Patient Tobacco Use Status Never used Tobacco 03/14/24 10:10 PHQ-9: PHQ-9 Score PHQ-9: Total score 0 03/14/24 10:35 Depression Screening Interpretation: Negative Thrive Assessment: Date of Thrive Assessment Date Thrive assessed 11/14/23 03/14/24 10:10 Const General: no acute distress, alert and awake Orientation/consciousness: patient oriented x3 HENMT Head: Yes normocephalic and Yes atraumatic Ears: external ears normal, TM's normal bilaterally and EAC's normal General nose exam: No nasal discharge present Face and sinus: Yes normal facial exam and Yes sinuses nontender Teeth and gingiva: dentition normal Throat: Yes posterior oropharynx normal and Yes tonsils normal (no TP congestion) Eyes Eyelids: Yes eyelids normal Conjunctivae: conjunctivae normal Pupils: Equal, round and reactive pupils present EOM: EOMs intact bilaterally Neck Neck: Yes no lymphadenopathy and Yes supple Thyroid: Thyroid normal Resp Auscultation: clear to auscultation bilaterally, no rales and no wheezes Cardio Rate: regular rate Rhythm: regular rhythm Heart sounds: no murmurs GI Palpation (GI): Soft to palpation, nontender and No hepatosplenomegaly present Auscultation: normal bowel sounds General: Yes no CVA tenderness Back/Spine/Pelvis Back: no CVA tenderness Thoracic/Lumbar Spine: lumbar spinal tenderness Skin Lesions: no lesions Rashes: no rashes Neuro General: patient oriented x3, moves all extremities, no focal motor deficits and CN's II-XI intact bilaterally Cranial nerves: Yes Equal, round and reactive pupils present Cognition (Neuro): normal cognition Gait exam (Neuro): Normal gait present Extrem General: Yes no clubbing, cyanosis or edema Results Reviewed Results Reviewed: Laboratory Tests 11/10/23 03/14/24 10:10 09:57 WBC 7.9 Hgb 17.2 Hct 50.9 Plt Count 277 Sodium 140 Potassium 4.5 Assessment and Plan Assessment & Plan (1) Annual physical exam: Code(s): Z00.00 - Encounter for general adult medical examination without abnormal findings Plan: Results of his labs done earlier this morning reviewed and discussed with patient He only had a CBC done as he was not fasting at the time - states that he will go and get the remainder of his labs done tomorrow morning He is advised that we will reach out to him if any of his labs come back with unusual, abnormal or unexpected results He had his screening colonoscopy done last year (June 2023) and has been recommended that he will need a repeat colonoscopy in 10 years (2032) (2) Pure hypercholesterolemia: Code(s): E78.00 - Pure hypercholesterolemia, unspecified Plan: Patient will go and get his remaining labs, including his fasting lipids, done tomorrow morning Reinforced low cholesterol diet Continue Simvastatin 40 mg QD Will recheck his labs and fasting lipids in 4 months for follow up (3) Benign essential hypertension: Code(s): I10 - Essential (primary) hypertension Plan: Reinforced low sodium diet - goal is systolic BP of 120 mm or less Continue Amlodipine 5 mg QD; he was also on Lisinopril 5 mg QD in the past but somehow stopped taking this at some point last year - patient is not sure why or how Nephrology is considering switching him from Amlodipine to HCTZ if his serum calcium is normal Patient is reminded to continue monitoring his blood pressure regularly; is advised to avoid drinking all energy drinks as these often contain very high amounts of caffeine and can affect his blood pressure adversely Follow up with nephrology as scheduled (4) Chronic kidney disease (CKD), stage II (mild): Code(s): N18.2 - Chronic kidney disease, stage 2 (mild) Plan: His renal function appears stable on his previous labs; will be getting his repeat labs done tomorrow morning Will continue to monitor his renal function closely Follow up with nephrology as scheduled (5) Obstructive sleep apnea: Comment: CPAP Code(s): G47.33 - Obstructive sleep apnea (adult) (pediatric) Plan: Repeat sleep study with CPAP titration done back in 2020 revealed (+) severe obstructive sleep apnea requiring 16 cm of water pressure Patient is reminded to continue using his CPAP device every night regularly when sleeping Follow up with Sleep Medicine as scheduled (6) Lumbar degenerative disc disease: Code(s): M51.36 - Other intervertebral disc degeneration, lumbar region Plan: Reinforced activity and weight-lifting restrictions to help manage his low back symptoms Lumbar spine MRI was previously ordered but this was denied by his health insurance Continue Gabapentin 100 mg Q HS, Tramadol 50 mg PRN and Cyclobenzaprine 5 mg Q HS PRN; he is also on Meloxicam (not sure what dose but likely 15 mg QD) prescribed by [facility] Follow up with [facility] as scheduled for his chronic low back pain management (7) Complete rotator cuff tear or rupture of right shoulder, not specified as traumatic: Code(s): M75.121 - Complete rotator cuff tear or rupture of right shoulder, not specified as traumatic Qualifiers: Rotator cuff tear trauma status: unspecified whether traumatic Qualified Code(s): M75.121 - Complete rotator cuff tear or rupture of right shoulder, not specified as traumatic Plan: S/P arthroscopic shoulder surgery and tendon repair with Dr. Baron in April 2023, with improvement of his shoulder symptoms Follow up with orthopedics as scheduled (8) Hypogonadism in male: Code(s): E29.1 - Testicular hypofunction Plan: Continue Testosterone solution 30 mg /ACT 2 pumps and apply on skin once a day in the morning transdermally Per endocrinology report at his last visit with them, patient is eugonadal and doing well on his current regimen Follow-up with endocrinology/urology as scheduled (9) Nephrolithiasis: Code(s): N20.0 - Calculus of kidney Plan: Patient currently remains asymptomatic Renal US done in December 2023 showed (+) 4 mm nonobstructing right renal calculus is seen. No left renal calculus is seen and no hydronephrosis is noted bilaterally Follow up with urology as scheduled (10) Erectile dysfunction: Code(s): N52.9 - Male erectile dysfunction, unspecified Qualifiers: Erectile dysfunction type: due to other cause Qualified Code(s): N52.8 - Other male erectile dysfunction Plan: Patient has hypogonadism and is currently on treatment with testosterone replacement therapy for this with endocrinology and urology He was previously prescribed Sildenafil and subsequently Tadalafil but states that his insurance would not cover either Rx and he is just managing his symptoms on his own for now (11) Morbid obesity with BMI of 45.0-49.9, adult: Code(s): E66.01 - Morbid (severe) obesity due to excess calories; Z68.42 - Body mass index [BMI] 45.0-49.9, adult Plan: Reinforced diet/exercise as tolerated/ lose weight Continue Phentermine 30 mg Q AM He continues to decline recommendation to refer him to weight management - states that he will call for referral if he feels he needs to see them Plan Follow up in 4 months Orders: Orders Complete Blood Count Auto Diff 4 Months D64.9 - Anemia, unspecified Lipid Panel 4 Months E78.00 - Pure hypercholesterolemia, unspecified Comprehensive [place]. Panel Fast 4 Months E78.00 - Pure hypercholesterolemia, unspecified TSH reflex Free T4 4 Months E78.00 - Pure hypercholesterolemia, unspecified UA CC w/rflx Micro + Cult 4 Months R30.0 - Dysuria Vitamin D 25-OH Total 4 Months E55.9 - Vitamin D deficiency, unspecified Medications: Refilled amlodipine 5 mg PO DAILY 90 tabs 1RF 90 days simvastatin 40 mg PO BEDTIME 90 tabs 1RF 90 days E78.00 - Pure hypercholesterolemia, unspecified minocycline 100 mg PO Q12H 60 caps 0RF Coding Level of Care Code Est Pt Prev Care 40-64y(51309) Diagnoses Annual physical exam Z00.00 Pure hypercholesterolemia E78.00 Benign essential hypertension I10 Chronic kidney disease (CKD), stage II (mild) N18.2 Obstructive sleep apnea G47.33 Lumbar degenerative disc disease M51.36 Complete tear of right rotator cuff, unspecified whether traumatic M75.121 Rotator cuff tear trauma status: unspecified whether traumatic Hypogonadism in male E29.1 Nephrolithiasis N20.0 Other male erectile dysfunction N52.8 Erectile dysfunction type: due to other cause Morbid obesity with BMI of 45.0-49.9, adult E66.01; Z68.42
[2024-03-14 11:07] VITALS: BP 146/92
== END 2024-03-14 11:14 | disposition home or self-care (01) ==
PROVIDERS: PCP Internal Medicine; Visit Provider Internal Medicine
DX: Z00.00 Encounter for general adult medical examination without abnormal findings (principal); E78.00 Pure hypercholesterolemia, unspecified; E66.01 Morbid (severe) obesity due to excess calories; Z68.42 Body mass index [BMI] 45.0-49.9, adult; I12.9 Hypertensive chronic kidney disease with stage 1 through stage 4 chronic kidney disease, or unspecified chronic kidney disease; N18.2 Chronic kidney disease, stage 2 (mild); G47.33 Obstructive sleep apnea (adult) (pediatric); M51.36 Other intervertebral disc degeneration, lumbar region; M75.121 Complete rotator cuff tear or rupture of right shoulder, not specified as traumatic; E29.1 Testicular hypofunction; N20.0 Calculus of kidney; N52.8 Other male erectile dysfunction
CPT/HCPCS: 99396

== ENCOUNTER 2024-03-15 09:51 | Outpatient (REF) | payer OTHER, SELFPAY ==
[2024-03-15 11:27] LABS: Alanine Aminotransferase 38 U/L (0-40); Albumin Level 4.6 g/dL (3.5-5.0); Alkaline Phosphatase 63 U/L (39-117); Anion Gap 15 (12-20); Aspartate Amino Transferase 29 U/L (5-37); Bilirubin Total 1.3 mg/dL (0.0-1.0); Blood Urea Nitrogen 16 mg/dL (9-16); Calcium 9.8 mg/dL (8.4-10.2); Carbon Dioxide 25 mmol/L (22-29); Chloride 103 mmol/L (96-108); Cholesterol 155 mg/dL (<200); Estimated Glomerular Filt Rate > 60; Glucose Fasting 101 mg/dL (60-99); HDL Cholesterol 35 mg/dL (>40); LDL Cholesterol Calculated 98 mg/dL (<100); Potassium 4.3 mmol/L (3.3-5.1); Sodium 139 mmol/L (135-145); Total Protein 7.8 g/dL (6.5-8.0); Triglycerides 113 mg/dL (<150)
== END 2024-03-15 09:52 | disposition home or self-care (01) ==
LOC: HO.LAB 09:51
PROVIDERS: Visit Provider Internal Medicine
DX: E78.00 Pure hypercholesterolemia, unspecified (principal)
CPT/HCPCS: 36415; 80053; 80061

== ENCOUNTER 2024-04-08 01:39 | Emergency (ER) | payer OTHER, SELFPAY ==
--- NOTE | ~2024-04-08 | CT_ITS ---
EXAMINATION: CT SOFT TISSUE NECK WITHOUT CONTRAST CLINICAL INFORMATION: Foreign body sensation in throat. Swallowed chicken bone. Pain. COMPARISON: CT cervical spine from 03/05/2023. TECHNIQUE: Multidetector helical imaging was performed in the axial plane without intravenous contrast. Multiple axial reformats and coronal/sagittal reconstructions were created the technologist workstation for review. This CT examination was performed using dose optimization techniques as appropriate, variously including the following: *Automated exposure control. *Adjustment of mA and/or kV according to patient size (this includes techniques or standardized protocols for targeted exams where dose is matched to indication/reason for exam; i.e. extremities or head). *Use of iterative reconstruction technique. DLP: 831 mGy-cm FINDINGS: No significant cutaneous thickening or subcutaneous inflammation. No discrete fluid collection within the deep tissues of the neck. The premaxillary, retromaxillary, pterygopalatine fossa, orbital apical, parapharyngeal, and prelaryngeal adipose tissue is maintained. Normal appearance of the parotid, submandibular, and thyroid glands. Scattered subcentimeter lymph nodes bilaterally, none of which are pathologically enlarged. No demonstrated focal lesion within the intrinsic tissues of the tongue or floor of mouth. Normal mucosal contours of the pharynx and larynx. Normal appearance of the hyoid bone, thyroid cartilage, or cartilaginous trachea. The airways remains widely patent. No demonstrated radiopaque foreign bodies. The atlantooccipital and atlantoaxial articulations remain well aligned. Straightening of the normal cervical lordosis. No evidence of acute fracture or subluxation of the cervical spine. The vertebral body heights are maintained. Moderate degenerative disc disease from C4-C7. Facet and uncovertebral joint arthropathy leads to osseous encroachment on the neural foramina from C2-C7. There is no prevertebral soft tissue swelling. Moderate expansion of the sella turcica with flattening of the pituitary gland. The visualized portion of the skull base is without additional significant abnormalities. The mild mucosal thickening of the visualized paranasal sinuses. Moderate rightward nasal septal deviation. The mastoid air cells and middle ear cavities are clear. No demonstrated significant periapical odontogenic disease. CT Upper Chest: The visualized lung apices and upper mediastinum are within normal limits. CT/CT soft tissue neck wo IV con IMPRESSION: 1. No demonstrated radiopaque foreign bodies. 2. No demonstrated focal lesion, collection, or lymphadenopathy within the soft tissues of the neck. 3. Moderate multilevel degenerative spondyloarthropathy of the cervical spine.
[2024-04-08 01:45] VITALS: BP 150/75; PULSE 68; RESP 16; TEMP 36.6; O2SAT 99; BMI 48.6
[2024-04-08 07:36] VITALS: BP 150/93; PULSE 65; RESP 16; TEMP 36.6; O2SAT 100
--- NOTE | 2024-04-08 08:27 | ED_ITS ---
HPI - General Adult General Chief complaint: Skin/Abscess/Foreign Body Stated complaint: throat pain Time Seen by Provider: 04/08/24 06:57 Source: patient Mode of arrival: ambulatory Limitations: no limitations History of Present Illness HPI narrative: Patient is a 48-year-old male who presents emergency department for evaluation. He reports that last night he was eating premade chicken, and he believes that he began choking on a chicken bone. He felt discomfort primarily to the right side of his throat, he coughed afterwards and thinks that he may have coughed of bone out but he is not certain. He continues to have discomfort to the right side of his throat which prompted his presentation to the emergency department. He denies any precipitating pain or discomfort prior to consuming this chicken. He denies any neck pain, shortness of breath, difficulty breathing, excessive drooling. Denies recent fevers chills or URI symptoms. Related Data Home Medications ?Medication ?Instructions ?Recorded ?Confirmed tretinoin 0.025 % topical cream 1 appl topical DAILY 04/14/22 03/14/24 ketoconazole 2 % shampoo 1 appl topical DAILY 07/07/22 03/14/24 capsaicin 0.1 % topical cream 1 appl topical BID PRN pain 03/14/24 03/14/24 cyclobenzaprine 5 mg tablet 5 mg PO BID PRN low back pain 03/14/24 03/14/24 meloxicam 15 mg tablet 15 mg PO DAILY PRN pain 03/14/24 03/14/24 Previous Rx's ?Medication ?Instructions ?Recorded CPAP (CPAP Machine/Device) #1 ea 06/29/21 triamcinolone acetonide 0.5 % 1 appl topical BID #15 grams 03/08/22 topical cream lidocaine 5 % topical patch 1 patch topical DAILY #30 ea 06/23/22 testosterone 30 mg/actuation (1.5 30 mg (1.5 mL) transdermal DAILY 12/18/23 mL) transderm solution metered pump #180 mL tamsulosin 0.4 mg capsule 0.4 mg PO BEDTIME 14 days #14 caps 01/05/24 gabapentin 100 mg capsule 100 mg PO BEDTIME #30 caps 02/07/24 amlodipine 5 mg tablet 5 mg PO DAILY 90 days #90 tabs 03/14/24 minocycline 100 mg capsule 100 mg PO Q12H #60 caps 03/14/24 simvastatin 40 mg tablet 40 mg PO BEDTIME 90 days #90 tabs 03/14/24 phentermine 30 mg capsule 30 mg PO DAILY 30 days #30 caps 03/23/24 potassium citrate 10 mEq (1,080 20 meq (2 x 10 mEq (1,080 mg)) PO 03/23/24 mg) tablet,extended release BID 90 days #360 tabs aluminum-mag hydroxide-simethicone 10 ml PO QID PRN dyspepsia #3,000 04/08/24 200 mg-200 mg-20 mg/5 mL oral susp mL (Antacid Anti-Gas) Allergies Allergy/AdvReac Type Severity Reaction Status Date / Time oxycodone [From PERCOCET] Allergy Intermediate ITCHING, Verified 04/08/24 02:01 rash and itching, itching codeine Allergy Unknown rash and Verified 04/08/24 02:01 itching Review of Systems Review of Systems: Yes all other systems are reviewed and are negative PMFSH Past Medical History Attestation statement: The following information was validated with the patient. Source: old records reviewed Medical History Internal derangement of right shoulder Calculus of kidney Morbid obesity with BMI of 45.0-49.9, adult Serum calcium elevated Left shoulder tendinitis Lumbar disc disease with radiculopathy Obstructive sleep apnea Lumbar degenerative disc disease Empty sella Erectile dysfunction Benign essential hypertension Pure hypercholesterolemia Hypogonadism in male Surgical History History of surgery History of medial meniscus repair of right knee History of rotator cuff surgery History of removal of cyst History of lithotripsy History of umbilical hernia repair History of appendectomy Family History Family History Father Liver cancer Morbidly obese Mother Hypertension Diabetes Asthma Social History Social History Housing: Apartment Alcohol intake: never Patient Tobacco Use Status: Never used Tobacco Smoked in Last 30 Days: No Second Hand Smoke Exposure: Yes Use of substances other than those prescribed or required for medical reasons: No Advance Directives: No Advance Directives Information Provided: No Do you have a plan to hurt others: No Plan service: No Current occupational status: unemployed 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 No acute distress.?Normal affect. Eyes: Pupils equal, round and reactive to light.? ENT: Pharynx normal.??No exudates. No tonsillar hypertrophy. No erythema. Managing secretions. Neck: Normal inspection.? Neck supple.??Full range of motion. Thyroid normal. CVS: Heart sounds normal. Normal heart rate and rhythm.? Pulses normal.?? Respiratory: No respiratory distress.? Lung sounds clear to auscultation bilater ally?? Abdomen: Soft and non-tender. Normoactive bowel sounds. ?? Skin: Skin warm and dry.? Normal skin color.? ?? Extremities: No lower extremity edema.? Neuro: Moves all extremities spontaneously. Sensation intact bilaterally. Ambulates with normal steady gait. Medical Decision Making Medical Decision Making MDM Narrative: Patient is a 48-year-old male who presents emergency department for evaluation of sore throat and concern as to whether there is a chicken bone retained in his esophagus. Patient had a CT of the soft tissue neck obtained prior to my assumption of care; CT/CT soft tissue neck wo IV con IMPRESSION: 1. No demonstrated radiopaque foreign bodies. 2. No demonstrated focal lesion, collection, or lymphadenopathy within the soft tissues of the neck. 3. Moderate multilevel degenerative spondyloarthropathy of the cervical spine. He is in no respiratory distress, managing secretions, tolerating oral intake, drinking water without complication, no nausea or vomiting. Reports some mild discomfort to still be present, patient receive Maalox with lidocaine viscous. Advised soft foods over the next 24 hours and frequent liquids. Differential Diagnosis Differential Diagnoses: The differential diagnosis associated with the presentation includes (Retained foreign body, pharyngitis, globus sensation) Admission/Observation Consideration of admission/observation: Escalation of care including admission/observation considered Radiology Impression Discussion of test interpretation with radiology: I have reviewed the radiologist's reading. Radiologist Impression: CT/CT soft tissue neck wo IV con IMPRESSION: 1. No demonstrated radiopaque foreign bodies. 2. No demonstrated focal lesion, collection, or lymphadenopathy within the soft tissues of the neck. 3. Moderate multilevel degenerative spondyloarthropathy of the cervical spine. External Record Review External record reviewed: Outpatient record Prescription Management I considered prescription management with: Pain Medication Discharge Plan Discharge Clinical Impression: Pharyngitis Patient Disposition: Home, Self-Care Instructions: Pharyngitis (ED) Prescriptions: New alum-mag hydroxide-simeth [Antacid Anti-Gas] 200-200-20 mg/5 mL suspension 10 ml PO QID PRN (Reason: dyspepsia) Qty: 3000 0RF Rx Instructions: administer between meals and at bedtime No Action (DME) CPAP Machine/Device Device See Rx Instructions .Route Qty: 1 0RF Rx Instructions: 16cm of water testosterone 30 mg/actuation (1.5 mL) solution in metered pump w/aydee 30 mg transdermal DAILY Qty: 180 3RF Rx Instructions: Apply 4 pumps per day gabapentin 100 mg capsule 100 mg PO BEDTIME Qty: 30 1RF phentermine 30 mg capsule 30 mg PO DAILY 30 Days Qty: 30 0RF Rx Instructions: must administer 2 hours after breakfast potassium citrate 10 mEq (1,080 mg) tablet extended release 20 meq PO BID 90 Days Qty: 360 1RF lidocaine 5 % adhesive patch,medicated 1 patch topical DAILY Qty: 30 0RF Rx Instructions: leave on most painful area for up to 12 hrs triamcinolone acetonide 0.5 % cream 1 appl topical BID Qty: 15 0RF amlodipine 5 mg tablet 5 mg PO DAILY 90 Days Qty: 90 1RF simvastatin 40 mg tablet 40 mg PO BEDTIME 90 Days Qty: 90 1RF minocycline 100 mg capsule 100 mg PO Q12H Qty: 60 0RF meloxicam 15 mg tablet 15 mg PO DAILY PRN (Reason: pain) Rx Instructions: Take with food cyclobenzaprine 5 mg tablet 5 mg PO BID PRN (Reason: low back pain) capsaicin 0.1 % cream 1 appl topical BID PRN (Reason: pain) Rx Instructions: do not wash area for at least 30 min after application ketoconazole 2 % shampoo 1 appl topical DAILY tretinoin 0.025 % cream 1 appl topical DAILY tamsulosin 0.4 mg capsule 0.4 mg PO BEDTIME 14 Days Qty: 14 0RF Referrals: Peewee Hoskins MD [Primary Care Provider] - Print Language: Citizen Of [place]
[2024-04-08] MEDS: Magnesium Hydrox/Alum Hydrox 30 ML ORAL.SUSP PO (08:49)
[2024-04-08] MEDS: Lidocaine HCl Viscous 2 % 15 ML SOLUTION MUCOUS MEM (08:49)
[2024-04-08 08:55] VITALS: BP 150/93; PULSE 65; RESP 16; TEMP 36.6; O2SAT 100
== END 2024-04-08 08:56 | disposition home or self-care (01) ==
PROVIDERS: Emergency Provider Emergency Medicine; PCP Internal Medicine
DX: J02.9 Acute pharyngitis, unspecified (principal); R09.A2 Foreign body sensation, throat
CPT/HCPCS: 70490; 99284

== ENCOUNTER 2024-04-13 10:59 | Outpatient (AMB) | payer OTHER, SELFPAY ==
[2024-04-13 11:03] VITALS: BP 120/80; PULSE 83; O2SAT 97; BMI 48.3
--- NOTE | 2024-04-13 11:03 | HO.NEPHOV ---
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 He regularly follows up with his urologist. He recently had a renal ultrasound which showed unilateral renal calculus on the left kidney. He has no blood in the urine. He denies epistaxis, sinusitis, hemoptysis, hematuria, edema. He has not passed any great toe gravel in the urine. His blood pressure is well controlled on current medication regimen. He has obstructive sleep apnea and is on CPAP. He regularly takes his potassium chloride tablets. He avoids nonsteroidal anti-inflammatories and maintain good hydration. He is quite active and did not have any new complaints at the time of this office visit. [facility] Medical History Internal derangement of right shoulder Calculus of kidney Morbid obesity with BMI of 45.0-49.9, adult Serum calcium elevated Left shoulder tendinitis Lumbar disc disease with radiculopathy Obstructive sleep apnea Lumbar degenerative disc disease Empty sella Erectile dysfunction Benign essential hypertension Pure hypercholesterolemia Hypogonadism in male Surgical History History of surgery History of medial meniscus repair of right knee History of rotator cuff surgery History of removal of cyst History of lithotripsy History of umbilical hernia repair History of appendectomy Family History Father Liver cancer Morbidly obese Mother Hypertension Diabetes Asthma Social History Housing: Apartment Alcohol intake: never Patient Tobacco Use Status: Never used Tobacco Second Hand Smoke Exposure: Yes service: No Current occupational status: unemployed 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 Cognitive needs: No Hearing needs: No Vision needs: No Physical Exam Vital Signs: Last Vital Signs Pulse 83 04/13/24 11:03 BP 140/90 H 04/13/24 11:03 Pulse Ox 97 04/13/24 11:03 Oxygen Delivery Method Room Air 04/13/24 11:03 BMI result Body Mass Index 48.3 Const General: comfortable and no acute distress Orientation/consciousness: patient oriented x3 HEENT Head: Yes normocephalic Mouth: Normal oral and palatal mucosa present Eyes EOM: EOMs intact bilaterally Neck Neck: Yes supple Resp Auscultation: clear to auscultation bilaterally Cardio Jugular venous distension: no JVD Rate: regular rate GI Palpation (GI): Soft to palpation Auscultation: normal bowel sounds General: Yes no CVA tenderness Back/Spine/Pelvis Back: no CVA tenderness Skin General skin exam: no rashes or lesions noted Neuro General: patient oriented x3 and moves all extremities Extrem General: Yes no pedal edema Results Reviewed Nephrology Results: Hgb 17.2 g/dl (14.0-18.0) 03/14/24 WBC 7.9 X10*3/uL (4.8-10.8) 03/14/24 Plt Count 277 X10*3/uL (160-400) 03/14/24 Sodium 139 mmol/L (135-145) 03/15/24 Potassium 4.3 mmol/L (3.3-5.1) 03/15/24 Chloride 103 mmol/L (96-108) 03/15/24 Carbon Dioxide 25 mmol/L (22-29) 03/15/24 BUN 16 mg/dL (9-16) 03/15/24 Creatinine 1.27 mg/dL (0.5-1.4) 03/15/24 Calcium 9.8 mg/dL (8.4-10.2) 03/15/24 Urine Protein 30 (1+) mg/dL (Neg-Trace) H 03/14/24 Renal US 12/13/23 Assessment & Plan Assessment & Plan (1) Hypertension: Code(s): I10 - Essential (primary) hypertension Category: Medical Qualifiers: Hypertension type: primary hypertension Qualified Code(s): I10 - Essential (primary) hypertension (2) Chronic kidney disease (CKD), stage II (mild): Code(s): N18.2 - Chronic kidney disease, stage 2 (mild) Category: Medical (3) Nephrolithiasis: Code(s): N20.0 - Calculus of kidney Category: Medical Plan His renal functions are stable. His last renal ultrasound recently showed a 4 mm non obstructing right renal calculus. He follows up closely with urologist. He maintains good hydration and he is on potassium citrate( has hypocitrauria). I plan to do a 24 hour urine collection again later. He will need a follow-up ultrasound of his kidney in 6 months. I asked him to cut back salt in the diet, continue with potassium citrate, cut back meat and increase fruits and vegetables in the diet. I switched him from amlodipine to hydrochlorothiazide given hypertension and renal calculus. I did not make any other medication changes at this visit . I answered all his questions and concerns. Follow-up lab work ordered. Follow-up appointment given. Orders: Orders Calcium Today I10 - Essential (primary) hypertension, N18.2 - Chronic kidney disease, stage 2 (mild), N20.0 - Calculus of kidney Electrolytes Today I10 - Essential (primary) hypertension, N18.2 - Chronic kidney disease, stage 2 (mild), N20.0 - Calculus of kidney Creatinine Today I10 - Essential (primary) hypertension, N18.2 - Chronic kidney disease, stage 2 (mild), N20.0 - Calculus of kidney Blood Urea Nitrogen Today I10 - Essential (primary) hypertension, N18.2 - Chronic kidney disease, stage 2 (mild), N20.0 - Calculus of kidney Protein Creatinine Ratio, Ur Today I10 - Essential (primary) hypertension, N18.2 - Chronic kidney disease, stage 2 (mild), N20.0 - Calculus of kidney Medications: New hydrochlorothiazide 12.5 mg PO DAILY 90 caps 1RF Discontinued amlodipine Discontinued Reason: Doctor's Order 5 mg PO DAILY 90 days 90 tabs 1RF Coding Level of Care Code Est Pt Level 4 (25623) Diagnoses Primary hypertension I10 Hypertension type: primary hypertension Chronic kidney disease (CKD), stage II (mild) N18.2 Nephrolithiasis N20.0
== END 2024-04-13 11:22 | disposition home or self-care (01) ==
PROVIDERS: PCP Internal Medicine; Visit Provider Internal Medicine Nephrology
DX: I12.9 Hypertensive chronic kidney disease with stage 1 through stage 4 chronic kidney disease, or unspecified chronic kidney disease (principal); N18.2 Chronic kidney disease, stage 2 (mild); N20.0 Calculus of kidney
CPT/HCPCS: 99214

== ENCOUNTER → 2024-04-13 10:59 | Outpatient (BNVA) | payer OTHER, SELFPAY | PROVIDERS: PCP Internal Medicine; Visit Provider Internal Medicine Nephrology | DX: N20.0 Calculus of kidney (principal); I12.9 Hypertensive chronic kidney disease with stage 1 through stage 4 chronic kidney disease, or unspecified chronic kidney disease; N18.2 Chronic kidney disease, stage 2 (mild) | CPT/HCPCS: 99212 ==

== ENCOUNTER 2024-06-28 10:08 | Outpatient (REF) | payer OTHER, SELFPAY ==
--- NOTE | ~2024-06-28 | US_ITS ---
EXAMINATION: US BILATERAL KIDNEYS CLINICAL INFORMATION: Testicular hypofunction. COMPARISON: Renal ultrasound 12/13/2023. TECHNIQUE: Real-time imaging of the kidneys. FINDINGS: RIGHT KIDNEY: 12.2 x 5.3 x 5.1 cm (SAG x AP x TRV). The kidney is normal in size, contour, and echogenicity. Renal cortical thickness is normal. No focal parenchymal lesions or hydronephrosis. There is a 4 mm nonobstructing calculus in the mid to lower kidney. LEFT KIDNEY: 13.1 x 6.7 x 5.5 cm (SAG x AP x TRV). The kidney is normal in size, contour, and echogenicity. Renal cortical thickness is normal. No calculi or focal parenchymal lesions. No hydronephrosis. US/US renal BI IMPRESSION: 4 mm nonobstructing calculus mid to lower right kidney. No hydronephrosis. Electronically signed by: Kendell Singletary MD 07/11/2024 04:06 PM EDT
== END 2024-06-28 10:09 | disposition home or self-care (01) ==
LOC: HO.US 10:08
PROVIDERS: PCP Internal Medicine; Visit Provider Urology
DX: E29.1 Testicular hypofunction (principal)
CPT/HCPCS: 76775

== ENCOUNTER 2024-07-11 09:47 | Outpatient (AMB) | payer OTHER, SELFPAY ==
--- NOTE | 2024-07-11 09:35 | MHC.OFFVIS ---
Intake Visit Reasons: Ultrasound Follow Up(No labs) Intake Note: Patient is present for ultrasound f/u Urology Medication:tamsulosin, testosterone Antibiotic Allergy:none Blood Thinner:none [place] Operator Required: No Allergies oxycodone [From PERCOCET] Allergy (Intermediate, Verified 07/11/24 09:39) ITCHING, rash and itching, itching codeine Allergy (Unknown, Verified 07/11/24 09:39) rash and itching HPI Comments Details: ?Ronald is a pleasant male. He is seen for the following urologic conditions - renal stones - hypogonadism followed by endocrine - erectile dysfunction Telephone evaluation 15 minutes consultation [employer] aydee Video attempted Six-month follow-up Remains on vitamin B6 and citrate - Imaging shows minimal stone burden Seen by Nephrology for stones Continues with testosterone replacement for empty sella syndrome Total T830 could reduce to 3 pumps Twelve month follow-up imaging Renal stones Longstanding Bilateral Intervention - Multiple prior ESWL and ureteroscopy - 03/28 Right ESWL - 06/28 Left ESWL Imaging - 07/28 renal ultrasound multiple 2 mm stones bilateral - 04/28 renal ultrasound right no stones, left 7 mm, and 1 cm stones - 11/29 renal ultrasound 4 mm right-sided stone, no stone on left - 06/30 renal ultrasound question small stone right 3-4 mm 24 hr urine -07/29 good volume, low oxalate, low calcium, very low citrate Therapeutic plan - citrate replacement - interval surveillance Hypogonadism On testosterone replacement using gel MRI - partial empty Guillermina syndrome Labs - - 07/29 T 378, suppressed pituitary LH and FSH PFSH Medical History Internal derangement of right shoulder Calculus of kidney Morbid obesity with BMI of 45.0-49.9, adult Serum calcium elevated Left shoulder tendinitis Lumbar disc disease with radiculopathy Obstructive sleep apnea Lumbar degenerative disc disease Empty sella Erectile dysfunction Benign essential hypertension Pure hypercholesterolemia Hypogonadism in male Surgical History History of surgery History of medial meniscus repair of right knee History of rotator cuff surgery History of removal of cyst History of lithotripsy History of umbilical hernia repair History of appendectomy Family History Father Liver cancer Morbidly obese Mother Hypertension Diabetes Asthma Social History Housing: Apartment Alcohol intake: never Patient Tobacco Use Status: Never used Tobacco Second Hand Smoke Exposure: Yes service: No Current occupational status: unemployed 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 Cognitive needs: No Hearing needs: No Vision needs: No Review of Systems Const All systems reviewed & are unremarkable except as noted in HPI and below Reports no additional complaints Resp Reports no additional complaints GI Reports no additional complaints Reports as per HPI Musc Reports no additional complaints Physical Exam Telemedicine evaluation Appropriate responses Regular breathing rate and rhythm HEENT Head: Yes normal to inspection Ears: hearing grossly normal bilaterally Eyes General: appearance normal, both eyes and all related structures Neck Neck: Yes normal visual inspection Chest Chest palpation & inspection: normal inspection of the chest Resp Effort & Inspection: normal respiratory effort and able to speak in complete sentences Telehealth Telehealth Telehealth Platform: [employer] Location of provider rendering services: practice address Location of patient: address on file Patient Identification confirmed using: Name, : Yes Telehealth method: video Patient verbally consented to treatment: Yes Patient verbally consented to billing insurance company: Yes Patient informed of any privacy concerns related to visit: Yes Minutes spent on Phone/Video with Pt.: 15 Assessment & Plan Assessment & Plan (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 No major barriers to patient understanding were identified. An opportunity to ask questions regarding the treatment plan was provided. All questions were answered. The patient expressed understanding and agreement with the above treatment plan. The patient is aware they should contact our office by phone for worsening of their current condition or the appearance of new urologic symptoms. Compliance is encouraged with any medications and followup testing that is ordered. It is a privilege to participate in the urologic care of your patient. If you have any questions or concerns regarding treatment for the above conditions, or other urologic issues, please do not hesitate to contact me. The office telephone contact is [phone]. This note is constructed using voice recognition software. While every effort has been made to ensure accuracy supervisor coffee errors may have been included. Yours sincerely, Dr Ez Meek MD, [facility] - Urology Providers of Expert, Compassionate Care for the Genitourinary System Coding Level of Care Code Tele Est Pt Level 3 (77211) Diagnoses Hypocitraturia R82.991
== END 2024-07-11 10:44 | disposition home or self-care (01) ==
LOC: HO.HUSH 09:47
PROVIDERS: PCP Internal Medicine; Visit Provider Urology
DX: R82.991 Hypocitraturia (principal)
CPT/HCPCS: 99213

== ENCOUNTER → 2024-07-11 09:47 | Outpatient (BNVA) | payer OTHER, SELFPAY | PROVIDERS: PCP Internal Medicine; Visit Provider Urology ==

== ENCOUNTER 2024-07-13 10:33 | Outpatient (AMB) | payer OTHER, SELFPAY ==
--- NOTE | 2024-07-13 10:52 | HO.NEPHOV_ITS ---
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 He regularly follows up with his urologist. He recently had a renal ultrasound which showed unilateral renal calculus on the left kidney. He has no blood in the urine. He denies epistaxis, sinusitis, hemoptysis, hematuria, edema. He has not passed any great toe gravel in the urine. His blood pressure is well controlled on current medication regimen. He has obstructive sleep apnea and is on CPAP. He regularly takes his potassium chloride tablets. He avoids nonsteroidal anti-inflammatories and maintain good hydration. He is quite active and did not have any new complaints at the time of this office visit. [facility] Medical History Internal derangement of right shoulder Calculus of kidney Morbid obesity with BMI of 45.0-49.9, adult Serum calcium elevated Left shoulder tendinitis Lumbar disc disease with radiculopathy Obstructive sleep apnea Lumbar degenerative disc disease Empty sella Erectile dysfunction Benign essential hypertension Pure hypercholesterolemia Hypogonadism in male Surgical History History of surgery History of medial meniscus repair of right knee History of rotator cuff surgery History of removal of cyst History of lithotripsy History of umbilical hernia repair History of appendectomy Family History Father Liver cancer Morbidly obese Mother Hypertension Diabetes Asthma Social History Housing: Apartment Alcohol intake: never Patient Tobacco Use Status: Never used Tobacco Second Hand Smoke Exposure: Yes service: No Current occupational status: unemployed 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 Cognitive needs: No Hearing needs: No Vision needs: No Review of Systems Const All systems reviewed & are unremarkable except as noted in HPI and below Physical Exam Vital Signs: Last Vital Signs Pulse 64 07/13/24 10:53 BP 150/90 H 07/13/24 10:53 Pulse Ox 96 07/13/24 10:53 Oxygen Delivery Method Room Air 07/13/24 10:53 BMI result Body Mass Index 50.0 Const General: comfortable and no acute distress Orientation/consciousness: patient oriented x3 HEENT Head: Yes normocephalic Mouth: Normal oral and palatal mucosa present Eyes EOM: EOMs intact bilaterally Neck Neck: Yes supple Resp Auscultation: clear to auscultation bilaterally Cardio Jugular venous distension: no JVD Rate: regular rate GI Palpation (GI): Soft to palpation Auscultation: normal bowel sounds General: Yes no CVA tenderness Back/Spine/Pelvis Back: no CVA tenderness Skin General skin exam: no rashes or lesions noted Neuro General: patient oriented x3 and moves all extremities Extrem General: Yes no pedal edema Results Reviewed Nephrology Results: Hgb 17.2 g/dl (14.0-18.0) 03/14/24 WBC 7.9 X10*3/uL (4.8-10.8) 03/14/24 Plt Count 277 X10*3/uL (160-400) 03/14/24 Sodium 139 mmol/L (135-145) 03/15/24 Potassium 4.3 mmol/L (3.3-5.1) 03/15/24 Chloride 103 mmol/L (96-108) 03/15/24 Carbon Dioxide 25 mmol/L (22-29) 03/15/24 BUN 16 mg/dL (9-16) 03/15/24 Creatinine 1.27 mg/dL (0.5-1.4) 03/15/24 Calcium 9.8 mg/dL (8.4-10.2) 03/15/24 Urine Protein 30 (1+) mg/dL (Neg-Trace) H 03/14/24 Renal US 06/28/24 Assessment & Plan Assessment & Plan (1) Chronic kidney disease (CKD), stage II (mild): Code(s): N18.2 - Chronic kidney disease, stage 2 (mild) Category: Medical (2) Nephrolithiasis: Code(s): N20.0 - Calculus of kidney Category: Medical (3) Calculus of kidney: Code(s): N20.0 - Calculus of kidney Category: Medical Plan His renal functions are stable. His last renal ultrasound recently showed a 4 mm non obstructing right renal calculus. He follows up closely with urologist. He maintains good hydration and he is on potassium citrate( has hypocitrauria). I plan to do a 24 hour urine collection again later. He will need a follow-up ultrasound of his kidney in 6 months. I asked him to cut back salt in the diet, continue with potassium citrate, cut back meat and increase fruits and vegetables in the diet. He is on hydrochlorothiazide given hypertension and renal calculus. I did not make any other medication changes at this visit . I answered all his questions and concerns. Follow-up lab work ordered. Follow-up appointment given. Orders: Orders Electrolytes Today N18.2 - Chronic kidney disease, stage 2 (mild), N20.0 - Calculus of kidney Creatinine Today N18.2 - Chronic kidney disease, stage 2 (mild), N20.0 - Calculus of kidney Blood Urea Nitrogen Today N18.2 - Chronic kidney disease, stage 2 (mild), N20.0 - Calculus of kidney Calcium Today N18.2 - Chronic kidney disease, stage 2 (mild), N20.0 - Calculus of kidney Coding Level of Care Code Est Pt Level 4 (61543) Diagnoses Chronic kidney disease (CKD), stage II (mild) N18.2 Nephrolithiasis N20.0
[2024-07-13 10:53] VITALS: BP 130/80; PULSE 64; O2SAT 96; BMI 50.0
== END 2024-07-13 11:46 | disposition home or self-care (01) ==
PROVIDERS: PCP Internal Medicine; Visit Provider Internal Medicine Nephrology
DX: N18.2 Chronic kidney disease, stage 2 (mild) (principal); N20.0 Calculus of kidney
CPT/HCPCS: 99214

== ENCOUNTER → 2024-07-13 10:33 | Outpatient (BNVA) | payer OTHER, SELFPAY | PROVIDERS: PCP Internal Medicine; Visit Provider Internal Medicine Nephrology | DX: I12.9 Hypertensive chronic kidney disease with stage 1 through stage 4 chronic kidney disease, or unspecified chronic kidney disease (principal); N18.2 Chronic kidney disease, stage 2 (mild); N20.0 Calculus of kidney; G47.33 Obstructive sleep apnea (adult) (pediatric); Z99.89 Dependence on other enabling machines and devices | CPT/HCPCS: 99212 ==

== ENCOUNTER 2024-07-18 10:25 | Outpatient (REF) | payer OTHER, SELFPAY ==
[2024-07-18 10:54] LABS: MANUAL DIFF FLAG NO
[2024-07-18 11:39] LABS: Basophils Percent Auto 0.5 % (0-2); Eosinophils Absolute Auto 0.1 X10*3/uL (0.0-0.4); Eosinophils Percent Auto 1.2 % (0-4); Hematocrit 52.3 % (42.0-52.0); Hemoglobin 17.7 g/dl (14.0-18.0); Imm Gran Abs Auto 0.04 X10*3/uL (0.00-0.03); Imm Gran Pct Auto 0.5 % (0.0-0.4); Lymphocytes Absolute Auto 1.9 X10*3/uL (1.2-4.9); Lymphocytes Percent Auto 22.6 % (20-40); Mean Corpuscular HGB Conc 33.8 g/dl (31.0-36.0); Mean Corpuscular Hemoglobin 28.9 pg (27.0-33.0); Mean Corpuscular Volume 85.5 fL (80.0-98.0); Mean Platelet Volume 10.1 fL (9.4-12.4); Monocytes Absolute Auto 0.6 X10*3/uL (0.1-1.2); Monocytes Percent Auto 7.5 % (2-11); Neutrophils Absolute Auto 5.5 x10*3/uL (2.0-8.3); Neutrophils Percent Auto 67.7 % (45-73); Platelet Count 260 X10*3/uL (160-400); Red Blood Count 6.12 X10*6/uL (4.60-5.80); Red Cell Distribution Width 13.2 % (11.0-16.0); White Blood Count 8.2 X10*3/uL (4.8-10.8)
[2024-07-18 12:32] LABS: Alanine Aminotransferase 44 U/L (0-40); Albumin Level 4.5 g/dL (3.5-5.0); Alkaline Phosphatase 64 U/L (39-117); Anion Gap 14 (12-20); Aspartate Amino Transferase 35 U/L (5-37); Bilirubin Total 1.3 mg/dL (0.0-1.0); Blood Urea Nitrogen 19 mg/dL (9-16); Calcium 10.1 mg/dL (8.4-10.2); Carbon Dioxide 26 mmol/L (22-29); Chloride 103 mmol/L (96-108); Cholesterol 170 mg/dL (<200); Estimated Glomerular Filt Rate 56; Glucose Fasting 96 mg/dL (60-99); HDL Cholesterol 39 mg/dL (>40); LDL Cholesterol Calculated 100 mg/dL (<100); Potassium 4.1 mmol/L (3.3-5.1); Sodium 139 mmol/L (135-145); Total Protein 7.5 g/dL (6.5-8.0); Triglycerides 155 mg/dL (<150)
[2024-07-18 12:38] LABS: TSH reflex Free T4 1.73 uIU/mL (0.32-4.0); Vitamin D 25-OH Total 34.9 ng/mL (>30)
[2024-07-18 12:38] LABS: Appearance Urine Clear; Color Urine Yellow; Glucose Urine UA Negative (Negative); Leukocyte Esterase Urine Negative (Negative); Nitrite Urine Negative (Negative); PH 6.5 (5.0-9.0); UMIC TRIGGER UACC YES; Urine Blood Trace (Negative); Urine Ketones Negative (Negative); Urine Protein 30 (1+) mg/dL (Neg-Trace)
[2024-07-18 12:58] LABS: Bacteria Urine None Seen (None Seen); Hyaline Casts Urine 0-2 /LPF (0-2); Squamous Epithelial Cell Urine 0-2 /HPF (0-2); WBC Urine 0-5 /HPF (0-5)
== END 2024-07-18 10:26 | disposition home or self-care (01) ==
LOC: HO.LAB 10:25
PROVIDERS: Absent Provider Internal Medicine Nephrology; PCP Internal Medicine; Visit Provider Internal Medicine
DX: D64.9 Anemia, unspecified (principal); E78.00 Pure hypercholesterolemia, unspecified; E55.9 Vitamin D deficiency, unspecified
CPT/HCPCS: 36415; 80053; 80061; 81001; 81003; 82306; 84443; 85025

== ENCOUNTER 2024-07-20 10:02 | Outpatient (AMB) | payer OTHER, SELFPAY ==
[2024-07-20 10:07] VITALS: BP 126/88; PULSE 69; O2SAT 97; BMI 49.4
--- NOTE | 2024-07-20 10:07 | A.OFFPC_ITS ---
Vital Signs 07/20/24 10:07 Height 5 ft 5 in Weight 297 lb BMI 49.4 BP 126/88 Blood Pressure Location Lt brachial Position Sitting Pulse 69 Pulse Source Pulse Oximeter Pulse Oximetry (%) 97 Oxygen Delivery Method Room Air Intake Visit Reasons: Follow Up Terrapin Fisher Required: No Accompanied by: Self / Same As Patient Allergies oxycodone [From PERCOCET] Allergy (Intermediate, Verified 07/20/24 10:35) ITCHING, rash and itching, itching codeine Allergy (Unknown, Verified 07/20/24 10:35) rash and itching Medication List - Last Reconciled 07/20/24 by Peewee Hoskins MD alum-mag hydroxide-simeth 200-200-20 mg/5 mL (Antacid Anti-Gas) 10 mL PO QID PRN capsaicin 0.1% 1 appl topical BID PRN CPAP (CPAP Machine/Device) 16cm of water cyclobenzaprine 5 mg PO BID PRN gabapentin 100 mg PO BEDTIME hydrochlorothiazide 12.5 mg PO DAILY ketoconazole 2% 1 appl topical DAILY lidocaine 5% 1 patch topical DAILY meloxicam 15 mg PO DAILY PRN minocycline 100 mg PO Q12H phentermine 30 mg PO DAILY 30 days potassium citrate ER 20 mEq (2 x 10 mEq (1,080 mg)) PO BID 90 days simvastatin 40 mg PO BEDTIME 90 days testosterone 30 mg/actuation (1.5 mL) 4 pumps transdermal DAILY tretinoin 0.025% 1 appl topical DAILY triamcinolone acetonide 0.5% 1 appl topical BID Tobacco use date assessed: 07/20/24 Dental Screening Dental Screen Date: 07/20/24 Did you have a dental visit in the last 12 months?: Yes Did you have a dental problem in the last 6 months where you did not have access to dental care?: No Was dental information given to patient?: Patient has dentist HPI Follow Up HPI Details Patient comes in today for his follow up visit States that he feels okay He denies any headaches or dizziness Denies any chest pains, no SOB No nausea/vomiting, no abdominal pain No change in bowel habits noted States that he took his bother to [facility] in [place] for vacation a few weeks ago and admitted that he was not very compliant with his diet then but he is now back on his previous diet after he got back from his trip States that he will need a few of his Rx refilled and would like to go back on his diet pills now if possible He had his follow up labs done a couple of days ago - to discuss his results [facility] Medical History Internal derangement of right shoulder Calculus of kidney Morbid obesity with BMI of 45.0-49.9, adult Serum calcium elevated Left shoulder tendinitis Lumbar disc disease with radiculopathy Obstructive sleep apnea Lumbar degenerative disc disease Empty sella Erectile dysfunction Benign essential hypertension Pure hypercholesterolemia Hypogonadism in male Surgical History History of surgery History of medial meniscus repair of right knee History of rotator cuff surgery History of removal of cyst History of lithotripsy History of umbilical hernia repair History of appendectomy Family History Father Liver cancer Morbidly obese Mother Hypertension Diabetes Asthma Social History Housing: Apartment Alcohol intake: never Patient Tobacco Use Status: Never used Tobacco Second Hand Smoke Exposure: Yes service: No Current occupational status: unemployed 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 1. Little interest or pleasure in doing things: not at all 2. Feeling down, depressed, or hopeless: not at all 3. Trouble falling or staying asleep, or sleeping too much: not at all 4. Feeling tired or having little energy: not at all 5. Poor appetite or overeating: not at all 6. Feeling bad about yourself - or that you are a failure or have let yourself or your family down: not at all 7. Trouble concentrating on things, such as reading the newspaper or watching television: not at all 8. Moving or speaking so slowly that other people could have noticed. Or the opposite - being so fidgety or restless that you have been moving around a lot more than usual: not at all 9. Thoughts that you would be better off or of hurting yourself in some way: not at all Total score: 0 Depression Screening Interpretation: Negative Depression Screening Done: Yes 62849 - PHQ-9 Billing: Yes Source: Developed by Drs. Riaz Phan, Kaylin Lewis, Marshall Lugo and colleagues, with an educational jaciel from [employer]. Thrive Questionnaire Date Thrive assessed: 07/20/24 I am a: Patient What is your living situation today?: I have a steady place to live Within the past 12 months, did the food you bought not last and you didn't have the money to get more?: Never true Within the past 12 months, did you worry whether your food would run out before you got money to buy more?: Never true Do you have trouble paying for medicines?: No Do you have trouble getting transportation to medical appointments?: No Do you have trouble paying your heating and electricity bill?: No Do you have trouble taking care of your child, family member or friend?: No Do you have trouble with day-to-day activities such as bathing, preparing meals, shopping, managing finances, etc.?: No Are you currently unemployed and looking for a job?: No Are you interested in more education?: No Please select the resources that you would like help with: None Currently or been in a relationship where the following occur: No concerns reported THRIVE Score: 0 AUDIT C Alcohol Use Questionnaire (AUDIT-C) 1. How often do you have a drink containing alcohol?: Never 3. How often do you have six or more drinks on one occasion?: Never Total Score: 0 Score Reviewed/Action Taken: Yes MICHELLE-7 AMB Questionnaire MICHELLE-7 Date MICHELLE - 7 assessed: 07/20/24 Feeling nervous, anxious, or on edge: 0 = Not at all Not being able to stop or control worryin = Not at all Worrying too much about different things: 0 = Not at all Trouble relaxin = Not at all Being so restless that it is hard to sit still: 0 = Not at all Becoming easily annoyed or irritable: 0 = Not at all Feeling afraid as if something awful might happen: 0 = Not at all Total MICHELLE-7 score (0-4 normal; 5-9 mild; 10-14 moderate; 15-21 severe): 0 Source: Developed by Drs. Riaz Phan, Kaylin Lewis, Marshall Lugo and colleagues, with an educational jaciel from [employer]. Review of Systems Const Denies chills, Denies fatigue, Denies fever(s) and Denies headache(s) ENT Denies dysphagia, Denies dizziness, Denies otalgia, Denies headache(s), Denies neck pain, Denies odynophagia and Denies sore throat Card Denies chest pain, Denies irregular heart rhythm, Denies palpitations and Denies dyspnea Resp Denies cough, Denies dyspnea and Denies wheezing GI Denies abdominal pain, Denies constipation, Denies dysphagia, Denies heartburn, Denies diarrhea, Denies nausea, Denies odynophagia and Denies vomiting Denies hematuria, Denies difficulty urinating, Reports erectile dysfunction ( controlled ), Denies dysuria and Denies urinary frequency Musc Reports back pain (over the lower back - chronic), Denies arthralgias and Denies neck pain Skin/Breast Denies rash Neuro Denies dizziness, Denies headache(s) and Denies paresthesias Endo Denies fatigue and Denies palpitations Aller/Immun Denies wheezing Physical exam (Primary Care) Vital Signs: Last Vital Signs Pulse 69 07/20/24 10:07 BP 126/88 07/20/24 10:07 Pulse Ox 97 07/20/24 10:07 Oxygen Delivery Method Room Air 07/20/24 10:07 BMI result Body Mass Index 49.4 Tobacco/Smoking Status: Tobacco use Status Tobacco use date assessed 07/20/24 07/20/24 10:14 Patient Tobacco Use Status Never used Tobacco 07/20/24 10:14 PHQ-9: PHQ-9 Score PHQ-9: Total score 0 07/20/24 10:14 Depression Screening Interpretation: Negative Thrive Assessment: Date of Thrive Assessment Date Thrive assessed 07/20/24 07/20/24 10:14 Currently or been in a relationship where the following occur: No concerns reported Const General: no acute distress and alert HENMT Ears: TM's normal bilaterally and EAC's normal Throat: Yes posterior oropharynx normal and Yes tonsils normal (no TP congestion) Neck Neck: Yes no lymphadenopathy and Yes supple Thyroid: Thyroid normal Resp Auscultation: clear to auscultation bilaterally, no rales and no wheezes Cardio Rate: regular rate Rhythm: regular rhythm Heart sounds: no murmurs GI Palpation (GI): Soft to palpation and nontender Auscultation: normal bowel sounds General: Yes no CVA tenderness Back/Spine/Pelvis Back: no CVA tenderness Thoracic/Lumbar Spine: lumbar spinal tenderness Skin Rashes: no rashes Extrem General: Yes no clubbing, cyanosis or edema Results Reviewed Results Reviewed: Laboratory Tests 07/18/24 07/18/24 10:50 10:57 WBC 8.2 Hgb 17.7 Hct 52.3 H Plt Count 260 Sodium 139 Potassium 4.1 Creatinine 1.35 Estimated GFR 56 Fasting Glucose 96 Calcium 10.1 AST 35 ALT 44 H Triglycerides 155 H Cholesterol 170 LDL Cholesterol, Calc 100 H HDL Cholesterol 39 L 25-OH Vitamin D Total 34.9 TSH 1.73 Ur Specific [place] 1.020 Urine Protein 30 (1+) H Urine Glucose (UA) Negative Urine Blood Trace H Urine Nitrite Negative Ur Leukocyte Esterase Negative Assessment and Plan Assessment & Plan (1) Pure hypercholesterolemia: Code(s): E78.00 - Pure hypercholesterolemia, unspecified Plan: Results of his labs done a couple of days ago reviewed and discussed with patient - he is advised that his serum TG level has increased from previous, likely in relation to his weight gain Reinforced low cholesterol diet - he admits to poor compliance with his diet while he was away but he is now back on track Continue Simvastatin 40 mg QD Will recheck his labs and fasting lipids in 4 months for follow up (2) Benign essential hypertension: Code(s): I10 - Essential (primary) hypertension Plan: Reinforced low sodium diet - goal is systolic BP of 120 mm or less Continue HCTZ 12.5 mg QD He was also on Lisinopril 5 mg QD in the past but somehow stopped taking this at some point last year - patient is not sure why or how Nephrology eventually switched him from his previous Rx of Amlodipine to HCTZ as his serum calcium was normal Patient is reminded to continue monitoring his blood pressure regularly; is again advised to avoid drinking energy drinks as these often contain very high amounts of caffeine and can affect his blood pressure adversely Follow up with nephrology as scheduled (3) Chronic kidney disease (CKD), stage II (mild): Code(s): N18.2 - Chronic kidney disease, stage 2 (mild) Plan: His renal function remains stable on his recent labs Will continue to monitor his renal function closely Follow up with nephrology as scheduled (4) Obstructive sleep apnea: Comment: CPAP Code(s): G47.33 - Obstructive sleep apnea (adult) (pediatric) Plan: Repeat sleep study with CPAP titration done back in 2020 revealed (+) severe obstructive sleep apnea requiring 16 cm of water pressure Patient is reminded to continue using his CPAP device every night regularly when sleeping Follow up with Sleep Medicine as scheduled (5) Lumbar degenerative disc disease: Code(s): M51.36 - Other intervertebral disc degeneration, lumbar region Plan: Reinforced activity and weight-lifting restrictions to help manage his low back symptoms Lumbar spine MRI was previously ordered but this was denied by his health insurance Continue Gabapentin 100 mg Q HS, Tramadol 50 mg PRN and Cyclobenzaprine 5 mg Q HS PRN; he is also on Meloxicam (not sure what dose but likely 15 mg QD) prescribed by [facility] He continues to work with physical therapy to help manage his low back pain Follow up also with [facility] as scheduled for his chronic low back pain management (6) Complete rotator cuff tear or rupture of right shoulder, not specified as t raumatic: Code(s): M75.121 - Complete rotator cuff tear or rupture of right shoulder, not specified as traumatic Qualifiers: Rotator cuff tear trauma status: unspecified whether traumatic Qualified Code(s): M75.121 - Complete rotator cuff tear or rupture of right shoulder, not specified as traumatic Plan: S/P arthroscopic shoulder surgery and tendon repair with Dr. Baron in April 2023, with improvement of his shoulder symptoms Follow up with orthopedics as scheduled (7) Hypogonadism in male: Code(s): E29.1 - Testicular hypofunction Plan: Continue Testosterone solution 30 mg /ACT 2 pumps and apply on skin once a day in the morning transdermally Per endocrinology report at his last visit with them, patient is eugonadal and doing well on his current regimen Follow-up with endocrinology/urology as scheduled (8) Nephrolithiasis: Code(s): N20.0 - Calculus of kidney Plan: Patient currently remains asymptomatic Renal US done in December 2023 showed (+) 4 mm nonobstructing right renal calculus is seen. No left renal calculus is seen and no hydronephrosis is noted bilaterally Follow up with urology as scheduled (9) Erectile dysfunction: Code(s): N52.9 - Male erectile dysfunction, unspecified Qualifiers: Erectile dysfunction type: due to other cause Qualified Code(s): N52.8 - Other male erectile dysfunction Plan: Patient has hypogonadism and is currently on treatment with testosterone replacement therapy for this with endocrinology and urology He was previously prescribed Sildenafil and subsequently Tadalafil but states that his insurance would not cover either Rx and he is just managing his symptoms on his own for now (10) Morbid obesity with BMI of 45.0-49.9, adult: Code(s): E66.01 - Morbid (severe) obesity due to excess calories; Z68.42 - Body mass index [BMI] 45.0-49.9, adult Plan: Reinforced diet/exercise as tolerated/ lose weight - he has gained a few pounds since his last visit Will now start him back on Phentermine 30 mg Q AM to help with his weight (he was taken off this for a couple of months after being on it initially for 3 t0 4 months) He continues to decline recommendation to refer him to weight management - states that he will call for referral if he feels he needs to see them Plan Follow up in 4 months Orders: Orders Lipid Panel 4 Months E78.00 - Pure hypercholesterolemia, unspecified UA CC w/rflx Micro + Cult 4 Months R30.0 - Dysuria Complete Blood Count Auto Diff 4 Months D64.9 - Anemia, unspecified Comprehensive [place]. Panel Fast 4 Months E78.00 - Pure hypercholesterolemia, unspecified TSH reflex Free T4 4 Months E78.00 - Pure hypercholesterolemia, unspecified Vitamin D 25-OH Total 4 Months E55.9 - Vitamin D deficiency, unspecified Medications: Refilled phentermine must administer 2 hours after breakfast 30 mg PO DAILY 30 days 30 caps 0RF E66.01 - Morbid (severe) obesity due to excess calories, Z68.43 - Body mass index [BMI] 50.0-59.9, adult gabapentin 100 mg PO BEDTIME 30 caps 1RF R51.9 - Headache, unspecified simvastatin 40 mg PO BEDTIME 90 days 90 tabs 1RF E78.00 - Pure hypercholesterolemia, unspecified Coding Level of Care Code Est Pt Level 4 (60248) Diagnoses Pure hypercholesterolemia E78.00 Benign essential hypertension I10 Chronic kidney disease (CKD), stage II (mild) N18.2 Obstructive sleep apnea G47.33 Lumbar degenerative disc disease M51.36 Complete tear of right rotator cuff, unspecified whether traumatic M75.121 Rotator cuff tear trauma status: unspecified whether traumatic Hypogonadism in male E29.1 Nephrolithiasis N20.0 Other male erectile dysfunction N52.8 Erectile dysfunction type: due to other cause Morbid obesity with BMI of 45.0-49.9, adult E66.01; Z68.42
== END 2024-07-20 10:45 | disposition home or self-care (01) ==
PROVIDERS: PCP Internal Medicine; Visit Provider Internal Medicine
DX: E78.00 Pure hypercholesterolemia, unspecified (principal); I12.9 Hypertensive chronic kidney disease with stage 1 through stage 4 chronic kidney disease, or unspecified chronic kidney disease; N18.2 Chronic kidney disease, stage 2 (mild); G47.33 Obstructive sleep apnea (adult) (pediatric); M51.36 Other intervertebral disc degeneration, lumbar region; M75.121 Complete rotator cuff tear or rupture of right shoulder, not specified as traumatic; E29.1 Testicular hypofunction; N20.0 Calculus of kidney; N52.8 Other male erectile dysfunction
CPT/HCPCS: 99214

== ENCOUNTER 2024-08-23 11:05 | Outpatient (REF) | payer OTHER, SELFPAY ==
[2024-08-23 12:35] LABS: Anion Gap 10 (12-20); Blood Urea Nitrogen 18 mg/dL (9-16); Calcium 10.4 mg/dL (8.4-10.2); Carbon Dioxide 31 mmol/L (22-29); Chloride 103 mmol/L (96-108); Estimated Glomerular Filt Rate 48; Potassium 4.5 mmol/L (3.3-5.1); Sodium 139 mmol/L (135-145)
[2024-08-23 12:54] LABS: Creatinine Urine 96.92 mg/dL; Protein/Creatinine Ratio, Ur 0.21 (<0.2); Total Protein Urine Random 20 mg/dL (<12)
[2024-08-27 13:58] LABS: Myeloperoxidase Antibody <1.0 AI; Proteinase 3 PR3 Antibodies <1.0 AI
== END 2024-08-23 11:06 | disposition home or self-care (01) ==
LOC: HO.LAB 11:05
PROVIDERS: Absent Provider Urology; PCP Internal Medicine; Visit Provider Internal Medicine Nephrology
DX: I10 Essential (primary) hypertension (principal); N20.0 Calculus of kidney; R82.991 Hypocitraturia; N18.2 Chronic kidney disease, stage 2 (mild)
CPT/HCPCS: 36415; 80051; 82310; 82565; 82570; 84156; 84520; 86021

== ENCOUNTER 2024-08-27 10:00 | Outpatient (RCR) | payer OTHER, SELFPAY | END 2024-08-27 11:46 | disposition home or self-care (01) | LOC: HO.PT 10:00 | PROVIDERS: PCP Internal Medicine; Visit Provider Student in an Organized Health Care Education/Training Program | DX: M54.50 Low back pain, unspecified (principal) | CPT/HCPCS: 97012; 97014; 97110; 97161; 97530 ==

== ENCOUNTER 2024-09-22 08:26 | Outpatient (REF) | payer OTHER, SELFPAY ==
[2024-09-22 10:12] LABS: Hematocrit 51.7 % (42.0-52.0); Hemoglobin 17.3 g/dl (14.0-18.0); Mean Corpuscular HGB Conc 33.5 g/dl (31.0-36.0); Mean Corpuscular Hemoglobin 28.8 pg (27.0-33.0); Mean Platelet Volume 9.9 fL (9.4-12.4); Platelet Count 294 X10*3/uL (160-400); Red Blood Count 6.01 X10*6/uL (4.60-5.80); Red Cell Distribution Width 13.3 % (11.0-16.0); White Blood Count 7.4 X10*3/uL (4.8-10.8)
[2024-09-22 11:34] LABS: Prostate Specific Antigen 0.74 ng/mL (<0.05-4.0)
[2024-09-22 11:50] LABS: Appearance Urine Clear; Color Urine Yellow; Glucose Urine UA Negative (Negative); Leukocyte Esterase Urine Negative (Negative); Nitrite Urine Negative (Negative); UMIC TRIGGER UACC YES; Urine Blood Negative (Negative); Urine Ketones Negative (Negative); Urine Protein 100 (2+) mg/dL (Neg-Trace)
[2024-09-22 12:02] LABS: Bacteria Urine None Seen (None Seen); Hyaline Casts Urine 0-2 /LPF (0-2); RBC Urine 0-2 /HPF (0-2); Squamous Epithelial Cell Urine 0-2 /HPF (0-2); WBC Urine 0-5 /HPF (0-5)
[2024-09-28 15:39] LABS: Testosterone, Total 884 ng/dL (250-1100)
== END 2024-09-22 08:27 | disposition home or self-care (01) ==
LOC: HO.LAB 08:26
PROVIDERS: Absent Provider Internal Medicine Nephrology; PCP Internal Medicine; Visit Provider Urology
DX: E29.1 Testicular hypofunction (principal)
CPT/HCPCS: 36415; 81001; 84153; 84403; 85027

== ENCOUNTER 2024-09-24 09:48 | Outpatient (AMB) | payer OTHER, SELFPAY ==
[2024-09-24 10:07] VITALS: BP 122/78; PULSE 74; BMI 48.4
--- NOTE | 2024-09-24 10:07 | A.OFFVIS_ITS ---
Vital Signs 09/24/24 10:07 Height 5 ft 5 in Weight 291 lb 0.163 oz BMI 48.4 BP 122/78 Blood Pressure Location Rt brachial Position Sitting Pulse 74 Pulse Source Pulse Oximeter Intake Visit Reasons: f/u hypogonadism-no vm Intake Note: Patient present for Hypogonadism follow up visit. Physician Required: No Accompanied by: Self / Same As Patient Allergies oxycodone [From PERCOCET] Allergy (Intermediate, Verified 07/20/24 10:35) ITCHING, rash and itching, itching codeine Allergy (Unknown, Verified 07/20/24 10:35) rash and itching Medication List - Last Reconciled 09/24/24 by Riaz Doshi MD alum-mag hydroxide-simeth 200-200-20 mg/5 mL (Antacid Anti-Gas) 10 mL PO QID PRN capsaicin 0.1% 1 appl topical BID PRN CPAP (CPAP Machine/Device) 16cm of water cyclobenzaprine 5 mg PO BID PRN gabapentin 100 mg PO BEDTIME hydrochlorothiazide 12.5 mg PO DAILY ketoconazole 2% 1 appl topical DAILY lidocaine 5% 1 patch topical DAILY meloxicam 15 mg PO DAILY PRN minocycline 100 mg PO Q12H phentermine 30 mg PO DAILY 30 days potassium citrate ER 20 mEq (2 x 10 mEq (1,080 mg)) PO BID 90 days simvastatin 40 mg PO BEDTIME 90 days testosterone 30 mg/actuation (1.5 mL) 4 pumps transdermal DAILY tretinoin 0.025% 1 appl topical DAILY triamcinolone acetonide 0.5% 1 appl topical BID HPI Comments Details: 49 yo male today fo fup visit, h for hypogonadism . He is feeling well. He is using testosterone topical solution 30 mg per pump. Dose is 4 pumps per day. Reports his doing a lot better in this dose. He has normal erection, with Cialis, he has normal libido. He denies f atigue. He is shaving every other day. He has other PMH of kidney stones, dyslipidemia, sleep apnea, not on treatment, ED, he has been on testosterone gel for about 2 years. 12/14/17 Total testosterone 126 ng/DL Free testosterone 36.3 ng/DL He denies chronic opioids use, denies heavy alcohol consumption, steroids abuse. He has father 4 kids the youngest is 18 years old. 08/2018 MRI sella [facility]. He had MRI sella which showed enlarged partially empty sella, with flattened pituitary gland , with 3 x 2 mm T2 hyperintense lesion, optic chiasm and cavernous sinus are intact. He is complaining of nocturia 2 to 3 times, he drinks a lot of water at night. Laboratory Tests 11/27/20 11/27/20 02/23/21 09:56 09:56 06:50 Hgb Hct Creatinine 1.33 Estimated GFR 58 Fasting Glucose 104 H Calcium 9.8 AST 37 ALT 66 H Albumin 4.5 Triglycerides 204 Cholesterol 174 LDL Cholesterol, Calc 99 HDL Cholesterol 35 TSH 0.97 Testosterone Level 100 L Total Testosterone 109 L Fr Testosterone Dialys 27.4 L Free Testoster w SHBG 26.0 L Bioavail Testosterone 52.3 L Sex Hormone Bind Glob 10 02/23/21 06:50 Hgb 14.6 Hct 44.1 Creatinine Estimated GFR Fasting Glucose Calcium AST ALT Albumin Triglycerides Cholesterol LDL Cholesterol, Calc HDL Cholesterol TSH Testosterone Level Total Testosterone Fr Testosterone Dialys Free Testoster w SHBG Bioavail Testosterone Sex Hormone Bind Glob Laboratory Tests 04/03/20 08/06/20 08/06/20 12:10 10:00 11:55 Hgb Hct Sodium 137 Potassium 4.4 Creatinine 1.16 Est GFR (Non-Af Amer) > 60 Hemoglobin A1c AST 34 ALT 66 H Alkaline Phosphatase 73 Albumin 4.7 Triglycerides 183 D Cholesterol 184 LDL Cholesterol, Calc 115 HDL Cholesterol 33 Total PSA 0.39 Total Testosterone 177, SEE ABOVE L Free Testosterone 48.6, 38.2 Bioavail Testosterone 102.1 L Sex Hormone Bind Glob 9, SEE ABOVE L Microalb/Creat Ratio 24.7 08/06/20 08/06/20 11:55 11:55 Hgb 14.7 Hct 44.5 Sodium Potassium Creatinine Est GFR (Non-Af Amer) Hemoglobin A1c 5.7 AST ALT Alkaline Phosphatase Albumin Triglycerides Cholesterol LDL Cholesterol, Calc HDL Cholesterol Total PSA Total Testosterone Free Testosterone Bioavail Testosterone Sex Hormone Bind Glob Microalb/Creat Ratio Denies change in urinary stream. Uses CPAP for sleep apnea . On testosterone gel 4 pumps per day PFSH Medical History Internal derangement of right shoulder Calculus of kidney Morbid obesity with BMI of 45.0-49.9, adult Serum calcium elevated Left shoulder tendinitis Lumbar disc disease with radiculopathy Obstructive sleep apnea Lumbar degenerative disc disease Empty sella Erectile dysfunction Benign essential hypertension Pure hypercholesterolemia Hypogonadism in male Surgical History History of surgery History of medial meniscus repair of right knee History of rotator cuff surgery History of removal of cyst History of lithotripsy History of umbilical hernia repair History of appendectomy Family History Father Liver cancer Morbidly obese Mother Hypertension Diabetes Asthma Social History Housing: Apartment Alcohol intake: never Patient Tobacco Use Status: Never used Tobacco Second Hand Smoke Exposure: Yes service: No Current occupational status: unemployed 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 He appears to be eugonadal with n on the current dose The plan is await testosterone level adjust testosterone accordingly Coding Level of Care Code Est Pt Level 3 (33130) Diagnoses Hypogonadism in male E29.1
== END 2024-09-24 10:22 | disposition home or self-care (01) ==
PROVIDERS: PCP Internal Medicine; Visit Provider Internal Medicine Endocrinology, Diabetes & Metabolism
DX: E29.1 Testicular hypofunction (principal)
CPT/HCPCS: 99213

== ENCOUNTER → 2024-09-24 09:48 | Outpatient (BNVA) | payer OTHER, SELFPAY | PROVIDERS: PCP Internal Medicine; Visit Provider Internal Medicine Endocrinology, Diabetes & Metabolism | DX: E29.1 Testicular hypofunction (principal) | CPT/HCPCS: 99212 ==

== ENCOUNTER 2024-11-21 10:41 | Outpatient (AMB) | payer OTHER, SELFPAY ==
[2024-11-21 10:51] VITALS: BP 130/82; PULSE 71; TEMP 36.2; O2SAT 98; BMI 49.2
--- NOTE | 2024-11-21 10:51 | MHC.PC.OV ---
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 Accompanied by: Self / Same As Patient Allergies oxycodone [From PERCOCET] Allergy (Intermediate, Verified 11/21/24 11:37) ITCHING, rash and itching, itching codeine Allergy (Unknown, Verified 11/21/24 11:37) rash and itching Medication List - Last Reconciled 11/21/24 by Peewee Hoskins MD alum-mag hydroxide-simeth 200-200-20 mg/5 mL (Antacid Anti-Gas) 10 mL PO QID PRN capsaicin 0.1% 1 appl topical BID PRN CPAP (CPAP Machine/Device) 16cm of water cyclobenzaprine 5 mg PO BID PRN gabapentin 100 mg PO BEDTIME hydrochlorothiazide 12.5 mg PO DAILY ketoconazole 2% 1 appl topical DAILY lidocaine 5% 1 patch topical DAILY meloxicam 15 mg PO DAILY PRN minocycline 100 mg PO Q12H phentermine 30 mg PO DAILY 30 days potassium citrate ER 20 mEq (2 x 10 mEq (1,080 mg)) PO BID 90 days simvastatin 40 mg PO BEDTIME 90 days testosterone 30 mg/actuation (1.5 mL) 4 pumps transdermal DAILY tretinoin 0.025% 1 appl topical DAILY triamcinolone acetonide 0.5% 1 appl topical BID Tobacco use date assessed: 11/21/24 Dental Screening Dental Screen Date: 11/21/24 Did you have a dental visit in the last 12 months?: Yes Did you have a dental problem in the last 6 months where you did not have access to dental care?: No Was dental information given to patient?: Patient has dentist HPI 4 month f/u HPI Details Patient comes in today his follow-up visit States that he feels okay He denies any headaches or dizziness Adds that he has noticed some persistent nasal congestion lately and finds it hard to take in deep breaths at times - states that it feels like his nasal passages won't open up completely Denies any chest pains, no shortness of breath No nausea/vomiting, no abdominal pain No change in bowel habits noted Patient also states that he has noticed some skin lesions / skin tags over his scrotal area recently and would like to have these checked out and removed if possible; states that these skin lesions do not itch or hurt Needs his Simvastatin Rx refilled He was not able to get his follow-up labs done prior to his appointment today - states that he asked the person who called him from the office to remind him of his appointment a couple of days ago if he had any labs that needs to be done for his appointment and he was supposedly advised that he does not have any labs ordered [facility] Medical History Internal derangement of right shoulder Calculus of kidney Morbid obesity with BMI of 45.0-49.9, adult Serum calcium elevated Left shoulder tendinitis Lumbar disc disease with radiculopathy Obstructive sleep apnea Lumbar degenerative disc disease Empty sella Erectile dysfunction Benign essential hypertension Pure hypercholesterolemia Hypogonadism in male Surgical History History of surgery History of medial meniscus repair of right knee History of rotator cuff surgery History of removal of cyst History of lithotripsy History of umbilical hernia repair History of appendectomy Family History Father Liver cancer Morbidly obese Mother Hypertension Diabetes Asthma Social History Housing: Apartment Alcohol intake: never Patient Tobacco Use Status: Never used Tobacco e-Cigarette/Vaping Use: Never Used Second Hand Smoke Exposure: Yes service: No Current occupational status: unemployed 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 1. Little interest or pleasure in doing things: not at all 2. Feeling down, depressed, or hopeless: not at all 3. Trouble falling or staying asleep, or sleeping too much: not at all 4. Feeling tired or having little energy: not at all 5. Poor appetite or overeating: not at all 6. Feeling bad about yourself - or that you are a failure or have let yourself or your family down: not at all 7. Trouble concentrating on things, such as reading the newspaper or watching television: not at all 8. Moving or speaking so slowly that other people could have noticed. Or the opposite - being so fidgety or restless that you have been moving around a lot more than usual: not at all 9. Thoughts that you would be better off or of hurting yourself in some way: not at all Total score: 0 Depression Screening Interpretation: Negative Depression Screening Done: Yes 32263 - PHQ-9 Billing: Yes Source: Developed by Drs. Riaz Phan, Kaylin Lewis, Marshall Lugo and colleagues, with an educational jaciel from [employer]. Thrive Questionnaire Date Thrive assessed: 11/21/24 I am a: Patient What is your living situation today?: I have a steady place to live Within the past 12 months, did the food you bought not last and you didn't have the money to get more?: Never true Within the past 12 months, did you worry whether your food would run out before you got money to buy more?: Never true Do you have trouble paying for medicines?: No Do you have trouble getting transportation to medical appointments?: No Do you have trouble paying your heating and electricity bill?: No Do you have trouble taking care of your child, family member or friend?: No Do you have trouble with day-to-day activities such as bathing, preparing meals, shopping, managing finances, etc.?: No Are you currently unemployed and looking for a job?: No Are you interested in more education?: No Please select the resources that you would like help with: None Currently or been in a relationship where the following occur: No concerns reported THRIVE Score: 0 AUDIT C Alcohol Use Questionnaire (AUDIT-C) 1. How often do you have a drink containing alcohol?: Never 3. How often do you have six or more drinks on one occasion?: Never Total Score: 0 Score Reviewed/Action Taken: Yes MICHELLE-7 AMB Questionnaire MICHELLE-7 Date MICHELLE - 7 assessed: 11/21/24 Feeling nervous, anxious, or on edge: 0 = Not at all Not being able to stop or control worryin = Not at all Worrying too much about different things: 0 = Not at all Trouble relaxin = Not at all Being so restless that it is hard to sit still: 0 = Not at all Becoming easily annoyed or irritable: 0 = Not at all Feeling afraid as if something awful might happen: 0 = Not at all Total MICHELLE-7 score (0-4 normal; 5-9 mild; 10-14 moderate; 15-21 severe): 0 Source: Developed by Drs. Riaz Phan, Kaylin Lewis, Marshall Lugo and colleagues, with an educational jaciel from [employer]. Review of Systems Const Denies chills, Denies fatigue, Denies fever(s) and Denies headache(s) ENT Denies dysphagia, Denies dizziness, Denies otalgia, Denies headache(s), Reports nasal congestion (frequent lately - see HPI), Denies neck pain, Denies odynophagia and Denies sore throat Card Denies chest pain, Denies irregular heart rhythm, Denies palpitations and Denies dyspnea Resp Denies cough, Denies dyspnea and Denies wheezing GI Denies abdominal pain, Denies constipation, Denies dysphagia, Denies heartburn, Denies diarrhea, Denies nausea, Denies odynophagia and Denies vomiting Denies hematuria, Denies difficulty urinating, Denies dysuria and Denies urinary frequency Musc Reports back pain (over the lower back - chronic), Denies arthralgias and Denies neck pain Skin/Breast Details: (+) skin lesions (skin tags?) over his scrotal area - states that he just noticed these a few days ago Denies rash Neuro Denies dizziness, Denies headache(s) and Denies paresthesias Endo Denies fatigue and Denies palpitations Aller/Immun Denies wheezing Physical exam (Primary Care) Vital Signs: Last Vital Signs Temp 97.1 F 11/21/24 10:51 Pulse 71 11/21/24 10:51 BP 130/82 11/21/24 10:51 Pulse Ox 98 11/21/24 10:51 Oxygen Delivery Method Room Air 11/21/24 10:51 BMI result Body Mass Index 49.2 Tobacco/Smoking Status: Tobacco use Status Tobacco use date assessed 11/21/24 11/21/24 10:53 Patient Tobacco Use Status Never used Tobacco 11/21/24 10:53 e-Cigarette/Vaping Use Never Used 11/21/24 10:53 PHQ-9: PHQ-9 Score PHQ-9: Total score 0 11/21/24 11:38 Depression Screening Interpretation: Negative Thrive Assessment: Date of Thrive Assessment Date Thrive assessed 11/21/24 11/21/24 10:53 Currently or been in a relationship where the following occur: No concerns reported Const General: no acute distress and alert HENMT Ears: TM's normal bilaterally and EAC's normal General nose exam: Abnormal mucous membranes and turbinates present boggy and erythematous and Nasal polyp present bilateral Throat: Yes posterior oropharynx normal and Yes tonsils normal (no TP congestion) Neck Neck: Yes supple and No lymphadenopathy Thyroid: Thyroid normal Resp Auscultation: clear to auscultation bilaterally, no rales and no wheezes Cardio Rate: regular rate Rhythm: regular rhythm Heart sounds: no murmurs GI Palpation (GI): Soft to palpation and nontender Auscultation: normal bowel sounds General: Yes no CVA tenderness Back/Spine/Pelvis Back: no CVA tenderness Thoracic/Lumbar Spine: lumbar spinal tenderness Skin Rashes: no rashes Extrem General: Yes no clubbing, cyanosis or edema Results Reviewed Results Reviewed: Laboratory Tests 07/18/24 08/23/24 08/23/24 10:50 11:14 11:20 WBC 8.2 Hgb 17.7 Hct Plt Count Sodium 139 Potassium 4.5 Creatinine 1.54 H Estimated GFR 48 Prostate Specific Ag Total Testosterone Ur Specific Rousseau Urine Protein Urine Glucose (UA) Urine Blood Urine Nitrite Ur Leukocyte Esterase Protein/Creatinin Ratio 0.21 H 09/22/24 09/22/24 09:05 09:06 WBC 7.4 Hgb 17.3 Hct 51.7 Plt Count 294 Sodium Potassium Creatinine Estimated GFR Prostate Specific Ag 0.74 Total Testosterone 884 Ur Specific Rousseau 1.020 Urine Protein 100 (2+) H Urine Glucose (UA) Negative Urine Blood Negative Urine Nitrite Negative Ur Leukocyte Esterase Negative Protein/Creatinin Ratio Coding Level of Care Code Est Pt Level 4 (06281) Complex EM visit Add On G2211 Diagnoses Pure hypercholesterolemia E78.00 Benign essential hypertension I10 Renal insufficiency N28.9 Obstructive sleep apnea G47.33 Nasal polyps J33.9 Degeneration of intervertebral disc of lumbar region with discogenic back pain M51.360 Disc-related pain type: discogenic back pain only Complete tear of right rotator cuff, unspecified whether traumatic M75.121 Rotator cuff tear trauma status: unspecified whether traumatic Hypogonadism in male E29.1 Other male erectile dysfunction N52.8 Erectile dysfunction type: due to other cause Scrotal skin lesion N50.9 Nephrolithiasis N20.0 Morbid obesity with BMI of 45.0-49.9, adult E66.01; Z68.42 Additional Codes PHQ-9 - 04731 - PHQ-9 Billing: Yes ([id number]) Assessment & Plan Assessment & Plan (1) Pure hypercholesterolemia: Code(s): E78.00 - Pure hypercholesterolemia, unspecified Category: Medical Plan: Patient was not able to get his follow-up labs done prior to his appointment today - states and he will go back to the lab and get them done as soon as possible Reinforced low-cholesterol diet Continue Simvastatin 40 mg QD - Rx refilled Will recheck his labs and fasting lipids in 4 months for follow up (2) Benign essential hypertension: Code(s): I10 - Essential (primary) hypertension Category: Medical Plan: Reinforced low sodium diet - goal is systolic BP of 120 mm or less Continue HCTZ 12.5 mg QD He was also on Lisinopril 5 mg QD in the past but somehow stopped taking this at some point last year - patient is not sure why or how Nephrology eventually switched him from his previous Rx of Amlodipine to HCTZ as his serum calcium was normal Patient is again reminded to continue monitoring his blood pressure regularly He is again also advised/reminded to avoid drinking a lot of energy drinks as these often contain very high amounts of caffeine (as well as sugar) and can adversely affect his blood pressure Follow up with nephrology as scheduled (3) Renal insufficiency: Code(s): N28.9 - Disorder of kidney and ureter, unspecified Plan: His renal function appears to have declined again on his labs done back in August 2024 - his GFR at the time was at 48, which places him in early stage 3 CKD Will have patient recheck this RADHA and if his renal function is similar to his August 2024 numbers, we will need to reassess his meds, especially his Phentermine and any NSAIDs that he takes We will continue to monitor his renal function closely Follow up with nephrology as scheduled (4) Obstructive sleep apnea: Comment: CPAP Code(s): G47.33 - Obstructive sleep apnea (adult) (pediatric) Category: Medical Plan: Repeat sleep study with CPAP titration done back in 2020 revealed (+) severe obstructive sleep apnea requiring 16 cm of water pressure Patient is reminded to continue using his CPAP device every night regularly when sleeping Follow up with Sleep Medicine as scheduled (5) Nasal polyps: Code(s): J33.9 - Nasal polyp, unspecified Category: Medical Plan: Will refer him to ENT for further evaluation and management (6) Lumbar degenerative disc disease: Code(s): M51.36 - Other intervertebral disc degeneration, lumbar region Category: Medical Qualifiers: Disc-related pain type: discogenic back pain only Qualified Code(s): M51.360 - Other intervertebral disc degeneration, lumbar region with discogenic back pain only Plan: Reinforced activity and weight-lifting restrictions to help manage his lower back symptoms Lumbar spine MRI was previously ordered but this was denied by his health insurance Continue Gabapentin 100 mg Q HS, Tramadol 50 mg PRN and Cyclobenzaprine 5 mg Q HS PRN; he is also on Meloxicam (not sure what dose but likely 15 mg QD) prescribed by [facility] He continues to work with physical therapy as well to help manage his low back pain Follow up also with [facility] as scheduled for his chronic pain management (7) Complete rotator cuff tear or rupture of right shoulder, not specified as traumatic: Code(s): M75.121 - Complete rotator cuff tear or rupture of right shoulder, not specified as traumatic Category: Medical Qualifiers: Rotator cuff tear trauma status: unspecified whether traumatic Qualified Code(s): M75.121 - Complete rotator cuff tear or rupture of right shoulder, not specified as traumatic Plan: Resolved - S/P arthroscopic shoulder surgery and tendon repair with Dr. Baron in April 2023, with improvement of his shoulder symptoms Follow up with orthopedics as scheduled or as needed (8) Hypogonadism in male: Code(s): E29.1 - Testicular hypofunction Category: Medical Plan: Continue Testosterone solution 30 mg /ACT 2 pumps and apply on skin once a day in the morning transdermally Per endocrinology report, patient is eugonadal and doing well on his current regimen Follow-up with endocrinology/urology as scheduled (9) Erectile dysfunction: Code(s): N52.9 - Male erectile dysfunction, unspecified Category: Medical Qualifiers: Erectile dysfunction type: due to other cause Qualified Code(s): N52.8 - Other male erectile dysfunction Plan: Patient has hypogonadism and is currently on treatment with testosterone replacement therapy for this with endocrinology and urology He was previously prescribed Sildenafil and subsequently Tadalafil but states that his insurance would not cover either Rx and he is just managing his symptoms on his own for now (10) Scrotal skin lesion: Code(s): N50.9 - Disorder of male genital organs, unspecified Category: Medical Plan: Per request, will refer him to Dr. Ferrell for dermatology evaluation and recommendations He is hoping that dermatology can remove these skin tags/lesions (11) Nephrolithiasis: Code(s): N20.0 - Calculus of kidney Category: Medical Plan: Patient currently remains asymptomatic Renal US done in December 2023 showed (+) 4 mm nonobstructing right renal calculus is seen. No left renal calculus is seen and no hydronephrosis is noted bilaterally Follow up US done in June 2024 showed similar findings Follow up with urology as scheduled (12) Morbid obesity with BMI of 45.0-49.9, adult: Code(s): E66.01 - Morbid (severe) obesity due to excess calories; Z68.42 - Body mass index [BMI] 45.0-49.9, adult Category: Medical Plan: Reinforced diet/exercise as tolerated/ lose weight He has been taking Phentermine 30 mg Q AM to help with his weight (is currently off the Rx for the next couple of months after being on it for about 3 months) He continues to decline recommendation to refer him to weight management - states that he will call for referral if he feels he needs to see them Plan Patient would also like to get his yearly STD check and will order these and have these done with his other routine labs RADHA Follow up in 4 months Orders: Orders CT NG by PCR 11/21/24 Z20.2 - Contact with and (suspected) exposure to infections with a predominantly sexual mode of transmission Hepatitis B,C Profile 11/21/24 Z20.2 - Contact with and (suspected) exposure to infections with a predominantly sexual mode of transmission Complete Blood Count Auto Diff 4 Months D64.9 - Anemia, unspecified Comprehensive [place]. Panel Fast 4 Months E78.00 - Pure hypercholesterolemia, unspecified Lipid Panel 4 Months E78.00 - Pure hypercholesterolemia, unspecified Vitamin D 25-OH Total 4 Months E55.9 - Vitamin D deficiency, unspecified HIV Ab/Ag 11/21/24 Z20.2 - Contact with and (suspected) exposure to infections with a predominantly sexual mode of transmission Syphilis Screen 11/21/24 Z20.2 - Contact with and (suspected) exposure to infections with a predominantly sexual mode of transmission UA CC w/rflx Micro + Cult 4 Months R30.0 - Dysuria Referrals Dermatology Referral N50.9 - Disorder of male genital organs, unspecified Ear/Nose/Throat Referral J33.9 - Nasal polyp, unspecified Medications: Refilled simvastatin 40 mg PO BEDTIME 90 days 90 tabs 1RF E78.00 - Pure hypercholesterolemia, unspecified
== END 2024-11-21 12:03 | disposition home or self-care (01) ==
PROVIDERS: PCP Internal Medicine; Visit Provider Internal Medicine
DX: E78.00 Pure hypercholesterolemia, unspecified (principal); I10 Essential (primary) hypertension; N28.9 Disorder of kidney and ureter, unspecified; G47.33 Obstructive sleep apnea (adult) (pediatric); J33.9 Nasal polyp, unspecified; M51.360 Other intervertebral disc degeneration, lumbar region with discogenic back pain only; M75.121 Complete rotator cuff tear or rupture of right shoulder, not specified as traumatic; E29.1 Testicular hypofunction; N52.8 Other male erectile dysfunction; N50.9 Disorder of male genital organs, unspecified; E66.01 Morbid (severe) obesity due to excess calories; Z68.42 Body mass index [BMI] 45.0-49.9, adult; N20.0 Calculus of kidney

== ENCOUNTER → 2024-11-21 10:41 | Outpatient (BNVA) | payer OTHER, SELFPAY | PROVIDERS: PCP Internal Medicine; Visit Provider Internal Medicine | DX: E78.00 Pure hypercholesterolemia, unspecified (principal); I10 Essential (primary) hypertension; N28.9 Disorder of kidney and ureter, unspecified; G47.33 Obstructive sleep apnea (adult) (pediatric); J33.9 Nasal polyp, unspecified; M51.360 Other intervertebral disc degeneration, lumbar region with discogenic back pain only; M75.121 Complete rotator cuff tear or rupture of right shoulder, not specified as traumatic; E29.1 Testicular hypofunction; N52.8 Other male erectile dysfunction; N50.9 Disorder of male genital organs, unspecified; N20.0 Calculus of kidney; E66.01 Morbid (severe) obesity due to excess calories; Z68.42 Body mass index [BMI] 45.0-49.9, adult; Z20.2 Contact with and (suspected) exposure to infections with a predominantly sexual mode of transmission | CPT/HCPCS: 96127; 99212 ==

== ENCOUNTER 2024-11-22 09:53 | Outpatient (REF) | payer OTHER, SELFPAY ==
[2024-11-22 10:14] LABS: MANUAL DIFF FLAG NO
[2024-11-22 10:55] LABS: Appearance Urine Clear; Color Urine Yellow; Glucose Urine UA Negative (Negative); Leukocyte Esterase Urine Negative (Negative); Nitrite Urine Negative (Negative); UMIC TRIGGER UACC YES; Urine Blood Negative (Negative); Urine Ketones Negative (Negative); Urine Protein 100 (2+) mg/dL (Neg-Trace)
[2024-11-22 11:07] LABS: Basophils Absolute Auto 0.1 X10*3/uL (0.0-0.2); Basophils Percent Auto 0.6 % (0-2); Eosinophils Absolute Auto 0.1 X10*3/uL (0.0-0.4); Eosinophils Percent Auto 1.6 % (0-4); Hematocrit 51.4 % (42.0-52.0); Hemoglobin 17.5 g/dl (14.0-18.0); Imm Gran Abs Auto 0.05 X10*3/uL (0.00-0.03); Imm Gran Pct Auto 0.6 % (0.0-0.4); Lymphocytes Absolute Auto 1.9 X10*3/uL (1.2-4.9); Lymphocytes Percent Auto 23.7 % (20-40); Mean Corpuscular Volume 85.2 fL (80.0-98.0); Mean Platelet Volume 9.7 fL (9.4-12.4); Monocytes Absolute Auto 0.7 X10*3/uL (0.1-1.2); Monocytes Percent Auto 8.1 % (2-11); Neutrophils Absolute Auto 5.2 x10*3/uL (2.0-8.3); Neutrophils Percent Auto 65.4 % (45-73); Platelet Count 281 X10*3/uL (160-400); Red Blood Count 6.03 X10*6/uL (4.60-5.80); Red Cell Distribution Width 13.2 % (11.0-16.0)
[2024-11-22 11:09] LABS: Bacteria Urine None Seen (None Seen); Hyaline Casts Urine 0-2 /LPF (0-2); RBC Urine 0-2 /HPF (0-2); Squamous Epithelial Cell Urine 0-2 /HPF (0-2); WBC Urine 0-5 /HPF (0-5)
[2024-11-22 12:07] LABS: Syphilis Screen Nonreactive (Nonreactive)
[2024-11-22 12:08] LABS: HBc Num1 0.12 S/CO (0.00-0.79); HIV AB/AG Nonreactive (Nonreactive); HIV Num 1 0.05 S/CO (0.00-0.99); Hepatitis B Core Antibody Nonreactive (Nonreactive); Hepatitis B Surface Antigen Negative (Negative); ~Hepatitis B Surface Antibody NONREACTIVE (Nonreactive); ~Hepatitis C Antibody Nonreactive (Nonreactive)
[2024-11-22 12:43] LABS: Alanine Aminotransferase 67 U/L (0-40); Albumin Level 4.6 g/dL (3.5-5.0); Alkaline Phosphatase 61 U/L (39-117); Anion Gap 13 (12-20); Aspartate Amino Transferase 47 U/L (5-37); Bilirubin Total 1.3 mg/dL (0.0-1.0); Blood Urea Nitrogen 19 mg/dL (9-16); Calcium 10.1 mg/dL (8.4-10.2); Carbon Dioxide 27 mmol/L (22-29); Chloride 103 mmol/L (96-108); Cholesterol 181 mg/dL (<200); Estimated Glomerular Filt Rate 59; Glucose Fasting 85 mg/dL (60-99); HDL Cholesterol 40 mg/dL (>40); LDL Cholesterol Calculated 102 mg/dL (<100); Potassium 4.4 mmol/L (3.3-5.1); Sodium 139 mmol/L (135-145); TSH reflex Free T4 1.89 uIU/mL (0.32-4.0); Total Protein 8.3 g/dL (6.5-8.0); Triglycerides 198 mg/dL (<150); Vitamin D 25-OH Total 35.3 ng/mL (>30)
== END 2024-11-22 09:54 | disposition home or self-care (01) ==
LOC: HO.LAB 09:53
PROVIDERS: PCP Internal Medicine; Visit Provider Internal Medicine
DX: D64.9 Anemia, unspecified (principal); E78.00 Pure hypercholesterolemia, unspecified; Z20.2 Contact with and (suspected) exposure to infections with a predominantly sexual mode of transmission; E55.9 Vitamin D deficiency, unspecified
CPT/HCPCS: 36415; 80053; 80061; 81001; 81003; 82306; 84443; 85025; 86704; 86706; 86780; 86803; 87340; 87389

== ENCOUNTER 2024-12-14 09:43 | Outpatient (REF) | payer OTHER, SELFPAY ==
--- OUTSIDE RECORDS SUMMARY | 2024-12-14 10:28 | XMS_ITS | Clinical Summary ---
Author Organization [facility] Address [address] [place] [address] Phone Care Team Providers Care Obstetrician And Gynaecologist Name Role Phone Peewee Hoskins MD Primary Care Provider [phone]- [phone] Allergies Active Allergy Reactions Criticality Noted Date Comments Diazepam 09/21/2022 Oxycodone 09/21/2022 Oxycodone-Acetaminophen 09/21/2022 Medications * This document contains information received from the source organization and may not represent a complete record from that organization. tretinoin (RETIN-A) 0.025 % cream Apply topically every night Active Testosterone 30 MG/ACT solution Place on the skin Active pyridoxine (B-6) 100 MG tablet Take 100 mg by mouth 1 (one) time each day Active simvastatin (ZOCOR) 40 MG tablet Take 40 mg by mouth every night Active triamcinolone (KENALOG) 0.5 % cream Apply topically 2 (two) times a day Active tamsulosin (FLOMAX) 0.4 MG 24 hr capsule Take 0.4 mg by mouth 1 (one) time each day Active minocycline (MINOCIN,DYNACI N) 100 MG capsule Take 100 mg by mouth in the morning and 100 mg in the evening. Active amLODIPine (NORVASC) 5 MG tablet TAKE 1 TABLET BY MOUTH 1 TIME EACH DAY. 30 tablet 1 3 Active meloxicam (MOBIC) 7.5 MG tablet Take 1 tablet by mouth 1 (one) time each day 3 Active potassium citrate 10 MEQ (1080 MG) CR tablet Take 2 tablets by mouth in the morning and 2 tablets in the evening. 3 Active Active Problems Problem Noted Date Diagnosed Date Hypertension 12/01/2022 Acute nontraumatic kidney injury 09/22/2022 Hypogonadism 09/21/2022 Severe obesity 09/21/2022 Family History Medical History Relation Comments Cancer Father Liver Cancer Diabetes Mother Hypertension Mother Relation Status Comments Father Mother Social History Tobacco Use Types Packs/Day Years Used Date Smoking Tobacco: Never Smokeless Tobacco: Never Tobacco Cessation:Counseling Given: Not Answered Alcohol Use Standard Drinks/Week Comments Never 0 (1 standard drink = 0.6 oz pur e alcohol) Sex and Gender Information Value Date Recorded Sex Assigned at Not on file Legal Sex Male 11:02 AM EST Gender Identity Not on file Sexual Orientation Not on file Last Filed Vital Signs Vital Sign Reading Time Taken Comments Blood Pressure 130/90 06/27/2023 3:54 PM EDT Pulse 56 06/27/2023 3:54 PM EDT Temperature - - Respiratory Rate - - Oxygen Saturation 96% 01/10/2023 3:11 PM EST Inhaled Oxygen Concentration - - Weight 138 kg (304 lb 9.6 oz) 06/27/2023 3:54 PM EDT Height - - Body Mass Index - - Plan of Treatment Health Maintenance Due Date Last Done Comments Pneumococcal Vaccine: Pediat rics (0 to 5 Years) and At-Risk Patients (6 to 64 Years) (1 of 2 - PCV) 1980 Hepatitis B Vaccine (1 of 3 - 19+ 3-dose series) 09/01 Colorectal Cancer Screening: Annual FOBT 2023 Colorectal Cancer Screening: Colonoscopy 2023 Colorectal Cancer Screening: Sigmoidoscopy 2023 Influenza Vaccine (#1) 2024 Insurance [facility] MEDICAID * Guarantor: Ronald Crump Account Type Relation to Patient Date of Phone Billing Address Personal/Family Self [address] [place] [address] [facility] MEDICAID Care Teams Obstetrician And Gynaecologist Relationship Specialty Start Date End Date Peewee Hoskins MD [address] [place], [place] [phone] PCP - General Internal Medicine 09/15/22
[2024-12-14 11:50] LABS: HBc Num1 0.09 S/CO (0.00-0.79); HBsAGNum1 0.42 S/CO (0.00-0.99); HIV AB/AG Nonreactive (Nonreactive); HIV Num 1 0.07 S/CO (0.00-0.99); Hepatitis B Core Antibody Nonreactive (Nonreactive); Hepatitis B Surface Antigen Negative (Negative); ~HepC Num1 0.06 S/CO (0.00-0.79); ~Hepatitis B Surface Antibody NONREACTIVE (Nonreactive); ~Hepatitis C Antibody Nonreactive (Nonreactive)
[2024-12-14 11:51] LABS: Syphilis Screen Nonreactive (Nonreactive)
[2024-12-14 12:26] LABS: CT PCR NOT DETECTED (Not Detect.); NG PCR NOT DETECTED (Not Detect.)
[2024-12-17 22:48] LABS: Herpes Simplex Type 1 IgG >58.00 index; Herpes Simplex Type 2 IgG <0.90 index
== END 2024-12-14 09:44 | disposition home or self-care (01) ==
LOC: HO.LAB 09:43
PROVIDERS: PCP Internal Medicine; Visit Provider Internal Medicine
DX: Z20.2 Contact with and (suspected) exposure to infections with a predominantly sexual mode of transmission (principal)
CPT/HCPCS: 86695; 86696; 86704; 86706; 86780; 86803; 87340; 87389; 87491; 87591

== ENCOUNTER 2025-01-16 09:57 | Outpatient (AMB) | payer OTHER, SELFPAY ==
--- NOTE | 2025-01-16 10:04 | HO.NEPHOV_ITS ---
Vital Signs 01/16/25 10:07 Height 5 ft 5 in Weight 295 lb BMI 49.1 BP 132/82 Blood Pressure Location Rt brachial Position Sitting Pulse 84 Pulse Source Pulse Oximeter Pulse Oximetry (%) 98 Oxygen Delivery Method Room Air Intake Visit Reasons: 6MON F/U-LVM Complex Director Required: No Accompanied by: Self / Same As Patient Allergies oxycodone [From PERCOCET] Allergy (Intermediate, Verified 01/16/25 10:06) ITCHING, rash and itching, itching codeine Allergy (Unknown, Verified 01/16/25 10:06) rash and itching HPI Comments Details: Ronald was seen in follow-up of his nephrolithiasis, hypertension and very mild CKD. He regularly follows up with his urologist. He recently had a renal ultrasound which showed unilateral renal calculus on the left kidney. He has no blood in the urine. He denies epistaxis, sinusitis, hemoptysis, hematuria, edema. He has not passed any great toe gravel in the urine. His blood pressure is well controlled on current medication regimen. He has obstructive sleep apnea and is on CPAP. He regularly takes his potassium chloride tablets. He avoids nonsteroidal anti-inflammatories and maintain good hydration. He is quite active and did not have any new complaints at the time of this office visit [facility]LY [facility] Medical History Internal derangement of right shoulder Calculus of kidney Morbid obesity with BMI of 45.0-49.9, adult Serum calcium elevated Left shoulder tendinitis Lumbar disc disease with radiculopathy Obstructive sleep apnea Lumbar degenerative disc disease Empty sella Erectile dysfunction Benign essential hypertension Pure hypercholesterolemia Hypogonadism in male Surgical History History of surgery History of medial meniscus repair of right knee History of rotator cuff surgery History of removal of cyst History of lithotripsy History of umbilical hernia repair History of appendectomy Family History Father Liver cancer Morbidly obese Mother Hypertension Diabetes Asthma Social History Housing: Apartment Alcohol intake: never Patient Tobacco Use Status: Never used Tobacco e-Cigarette/Vaping Use: Never Used Second Hand Smoke Exposure: Yes service: No Current occupational status: unemployed 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 Cognitive needs: No Hearing needs: No Vision needs: No Review of Systems Const All systems reviewed & are unremarkable except as noted in HPI and below Physical Exam Vital Signs: Last Vital Signs Pulse 84 01/16/25 10:07 BP 132/82 01/16/25 10:07 Pulse Ox 98 01/16/25 10:07 Oxygen Delivery Method Room Air 01/16/25 10:07 BMI result Body Mass Index 49.1 Const General: comfortable and no acute distress Orientation/consciousness: patient oriented x3 HEENT Head: Yes normocephalic Mouth: Normal oral and palatal mucosa present Eyes EOM: EOMs intact bilaterally Neck Neck: Yes supple Resp Auscultation: clear to auscultation bilaterally Cardio Jugular venous distension: no JVD Rate: regular rate Heart sounds: Murmur heart sound present GI Palpation (GI): Soft to palpation Auscultation: normal bowel sounds Skin General skin exam: no rashes or lesions noted Neuro General: patient oriented x3 and moves all extremities Extrem General: Yes no pedal edema Results Reviewed Nephrology Results: Hgb 17.5 g/dl (14.0-18.0) 11/22/24 WBC 8.0 X10*3/uL (4.8-10.8) 11/22/24 Plt Count 281 X10*3/uL (160-400) 11/22/24 Sodium 139 mmol/L (135-145) 11/22/24 Potassium 4.4 mmol/L (3.3-5.1) 11/22/24 Chloride 103 mmol/L (96-108) 11/22/24 Carbon Dioxide 27 mmol/L (22-29) 11/22/24 BUN 19 mg/dL (9-16) H 11/22/24 Creatinine 1.29 mg/dL (0.5-1.4) 11/22/24 Calcium 10.1 mg/dL (8.4-10.2) 11/22/24 Urine Protein 100 (2+) mg/dL (Neg-Trace) H 11/22/24 Urine Creatinine 96.92 mg/dL 08/23/24 Protein/Creatinin Ratio 0.21 (<0.2) H 08/23/24 Assessment & Plan Assessment & Plan (1) Hypertension: Code(s): I10 - Essential (primary) hypertension Category: Medical Qualifiers: Hypertension type: primary hypertension Qualified Code(s): I10 - Essential (primary) hypertension (2) Chronic kidney disease (CKD), stage II (mild): Code(s): N18.2 - Chronic kidney disease, stage 2 (mild) Category: Medical Plan His renal functions are stable. His last renal ultrasound recently showed a 4 mm non obstructing right renal calculus. He follows up closely with urologist. He maintains good hydration and he is on potassium citrate( has hypocitrauria). I plan to do a 24 hour urine collection again later. He will need a follow-up ultrasound of his kidney next visit. I asked him to cut back salt in the diet, continue with potassium citrate, cut back meat and increase fruits and veget ednise in the diet. He is on hydrochlorothiazide given hypertension and renal calculus. I did not make any other medication changes at this visit . I answered all his questions and concerns. Follow-up lab work ordered. Follow-up appointment given. Orders: Orders Electrolytes 6 Months I10 - Essential (primary) hypertension, N18.2 - Chronic kidney disease, stage 2 (mild) Calcium 6 Months I10 - Essential (primary) hypertension, N18.2 - Chronic kidney disease, stage 2 (mild) Protein Creatinine Ratio, Ur 6 Months I10 - Essential (primary) hypertension, N18.2 - Chronic kidney disease, stage 2 (mild) UA and rflx microscopic 6 Months I10 - Essential (primary) hypertension, N18.2 - Chronic kidney disease, stage 2 (mild) Creatinine 6 Months I10 - Essential (primary) hypertension, N18.2 - Chronic kidney disease, stage 2 (mild) Blood Urea Nitrogen 6 Months I10 - Essential (primary) hypertension, N18.2 - Chronic kidney disease, stage 2 (mild) Coding Level of Care Code Est Pt Level 4 (50832) Diagnoses Primary hypertension I10 Hypertension type: primary hypertension Chronic kidney disease (CKD), stage II (mild) N18.2
[2025-01-16 10:07] VITALS: BP 132/82; PULSE 84; O2SAT 98; BMI 49.1
--- OUTSIDE RECORDS SUMMARY | 2025-01-16 11:15 | XMS_ITS | Clinical Summary ---
Author Organization [facility] Address [address] [place] [address] Phone Care Team Providers Care Gambreler Helper Name Role Phone Peewee Hoskins MD Primary Care Provider +1- [phone] Allergies Active Allergy Reactions Criticality Noted Date [...] Sigmoidoscopy 2023 Influenza Vaccine (#1) 2024 Insurance [facility] MEDICAID * Guarantor: Ronald Crump Account Type Relation to Patient Date of Phone Billing Address Personal/Family Self [address] [place] [address] [facility] MEDICAID Care Teams Gambreler Helper Relationship Specialty Start Date End Date Peewee Hoskins MD [address] [place], [place] [phone] PCP - General Internal Medicine 09/15/22
== END 2025-01-16 10:27 | disposition home or self-care (01) ==
LOC: HO.HKA 09:58
PROVIDERS: PCP Internal Medicine; Visit Provider Internal Medicine Nephrology
DX: I12.9 Hypertensive chronic kidney disease with stage 1 through stage 4 chronic kidney disease, or unspecified chronic kidney disease (principal); N18.2 Chronic kidney disease, stage 2 (mild)
CPT/HCPCS: 99214

== ENCOUNTER → 2025-01-16 09:57 | Outpatient (BNVA) | payer OTHER, SELFPAY | PROVIDERS: PCP Internal Medicine; Visit Provider Internal Medicine Nephrology | DX: I12.9 Hypertensive chronic kidney disease with stage 1 through stage 4 chronic kidney disease, or unspecified chronic kidney disease (principal); N18.2 Chronic kidney disease, stage 2 (mild) | CPT/HCPCS: 99212 ==

== ENCOUNTER 2025-03-20 09:40 | Outpatient (REF) | payer OTHER, SELFPAY ==
--- OUTSIDE RECORDS SUMMARY | 2025-03-20 10:18 | XMS_ITS | Clinical Summary ---
Author Organization [facility] Address [address] [place] [address] Phone Care Team Providers Care Activated Sludge Attendant Name Role Phone Peewee Hoskins MD Primary Care Provider +1- [phone] Allergies Active Allergy Reactions Criticality Noted Date [...] Health Maintenance Due Date Last Done Comments Hepatitis B Vaccine (1 of 3 - 19+ 3-dose series) 09/01 Pneumococcal Vaccine: 50+ Years (1 of 2 - PCV) 993 Colorectal Cancer Screening: Annual FOBT 2023 Colorectal Cancer Screening: Colonoscopy 2023 Colorectal Cancer Screening: Sigmoidoscopy 2023 Influenza Vaccine (Season Ended) 2025 Insurance [facility] [place] [phone] * Guarantor: Ronald Crump Account Type Relation to Patient Date of Phone Billing Address Personal/Family Self 1975 [address] [place] [address] [facility] [place] [address] Care Teams Activated Sludge Attendant Relationship Specialty Start Date End Date Peewee Hoskins MD [address] [place], [place] [phone] PCP - General Internal Medicine 09/15/22
[2025-03-20 10:26] LABS: Basophils Percent Auto 0.3 % (0-2); Eosinophils Percent Auto 0.4 % (0-4); Hematocrit 51.3 % (42.0-52.0); Hemoglobin 17.1 g/dl (14.0-18.0); Imm Gran Abs Auto 0.03 X10*3/uL (0.00-0.03); Imm Gran Pct Auto 0.4 % (0.0-0.4); Lymphocytes Absolute Auto 1.7 X10*3/uL (1.2-4.9); Lymphocytes Percent Auto 21.4 % (20-40); MANUAL DIFF FLAG NO; Mean Corpuscular HGB Conc 33.3 g/dl (31.0-36.0); Mean Corpuscular Volume 86.9 fL (80.0-98.0); Mean Platelet Volume 9.4 fL (9.4-12.4); Monocytes Absolute Auto 0.5 X10*3/uL (0.1-1.2); Monocytes Percent Auto 6.6 % (2-11); Neutrophils Absolute Auto 5.5 x10*3/uL (2.0-8.3); Neutrophils Percent Auto 70.9 % (45-73); Platelet Count 252 X10*3/uL (160-400); Red Cell Distribution Width 13.4 % (11.0-16.0); White Blood Count 7.8 X10*3/uL (4.8-10.8)
[2025-03-20 11:03] LABS: Appearance Urine Clear; Color Urine Yellow; Glucose Urine UA Negative (Negative); Leukocyte Esterase Urine Negative (Negative); Nitrite Urine Negative (Negative); UMIC TRIGGER UACC YES; Urine Blood Trace (Negative); Urine Ketones Negative (Negative); Urine Protein 30 (1+) mg/dL (Neg-Trace)
[2025-03-20 11:14] LABS: Bacteria Urine None Seen (None Seen); Hyaline Casts Urine 0-2 /LPF (0-2); Squamous Epithelial Cell Urine 0-2 /HPF (0-2); WBC Urine 0-5 /HPF (0-5)
[2025-03-20 14:58] LABS: Alanine Aminotransferase 41 U/L (0-40); Albumin Level 4.3 g/dL (3.5-5.0); Anion Gap 16 (12-20); Aspartate Amino Transferase 41 U/L (5-37); Bilirubin Total 1.1 mg/dL (0.0-1.0); Blood Urea Nitrogen 20 mg/dL (9-16); Calcium 9.7 mg/dL (8.4-10.2); Carbon Dioxide 25 mmol/L (22-29); Chloride 104 mmol/L (96-108); Cholesterol 186 mg/dL (<200); Estimated Glomerular Filt Rate 58; Glucose Fasting 104 mg/dL (60-99); HDL Cholesterol 42 mg/dL (>40); LDL Cholesterol Calculated 122 mg/dL (<100); Potassium 4.7 mmol/L (3.3-5.1); Sodium 140 mmol/L (135-145); Total Protein 7.3 g/dL (6.5-8.0); Triglycerides 112 mg/dL (<150)
[2025-03-20 15:34] LABS: Vitamin D 25-OH Total 36.8 ng/mL (>30)
[2025-03-20 17:01] LABS: Alkaline Phosphatase 59 U/L (39-117)
== END 2025-03-20 09:41 | disposition home or self-care (01) ==
LOC: HO.LAB 09:40
PROVIDERS: PCP Internal Medicine; Visit Provider Internal Medicine
DX: E78.00 Pure hypercholesterolemia, unspecified (principal); D64.9 Anemia, unspecified; E55.9 Vitamin D deficiency, unspecified
CPT/HCPCS: 36415; 80053; 80061; 81001; 81003; 82306; 85025

== ENCOUNTER 2025-03-21 11:39 | Outpatient (AMB) | payer OTHER, SELFPAY ==
[2025-03-21 12:23] VITALS: BP 132/80; PULSE 63; O2SAT 96; BMI 48.8
--- NOTE | 2025-03-21 12:23 | A.OFFPC_ITS ---
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 Accompanied by: Self / Same As Patient Allergies oxycodone [From PERCOCET] Allergy (Intermediate, Verified 03/21/25 12:35) ITCHING, rash and itching, itching codeine Allergy (Unknown, Verified 03/21/25 12:35) rash and itching Medication List - Last Reconciled 03/21/25 by Peewee Hoskins MD alum-mag hydroxide-simeth 200-200-20 mg/5 mL (Antacid Anti-Gas) 10 mL PO QID PRN capsaicin 0.1% 1 appl topical BID PRN CPAP (CPAP Machine/Device) 16cm of water cyclobenzaprine 5 mg PO BID PRN gabapentin 100 mg PO BEDTIME hydrochlorothiazide 12.5 mg PO DAILY ketoconazole 2% 1 appl topical DAILY lidocaine 5% 1 patch topical DAILY meloxicam 15 mg PO DAILY PRN minocycline 100 mg PO Q12H phentermine 30 mg PO DAILY 30 days potassium citrate ER 20 mEq (2 x 10 mEq (1,080 mg)) PO BID 90 days simvastatin 40 mg PO BEDTIME 90 days testosterone 30 mg/actuation (1.5 mL) 4 pumps transdermal DAILY tretinoin 0.025% 1 appl topical DAILY triamcinolone acetonide 0.5% 1 appl topical BID Tobacco use date assessed: 03/21/25 Dental Screening Dental Screen Date: 03/21/25 Did you have a dental visit in the last 12 months?: Yes Did you have a dental problem in the last 6 months where you did not have access to dental care?: No Was dental information given to patient?: Patient has dentist HPI hyperlipidemia, CKD, hypotestosteronism HPI Details Patient comes in today his follow-up visit States that he feels okay He denies any headaches or dizziness Denies any chest pains, no shortness of breath No nausea/vomiting, no abdominal pain No change in bowel habits noted Needs several of his Rx refilled He had his follow up labs done yesterday - to discuss his results [facility] Medical History (Updated 03/21/25 @ 12:42 by Peewee Hoskins MD) Internal derangement of right shoulder Calculus of kidney Morbid obesity with BMI of 45.0-49.9, adult Serum calcium elevated Left shoulder tendinitis Lumbar disc disease with radiculopathy Obstructive sleep apnea Lumbar degenerative disc disease Empty sella Erectile dysfunction Benign essential hypertension Pure hypercholesterolemia Hypogonadism in male Surgical History (Updated 03/21/25 @ 12:40 by Peewee Hoskins MD) History of colonoscopy History of surgery History of medial meniscus repair of right knee History of rotator cuff surgery History of removal of cyst History of lithotripsy History of umbilical hernia repair History of appendectomy Family History Father Liver cancer Morbidly obese Mother Hypertension Diabetes Asthma Social History Housing: Apartment Alcohol intake: never Patient Tobacco Use Status: Never used Tobacco e-Cigarette/Vaping Use: Never Used Second Hand Smoke Exposure: Yes service: No Current occupational status: unemployed 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 1. Little interest or pleasure in doing things: not at all 2. Feeling down, depressed, or hopeless: not at all 3. Trouble falling or staying asleep, or sleeping too much: not at all 4. Feeling tired or having little energy: not at all 5. Poor appetite or overeating: not at all 6. Feeling bad about yourself - or that you are a failure or have let yourself or your family down: not at all 7. Trouble concentrating on things, such as reading the newspaper or watching television: not at all 8. Moving or speaking so slowly that other people could have noticed. Or the opposite - being so fidgety or restless that you have been moving around a lot more than usual: not at all 9. Thoughts that you would be better off or of hurting yourself in some way: not at all Total score: 0 Depression Screening Interpretation: Negative Depression Screening Done: Yes 56249 - PHQ-9 Billing: Yes Source: Developed by Drs. Riaz Phan, Kaylin Lewis, Marshall Lugo and colleagues, with an educational jaciel from [employer]. Thrive Questionnaire Date Thrive assessed: 03/21/25 I am a: Patient What is your living situation today?: I have a steady place to live Within the past 12 months, did the food you bought not last and you didn't have the money to get more?: I choose not to answer this question Within the past 12 months, did you worry whether your food would run out before you got money to buy more?: I choose not to answer this question Do you have trouble paying for medicines?: Yes Do you have trouble getting transportation to medical appointments?: No Do you have trouble paying your heating and electricity bill?: I choose not to answer this question Do you have trouble taking care of your child, family member or friend?: I choose not to answer this question Do you have trouble with day-to-day activities such as bathing, preparing meals, shopping, managing finances, etc.?: I choose not to answer this question Are you currently unemployed and looking for a job?: I choose not to answer this question Are you interested in more education?: No Please select the resources that you would like help with: None Currently or been in a relationship where the following occur: I choose not to answer THRIVE Score: 0 AUDIT C Alcohol Use Questionnaire (AUDIT-C) 1. How often do you have a drink containing alcohol?: Never 3. How often do you have six or more drinks on one occasion?: Never Total Score: 0 Score Reviewed/Action Taken: Yes MICHELLE-7 AMB Questionnaire MICHELLE-7 Date MICHELLE - 7 assessed: 03/21/25 Feeling nervous, anxious, or on edge: 0 = Not at all Not being able to stop or control worryin = Not at all Worrying too much about different things: 0 = Not at all Trouble relaxin = Not at all Being so restless that it is hard to sit still: 0 = Not at all Becoming easily annoyed or irritable: 0 = Not at all Feeling afraid as if something awful might happen: 0 = Not at all Total MICHELLE-7 score (0-4 normal; 5-9 mild; 10-14 moderate; 15-21 severe): 0 Source: Developed by Drs. Riaz Phan, Kaylin Lewis, Marshall Lugo and colleagues, with an educational jaciel from [employer]. Review of Systems Const Denies chills, Denies fatigue, Denies fever(s) and Denies headache(s) ENT Denies dysphagia, Denies dizziness, Denies otalgia, Denies headache(s), Denies neck pain, Denies odynophagia and Denies sore throat Card Denies chest pain, Denies irregular heart rhythm, Denies palpitations and Denies dyspnea Resp Denies chest congestion, Denies cough and Denies dyspnea GI Denies abdominal pain, Denies constipation, Denies dysphagia, Denies heartburn, Denies diarrhea, Denies nausea, Denies odynophagia and Denies vomiting Denies hematuria, Denies difficulty urinating, Denies dysuria and Denies urinary frequency Musc Reports back pain (over the lower back - chronic), Denies arthralgias and Denies neck pain Skin/Breast Denies rash Neuro Denies dizziness, Denies headache(s) and Denies paresthesias Endo Denies fatigue and Denies palpitations Physical exam (Primary Care) Vital Signs: Last Vital Signs Pulse 63 03/21/25 12:23 BP 132/80 03/21/25 12:23 Pulse Ox 96 03/21/25 12:23 Oxygen Delivery Method Room Air 03/21/25 12:23 BMI result Body Mass Index 48.8 Tobacco/Smoking Status: Tobacco use Status Tobacco use date assessed 03/21/25 03/21/25 12:30 Patient Tobacco Use Status Never used Tobacco 03/21/25 12:30 e-Cigarette/Vaping Use Never Used 03/21/25 12:30 PHQ-9: PHQ-9 Score PHQ-9: Total score 0 03/21/25 12:34 Depression Screening Interpretation: Negative Thrive Assessment: Date of Thrive Assessment Date Thrive assessed 03/21/25 03/21/25 12:30 Currently or been in a relationship where the following occur: I choose not to answer Const General: no acute distress and alert HENMT Ears: TM's normal bilaterally and EAC's normal Throat: Yes posterior oropharynx normal and Yes tonsils normal (no TP congestion) Neck Neck: Yes supple and No lymphadenopathy Thyroid: Thyroid normal Resp Auscultation: clear to auscultation bilaterally, no rales and no wheezes Cardio Rate: regular rate Rhythm: regular rhythm Heart sounds: no murmurs GI Palpation (GI): Soft to palpation and nontender Auscultation: normal bowel sounds General: Yes no CVA tenderness Back/Spine/Pelvis Back: no CVA tenderness Thoracic/Lumbar Spine: lumbar spinal tenderness Skin Rashes: no rashes Extrem General: Yes no clubbing, cyanosis or edema Results Reviewed Results Reviewed: Laboratory Tests 03/20/25 03/20/25 03/20/25 09:45 09:49 Unknown WBC 7.8 Hgb 17.1 Hct 51.3 Plt Count 252 Sodium 140 Potassium 4.7 Creatinine 1.31 Estimated GFR 58 Fasting Glucose 104 H Calcium 9.7 AST 41 H ALT 41 H Triglycerides 112 Cholesterol 186 LDL Cholesterol, Calc 122 H HDL Cholesterol 42 25-OH Vitamin D Total 36.8 Ur Specific [place] 1.020 Urine Protein 30 (1+) H Urine Glucose (UA) Negative Urine Blood Trace H Urine Nitrite Negative Ur Leukocyte Esterase Negative Coding Level of Care Code Est Pt Level 4 (42541) Complex EM visit Add On G2211 Diagnoses Pure hypercholesterolemia E78.00 Benign essential hypertension I10 Renal insufficiency N28.9 Obstructive sleep apnea G47.33 Degeneration of intervertebral disc of lumbar region with discogenic back pain M51.360 Disc-related pain type: discogenic back pain only Complete tear of right rotator cuff, unspecified whether traumatic M75.121 Rotator cuff tear trauma status: unspecified whether traumatic Hypogonadism in male E29.1 Other male erectile dysfunction N52.8 Erectile dysfunction type: due to other cause Nephrolithiasis N20.0 Morbid obesity with BMI of 45.0-49.9, adult E66.01; Z68.42 Additional Codes PHQ-9 - 09642 - PHQ-9 Billing: Yes ([id number]) Assessment & Plan Assessment & Plan (1) Pure hypercholesterolemia: Code(s): E78.00 - Pure hypercholesterolemia, unspecified Category: Medical Plan: Results of his labs done yesterday reviewed and discussed with patient Reinforced low-cholesterol diet Continue Simvastatin 40 mg QD - Rx refilled Will recheck his labs and fasting lipids in 4 months for follow up (2) Benign essential hypertension: Code(s): I10 - Essential (primary) hypertension Category: Medical Plan: Reinforced low sodium diet - goal is systolic BP of 120 mm or less Continue HCTZ 12.5 mg QD He was also on Lisinopril 5 mg QD in the past but somehow stopped taking this at some point last year - patient is not sure why or how Nephrology eventually switched him from his previous Rx of Amlodipine to HCTZ as his serum calcium was normal Patient is again reminded to continue monitoring his blood pressure regularly Follow up with nephrology as scheduled (3) Renal insufficiency: Code(s): N28.9 - Disorder of kidney and ureter, unspecified Plan: His renal function declined last August (2023) - he was in early stage 3 CKD at the time but his GFR appears to have improved since and he is now back to his baseline on his recent labs We will continue to monitor his renal function closely Follow up with nephrology as scheduled (4) Obstructive sleep apnea: Comment: CPAP Code(s): G47.33 - Obstructive sleep apnea (adult) (pediatric) Category: Medical Plan: Repeat sleep study with CPAP titration done back in 2020 revealed (+) severe obstructive sleep apnea requiring 16 cm of water pressure Patient is advised to use his CPAP device every night regularly when sleeping but patient states that he has not used his CPAP device over the past couple of years now He was supposed to follow up with Sleep Medicine but it does not look like he has seen Sleep Medicine at all over the past few years (5) Lumbar degenerative disc disease: Code(s): M51.36 - Other intervertebral disc degeneration, lumbar region Category: Medical Qualifiers: Disc-related pain type: discogenic back pain only Qualified Code(s): M 51.360 - Other intervertebral disc degeneration, lumbar region with discogenic back pain only Plan: Reinforced activity and weight-lifting restrictions to help manage his lower back symptoms Lumbar spine MRI was previously ordered but this was denied by his health insurance Continue Gabapentin 100 mg Q HS, Tramadol 50 mg PRN and Cyclobenzaprine 5 mg Q HS PRN; he is also on Meloxicam (not sure what dose but likely 15 mg QD) prescribed by [facility] He continues to work with physical therapy as well to help manage his low back pain Follow up with [facility] as scheduled for his chronic pain management (6) Complete rotator cuff tear or rupture of right shoulder, not specified as traumatic: Code(s): M75.121 - Complete rotator cuff tear or rupture of right shoulder, not specified as traumatic Category: Medical Qualifiers: Rotator cuff tear trauma status: unspecified whether traumatic Qualified Code(s): M75.121 - Complete rotator cuff tear or rupture of right shoulder, not specified as traumatic Plan: Resolved - S/P arthroscopic shoulder surgery and tendon repair with Dr. Baron in April 2023, with improvement of his shoulder symptoms Follow up with orthopedics as scheduled or as needed (7) Hypogonadism in male: Code(s): E29.1 - Testicular hypofunction Category: Medical Plan: Continue Testosterone solution 30 mg /ACT 2 pumps and apply on skin once a day in the morning transdermally Per endocrinology report, patient is eugonadal and doing well on his current regimen Follow-up with endocrinology/urology as scheduled (8) Erectile dysfunction: Code(s): N52.9 - Male erectile dysfunction, unspecified Category: Medical Qualifiers: Erectile dysfunction type: due to other cause Qualified Code(s): N52.8 - Other male erectile dysfunction Plan: Patient has hypogonadism and is currently on treatment with testosterone replacement therapy for this with endocrinology and urology He was previously prescribed Sildenafil and subsequently Tadalafil but states that his insurance would not cover either Rx and he is just managing his symptoms on his own for now (9) Nephrolithiasis: Code(s): N20.0 - Calculus of kidney Category: Medical Plan: Patient currently remains asymptomatic Renal US done in December 2023 showed (+) 4 mm nonobstructing right renal calculus is seen. No left renal calculus is seen and no hydronephrosis is noted bilaterally Follow up US done in June 2024 showed similar findings Follow up with urology as scheduled (10) Morbid obesity with BMI of 45.0-49.9, adult: Code(s): E66.01 - Morbid (severe) obesity due to excess calories; Z68.42 - Body mass index [BMI] 45.0-49.9, adult Category: Medical Plan: Reinforced diet/exercise as tolerated/ lose weight He has been taking Phentermine 30 mg Q AM to help with his weight (is currently off the Rx for the next couple of months after being on it for about 3 months) He continues to decline recommendation to refer him to weight management - states that he will call for referral if he feels he needs to see them Plan Follow up in 4 months Orders: Orders Hemoglobin A1c 4 Months R73.01 - Impaired fasting glucose Comprehensive [employer]. 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
--- OUTSIDE RECORDS SUMMARY | 2025-03-21 12:47 | XMS_ITS | Clinical Summary ---
Author Organization [facility] Address [address] [place] [address] Phone Care Team Providers Care White Washer Name Role Phone Peewee Hoskins MD Primary Care Provider [phone]- [phone] Allergies Active Allergy Reactions Criticality Noted Date [...] 2023 Influenza Vaccine (Season Ended) 2025 Insurance [facility] Medicaid * Guarantor: Ronald Crump Account Type Relation to Patient Date of Phone Billing Address Personal/Family Self 1975 [address] [place] [address] [facility] Medicaid Care Teams White Washer Relationship Specialty Start Date End Date Peewee Hoskins MD [address] [place], [place] [phone] PCP - General Internal Medicine 09/15/22
== END 2025-03-21 12:43 | disposition home or self-care (01) ==
LOC: HO.HMCH 11:41
PROVIDERS: PCP Internal Medicine; Visit Provider Internal Medicine
DX: E78.00 Pure hypercholesterolemia, unspecified (principal); I10 Essential (primary) hypertension; N28.9 Disorder of kidney and ureter, unspecified; G47.33 Obstructive sleep apnea (adult) (pediatric); M51.360 Other intervertebral disc degeneration, lumbar region with discogenic back pain only; M75.121 Complete rotator cuff tear or rupture of right shoulder, not specified as traumatic; E29.1 Testicular hypofunction; N52.8 Other male erectile dysfunction; N20.0 Calculus of kidney; E66.01 Morbid (severe) obesity due to excess calories; Z68.42 Body mass index [BMI] 45.0-49.9, adult

== ENCOUNTER → 2025-03-21 11:39 | Outpatient (BNVA) | payer OTHER, SELFPAY | PROVIDERS: PCP Internal Medicine; Visit Provider Internal Medicine | DX: E78.00 Pure hypercholesterolemia, unspecified (principal); I12.9 Hypertensive chronic kidney disease with stage 1 through stage 4 chronic kidney disease, or unspecified chronic kidney disease; N18.9 Chronic kidney disease, unspecified; G47.33 Obstructive sleep apnea (adult) (pediatric); M51.360 Other intervertebral disc degeneration, lumbar region with discogenic back pain only; M75.121 Complete rotator cuff tear or rupture of right shoulder, not specified as traumatic; E29.1 Testicular hypofunction; N52.8 Other male erectile dysfunction; N20.0 Calculus of kidney; E66.01 Morbid (severe) obesity due to excess calories; R73.01 Impaired fasting glucose; Z68.42 Body mass index [BMI] 45.0-49.9, adult | CPT/HCPCS: 96127; 99212 ==

== ENCOUNTER 2025-06-24 10:49 | Outpatient (REF) | payer OTHER, SELFPAY ==
[2025-06-24 11:48] LABS: Hematocrit 50.6 % (42.0-52.0); Hemoglobin 17.2 g/dl (14.0-18.0)
--- OUTSIDE RECORDS SUMMARY | 2025-06-24 11:58 | XMS_ITS | Clinical Summary ---
Author Organization [facility] Address [address] [place] [address] Phone Care Team Providers Care Refrigeration Brazer/Solderer Name Role Phone Peewee Hoskins MD Primary Care Provider [phone]- [phone] Allergies Active Allergy Reactions Criticality Noted Date [...] Cancer Screening: Sigmoidoscopy 2023 Influenza Vaccine (#1) 2025 Insurance [facility] Medicaid * Guarantor: Ronald Crump Account Type Relation to Patient Date of Phone Billing Address Personal/Family Self 1975 [address] [place] [address] [facility] Medicaid Care Teams Refrigeration Brazer/Solderer Relationship Specialty Start Date End Date Peewee Hoskins MD [address] [place], [place] [phone] PCP - General Internal Medicine 09/15/22
[2025-06-24 12:34] LABS: Prostate Specific Antigen 1.01 ng/mL (<0.05-4.0)
== END 2025-06-24 10:50 | disposition home or self-care (01) ==
LOC: HO.LAB 10:49
PROVIDERS: Absent Provider Internal Medicine Nephrology; PCP Internal Medicine; Visit Provider Internal Medicine Endocrinology, Diabetes & Metabolism
DX: E29.1 Testicular hypofunction (principal)
CPT/HCPCS: 36415; 84153; 84402; 84403; 85014; 85018

== ENCOUNTER 2025-07-02 10:34 | Outpatient (REF) | payer OTHER, SELFPAY ==
--- NOTE | ~2025-07-02 | US_ITS ---
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 4 mm calculus of the lower pole is unchanged. 7 mm avascular cortical cyst at the midpole, not seen before. No hydronephrosis. Left kidney is normal in size, echogenicity and morphology, 13.2 cm in length. No calculus, mass or hydronephrosis. Limited color Doppler demonstrates unremarkable bilateral blood flow. Impression: Stable nonobstructing right nephrolithiasis. Right renal subcentimeter cyst. This document has been electronically signed by: Azucena Duarte MD on 07/02/2025 15:15:52
--- OUTSIDE RECORDS SUMMARY | 2025-07-02 11:24 | XMS_ITS | Clinical Summary ---
Author Organization [facility] Address [address] [place] [address] Phone Care Team Providers Care Chha Name Role Phone Peewee Hoskins MD Primary Care Provider [phone]- [phone] Allergies Active Allergy Reactions Criticality Noted Date [...] Sigmoidoscopy 2023 Influenza Vaccine (#1) 2025 Insurance [facility] Medicaid * Guarantor: Ronald Crump Account Type Relation to Patient Date of Phone Billing Address Personal/Family Self 1975 [address] [place] [address] [facility] Medicaid Care Teams Chha Relationship Specialty Start Date End Date Peewee Hoskins MD [address] [place], [place] [phone] PCP - General Internal Medicine 09/15/22
== END 2025-07-02 10:35 | disposition home or self-care (01) ==
LOC: HO.US 10:34
PROVIDERS: PCP Internal Medicine; Visit Provider Urology
DX: R82.991 Hypocitraturia (principal)
CPT/HCPCS: 76775

== ENCOUNTER → 2025-07-02 10:38 | Outpatient (BNV) | payer OTHER, SELFPAY | PROVIDERS: PCP Internal Medicine; Visit Provider Radiology Diagnostic Radiology | DX: N20.0 Calculus of kidney (principal); N28.1 Cyst of kidney, acquired | CPT/HCPCS: 76775 ==

== ENCOUNTER 2025-07-09 10:52 | Outpatient (AMB) | payer OTHER, SELFPAY ==
[2025-07-09 11:02] VITALS: BP 118/78; PULSE 86; O2SAT 96; BMI 48.1
--- NOTE | 2025-07-09 11:02 | A.OFFVIS_ITS ---
Vital Signs 07/09/25 11:02 Height 5 ft 5 in Weight 288 lb 12.889 oz BMI 48.1 BP 118/78 Blood Pressure Location Rt brachial Position Sitting Pulse 86 Pulse Source Pulse Oximeter Pulse Oximetry (%) 96 Oxygen Delivery Method Room Air Intake Visit Reasons: Hypogonadism Intake Note: Patient present for Hypogonadism follow up visit. Parking Attendant Required: No Accompanied by: Self / Same As Patient Allergies oxycodone (From PERCOCET) Allergy (Intermediate, Verified 07/09/25 11:03) ITCHING, rash and itching, itching codeine Allergy (Unknown, Verified 07/09/25 11:03) rash and itching Medication List - Last Reconciled 07/09/25 by Riaz Doshi MD alum-mag hydroxide-simeth 200-200-20 mg/5 mL (Antacid Anti-Gas) 10 mL PO QID PRN capsaicin 0.1% 1 appl topical BID PRN CPAP (CPAP Machine/Device) 16cm of water cyclobenzaprine 5 mg PO BID PRN gabapentin 100 mg PO BEDTIME hydrochlorothiazide 12.5 mg PO DAILY ketoconazole 2% 1 appl topical DAILY lidocaine 5% 1 patch topical DAILY meloxicam 15 mg PO DAILY PRN minocycline 100 mg PO Q12H phentermine 30 mg PO DAILY 30 days potassium citrate ER 20 mEq (2 x 10 mEq (1,080 mg)) PO BID 90 days simvastatin 40 mg PO BEDTIME 90 days testosterone 30 mg/actuation (1.5 mL) 4 pumps transdermal DAILY tretinoin 0.025% 1 appl topical DAILY triamcinolone acetonide 0.5% 1 appl topical BID HPI Comments Details: 49 yo male today fo fup visit, h for hypogonadism . He is feeling well. He is using testosterone topical solution 30 mg per pump. Dose is 4 pumps per day. Reports his doing a lot better in this dose. He has normal erection, with Cialis, he has normal libido. He denies fatigue. He is shaving every other day. He has other PMH of kidney stones, dyslipidemia, sleep apnea, not on treatment, ED, he has been on testosterone gel for about 2 years. 12/14/17 Total testosterone 126 ng/DL Free testosterone 36.3 ng/DL He denies chronic opioids use, denies heavy alcohol consumption, steroids abuse. He has father 4 kids the youngest is 18 years old. 08/2018 MRI sella [facility]. He had MRI sella which showed enlarged partially empty sella, with flattened pituitary gland , with 3 x 2 mm T2 hyperintense lesion, optic chiasm and cavernous sinus are intact. He is complaining of nocturia 2 to 3 times, he drinks a lot of water at night. Laboratory Tests 11/27/20 11/27/20 02/23/21 09:56 09:56 06:50 Hgb Hct Creatinine 1.33 Estimated GFR 58 Fasting Glucose 104 H Calcium 9.8 AST 37 ALT 66 H Albumin 4.5 Triglycerides 204 Cholesterol 174 LDL Cholesterol, Calc 99 HDL Cholesterol 35 TSH 0.97 Testosterone Level 100 L Total Testosterone 109 L Fr Testosterone Dialys 27.4 L Free Testoster w SHBG 26.0 L Bioavail Testosterone 52.3 L Sex Hormone Bind Glob 10 02/23/21 06:50 Hgb 14.6 Hct 44.1 Creatinine Estimated GFR Fasting Glucose Calcium AST ALT Albumin Triglycerides Cholesterol LDL Cholesterol, Calc HDL Cholesterol TSH Testosterone Level Total Testosterone Fr Testosterone Dialys Free Testoster w SHBG Bioavail Testosterone Sex Hormone Bind Glob Laboratory Tests 04/03/20 08/06/20 08/06/20 12:10 10:00 11:55 Hgb Hct Sodium 137 Potassium 4.4 Creatinine 1.16 Est GFR (Non-Af Amer) > 60 Hemoglobin A1c AST 34 ALT 66 H Alkaline Phosphatase 73 Albumin 4.7 Triglycerides 183 D Cholesterol 184 LDL Cholesterol, Calc 115 HDL Cholesterol 33 Total PSA 0.39 Total Testosterone 177, SEE ABOVE L Free Testosterone 48.6, 38.2 Bioavail Testosterone 102.1 L Sex Hormone Bind Glob 9, SEE ABOVE L Microalb/Creat Ratio 24.7 08/06/20 08/06/20 11:55 11:55 Hgb 14.7 Hct 44.5 Sodium Potassium Creatinine Est GFR (Non-Af Amer) Hemoglobin A1c 5.7 AST ALT Alkaline Phosphatase Albumin Triglycerides Cholesterol LDL Cholesterol, Calc HDL Cholesterol Total PSA Total Testosterone Free Testosterone Bioavail Testosterone Sex Hormone Bind Glob Microalb/Creat Ratio Denies change in urinary stream. Uses CPAP for sleep apnea . On testosterone gel 4 pumps per day . Testosterone levels are pending [facility] Medical History Internal derangement of right shoulder Calculus of kidney Morbid obesity with BMI of 45.0-49.9, adult Serum calcium elevated Left shoulder tendinitis Lumbar disc disease with radiculopathy Obstructive sleep apnea Lumbar degenerative disc disease Empty sella Erectile dysfunction Benign essential hypertension Pure hypercholesterolemia Hypogonadism in male Surgical History History of colonoscopy History of surgery History of medial meniscus repair of right knee History of rotator cuff surgery History of removal of cyst History of lithotripsy History of umbilical hernia repair History of appendectomy Family History Father Liver cancer Morbidly obese Mother Hypertension Diabetes Asthma Social History Housing: Apartment Alcohol intake: never Patient Tobacco Use Status: Never used Tobacco e-Cigarette/Vaping Use: Never Used Second Hand Smoke Exposure: Yes service: No Current occupational status: unemployed 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 Cognitive needs: No Hearing needs: No Vision needs: No Physical Exam Vital Signs: Last Vital Signs Pulse 86 07/09/25 11:02 BP 118/78 07/09/25 11:02 Pulse Ox 96 07/09/25 11:02 Oxygen Delivery Method Room Air 07/09/25 11:02 BMI result Body Mass Index 48.1 Const Other: Rectal examination reveals normal smooth prostate Assessment & Plan Assessment & Plan (1) Hypogonadism in male: Code(s): E29.1 - Testicular hypofunction Category: Medical Plan: This is a 46-year-old male with a history of secondary hypogonadism with MRI not showing any pituitary masses currently being treated with testosterone gel 4 depressions per day . He appears to be eugonadal with n on the current dose The plan is await testosterone level adjust testosterone accordingly Coding Level of Care Code Est Pt Level 3 (60855) Diagnoses Hypogonadism in male E29.1
--- OUTSIDE RECORDS SUMMARY | 2025-07-09 12:26 | XMS_ITS | Clinical Summary ---
Author Organization [facility] Address [address] [place] [address] Phone Care Team Providers Care Memory Care Director Name Role Phone Peewee Hoskins MD Primary Care Provider [phone]- [phone] Allergies Active Allergy Reactions Criticality Noted Date [...] Sigmoidoscopy 2023 Influenza Vaccine (#1) 2025 Insurance [facility] * Guarantor: Ronald Crump Account Type Relation to Patient Date of Phone Billing Address Personal/Family Self 1975 [address] [place] [address] [facility] [employer] Medicaid Care Teams Memory Care Director Relationship Specialty Start Date End Date Peewee Hoskins MD [address] [place], [place] [phone] PCP - General Internal Medicine 09/15/22
== END 2025-07-09 11:15 | disposition home or self-care (01) ==
LOC: HO.ENCR 10:54
PROVIDERS: PCP Internal Medicine; Visit Provider Internal Medicine Endocrinology, Diabetes & Metabolism
DX: E29.1 Testicular hypofunction (principal)
CPT/HCPCS: 99213

== ENCOUNTER → 2025-07-09 10:52 | Outpatient (BNVA) | payer OTHER, SELFPAY | PROVIDERS: PCP Internal Medicine; Visit Provider Internal Medicine Endocrinology, Diabetes & Metabolism | DX: E29.1 Testicular hypofunction (principal) | CPT/HCPCS: 99212 ==

== ENCOUNTER 2025-07-11 10:34 | Outpatient (AMB) | payer OTHER, SELFPAY ==
--- NOTE | 2025-07-11 10:36 | A.OFFVIS_ITS ---
Intake Visit Reasons: 1y/US Intake Note: Patient is present for 1 yr follow up Imaging ultrasound 07/02/25 Urology Medication: testosterone Antibiotic Allergy:none Blood Thinner:none Filling Technician Required: No Accompanied by: Self / Same As Patient Allergies oxycodone (From PERCOCET) Allergy (Intermediate, Verified 07/11/25 10:38) ITCHING, rash and itching, itching codeine Allergy (Unknown, Verified 07/11/25 10:38) rash and itching HPI Comments Details: ?Ronald is a pleasant male. He is seen for the following urologic conditions - renal stones - hypogonadism followed by endocrine - erectile dysfunction Yearly follow-up Remains on vitamin B6 and citrate - Imaging shows minimal stone burden Continues with testosterone replacement for empty sella syndrome Four pumps per day Follows with endocrine Last testosterone unable to be performed Twelve month follow-up imaging Renal stones Longstanding Bilateral Intervention - Multiple prior ESWL and ureteroscopy - 03/28 Right ESWL - 06/28 Left ESWL Imaging - 07/28 renal ultrasound multiple 2 mm stones bilateral - 04/28 renal ultrasound right no stones, left 7 mm, and 1 cm stones - 11/29 renal ultrasound 4 mm right-sided stone, no stone on left - 06/30 renal ultrasound question small stone right 3-4 mm - 07/01 renal ultrasound small stone on right side 24 hr urine -07/29 good volume, low oxalate, low calcium, very low citrate Therapeutic plan - citrate replacement - interval surveillance Hypogonadism On testosterone replacement using gel MRI - partial empty Guillermina syndrome Labs - - 07/29 T 378, suppressed pituitary LH and FSH PFSH Medical History Internal derangement of right shoulder Calculus of kidney Morbid obesity with BMI of 45.0-49.9, adult Serum calcium elevated Left shoulder tendinitis Lumbar disc disease with radiculopathy Obstructive sleep apnea Lumbar degenerative disc disease Empty sella Erectile dysfunction Benign essential hypertension Pure hypercholesterolemia Hypogonadism in male Surgical History History of colonoscopy History of surgery History of medial meniscus repair of right knee History of rotator cuff surgery History of removal of cyst History of lithotripsy History of umbilical hernia repair History of appendectomy Family History Father Liver cancer Morbidly obese Mother Hypertension Diabetes Asthma Social History Housing: Apartment Alcohol intake: never Patient Tobacco Use Status: Never used Tobacco e-Cigarette/Vaping Use: Never Used Second Hand Smoke Exposure: Yes service: No Current occupational status: unemployed 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 Cognitive needs: No Hearing needs: No Vision needs: No Review of Systems Const Denies chills and Denies fever(s) Card Reports no additional complaints and Denies syncope Resp Denies cough GI Denies abdominal pain and Denies heartburn Reports as per HPI and Denies change in libido Neuro Denies syncope Psych Denies change in libido Endo Denies change in libido Physical Exam Const General: cooperative, healthy appearing, comfortable and no acute distress Orientation/consciousness: patient oriented x3 HEENT Face and sinus: Yes normal facial exam Mouth: moist mucous membranes Neck Neck: Yes normal visual inspection, Yes full ROM and Yes trachea midline Chest Chest palpation & inspection: normal inspection of the chest Resp Effort & Inspection: normal respiratory effort, able to speak in complete sentences and no respiratory distress GI Inspection: Yes normal to inspection Back/Spine/Pelvis Cervical Spine: normal cervical lordosis Thoracic/Lumbar Spine: thoracic and lumbar spine normal to inspection Skin General skin exam: no rashes or lesions noted Neuro General: patient oriented x3, gait normal, tone normal and moves all extremities Extrem General: Yes normal to inspection and Yes capillary refill normal Assessment & Plan Assessment & Plan (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 While every effort has been made to ensure accuracy mixed crop and livestock farmer errors may have been included. Imaging studies, laboratory and physical exam results were discussed and reviewed in detail. No major barriers to patient understanding were identified. An opportunity to ask questions regarding the treatment plan was provided. All questions were answered. The patient expressed understanding and agreement with the above treatment plan. The patient is aware they should contact our office by phone for worsening of their current condition or the appearance of new urologic symptoms. Compliance is encouraged with any medications and followup testing that is ordered. It is a privilege to participate in the urologic care of your patient. If you have any questions or concerns regarding treatment for the above conditions, or other urologic issues, please do not hesitate to contact me. The office telephone contact is [phone]. Sincerely, Dr Ez Meek MD, [facility] - Urology Compassionate Specialist Care for the Genitourinary System Coding Level of Care Code Est Pt Level 4 (60665) Diagnoses Hypocitraturia R82.991 Nephrolithiasis N20.0
--- OUTSIDE RECORDS SUMMARY | 2025-07-11 11:59 | XMS_ITS | Clinical Summary ---
Author Organization [facility] Address [address] [place] [address] Phone Care Team Providers Care Environmental Programs Manager Name Role Phone Peewee Hoskins MD Primary Care Provider [phone]- [phone] Allergies Active Allergy Reactions Criticality Noted Date [...] Sigmoidoscopy 2023 Influenza Vaccine (#1) 2025 Insurance [facility] Medicaid * Guarantor: Ronald Crump Account Type Relation to Patient Date of Phone Billing Address Personal/Family Self 1975 [address] [place] [address] [facility] Medicaid Care Teams Environmental Programs Manager Relationship Specialty Start Date End Date Peewee Hoskins MD [address] [place], [place] [phone] PCP - General Internal Medicine 09/15/22
== END 2025-07-11 11:05 | disposition home or self-care (01) ==
LOC: HO.HUSH 10:35
PROVIDERS: PCP Internal Medicine; Visit Provider Urology
DX: R82.991 Hypocitraturia (principal); N20.0 Calculus of kidney
CPT/HCPCS: 99214

== ENCOUNTER → 2025-07-11 10:34 | Outpatient (BNVA) | payer OTHER, SELFPAY | PROVIDERS: PCP Internal Medicine; Visit Provider Urology | DX: E29.1 Testicular hypofunction (principal); N20.0 Calculus of kidney; R82.991 Hypocitraturia | CPT/HCPCS: 99212 ==

== ENCOUNTER 2025-07-11 11:06 | Outpatient (REF) | payer OTHER, SELFPAY ==
[2025-07-18 13:39] LABS: Testosterone, Free 1401.7 pg/mL (35.0-155.0)
== END 2025-07-11 11:07 | disposition home or self-care (01) ==
LOC: HO.10HDL 11:06
PROVIDERS: Visit Provider Internal Medicine Endocrinology, Diabetes & Metabolism
DX: E29.1 Testicular hypofunction (principal)
CPT/HCPCS: 36415; 84402; 84403

== ENCOUNTER 2025-07-19 09:15 | Outpatient (REF) | payer OTHER, SELFPAY ==
--- OUTSIDE RECORDS SUMMARY | 2025-07-19 10:13 | XMS_ITS | Clinical Summary ---
Author Organization [facility] Address [address] [place] [address] Phone Care Team Providers Care Captain'S Assistant Name Role Phone Peewee Hoskins MD Primary Care Provider +1- [phone] Allergies Active Allergy Reactions Criticality Noted Date [...] Sigmoidoscopy 2023 Influenza Vaccine (#1) 2025 Insurance [facility] Medicaid * Guarantor: Ronald Crump Account Type Relation to Patient Date of Phone Billing Address Personal/Family Self 1975 [address] [place] [address] [facility] Medicaid Care Teams Captain'S Assistant Relationship Specialty Start Date End Date Peewee Hoskins MD [address] [place], [place] [phone] PCP - General Internal Medicine 09/15/22
== END 2025-07-19 09:16 | disposition home or self-care (01) ==
LOC: HO.LAB 09:15
PROVIDERS: Absent Provider Internal Medicine Endocrinology, Diabetes & Metabolism; PCP Internal Medicine; Visit Provider Internal Medicine Nephrology
DX: I12.9 Hypertensive chronic kidney disease with stage 1 through stage 4 chronic kidney disease, or unspecified chronic kidney disease (principal); N18.2 Chronic kidney disease, stage 2 (mild); N20.0 Calculus of kidney; N28.1 Cyst of kidney, acquired
CPT/HCPCS: 99212

== ENCOUNTER 2025-07-19 09:28 | Outpatient (REF) | payer OTHER, SELFPAY ==
[2025-07-19 10:31] LABS: Anion Gap 12 (12-20); Blood Urea Nitrogen 19 mg/dL (9-16); Calcium 9.6 mg/dL (8.4-10.2); Carbon Dioxide 29 mmol/L (22-29); Chloride 104 mmol/L (96-108); Estimated Glomerular Filt Rate 55; Potassium 4.5 mmol/L (3.3-5.1); Sodium 140 mmol/L (135-145)
[2025-07-19 10:50] LABS: Appearance Urine Clear; Glucose Urine UA Negative (Negative); PH 8.0 (5.0-9.0); Specific Gravity - Urine 1.015 (1.005-1.025); UMIC TRIGGER UA YES
[2025-07-19 11:58] LABS: Protein/Creatinine Ratio, Ur 0.28 (<0.2); Total Protein Urine Random 26 mg/dL (<12)
[2025-07-25 16:33] LABS: Testosterone, Free 213.6 pg/mL (35.0-155.0)
== END 2025-07-19 09:29 | disposition home or self-care (01) ==
LOC: HO.10HDL 09:28
PROVIDERS: Internal Medicine Endocrinology, Diabetes & Metabolism; Visit Provider Internal Medicine Nephrology
DX: I12.9 Hypertensive chronic kidney disease with stage 1 through stage 4 chronic kidney disease, or unspecified chronic kidney disease (principal); N18.2 Chronic kidney disease, stage 2 (mild); E29.1 Testicular hypofunction
CPT/HCPCS: 36415; 80051; 81001; 82310; 82565; 82570; 84156; 84402; 84403; 84520

== ENCOUNTER 2025-07-19 09:51 | Outpatient (AMB) | payer OTHER, SELFPAY ==
--- NOTE | 2025-07-19 10:06 | HO.NEPHOV ---
Vital Signs 07/19/25 10:10 Weight 286 lb 2 oz BP 130/84 Blood Pressure Location Rt brachial Position Sitting Pulse 68 Pulse Source Pulse Oximeter Pulse Oximetry (%) 100 Oxygen Delivery Method Room Air Intake Visit Reasons: 6 MO FU-Conf Accompanied by: Self / Same As Patient Allergies oxycodone (From PERCOCET) Allergy (Intermediate, Verified 07/19/25 10:09) ITCHING, rash and itching, itching codeine Allergy (Unknown, Verified 07/19/25 10:09) rash and itching HPI Comments Details: Ronald was seen in follow-up of his nephrolithiasis, hypertension and very mild CKD. He regularly follows up with his urologist. He recently had a renal ultrasound which showed unilateral renal calculus on the left kidney. He has no blood in the urine. He denies epistaxis, sinusitis, hemoptysis, hematuria, edema. He has not passed any great toe gravel in the urine. His blood pressure is well controlled on current medication regimen. He has obstructive sleep apnea and is on CPAP. He regularly takes his potassium chloride tablets. He avoids nonsteroidal anti-inflammatories and maintain good hydration. He is quite active and did not have any new complaints at the time of this office visit [facility] Medical History Internal derangement of right shoulder Calculus of kidney Morbid obesity with BMI of 45.0-49.9, adult Serum calcium elevated Left shoulder tendinitis Lumbar disc disease with radiculopathy Obstructive sleep apnea Lumbar degenerative disc disease Empty sella Erectile dysfunction Benign essential hypertension Pure hypercholesterolemia Hypogonadism in male Surgical History History of colonoscopy History of surgery History of medial meniscus repair of right knee History of rotator cuff surgery History of removal of cyst History of lithotripsy History of umbilical hernia repair History of appendectomy Family History Father Liver cancer Morbidly obese Mother Hypertension Diabetes Asthma Social History Housing: Apartment Alcohol intake: never Patient Tobacco Use Status: Never used Tobacco e-Cigarette/Vaping Use: Never Used Second Hand Smoke Exposure: Yes service: No Current occupational status: unemployed 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 Cognitive needs: No Hearing needs: No Vision needs: No Review of Systems Const All systems reviewed & are unremarkable except as noted in HPI and below Physical Exam Const General: comfortable and no acute distress Orientation/consciousness: patient oriented x3 HEENT Head: Yes normocephalic Mouth: Normal oral and palatal mucosa present Eyes EOM: EOMs intact bilaterally Neck Neck: Yes supple Resp Auscultation: clear to auscultation bilaterally Cardio Jugular venous distension: no JVD Rate: regular rate GI Palpation (GI): Soft to palpation Auscultation: normal bowel sounds General: Yes no CVA tenderness Back/Spine/Pelvis Back: no CVA tenderness Skin General skin exam: no rashes or lesions noted Neuro General: patient oriented x3 and moves all extremities Extrem General: Yes no pedal edema Results Reviewed Nephrology Results: Hgb, (14.0-18.0) 17.2 g/dl 06/24/25 Renal US 07/02/25 Assessment & Plan Assessment & Plan (1) Hypertension: Code(s): I10 - Essential (primary) hypertension Category: Medical Qualifiers: Hypertension type: primary hypertension Qualified Code(s): I10 - Essential (primary) hypertension (2) Calculus of kidney: Code(s): N20.0 - Calculus of kidney Category: Medical (3) Chronic kidney disease (CKD), stage II (mild): Code(s): N18.2 - Chronic kidney disease, stage 2 (mild) Category: Medical (4) 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 His last renal ultrasound recently showed a 4 mm non obstructing right renal calculus. He follows up closely with urologist. He maintains good hydration and he is on potassium citrate( has hypocitrauria). I asked him to cut back salt in the diet, continue with potassium citrate, cut back meat and increase fruits and vegetables in the diet. He is on hydrochlorothiazide given hypertension and renal calculus. I did not make any other medication changes at this visit . I answered all his questions and concerns. Follow-up lab work ordered. Follow-up appointment given. Orders: Orders Blood Urea Nitrogen 6 Months I10 - Essential (primary) hypertension, N18.2 - Chronic kidney disease, stage 2 (mild), N20.0 - Calculus of kidney, N28.1 - Cyst of kidney, acquired, R82.991 - Hypocitraturia Protein Creatinine Ratio, Ur 6 Months I10 - Essential (primary) hypertension, N18.2 - Chronic kidney disease, stage 2 (mild), N20.0 - Calculus of kidney, N28.1 - Cyst of kidney, acquired, R82.991 - Hypocitraturia Creatinine 6 Months I10 - Essential (primary) hypertension, N18.2 - Chronic kidney disease, stage 2 (mild), N20.0 - Calculus of kidney, N28.1 - Cyst of kidney, acquired, R82.991 - Hypocitraturia Electrolytes 6 Months I10 - Essential (primary) hypertension, N18.2 - Chronic kidney disease, stage 2 (mild), N20.0 - Calculus of kidney, N28.1 - Cyst of kidney, acquired, R82.991 - Hypocitraturia Calcium 6 Months I10 - Essential (primary) hypertension, N18.2 - Chronic kidney disease, stage 2 (mild), N20.0 - Calculus of kidney, N28.1 - Cyst of kidney, acquired, R82.991 - Hypocitraturia ANCA Vasculitides Today I10 - Essential (primary) hypertension, N18.2 - Chronic kidney disease, stage 2 (mild), N20.0 - Calculus of kidney, N28.1 - Cyst of kidney, acquired, R82.991 - Hypocitraturia Medications: Refilled potassium citrate ER 20 mEq (2 x 10 mEq (1,080 mg)) PO BID 360 tabs 3RF 90 days R82.991 - Hypocitraturia hydrochlorothiazide 12.5 mg PO DAILY 90 caps 4RF Coding Level of Care Code Est Pt Level 4 (16165) Diagnoses Primary hypertension I10 Hypertension type: primary hypertension Calculus of kidney N20.0 Chronic kidney disease (CKD), stage II (mild) N18.2 Hypocitraturia R82.991 Renal cyst N28.1
[2025-07-19 10:10] VITALS: BP 130/84; PULSE 68; O2SAT 100
== END 2025-07-19 10:24 | disposition home or self-care (01) ==
LOC: HO.HKA 09:52
PROVIDERS: PCP Internal Medicine; Visit Provider Internal Medicine Nephrology
DX: I12.9 Hypertensive chronic kidney disease with stage 1 through stage 4 chronic kidney disease, or unspecified chronic kidney disease (principal); N20.0 Calculus of kidney; N18.2 Chronic kidney disease, stage 2 (mild); R82.991 Hypocitraturia; N28.1 Cyst of kidney, acquired
CPT/HCPCS: 99214

== ENCOUNTER 2025-08-01 11:01 | Outpatient (AMB) | payer OTHER, SELFPAY ==
[2025-08-01 11:11] VITALS: BP 158/92; PULSE 72; O2SAT 97; BMI 48.3
--- NOTE | 2025-08-01 11:11 | A.OFFPC_ITS ---
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 Accompanied by: Self / Same As Patient Allergies oxycodone (From PERCOCET) Allergy (Intermediate, Verified 08/01/25 11:45) ITCHING, rash and itching, itching codeine Allergy (Unknown, Verified 08/01/25 11:45) rash and itching Medication List - Last Reconciled 08/01/25 by Peewee Hoskins MD CPAP (CPAP Machine/Device) 16cm of water gabapentin 100 mg PO BEDTIME hydrochlorothiazide 12.5 mg PO DAILY ketoconazole 2% 1 appl topical DAILY lidocaine 5% 1 patch topical DAILY meloxicam 15 mg PO DAILY PRN minocycline 100 mg PO Q12H phentermine 30 mg PO DAILY 30 days potassium citrate ER 20 mEq (2 x 10 mEq (1,080 mg)) PO BID 90 days simvastatin 40 mg PO BEDTIME 90 days testosterone 30 mg/actuation (1.5 mL) 4 pumps transdermal DAILY tretinoin 0.025% 1 appl topical DAILY Tobacco use date assessed: 08/01/25 Dental Screening Dental Screen Date: 08/01/25 Did you have a dental visit in the last 12 months?: Yes Did you have a dental problem in the last 6 months where you did not have access to dental care?: No Was dental information given to patient?: Patient has dentist HPI 4 month HPI Details Patient comes in today his follow-up visit States that he feels okay He denies any headaches or dizziness Denies any chest pains, no shortness of breath No nausea/vomiting, no abdominal pain No change in bowel habits noted He was supposed to get his follow up labs done prior to his appointment today but they were not done He did have some labs done for nephrology (Dr. Canchola) a couple of weeks ago but these were limited to his specialty and did not include his fasting lipids and other labs that we check routinely Patient states that he even emphasized to the lab when he was there to make sure the labs for both Dr. Canchola and myself will be done and he was advised that they will so he is very upset today that his labs were not done PFSH Medical History Internal derangement of right shoulder Calculus of kidney Morbid obesity with BMI of 45.0-49.9, adult Serum calcium elevated Left shoulder tendinitis Lumbar disc disease with radiculopathy Obstructive sleep apnea Lumbar degenerative disc disease Empty sella Erectile dysfunction Benign essential hypertension Pure hypercholesterolemia Hypogonadism in male Surgical History History of colonoscopy History of surgery History of medial meniscus repair of right knee History of rotator cuff surgery History of removal of cyst History of lithotripsy History of umbilical hernia repair History of appendectomy Family History Father Liver cancer Morbidly obese Mother Hypertension Diabetes Asthma Social History Housing: Apartment Alcohol intake: never Patient Tobacco Use Status: Never used Tobacco e-Cigarette/Vaping Use: Never Used Second Hand Smoke Exposure: Yes service: No Current occupational status: unemployed 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 Depression Screening Interpretation: Negative Depression Screening Done: Yes Source: Developed by Drs. Riaz Phan, Kaylin Lewis, Marshall Lugo and colleagues, with an educational jaciel from [employer]. Thrive Questionnaire Date Thrive assessed: 03/21/25 I am a: Patient What is your living situation today?: I have a steady place to live Within the past 12 months, did the food you bought not last and you didn't have the money to get more?: I choose not to answer this question Within the past 12 months, did you worry whether your food would run out before you got money to buy more?: I choose not to answer this question Do you have trouble paying for medicines?: Yes Do you have trouble getting transportation to medical appointments?: No Do you have trouble paying your heating and electricity bill?: I choose not to answer this question Do you have trouble taking care of your child, family member or friend?: I choose not to answer this question Do you have trouble with day-to-day activities such as bathing, preparing meals, shopping, managing finances, etc.?: I choose not to answer this question Are you currently unemployed and looking for a job?: I choose not to answer this question Are you interested in more education?: No Please select the resources that you would like help with: None Currently or been in a relationship where the following occur: I choose not to answer THRIVE Score: 0 AUDIT C Alcohol Use Questionnaire (AUDIT-C) 1. How often do you have a drink containing alcohol?: Never 3. How often do you have six or more drinks on one occasion?: Never Total Score: 0 Score Reviewed/Action Taken: Yes MICHELLE-7 AMB Questionnaire MICHELLE-7 Date MICHELLE - 7 assessed: 03/21/25 Source: Developed by Drs. Riaz Phan, Kaylin Lewis, Marshall Lugo and colleagues, with an educational jaciel from [employer]. Review of Systems Const Denies chills, Denies fatigue, Denies fever(s) and Denies headache(s) ENT Denies dysphagia, Denies dizziness, Denies otalgia, Denies headache(s), Denies neck pain, Denies odynophagia and Denies sore throat Card Denies chest pain, Denies irregular heart rhythm, Denies palpitations and Denies dyspnea Resp Denies chest congestion, Denies cough, Denies dyspnea and Denies wheezing GI Denies abdominal pain, Denies constipation, Denies dysphagia, Denies heartburn, Denies diarrhea, Denies nausea, Denies odynophagia and Denies vomiting Denies hematuria, Denies difficulty urinating, Denies dysuria and Denies urinary frequency Musc Reports back pain (over the lower back - chronic), Denies arthralgias and Denies neck pain Skin/Breast Denies rash Neuro Denies dizziness, Denies headache(s) and Denies paresthesias Endo Denies fatigue and Denies palpitations Aller/Immun Denies wheezing Physical exam (Primary Care) Vital Signs: Last Vital Signs Pulse 72 08/01/25 11:11 BP 158/92 H 08/01/25 11:11 Pulse Ox 97 08/01/25 11:11 Oxygen Delivery Method Room Air 08/01/25 11:11 BMI result Body Mass Index 48.3 Tobacco/Smoking Status: Tobacco use Status Tobacco use date assessed 08/01/25 08/01/25 11:12 Patient Tobacco Use Status Never used Tobacco 08/01/25 11:12 e-Cigarette/Vaping Use Never Used 08/01/25 11:12 Depression Screening Interpretation: Negative Thrive Assessment: Date of Thrive Assessment Date Thrive assessed 03/21/25 08/01/25 11:12 Currently or been in a relationship where the following occur: I choose not to answer Const General: no acute distress and alert HENMT Ears: TM's normal bilaterally and EAC's normal Throat: Yes posterior oropharynx normal and Yes tonsils normal (no TP congestion) Neck Neck: Yes supple and No lymphadenopathy Thyroid: Thyroid normal Resp Auscultation: clear to auscultation bilaterally, no rales and no wheezes Cardio Rate: regular rate Rhythm: regular rhythm Heart sounds: no murmurs GI Palpation (GI): Soft to palpation and nontender Auscultation: normal bowel sounds General: Yes no CVA tenderness Back/Spine/Pelvis Back: no CVA tenderness Thoracic/Lumbar Spine: lumbar spinal tenderness Skin Rashes: no rashes Extrem General: Yes no clubbing, cyanosis or edema Results Reviewed Results Reviewed: Laboratory Tests 06/24/25 07/19/25 11:13 09:30 Sodium 140 Potassium 4.5 Creatinine 1.38 Estimated GFR 55 Calcium 9.6 Prostate Specific Ag 1.01 Total Testosterone 989 Ur Specific [place] 1.015 Urine Protein 30 (1+) H Urine Glucose (UA) Negative Urine Blood Trace H Urine Nitrite Negative Ur Leukocyte Esterase Negative Coding Level of Care Code Est Pt Level 4 (92100) Diagnoses Pure hypercholesterolemia E78.00 Benign essential hypertension I10 Renal insufficiency N28.9 Obstructive sleep apnea G47.33 Degeneration of intervertebral disc of lumbar region with discogenic back pain M51.360 Disc-related pain type: discogenic back pain only Complete tear of right rotator cuff, unspecified whether traumatic M75.121 Rotator cuff tear trauma status: unspecified whether traumatic Hypogonadism in male E29.1 Other male erectile dysfunction N52.8 Erectile dysfunction type: due to other cause Nephrolithiasis N20.0 Morbid obesity with BMI of 45.0-49.9, adult E66.01; Z68.42 Assessment & Plan Assessment & Plan (1) Pure hypercholesterolemia: Code(s): E78.00 - Pure hypercholesterolemia, unspecified Category: Medical Plan: Results of his labs done a couple of weeks ago reviewed and discussed with patient but these did not include his fasting lipid profile Patient states that he will try to go to the lab and get these done tomorrow morning Reinforced low-cholesterol diet Continue Simvastatin 40 mg QD Will recheck his labs and fasting lipids again in 4 months for follow up (2) Benign essential hypertension: Code(s): I10 - Essential (primary) hypertension Category: Medical Plan: Reinforced low sodium diet - goal is systolic BP of 120 mm or less Continue HCTZ 12.5 mg QD He was also on Lisinopril 5 mg QD in the past but somehow stopped taking this last year - patient is not sure why or how Nephrology eventually switched him from his previous Rx of Amlodipine to HCTZ as his serum calcium was normal Patient is again reminded to continue monitoring his blood pressure regularly Follow up with nephrology as scheduled (3) Renal insufficiency: Code(s): N28.9 - Disorder of kidney and ureter, unspecified Plan: His renal function declined last August (2023) - he was in early stage 3 CKD at the time but his GFR appears to have improved since and he is now back to his baseline on his recent labs We will continue to monitor his renal function closely Follow up with nephrology as scheduled (4) Obstructive sleep apnea: Comment: CPAP Code(s): G47.33 - Obstructive sleep apnea (adult) (pediatric) Category: Medical Plan: Repeat sleep study with CPAP titration done back in 2020 revealed (+) severe obstructive sleep apnea requiring 16 cm of water pressure Patient is advised to use his CPAP device every night regularly when sleeping but patient states that he has not used his CPAP device over the past couple of years now He was supposed to follow up with Sleep Medicine but it does not look like he has seen Sleep Medicine at all over the past few years (5) Lumbar degenerative disc disease: Code(s): M51.36 - Other intervertebral disc degeneration, lumbar region Category: Medical Qualifiers: Disc-related pain type: discogenic back pain only Qualified Code(s): M51.360 - Other intervertebral disc degeneration, lumbar region with discogenic back pain only Plan: Reinforced activity and weight-lifting restrictions to help manage his lower back symptoms Lumbar spine MRI was previously ordered but this was denied by his health insurance Continue Gabapentin 100 mg Q HS, Tramadol 50 mg PRN and Cyclobenzaprine 5 mg Q HS PRN; he is also on Meloxicam (not sure what dose but likely 15 mg QD) prescribed by [facility] He continues to work with physical therapy as well to help manage his low back pain Follow up with [facility] as scheduled for his chronic pain management (6) Complete rotator cuff tear or rupture of right shoulder, not specified as traumatic: Code(s): M75.121 - Complete rotator cuff tear or rupture of right shoulder, not specified as traumatic Category: Medical Qualifiers: Rotator cuff tear trauma status: unspecified whether traumatic Qualified Code(s): M75.121 - Complete rotator cuff tear or rupture of right shoulder, not specified as traumatic Plan: Resolved - S/P arthroscopic shoulder surgery and tendon repair with Dr. Baron in April 2023, with improvement of his shoulder symptoms Follow up with orthopedics as scheduled or as needed (7) Hypogonadism in male: Code(s): E29.1 - Testicular hypofunction Category: Medical Plan: Continue Testosterone solution 30 mg /ACT 2 pumps and apply on skin once a day in the morning transdermally Per endocrinology report, patient is eugonadal and doing well on his current regimen Follow-up with endocrinology/urology as scheduled (8) Erectile dysfunction: Code(s): N52.9 - Male erectile dysfunction, unspecified Category: Medical Qualifiers: Erectile dysfunction type: due to other cause Qualified Code(s): N52.8 - Other male erectile dysfunction Plan: Patient has hypogonadism and is currently on treatment with testosterone replacement therapy for this with endocrinology and urology He was previously prescribed Sildenafil and subsequently Tadalafil but states that his insurance would not cover either Rx and he is just managing his symptoms on his own for now (9) Nephrolithiasis: Code(s): N20.0 - Calculus of kidney Category: Medical Plan: Patient currently remains asymptomatic Renal US done in December 2023 showed (+) 4 mm nonobstructing right renal calculus is seen. No left renal calculus is seen and no hydronephrosis is noted bilaterally Follow up US done in June 2024 showed similar findings Follow up with urology as scheduled (10) Morbid obesity with BMI of 45.0-49.9, adult: Code(s): E66.01 - Morbid (severe) obesity due to excess calories; Z68.42 - Body mass index [BMI] 45.0-49.9, adult Category: Medical Plan: Reinforced diet/exercise as tolerated/ lose weight He has been taking Phentermine 30 mg Q AM to help with his weight (is currently off the Rx for the next couple of months after being on it for about 3 months) He continues to decline recommendation to refer him to weight management - states that he will call for referral if he feels he needs to see them Plan Follow up in 4 months Orders: Orders UA CC w/rflx Micro + Cult 4 Months R30.0 - Dysuria Comprehensive [place]. Panel Fast 4 Months E78.00 - Pure hypercholesterolemia, unspecified Lipid Panel 4 Months E78.00 - Pure hypercholesterolemia, unspecified Hemoglobin A1c 4 Months R73.01 - Impaired fasting glucose TSH reflex Free T4 4 Months E78.00 - Pure hypercholesterolemia, unspecified Vitamin D 25-OH Total 4 Months E55.9 - Vitamin D deficiency, unspecified Complete Blood Count Auto Diff 4 Months D64.9 - Anemia, unspecified
--- OUTSIDE RECORDS SUMMARY | 2025-08-01 15:16 | XMS_ITS | Clinical Summary ---
Author Organization [facility] Address [address] [place] [address] Phone Care Team Providers Care Furnace Erector Name Role Phone Peewee Hoskins MD Primary Care Provider [phone]- [phone] Allergies Active Allergy Reactions Criticality Noted Date [...] 2023 Influenza Vaccine (#1) 2025 Insurance [facility] Medicaid * Guarantor: Ronald Crump Account Type Relation to Patient Date of Phone Billing Address Personal/Family Self 1975 [address] [place] [address] [facility] Medicaid Care Teams Furnace Erector Relationship Specialty Start Date End Date Peewee Hoskins MD [address] [place], [place] [phone] PCP - General Internal Medicine 09/15/22
== END 2025-08-01 12:09 | disposition home or self-care (01) ==
LOC: HO.HMCH 11:02
PROVIDERS: PCP Internal Medicine; Visit Provider Internal Medicine
DX: E78.00 Pure hypercholesterolemia, unspecified (principal); I10 Essential (primary) hypertension; N28.9 Disorder of kidney and ureter, unspecified; G47.33 Obstructive sleep apnea (adult) (pediatric); M51.360 Other intervertebral disc degeneration, lumbar region with discogenic back pain only; M75.121 Complete rotator cuff tear or rupture of right shoulder, not specified as traumatic; E29.1 Testicular hypofunction; N52.8 Other male erectile dysfunction; N20.0 Calculus of kidney; E66.01 Morbid (severe) obesity due to excess calories; Z68.42 Body mass index [BMI] 45.0-49.9, adult

== ENCOUNTER → 2025-08-01 11:01 | Outpatient (BNVA) | payer OTHER, SELFPAY | PROVIDERS: PCP Internal Medicine; Visit Provider Internal Medicine | DX: E78.00 Pure hypercholesterolemia, unspecified (principal); I10 Essential (primary) hypertension; N28.9 Disorder of kidney and ureter, unspecified; G47.33 Obstructive sleep apnea (adult) (pediatric); M51.360 Other intervertebral disc degeneration, lumbar region with discogenic back pain only; M75.121 Complete rotator cuff tear or rupture of right shoulder, not specified as traumatic; E29.1 Testicular hypofunction; N52.8 Other male erectile dysfunction; N20.0 Calculus of kidney; E66.01 Morbid (severe) obesity due to excess calories; Z68.42 Body mass index [BMI] 45.0-49.9, adult; Z79.899 Other long term (current) drug therapy | CPT/HCPCS: 99212 ==

== ENCOUNTER 2025-08-03 09:21 | Outpatient (REF) | payer OTHER, SELFPAY ==
--- OUTSIDE RECORDS SUMMARY | 2025-08-03 09:24 | XMS_ITS | Clinical Summary ---
Author Organization [facility] Address [address] [place] [address] Phone Care Team Providers Care Car Tracer Name Role Phone Peewee Hoskins MD Primary Care Provider [phone]- [phone] Allergies Active Allergy Reactions Criticality Noted Date [...] Sigmoidoscopy 2023 Influenza Vaccine (#1) 2025 Insurance [facility] Medicaid * Guarantor: Ronald Crump Account Type Relation to Patient Date of Phone Billing Address Personal/Family Self 1975 [address] [place] [address] [facility] Medicaid Care Teams Car Tracer Relationship Specialty Start Date End Date Peewee Hoskins MD [address] [place], [place] [id number] PCP - General Internal Medicine 09/15/22
[2025-08-03 09:41] LABS: MANUAL DIFF FLAG NO
[2025-08-03 11:37] LABS: Hematocrit 51.3 % (42.0-52.0); Hemoglobin 17.3 g/dl (14.0-18.0); Imm Gran Abs Auto 0.04 X10*3/uL (0.00-0.03); Imm Gran Pct Auto 0.5 % (0.0-0.4); Lymphocytes Absolute Auto 1.7 X10*3/uL (1.2-4.9); Mean Corpuscular HGB Conc 33.7 g/dl (31.0-36.0); Mean Corpuscular Hemoglobin 29.3 pg (27.0-33.0); Mean Corpuscular Volume 86.8 fL (80.0-98.0); NRBC Abs Auto 0.000 X10*3/uL (0.0-0.012); NRBC Pct Auto 0.0 /100WBC (0.0-0.2); Platelet Count 248 X10*3/uL (160-400); Red Blood Count 5.91 X10*6/uL (4.60-5.80); White Blood Count 7.8 X10*3/uL (4.8-10.8)
[2025-08-03 11:41] LABS: Appearance Urine Clear; Glucose Urine UA Negative (Negative); PH 6.0 (5.0-9.0); Specific Gravity - Urine 1.015 (1.005-1.025); UMIC TRIGGER UA YES
[2025-08-03 12:03] LABS: Alanine Aminotransferase 47 U/L (0-40); Albumin Level 4.5 g/dL (3.5-5.0); Alkaline Phosphatase 67 U/L (39-117); Anion Gap 14 (12-20); Aspartate Amino Transferase 38 U/L (5-37); Blood Urea Nitrogen 15 mg/dL (9-16); Calcium 9.4 mg/dL (8.4-10.2); Carbon Dioxide 27 mmol/L (22-29); Chloride 103 mmol/L (96-108); Cholesterol 140 mg/dL (<200); Estimated Glomerular Filt Rate > 60; HDL Cholesterol 36 mg/dL (>40); Potassium 4.2 mmol/L (3.3-5.1); Sodium 140 mmol/L (135-145); Total Protein 7.0 g/dL (6.5-8.0); Triglycerides 127 mg/dL (<150)
[2025-08-05 22:28] LABS: Proteinase 3 PR3 Antibodies <1.0 AI
== END 2025-08-03 09:22 | disposition home or self-care (01) ==
LOC: HO.LAB 09:21
PROVIDERS: Internal Medicine Nephrology; PCP Internal Medicine; Visit Provider Internal Medicine
DX: Z01.84 Encounter for antibody response examination (principal); I12.9 Hypertensive chronic kidney disease with stage 1 through stage 4 chronic kidney disease, or unspecified chronic kidney disease; N18.2 Chronic kidney disease, stage 2 (mild); D63.1 Anemia in chronic kidney disease; R73.01 Impaired fasting glucose; E78.00 Pure hypercholesterolemia, unspecified; N20.0 Calculus of kidney; N28.1 Cyst of kidney, acquired; R82.991 Hypocitraturia
CPT/HCPCS: 36415; 80053; 80061; 81001; 83036; 85025; 86021